=== PATIENT | female | born 1935 | race Caucasian/White ===

== ENCOUNTER → 2017-02-21 | Outpatient (CLI) | payer MEDICARE ==
--- NOTE | 2017-02-21 09:37 | CT ---
EXAMINATION TYPE: CT brain wo con DATE OF EXAM: 02/21/2017 COMPARISON: NONE HISTORY: Mild cognitive impairment CT DLP: [address] of the brain was performed. The ventricles, basal cisterns and sulci overlying the cerebral convexities demonstrate mild enlargem ent. There is no evidence for intracranial hemorrhage or sulcal effacement. There is decreased attenuation about the periventricular white matter and deep white matter of both c erebral hemispheres, compatible with chronic small vessel ischemia. Differential diagnosis does inclu de demyelination. No mass effects are seen.No midline shift. Osseous calvarium is intact. If symptoms persist consider MRI. IMPRESSION: 1. Age related atrophic and chronic small vessel ischemic change without acute intracranial process s een at this time.
== END | disposition home or self-care (01) ==
LOC: RADCTMAIN 09:04
PROVIDERS: ATTEND Internal Medicine
DX: G31.9 Degenerative disease of nervous system, unspecified (principal); I67.82 Cerebral ischemia
CPT/HCPCS: 70450

== ENCOUNTER 2018-03-22 11:16 | Inpatient (IN) | payer MEDICARE ==
[2018-03-22] MEDS ORDERED: SODIUM CHLORIDE 0.9% 1,000 ML IV STA (11:28)
[2018-03-22] MEDS ORDERED: ONDANSETRON 4 MG/2 ML VIAL IVP STA (11:28)
[2018-03-22] MEDS ORDERED: PANTOPRAZOLE 40 MG/10 ML VIAL IVP STA (11:29)
--- NOTE | 2018-03-22 12:18 | ED ---
General Adult HPI - General Chief complaint: Nausea/Vomiting/Diarrhea Stated complaint: Vomiting, Weakness, dehydrated Time Seen by Provider: 03/22/18 11:28 Source: patient, family, RN notes reviewed, old records reviewed Mode of arrival: wheelchair - History of Present Illness Initial comments: This is an 82-year-old female the ER for evaluation of weakness. Patient's poor strain significant underlying dementia, family states patient has not eaten activity level is in minimal for the last 5 days. No appetite. Patient herself complains of an upset stomach denies any significant pain. Possible history of recent weight loss. Patient has history of pancreatic CVA as well as history of pancreatitis. No fevers known. Some loose stools with no vomiting. - Related Data Home Medications Medication Instructions Recorded Confirmed Glimepiride [Amaryl] 4 mg PO BID 03/22/18 03/22/18 Levothyroxine Sodium [Synthroid] 50 mcg PO DAILY 03/22/18 03/22/18 Losartan [Cozaar] 25 mg PO DAILY 03/22/18 03/22/18 metFORMIN HCL ER [Glucophage Xr] 1,000 mg PO BID 03/22/18 03/22/18 Allergies Allergy/AdvReac Type Severity Reaction Status Date / Time tetanus and diphtheria Allergy Unknown Verified 03/22/18 12:12 toxoids Review of Systems ROS Statement: Those systems with pertinent positive or pertinent negative responses have been documented in the HPI. ROS Other: All systems not noted in ROS Statement are negative. Past Medical History Past Medical History: Dementia, Diabetes Mellitus History of Any Multi-Drug Resistant Organisms: None Reported Additional Past Surgical History / Comment(s): COLON SX POST CANCER, UTERIN CANCER HX Past Psychological History: No Psychological Hx Reported Smoking Status: Former smoker Past Alcohol Use History: None Reported Past Drug Use History: None Reported General Exam Limitations: altered mental status General appearance: alert, lethargic Head exam: Present: atraumatic, normocephalic, normal inspection Eye exam: Present: normal appearance, PERRL, EOMI. Absent: scleral icterus, conjunctival injection, periorbital swelling ENT exam: Present: normal exam, mucous membranes dry Neck exam: Present: normal inspection. Absent: tenderness, meningismus, lymphadenopathy Respiratory exam: Present: normal lung sounds bilaterally. Absent: respiratory distress, wheezes, rales, rhonchi, stridor Cardiovascular Exam: Present: regular rate, normal rhythm, normal heart sounds. Absent: systolic murmur, diastolic murmur, rubs, gallop, clicks GI/Abdominal exam: Present: soft, normal bowel sounds. Absent: distended, tenderness, guarding, rebound, rigid Extremities exam: Present: normal inspection, full ROM, normal capillary refill. Absent: tenderness, pedal edema, joint swelling, calf tenderness Back exam: Present: normal inspection Neurological exam: Present: alert, oriented X3, CN II-XII intact Psychiatric exam: Present: normal affect, normal mood Skin exam: Present: warm, dry, intact, normal color. Absent: rash Course Vital Signs 03/22/18 03/22/18 11:19 14:04 Temperature 97.8 F 97.1 F L Pulse Rate 60 62 Respiratory 18 16 Rate Blood Pressure 108/57 129/58 O2 Sat by Pulse 99 96 Oximetry - Reevaluation(s) Reevaluation #1: 03/22/18 14:54 Patient with no significant improvement in symptoms despite IV hydration here in the ER \Medical records thoroughly reviewed Medical Decision Making - Medical Decision Making 82 female the ER for evasive weakness, patient is positive urinary tract infection, multiple N [place] secondary to malnutrition. Patient be admitted for continued monitoring of oral intake, treatment of urinary tract infection - Lab Data Result diagrams: 03/22/18 14:00 03/22/18 14:00 Lab Results 03/22/18 03/22/18 03/22/18 Range/Units 13:33 14:00 14:00 WBC 9.1 (3.8-10.6) k/uL RBC 3.74 L (3.80-5.40) m/uL Hgb 12.1 (11.4-16.0) gm/dL Hct 36.6 (34.0-46.0) % MCV 97.8 (80.0-100.0) fL MCH 32.3 (25.0-35.0) pg MCHC 33.0 (31.0-37.0) g/dL RDW 12.7 (11.5-15.5) % Plt Count 186 (150-450) k/uL Neutrophils % 79 % Lymphocytes % 10 % Monocytes % 7 % Eosinophils % 2 % Basophils % 0 % Neutrophils # 7.3 (1.3-7.7) k/uL Lymphocytes # 0.9 L (1.0-4.8) k/uL Monocytes # 0.7 (0-1.0) k/uL Eosinophils # 0.2 (0-0.7) k/uL Basophils # 0.0 (0-0.2) k/uL Sodium 132 L (137-145) mmol/L Potassium 4.1 (3.5-5.1) mmol/L Chloride 103 (98-107) mmol/L Carbon Dioxide 19 L (22-30) mmol/L Anion Gap 10 mmol/L BUN 34 H (7-17) mg/dL Creatinine 1.07 H (0.52-1.04) mg/dL Est GFR (CKD-EPI)AfAm 57 (>60 ml/min/1.73 sqM) Est GFR (CKD-EPI)NonAf 49 (>60 ml/min/1.73 sqM) Glucose 189 H (74-99) mg/dL Calcium 8.0 L (8.4-10.2) mg/dL Phosphorus 3.1 (2.5-4.5) mg/dL Magnesium 1.4 L (1.6-2.3) mg/dL Total Bilirubin 0.6 (0.2-1.3) mg/dL AST 57 H (14-36) U/L ALT 31 (9-52) U/L Alkaline Phosphatase 56 (38-126) U/L Total Protein 6.3 (6.3-8.2) g/dL Albumin 3.3 L (3.5-5.0) g/dL Lipase 96 (23-300) U/L Urine Color Yellow Urine Appearance Cloudy H (Clear) Urine pH 5.5 (5.0-8.0) Ur Specific [place] 1.006 (1.001-1.035) Urine Protein Trace H (Negative) Urine Glucose (UA) Negative (Negative) Urine Ketones Negative (Negative) Urine Blood Negative (Negative) Urine Nitrite Positive H (Negative) Urine Bilirubin Negative (Negative) Urine Urobilinogen <2.0 (<2.0) mg/dL Ur Leukocyte Esterase Large H (Negative) Urine WBC 49 H (0-5) /hpf Urine WBC Clumps Moderate H (None) /hpf Ur Squamous Epith Cells <1 (0-4) /hpf Amorphous Sediment Occasional H (None) /hpf Urine Bacteria Few H (None) /hpf Urine Mucus Rare H (None) /hpf Acetone, Qual Negative (Negative) - Radiology Data Radiology results: report reviewed (X-ray abdominal series the chest is negative ), image reviewed Disposition Clinical Impression: Dehydration, UTI (urinary tract infection), Weakness Disposition: ADMITTED IP TO THIS [facility] Condition: Fair Is patient prescribed a controlled substance at d/c from ED?: No Referrals: Kyle Villar MD [Primary Care Provider] - 1-2 days
--- NOTE | 2018-03-22 12:45 | XR ---
EXAMINATION TYPE: XR abdomen acute w cxr DATE OF EXAM: 03/22/2018 CLINICAL HISTORY: Lethargy since March 18 with nausea and pain TECHNIQUE: Single frontal view of chest is obtained. Supine and upright views of the abdomen are acq uired. COMPARISON: None. FINDINGS: There is chronic parenchymal change without suspicious focal airspace opacity, pleural effu kimber, or pneumothorax seen bilaterally. Cardiac silhouette size appears upper limits of normal with atherosclerotic aorta. Osseous structures are somewhat demineralized. Gas is noted in nondistended stomach and small bowel loops. Additional gas is seen in nondistended co nasrin along the periphery. Cholecystectomy clips are present. Vascular calcification overlies the pelvi s extending into groin regions. There is asymmetric narrowing of the right sacroiliac joint. No pneum operitoneum is identified. IMPRESSION: 1. Chronic changes without acute pulmonary process. 2. Overall nonspecific but likely nonobstructive bowel gas pattern.
[2018-03-22 13:59] LABS: Amorphous Sediment,Urine Occasional /hpf; Appearance,Urine Cloudy (Clear); Bacteria,Urine Few /hpf; Bilirubin,Urine Negative (Negative); Blood,Urine Negative (Negative); Color,Urine Yellow; Glucose,Urine (UA) Negative (Negative); Ketones,Urine Negative (Negative); Leukocyte Esterase,Urine Large (Negative); Mucus,Urine Rare /hpf; Nitrite,Urine Positive (Negative); PH, Urine 5.5 (5.0-8.0); Protein,Urine Trace (Negative); Specific Gravity,Urine 1.006 (1.001-1.035); Squamous Epithelial Cell,Urine <1 /hpf (0-4); Urobilinogen,Urine <2.0 mg/dL (<2.0); WBC,Urine 49 /hpf (0-5)
[2018-03-22 14:10] LABS: Basophils % (A) 0 %; Eosinophils # (A) 0.2 k/uL (0-0.7); Eosinophils % (A) 2 %; HCT 36.6 % (34.0-46.0); HGB 12.1 gm/dL (11.4-16.0); Lymphocytes # (A) 0.9 k/uL (1.0-4.8); Lymphocytes % (A) 10 %; MCH 32.3 pg (25.0-35.0); MCV 97.8 fL (80.0-100.0); Mean Platelet Volume 7.7; Monocytes # (A) 0.7 k/uL (0-1.0); Monocytes % (A) 7 %; Neutrophils # (A) 7.3 k/uL (1.3-7.7); Neutrophils % (A) 79 %; Platelet Count 186 k/uL (150-450); RBC 3.74 m/uL (3.80-5.40); RDW 12.7 % (11.5-15.5); WBC 9.1 k/uL (3.8-10.6)
[2018-03-22 14:24] LABS: ALT 31 U/L (9-52); AST 57 U/L (14-36); Albumin 3.3 g/dL (3.5-5.0); Alkaline Phosphatase 56 U/L (38-126); Anion Gap 10 mmol/L; Blood Urea Nitrogen 34 mg/dL (7-17); Carbon Dioxide 19 mmol/L (22-30); Chloride 103 mmol/L (98-107); Glucose 189 mg/dL (74-99); Lipase 96 U/L (23-300); Magnesium 1.4 mg/dL (1.6-2.3); Phosphorus 3.1 mg/dL (2.5-4.5); Potassium 4.1 mmol/L (3.5-5.1); Sodium 132 mmol/L (137-145); Total Bilirubin 0.6 mg/dL (0.2-1.3); Total Protein 6.3 g/dL (6.3-8.2)
[2018-03-22] MEDS ORDERED: cefTRIAXone 2,000 MG in SODIUM CHLORIDE 0.9% 100 ML IVPB STA (14:41)
[2018-03-22] MEDS ORDERED: SODIUM CHLORIDE 0.9% 1,000 ML IV ONE (14:51)
[2018-03-22] MEDS: MAGNESIUM SULFATE-D5W PMX 1 GM in DEXTROSE/WATER 1 100ML.BAG IVPB SCH ×2 (15:42→16:51)
[2018-03-22 15:48] LABS: Partial Thromboplastin Time 22.2 sec (22.0-30.0); Prothrombin Time 9.9 sec (9.0-12.0)
[2018-03-22 16:11] LABS: Creatine Kinase MB 4.1 ng/mL (0.0-2.4)
[2018-03-22 16:22] LABS: Troponin I 18.2 ng/mL (0.000-0.034)
[2018-03-22 16:52] LABS: T4, Free (Free Thyroxine) 0.55 ng/dL (0.78-2.19)
[2018-03-22] MEDS ORDERED: ACETAMINOPHEN TAB 325 MG TAB PO PRN (17:01)
[2018-03-22] MEDS ORDERED: ASPIRIN 81 MG PO STA (17:11)
[2018-03-22] MEDS ORDERED: HEPARIN SODIUM,PORCINE 5,000 UNIT/ML 1 ML VIAL IV ONE (17:12)
[2018-03-22] MEDS ORDERED: HEPARIN SODIUM,PORCINE 5,000 UNIT/ML 1 ML VIAL IV PRN (17:12)
[2018-03-22] MEDS ORDERED: ONDANSETRON 4 MG/2 ML VIAL IVP PRN (17:14)
[2018-03-22] MEDS ORDERED: NALOXONE 0.4 MG/ML 1 ML VIAL IV PRN (17:14)
[2018-03-22] MEDS ORDERED: DOCUSATE 100 MG CAP PO PRN (17:14)
[2018-03-22] MEDS ORDERED: MAGNESIUM HYDROXIDE 2,400 MG/10 ML CUP PO PRN (17:14)
[2018-03-22] MEDS ORDERED: MAG HYDROX/AL HYDROX/SIMETH 30 ML CUP PO PRN (17:14)
--- NOTE | 2018-03-22 17:43 | P.HPIM ---
History of Present Illness Chief Complaint: Generalized weakness and epigastric discomfort and nausea This is a 82-year-old female who has history of long-standing type 2 diabetes mellitus, hypothyroidism, cognitive impairment, hypertension who presented with a chief complaint of generalized weakness and anorexia for 5 days. Patient is very poor historian due to memory deficits and most of the history obtained interviewing the patient and actually her at the bedside. One week prior to this presentation patient was in usual state of health energetic and she was visiting out of town. Upon return 5 days prior to this admission she suddenly started feeling tired, lethargic, sleepy, no energy and lost all her appetite. 2-3 days prior to this admission she started developing some epigastric discomfort, not a bryan pain but more nausea. He described his discomfort more like nausea that was not provoked by anything in particular. She did feel that food would somewhat make it worse but she cannot really pinpoint any particular provoking factor. She did not notice any alleviating or alleviating factors for her nausea. He did not throw up. She did not notice any particular abdominal pain. She denied in the diarrhea or constipation. Last bowel movement was yesterday. Denies any presence of red blood in stool or melena. notices that she is very tired and sleeps most of the day. There was no chest pain or shortness of breath. There was no any chills or fever. No back pain no dysuria or hemorrhage sure he. No headache or vision changes or focal weakness. Patient been a stable regimen with metformin and Amaryl levothyroxine and losartan. None of this medications have been recently changed. There was no episode of hypoglycemia reported. In emergency department initial blood work was essentially unremarkable for CBC. Metabolic panel showed hypomagnesemia and TSH of 37. UA was notable for significant pyuria positive nitrates glucoside esterase and many bacteria. EKG showed ST elevations in inferior leads 2, [address] some [address] segment depressions in aVL and 1. Patient stated that she never had any chest pain or any history of cardiac problems and there is no reported previous EKGs or stress test or catheterization. Troponin was checked and came back 18. Stat 2- D echo was performed at the bedside showing EF of about 20-25%. Patient was then admitted for further evaluation Review of Systems REVIEW OF SYSTEMS: CONSTITUTIONAL: She denies any recent weight changes, fevers or night sweats. DERMATOLOGIC: She denies any rashes. HEENT: Eyes: She has had no changes in her vision. No eye pain. No discharge. ENT: She had no hearing changes, no throat pain, no sinus difficulties. No hoarseness. CARDIOVASCULAR: She denies any chest pain or abnormal heart beats, or any swelling in her ankles or feet. RESPIRATORY: No wheezing or coughing. GASTROINTESTINAL: As noted above in history of present illness. GENITOURINARY: She denies any urinary urgency, frequency or burning, and there has been no blood in her urine. She has no flank pain. She has also had no vaginal discharge or bleeding. MUSCULOSKELETAL: She notes full range of motion of all her joints without pain or swelling. ENDOCRINE: She denies any heat or cold intolerance or excessive thirst or urination. NEUROLOGICAL: Currently, no headache. She has no vision changes, or fainting. No numbness or tingling. PSYCHIATRIC: As noted above in past medical history. 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 benign tunor removed from stomach, colonoscopy, egd, whipple procedure Past Anesthesia/Blood Transfusion Reactions: Motion Sickness Smoking Status: Former smoker - Past Family History Father Family Medical History: Unable to Obtain Additional Family Medical History / Comment(s): in his 90's Mother Family Medical History: Unable to Obtain Additional Family Medical History / Comment(s): in her 70's Medications and Allergies Home Medications Medication Instructions Recorded Confirmed Type Glimepiride [Amaryl] 4 mg PO BID 03/22/18 03/22/18 History Levothyroxine Sodium [Synthroid] 50 mcg PO DAILY 03/22/18 03/22/18 History Losartan [Cozaar] 25 mg PO DAILY 03/22/18 03/22/18 History metFORMIN HCL ER [Glucophage Xr] 1,000 mg PO BID 03/22/18 03/22/18 History Allergies Allergy/AdvReac Type Severity Reaction Status Date / Time tetanus and diphtheria Allergy Unknown Verified 03/22/18 12:12 toxoids Physical Exam Vitals: Vital Signs Temp Pulse Resp BP Pulse Ox 03/22/18 16:51 97.6 F 56 L 18 130/60 99 03/22/18 14:04 97.1 F L 62 16 129/58 96 03/22/18 11:19 97.8 F 60 18 108/57 99 Intake and Output 03/22/18 03/22/18 03/22/18 06:59 14:59 22:59 Other: Weight 47.627 kg Vital Signs: I have reviewed the vital signs. GENERAL: Well-nourished, Well-developed , no apparent distress, cooperative Eyes: PERRL, extraoculry movements intact, clear conjunctiva Head: : Atraumatic external nose and ears, oropharyngeal mucosa is moist without lesions or exudates Neck: Symmetric, trachea midline, No thyromegaly, no masses or neck vain pulsation, no neck rigidity CVS: +S1/S2, No murmurs or gallops. Peripheral pulses 2+ and equal in all extremities. RESP: Unlabored respiratory effort. Clear to auscultation bilaterally. Abdomen: Bowel sounds present in all 4 quadrants, Soft to palpation, Nontender/ Nondistended, No hepatosplenomegaly, no hernias or masses, no CVA tnderness Musculoskeletal: Extremities w/o deformity, No cyanosis or clubbing, no joint swelling Skin: Warm, Dry. No rashes or lesions Neuro: dye house helper II-XII grossly intact, motor strenght 5/5 i upper and lower extremities, no clonus, patellar DTRs 2+ and sympetrical Psych: Awake, Alert, & Oriented (AAO) x3 Appropriate mood and affect Results CBC & Chem 7: 03/22/18 14:00 03/22/18 14:00 Labs: Abnormal Lab Results - Last 24 Hours (Table) 03/22/18 03/22/18 03/22/18 Range/Units 13:33 14:00 14:00 RBC 3.74 L (3.80-5.40) m/uL Lymphocytes # 0.9 L (1.0-4.8) k/uL Sodium 132 L (137-145) mmol/L Carbon Dioxide 19 L (22-30) mmol/L BUN 34 H (7-17) mg/dL Creatinine 1.07 H (0.52-1.04) mg/dL Glucose 189 H (74-99) mg/dL Calcium 8.0 L (8.4-10.2) mg/dL Magnesium 1.4 L (1.6-2.3) mg/dL AST 57 H (14-36) U/L Total Creatine Kinase (30-135) U/L CK-MB (CK-2) (0.0-2.4) ng/mL Troponin I (0.000-0.034) ng/mL Albumin 3.3 L (3.5-5.0) g/dL TSH (0.465-4.680) mIU/L Free T4 (0.78-2.19) ng/dL Free T3 pg/mL (2.8-5.3) pg/ml Urine Appearance Cloudy H (Clear) Urine Protein Trace H (Negative) Urine Nitrite Positive H (Negative) Ur Leukocyte Esterase Large H (Negative) Urine WBC 49 H (0-5) /hpf Urine WBC Clumps Moderate H (None) /hpf Amorphous Sediment Occasional H (None) /hpf Urine Bacteria Few H (None) /hpf Urine Mucus Rare H (None) /hpf 03/22/18 03/22/18 03/22/18 Range/Units 15:12 15:12 15:12 RBC (3.80-5.40) m/uL Lymphocytes # (1.0-4.8) k/uL Sodium (137-145) mmol/L Carbon Dioxide (22-30) mmol/L BUN (7-17) mg/dL Creatinine (0.52-1.04) mg/dL Glucose (74-99) mg/dL Calcium (8.4-10.2) mg/dL Magnesium (1.6-2.3) mg/dL AST (14-36) U/L Total Creatine Kinase 205 H (30-135) U/L CK-MB (CK-2) 4.1 H (0.0-2.4) ng/mL Troponin I 18.200 H* (0.000-0.034) ng/mL Albumin (3.5-5.0) g/dL TSH 37.000 H (0.465-4.680) mIU/L Free T4 0.55 L (0.78-2.19) ng/dL Free T3 pg/mL 1.0 L (2.8-5.3) pg/ml Urine Appearance (Clear) Urine Protein (Negative) Urine Nitrite (Negative) Ur Leukocyte Esterase (Negative) Urine WBC (0-5) /hpf Urine WBC Clumps (None) /hpf Amorphous Sediment (None) /hpf Urine Bacteria (None) /hpf Urine Mucus (None) /hpf Chest x-ray: report reviewed Abdominal x-ray: report reviewed Thrombosis Risk Factor Assmnt - DVT/VTE Prophylaxis DVT/VTE Prophylaxis: Pharmacologic Prophylaxis ordered Assessment and Plan Plan: 1. Acute coronary syndrome/ST segment elevation CT This was discussed with Dr. Ledbetter from cardiology Likely completed CT in the subacute phase given the pronounced Q-wave Patient is currently asymptomatic She will be admitted to selective care unit ACS protocol: Aspirin stat and daily Heparin drip, this was discussed with the patient and patient has been in the room or risks and benefits discussed and they were agreeable to proceed, patient denies any history of easy bruising and epistaxis vaginal bleeding blood in stool or blood in her urine No beta blockers for now as she is bradycardic in 50s Low-dose isosorbide Low-dose PEPE inhibitor due to possible decrease heart function preliminary noted on echo Statin Cardiology consultation Stat 2-D echo performed, luminary showing decreased EF 20-25% range Serial troponin Serial CBCs while on heparin Closely monitoring for any signs of bleeding Above plan was discussed with Dr. Ledbetter extensively, I also faxed pertinent EKG to Dr. Ledbetter and discussed with him findings preliminary on echo and troponin results; no plan for immediate catheterization as it seemed that is subacute phase of infarction with performed Q wave 2. Hypothyroidism TSH 37 with generalized symptoms of weakness Most likely due to poor adherence with her home medication which can be due to her memory issues. Also patient was not taking her medication properly she was taking it with food I will restart her home dose and patient her instructed the medication is to be taken on empty stomach. Recheck TSH in 4 weeks 3. Urinary tract infection Ceftriaxone for 3 days Urine culture obtained 4. Type 2 diabetes mellitus on long-term use of oral antidiabetic medications We will hold her metformin and Amaryl Blood glucose checks before meals at bedtime and correctional sliding scale 5. Cognitive impairment Rule out dementia Patient had recently B12 check which was Low normal; Will check methyl malonic acid and she might benefit from other vitamins and micronutrients evaluation given the history of Whipple surgery Dementia work up also to include syphilis screen rest of the work up can be done on outpatient basis including neuropsychologist evaluation 6. Chronic parenchymal lung changes noted in the chest x-ray History of smoking this can be follow-up on outpatient basis. PFTs and high-resolution CAT scan 7. Hypomagnesemia due to poor oral intake Replaced in the emergency department we'll recheck her magnesium keep corrected as needed Patient is a full code Surrogate decision maker is her Ba and with whom I discussed the plan of care at bedside Anticipated length of stay 2 or more midnights Time with Patient: Greater than 30
[2018-03-22] MEDS: HEPARIN SOD,PORK IN 0.45% NACL 25,000 UNIT in 0.45% NACL 1 500ML.BAG IV SCH (17:51)
[2018-03-22] MEDS: ISOSORBIDE MONONITRATE 20 MG TAB PO SCH ×2 (19:38→20:35)
[2018-03-22] MEDS: METOPROLOL TARTRATE 12.5 MG TAB PO SCH (20:35)
[2018-03-22 20:58] LABS: Glucose,Whole Blood 145 mg/dL (75-99)
[2018-03-22] MEDS ORDERED: ATORVASTATIN 40 MG TAB PO SCH (21:00)
[2018-03-23 06:29] LABS: Glucose,Whole Blood 150 mg/dL (75-99)
[2018-03-23] MEDS: LEVOTHYROXINE 50 MCG TAB PO SCH (06:29)
[2018-03-23] MEDS: PANTOPRAZOLE 40 MG TABLET PO SCH (06:29)
[2018-03-23 07:39] LABS: Prothrombin Time 9.6 sec (9.0-12.0)
[2018-03-23 07:42] LABS: Basophils % (A) 0 %; Eosinophils # (A) 0.1 k/uL (0-0.7); Eosinophils % (A) 1 %; HCT 30.2 % (34.0-46.0); Lymphocytes # (A) 0.9 k/uL (1.0-4.8); Lymphocytes % (A) 15 %; MCH 32.4 pg (25.0-35.0); MCHC 32.9 g/dL (31.0-37.0); MCV 98.6 fL (80.0-100.0); Mean Platelet Volume 7.3; Monocytes # (A) 0.4 k/uL (0-1.0); Monocytes % (A) 7 %; Neutrophils # (A) 4.4 k/uL (1.3-7.7); Neutrophils % (A) 75 %; Platelet Count 236 k/uL (150-450); RBC 3.06 m/uL (3.80-5.40); RDW 12.8 % (11.5-15.5); WBC 5.9 k/uL (3.8-10.6)
[2018-03-23 07:45] LABS: HGB 9.9 gm/dL (11.4-16.0)
[2018-03-23 07:52] LABS: Calcium 7.8 mg/dL (8.4-10.2); Magnesium 2.4 mg/dL (1.6-2.3); Potassium 3.9 mmol/L (3.5-5.1)
[2018-03-23] MEDS ORDERED: ENOXAPARIN 40 MG/0.4 ML SYRINGE SQ SCH (09:00)
[2018-03-23] MEDS ORDERED: LISINOPRIL 10 MG TAB PO SCH (09:00)
--- NOTE | 2018-03-23 09:12 | P.CRDCN ---
History of Present Illness Consult date: 03/23/18 Requesting physician: vIanna العراقي Consult reason: non-Q-wave [place] Chief complaint: Weakness History of present illness: This is an 82-year-old female most of the history was obtained from the medical record as the patient has dementia. I'm waiting for the to arrive to get a more detailed history. Patient apparently has history of diabetes, hypothyroidism, cognitive impairment, hypertension, who presents to the hospital with symptoms of generalized weakness and generally not feeling well for approximate five-day duration. Apparently one week ago she was in her usual state of health, quite physically active with no complaints. Patient had been feeling extremely tired and lethargic, sleeping a lot, loss of energy, and she had been developing and experiencing symptoms of intermittent epigastric discomfort with nausea. A CAT scan of the brain was performed on arrival here which showed age-related atrophic and chronic small vessel ischemic change without any acute intracranial process seen at this time. Acute abdominal series was also performed which revealed chronic changes without acute pulmonary process. Overall nonspecific but likely nonobstructive bowel gas pattern. Her EKG on admission here showed a sinus bradycardia with first- degree AV block ST elevation noted in the inferior leads as well as some ST-T wave changes noted in the lateral leads. An EKG performed this morning continued to show normal sinus rhythm with inferior ST elevation. Laboratory data was noted, white blood cell count 9.1, 5.9 this morning, hemoglobin 12.1 on admission, 9.9 this morning. D-dimer 0.33, sodium 137, potassium 3.9, BUN 24 , creatinine 1.03. Mag 1.4 on admission, 2.4 this morning. First troponin on admission 18.2, subsequent troponin 21 and 22. TSH level 37.00 free T4 0.5 free T3 1.0. at the time of my examination this morning, patient denies any chest pain, states that she never had any chest discomfort or difficulty she denies any nausea or any of the symptoms which according to her she had been experiencing prior to coming here. 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 benign tunor removed from stomach, colonoscopy, egd, whipple procedure Past Anesthesia/Blood Transfusion Reactions: Motion Sickness Smoking Status: Former smoker - Past Family History Father Family Medical History: Unable to Obtain Additional Family Medical History / Comment(s): in his 90's Mother Family Medical History: Unable to Obtain Additional Family Medical History / Comment(s): in her 70's Medications and Allergies Home Medications Medication Instructions Recorded Confirmed Type Glimepiride [Amaryl] 4 mg PO BID 03/22/18 03/22/18 History Levothyroxine Sodium [Synthroid] 50 mcg PO DAILY 03/22/18 03/22/18 History Losartan [Cozaar] 25 mg PO DAILY 03/22/18 03/22/18 History metFORMIN HCL ER [Glucophage Xr] 1,000 mg PO BID 03/22/18 03/22/18 History Allergies Allergy/AdvReac Type Severity Reaction Status Date / Time tetanus and diphtheria Allergy Unknown Verified 03/22/18 12:12 toxoids Physical Exam Vitals: Vital Signs Temp Pulse Pulse Resp BP BP Pulse Ox 03/23/18 08:00 97.8 F 52 L 16 109/60 98 03/23/18 04:00 59 L 16 97/54 97 03/23/18 00:00 57 L 18 90/57 98 03/22/18 20:00 97.3 F L 64 18 115/51 100 03/22/18 19:15 97.3 F L 52 L 18 114/67 97 03/22/18 17:52 72 18 114/53 100 03/22/18 17:14 97 03/22/18 16:51 97.6 F 56 L 18 130/60 99 03/22/18 14:04 97.1 F L 62 16 129/58 96 03/22/18 11:19 97.8 F 60 18 108/57 99 Intake and Output 03/22/18 03/23/18 03/23/18 22:59 06:59 14:59 Intake Total 87.82 0 Output Total 200 Balance -200 87.82 0 Intake: Intake, IV Titration 87.82 Amount Heparin Sod,Pork in 0.45% 87.82 NaCl 25,000 unit In 0.45 % NaCl 1 500ml.bag @ 12 UNITS/KG/HR 11.43 mls/hr IV .Q24H [facility] Rx#: [id number] Oral 0 Output: Urine 200 Other: # Voids 1 1 Weight 46.8 kg PHYSICAL EXAMINATION: GENERAL: 82-year-old female in no acute distress at the time of my examination HEENT: Head is atraumatic, normocephalic. Pupils equal, round. Sclera anicteric. Conjunctiva are clear. Mucous membranes of the mouth are moist. Neck is supple. There is elevated jugular venous pressure. no carotid bruit is heard. HEART EXAMINATION: [Heart S1 and S2 with soft systolic murmur is heard CHEST EXAMINATION:[Lungs are clear to auscultation and precussion. No chest wall tenderness is noted on palpation or with deep breathing.] ABDOMEN: [Soft, nontender. Bowel sounds are heard. No organomegaly noted] EXTREMITIES:[2+ peripheral pulses with no evidence of peripheral edema and no calf tenderness noted] NEUROLOGIC patient is awake, alert and oriented X1. . Results 03/23/18 06:38 03/23/18 06:38 Cardiac Enzymes 03/22/18 03/22/18 03/22/18 Range/Units 14:00 15:12 20:07 AST 57 H (14-36) U/L CK-MB (CK-2) 4.1 H (0.0-2.4) ng/mL Troponin I 18.200 H* 21.900 H* (0.000-0.034) ng/mL 03/23/18 Range/Units 06:38 AST (14-36) U/L CK-MB (CK-2) (0.0-2.4) ng/mL Troponin I 22.700 H* (0.000-0.034) ng/mL Coagulation 03/22/18 03/23/18 03/23/18 Range/Units 15:12 00:35 06:38 PT 9.9 9.6 (9.0-12.0) sec APTT 22.2 41.3 H 48.0 H (22.0-30.0) sec Lipids 03/23/18 Range/Units 06:38 Triglycerides 168 H (<150) mg/dL Cholesterol 150 (<200) mg/dL HDL Cholesterol 42 (40-60) mg/dL CBC 03/22/18 03/23/18 Range/Units 14:00 06:38 WBC 9.1 5.9 (3.8-10.6) k/uL RBC 3.74 L 3.06 L (3.80-5.40) m/uL Hgb 12.1 9.9 L D (11.4-16.0) gm/dL Hct 36.6 30.2 L (34.0-46.0) % Plt Count 186 236 (150-450) k/uL Comprehensive Metabolic Panel 03/22/18 03/23/18 Range/Units 14:00 06:38 Sodium 132 L 137 (137-145) mmol/L Potassium 4.1 3.9 (3.5-5.1) mmol/L Chloride 103 107 (98-107) mmol/L Carbon Dioxide 19 L 25 (22-30) mmol/L BUN 34 H 24 H (7-17) mg/dL Creatinine 1.07 H 1.03 (0.52-1.04) mg/dL Glucose 189 H 153 H (74-99) mg/dL Calcium 8.0 L 7.8 L (8.4-10.2) mg/dL AST 57 H (14-36) U/L ALT 31 (9-52) U/L Alkaline Phosphatase 56 (38-126) U/L Total Protein 6.3 (6.3-8.2) g/dL Albumin 3.3 L (3.5-5.0) g/dL Current Medications Generic Name Dose Route Start Last Admin Trade Name Freq PRN Reason Stop Dose Admin Acetaminophen 650 mg 03/22/18 17:01 Tylenol Tab PO Q4HR PRN Pain Al Hydroxide/Mg Hydroxide 15 ml 03/22/18 17:14 Maalox PO Q6HR PRN Indigestion Aspirin 325 mg 03/23/18 12:00 Aspirin PO DAILY N[facility]IL Atorvastatin Calcium 40 mg 03/22/18 21:00 03/22/18 20:35 Lipitor PO 40 mg HS N[facility]IL Administration Docusate Sodium 100 mg 03/22/18 17:14 Colace PO BID PRN Constipation Heparin Sodium (Porcine) 0 unit 03/22/18 17:12 Heparin IV PER PROTOCOL PRN Low PTT Protocol Ceftriaxone Sodium 1,000 mg/ 50 mls @ 100 mls/hr 03/23/18 12:00 Sodium Chloride IVPB Q24H [facility] Heparin Sodium/Sodium Chloride 500 mls @ 11.43 mls/hr 03/22/18 17:15 01:32 25,000 unit/ Sodium Chloride IV 14 units/kg/hr .Q24H [facility] 13.33 mls/hr Titration Protocol 12 UNITS/KG/HR Levothyroxine Sodium 50 mcg 03/23/18 06:30 03/23/18 06:29 Synthroid PO 50 mcg 0630 NABIL Administration Lisinopril 10 mg 03/23/18 09:00 Zestril PO DAILY NABIL Magnesium Hydroxide 2,400 mg 03/22/18 17:14 Milk Of Magnesia PO DAILY PRN Constipation Metoprolol Tartrate 12.5 mg 03/22/18 20:00 03/22/18 20:35 Lopressor PO 12.5 mg DAILY NABIL Administration Naloxone HCl 0.2 mg 03/22/18 17:14 Narcan IV Q2M PRN Opioid Reversal Ondansetron HCl 4 mg 03/22/18 17:14 Zofran IVP Q8HR PRN Nausea And Vomiting Pantoprazole Sodium 40 mg 03/23/18 07:30 03/23/18 06:29 Protonix PO 40 mg AC-[id number] NABIL Administration Intake and Output 03/22/18 03/23/18 03/23/18 22:59 06:59 14:59 Intake Total 87.82 0 Output Total 200 Balance -200 87.82 0 Intake: Intake, IV Titration 87.82 Amount Heparin Sod,Pork in 0.45% 87.82 NaCl 25,000 unit In 0.45 % NaCl 1 500ml.bag @ 12 UNITS/KG/HR 11.43 mls/hr IV .Q24H [facility] Rx#: [id number] Oral 0 Output: Urine 200 Other: # Voids 1 1 Weight 46.8 kg 03/23/18 06:38 03/23/18 06:38 EKG Interpretations (text) EKG shows sinus rhythm with first-degree AV block, inferior ST elevation with a mild lateral ST depression Assessment and Plan Plan: Assessment and plan #1 acute inferior wall myocardial infarction #2 hypertension #3 hyperlipidemia #4 diabetes #5 dementia #6 hypothyroidism, TSH level 37.0, free T4 0.5, free T3 1.0. Patient had been on Synthroid 50 g daily at home. #7 anemia, hemoglobin on admission 12, 9.9 this morning, dehydration. Plan An echocardiogram with Doppler study was performed in the emergency room which we will review. We will also discuss with the regarding proceeding with invasive procedures or continuing maximal medical therapy as well as patient's overall status and CODE STATUS. We will continue with the IV heparin along with the statin, decrease aspirin to 81 mg daily, continue lisinopril, replace magnesium, patient is not currently on a beta ashanti because of bradycardia. Further recommendations to follow. Dr. Medina did have a discussion with him on his arrival, the decision at this point was made to continue maximum medical therapy. If patient continues to have symptoms in spite of maximizing her medical therapy, A re-discussion then will be made regarding cardiac catheterization. Will increase her dose of Synthroid as well. Increase Lipitor to 80 mg daily, add Plavix to her medication regime, decrease lisinopril to 5 mg daily. DNP note has been reviewed, I agree with a documented findings and plan of care. Patient was seen and examined.
--- NOTE | 2018-03-23 10:33 | XR ---
EXAMINATION TYPE: XR chest 1V portable DATE OF EXAM: 03/23/2018 HISTORY: sob. REFERENCE: NONE. FINDINGS: The lungs are clear. Heart size upper limits of normal. There is blunting of the right CP a ngle. I could not exclude a small effusion. IMPRESSION: 1. BORDERLINE CARDIOMEGALY. 2. I COULD NOT EXCLUDE A SMALL, RIGHT-SIDED EFFUSION.
--- NOTE | 2018-03-23 11:03 | ECHOF ---
Referral Reason:abnromal EKG MEASUREMENTS -------- HEIGHT: 154.9 cm WEIGHT: 47.6 kg BP: IVSd: 1.0 cm (0.6 - 1.1) LVIDd: 4.1 cm (3.9 - 5.3) LVPWd: 1.1 cm (0.6 - 1.1) IVSs: 1.2 cm LVIDs: 3.7 cm LVPWs: 1.1 cm Ao Diam: 2.5 cm (2.0 - 3.7) AV Cusp: 1.8 cm (1.5 - 2.6) LA Diam: 3.2 cm (2.7 - 3.8) MV EXCURSION: 12.690 mm (> 18.000) MV EF SLOPE: 37 mm/s (70 - 150) EPSS: 1.4 cm RAP: 5.00 mmHg RVSP: 9.86 mmHg FINDINGS -------- Resting bradycardia (HR<60bpm). This was a technically good study. The left ventricular size is normal. Left ventricular wall thickness is normal. There is moderate global hypokinesis of LV . Overall left ventricular systolic function is severely impaired with, a n EF between 25 - 30 %. The right ventricle is normal in size and function. The left atrium is normal in size. The right atrium is normal in size. Aortic valve is trileaflet and is mildly thickened. The mitral valve leaflets are mildly thickened. Moderate mitral regurgitation is present. Mild tricuspid regurgitation present. The right ventricular systolic pressure, as measured by Doppl er, is 9.86mmHg. Pulmonic valve appears structurally normal. The aortic root size is normal. Normal inferior vena cava with normal inspiratory collapse consistent with estimated right atrial pre ssure of 5 mmHg. The pericardium is normal. CONCLUSIONS -------- 1. Resting bradycardia (HR<60bpm). 2. This was a technically good study. 3. The left ventricular size is normal. 4. Left ventricular wall thickness is normal. 5. There is moderate global hypokinesis of LV . 6. Overall left ventricular systolic function is severely impaired with, an EF between 25 - 30 %. 7. The right ventricle is normal in size and function. 8. The left atrium is normal in size. 9. The right atrium is normal in size. 10. Aortic valve is trileaflet and is mildly thickened. 11. The mitral valve leaflets are mildly thickened. 12. Moderate mitral regurgitation is present. 13. Mild tricuspid regurgitation present. 14. The right ventricular systolic pressure, as measured by Doppler, is 9.86mmHg. 15. Pulmonic valve appears structurally normal. 16. The aortic root size is normal. 17. Normal inferior vena cava with normal inspiratory collapse consistent with estimated right atrial pressure of 5 mmHg. 18. The pericardium is normal. PLASTICS REPAIRER: Yadira Gutierrez RDCS
[2018-03-23 12:00] LABS: Glucose,Whole Blood 165 mg/dL (75-99)
[2018-03-23] MEDS ORDERED: ASPIRIN 325 MG TAB PO SCH (12:00)
[2018-03-23] MEDS: METOPROLOL TARTRATE 12.5 MG TAB PO SCH (12:05)
[2018-03-23] MEDS: CLOPIDOGREL 75 MG TAB PO SCH (12:05)
[2018-03-23] MEDS: ASPIRIN 81 MG PO SCH (13:42)
[2018-03-23] MEDS: LISINOPRIL 5 MG TAB PO SCH (13:43)
--- NOTE | 2018-03-23 14:07 | P.PN ---
Subjective Up in chair eating breakfast. Patient denies any CP, abdonimal pain or SOB. No blood in urine or stool per patient. No focal pain or discomfort. No headache or nausea or blurred vision. patient states that she has been feeling "much better this morning". Denies disuria, frequency, chills or back pain. Reports much better appetite REVIEW OF SYSTEMS: CONSTITUTIONAL: No fever or chills HEENT: No changes in vision or voice CARDIOVASCULAR: no chest pain or abnormal heart beats, or any swelling in ankles or feet. RESPIRATORY: No wheezing or coughing. GASTROINTESTINAL: No abdominal pain, no nausea no vomiting no constipation or diarrhea GENITOURINARY: no any urinary urgency, frequency or burning, and there has been no blood in her urine. no flank pain. MUSCULOSKELETAL: She notes full range of motion of all her joints without pain or swelling. NEUROLOGICAL: , no headache. no vision changes, or fainting. No numbness or tingling. Objective - Vital Signs Vital signs: Vital Signs Temp 97.8 F 03/23/18 08:00 Pulse 65 03/23/18 11:15 Resp 16 03/23/18 11:15 BP 121/73 03/23/18 11:15 Pulse Ox 97 03/23/18 11:15 Intake & Output 03/22/18 03/23/18 03/23/18 18:59 06:59 18:59 Intake Total 87.82 0 Output Total 200 Balance -112.18 0 Weight 47.627 kg 46.8 kg Intake: Intake, IV Titration 87.82 Amount Heparin Sod,Pork in 0.45% 87.82 NaCl 25,000 unit In 0.45 % NaCl 1 500ml.bag @ 12 UNITS/KG/HR 11.43 mls/hr IV .Q24H [facility] Rx#: [id number] Oral 0 Output: Urine 200 Other: # Voids 1 - Exam Vital Signs: I have reviewed the vital signs. GENERAL: Well-nourished, Well-developed , no apparent distress, cooperative Eyes: PERRL, extraoculry movements intact, clear conjunctiva Head: : Atraumatic external nose and ears, oropharyngeal mucosa is moist without lesions or exudates Neck: Symmetric, trachea midline, No thyromegaly, no masses or neck vain pulsation, no neck rigidity CVS: +S1/S2, No murmurs or gallops. Peripheral pulses 2+ and equal in all extremities. RESP: Unlabored respiratory effort. Clear to auscultation bilaterally. Abdomen: Bowel sounds present in all 4 quadrants, Soft to palpation, Nontender/ Nondistended, No hepatosplenomegaly, no hernias or masses, no CVA tnderness Musculoskeletal: Extremities w/o deformity, No cyanosis or clubbing, no joint swelling Skin: Warm, Dry. 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, motor strenght 5/5 i upper and lower extremities, no clonus, patellar DTRs 2+ and sympetrical Psych: Awake, Alert, & Oriented (AAO) x3 Appropriate mood and affect - Labs CBC & Chem 7: 03/23/18 06:38 03/23/18 06:38 Labs: Abnormal Lab Results - Last 24 Hours (Table) 03/22/18 03/22/18 03/22/18 Range/Units 13:33 14:00 14:00 RBC 3.74 L (3.80-5.40) m/uL Hgb (11.4-16.0) gm/dL Hct (34.0-46.0) % Lymphocytes # 0.9 L (1.0-4.8) k/uL APTT (22.0-30.0) sec Sodium 132 L (137-145) mmol/L Carbon Dioxide 19 L (22-30) mmol/L BUN 34 H (7-17) mg/dL Creatinine 1.07 H (0.52-1.04) mg/dL Glucose 189 H (74-99) mg/dL POC Glucose (mg/dL) (75-99) mg/dL Calcium 8.0 L (8.4-10.2) mg/dL Magnesium 1.4 L (1.6-2.3) mg/dL AST 57 H (14-36) U/L Total Creatine Kinase (30-135) U/L CK-MB (CK-2) (0.0-2.4) ng/mL Troponin I (0.000-0.034) ng/mL Albumin 3.3 L (3.5-5.0) g/dL Triglycerides (<150) mg/dL TSH (0.465-4.680) mIU/L Free T4 (0.78-2.19) ng/dL Free T3 pg/mL (2.8-5.3) pg/ml Urine Appearance Cloudy H (Clear) Urine Protein Trace H (Negative) Urine Nitrite Positive H (Negative) Ur Leukocyte Esterase Large H (Negative) Urine WBC 49 H (0-5) /hpf Urine WBC Clumps Moderate H (None) /hpf Amorphous Sediment Occasional H (None) /hpf Urine Bacteria Few H (None) /hpf Urine Mucus Rare H (None) /hpf 03/22/18 03/22/18 03/22/18 Range/Units 15:12 15:12 15:12 RBC (3.80-5.40) m/uL Hgb (11.4-16.0) gm/dL Hct (34.0-46.0) % Lymphocytes # (1.0-4.8) k/uL APTT (22.0-30.0) sec Sodium (137-145) mmol/L Carbon Dioxide (22-30) mmol/L BUN (7-17) mg/dL Creatinine (0.52-1.04) mg/dL Glucose (74-99) mg/dL POC Glucose (mg/dL) (75-99) mg/dL Calcium (8.4-10.2) mg/dL Magnesium (1.6-2.3) mg/dL AST (14-36) U/L Total Creatine Kinase 205 H (30-135) U/L CK-MB (CK-2) 4.1 H (0.0-2.4) ng/mL Troponin I 18.200 H* (0.000-0.034) ng/mL Albumin (3.5-5.0) g/dL Triglycerides (<150) mg/dL TSH 37.000 H (0.465-4.680) mIU/L Free T4 0.55 L (0.78-2.19) ng/dL Free T3 pg/mL 1.0 L (2.8-5.3) pg/ml Urine Appearance (Clear) Urine Protein (Negative) Urine Nitrite (Negative) Ur Leukocyte Esterase (Negative) Urine WBC (0-5) /hpf Urine WBC Clumps (None) /hpf Amorphous Sediment (None) /hpf Urine Bacteria (None) /hpf Urine Mucus (None) /hpf 03/22/18 03/22/18 03/23/18 Range/Units 20:07 20:57 00:35 RBC (3.80-5.40) m/uL Hgb (11.4-16.0) gm/dL Hct (34.0-46.0) % Lymphocytes # (1.0-4.8) k/uL APTT 41.3 H (22.0-30.0) sec Sodium (137-145) mmol/L Carbon Dioxide (22-30) mmol/L BUN (7-17) mg/dL Creatinine (0.52-1.04) mg/dL Glucose (74-99) mg/dL POC Glucose (mg/dL) 145 H (75-99) mg/dL Calcium (8.4-10.2) mg/dL Magnesium (1.6-2.3) mg/dL AST (14-36) U/L Total Creatine Kinase (30-135) U/L CK-MB (CK-2) (0.0-2.4) ng/mL Troponin I 21.900 H* (0.000-0.034) ng/mL Albumin (3.5-5.0) g/dL Triglycerides (<150) mg/dL TSH (0.465-4.680) mIU/L Free T4 (0.78-2.19) ng/dL Free T3 pg/mL (2.8-5.3) pg/ml Urine Appearance (Clear) Urine Protein (Negative) Urine Nitrite (Negative) Ur Leukocyte Esterase (Negative) Urine WBC (0-5) /hpf Urine WBC Clumps (None) /hpf Amorphous Sediment (None) /hpf Urine Bacteria (None) /hpf Urine Mucus (None) /hpf 03/23/18 03/23/18 03/23/18 Range/Units 06:27 06:38 06:38 RBC 3.06 L (3.80-5.40) m/uL Hgb 9.9 L D (11.4-16.0) gm/dL Hct 30.2 L (34.0-46.0) % Lymphocytes # 0.9 L (1.0-4.8) k/uL APTT (22.0-30.0) sec Sodium (137-145) mmol/L Carbon Dioxide (22-30) mmol/L BUN 24 H (7-17) mg/dL Creatinine (0.52-1.04) mg/dL Glucose 153 H (74-99) mg/dL POC Glucose (mg/dL) 150 H (75-99) mg/dL Calcium 7.8 L (8.4-10.2) mg/dL Magnesium 2.4 H (1.6-2.3) mg/dL AST (14-36) U/L Total Creatine Kinase (30-135) U/L CK-MB (CK-2) (0.0-2.4) ng/mL Troponin I (0.000-0.034) ng/mL Albumin (3.5-5.0) g/dL Triglycerides 168 H (<150) mg/dL TSH (0.465-4.680) mIU/L Free T4 (0.78-2.19) ng/dL Free T3 pg/mL (2.8-5.3) pg/ml Urine Appearance (Clear) Urine Protein (Negative) Urine Nitrite (Negative) Ur Leukocyte Esterase (Negative) Urine WBC (0-5) /hpf Urine WBC Clumps (None) /hpf Amorphous Sediment (None) /hpf Urine Bacteria (None) /hpf Urine Mucus (None) /hpf 03/23/18 03/23/18 03/23/18 Range/Units 06:38 06:38 11:48 RBC (3.80-5.40) m/uL Hgb (11.4-16.0) gm/dL Hct (34.0-46.0) % Lymphocytes # (1.0-4.8) k/uL APTT 48.0 H (22.0-30.0) sec Sodium (137-145) mmol/L Carbon Dioxide (22-30) mmol/L BUN (7-17) mg/dL Creatinine (0.52-1.04) mg/dL Glucose (74-99) mg/dL POC Glucose (mg/dL) 165 H (75-99) mg/dL Calcium (8.4-10.2) mg/dL Magnesium (1.6-2.3) mg/dL AST (14-36) U/L Total Creatine Kinase (30-135) U/L CK-MB (CK-2) (0.0-2.4) ng/mL Troponin I 22.700 H* (0.000-0.034) ng/mL Albumin (3.5-5.0) g/dL Triglycerides (<150) mg/dL TSH (0.465-4.680) mIU/L Free T4 (0.78-2.19) ng/dL Free T3 pg/mL (2.8-5.3) pg/ml Urine Appearance (Clear) Urine Protein (Negative) Urine Nitrite (Negative) Ur Leukocyte Esterase (Negative) Urine WBC (0-5) /hpf Urine WBC Clumps (None) /hpf Amorphous Sediment (None) /hpf Urine Bacteria (None) /hpf Urine Mucus (None) /hpf Microbiology - Last 24 Hours (Table) 03/22/18 13:33 Urine Culture - Preliminary Urine,Voided Assessment and Plan Plan: 1. Acute coronary syndrome/ST segment elevation [place] Cardiology following Plan is to proceed with medical management as family and the patient declined cardiac catheterization for now Heparin drip has been continued and tolerating fine with stable platelets She has a mild drop in her hemoglobin which is 9.9 this morning but no any obvious signs of any kind of bleeding and I believe this to be dilutional effect We will check another hemoglobin later on today and tomorrow morning Started on low dose Lopressor by cardiology Closely monitoring for bradycardia 2. Hypothyroidism Uncontrolled Likely due to error with medication dosing and poor adherence Patient instructed to take her levothyroxine only on empty stomach 1 hour before breakfast Labs from February of this year were consistent with iatrogenic hyperthyroidism, patient was on 100 g at that time and subsequently decreased to 50 Follow-up TSH in 4 weeks 3. Urinary tract infection Patient is not septic Urine culture pending Received ceftriaxone 2 doses Change to Keflex 3 days from tomorrow 4. Type 2 diabetes mellitus on long-term use of oral antidiabetic medications We will hold her metformin and Amaryl Blood glucose checks before meals at bedtime and correctional sliding scale 5. Cognitive impairment Rule out dementia Syphilis screen negative MMA pending rest of the work up can be done on outpatient basis including neuropsychologist evaluation 6. Chronic parenchymal lung changes noted in the chest x-ray History of smoking this can be follow-up on outpatient basis. PFTs and high-resolution CAT scan 7. Hypomagnesemia due to poor oral intake Replaced in the emergency department 8. Acute systolic congestive heart failure due to ischemic cardiomyopathy and acute TX Patient appears euvolemic She started an PEPE inhibitor Low dose Lopressor started by cardiology if patient able to tolerate would consider changing to Toprol XL 10. Anemia As mentioned no any obvious signs of bleeding Will repeat hemoglobin later on today We'll check iron studies as patient has extensive history of abdominal surgeries including Whipple surgery
[2018-03-23 16:38] LABS: Glucose,Whole Blood 186 mg/dL (75-99)
[2018-03-23] MEDS: CALCIUM CARB-VIT D 500MG-200UN 1 EACH TAB PO SCH (17:25)
[2018-03-23 17:37] LABS: HCT 30.5 % (34.0-46.0); HGB 10.1 gm/dL (11.4-16.0); MCH 32.5 pg (25.0-35.0); MCHC 33.2 g/dL (31.0-37.0); MCV 97.9 fL (80.0-100.0); Mean Platelet Volume 7.4; Platelet Count 221 k/uL (150-450); RBC 3.12 m/uL (3.80-5.40); RDW 12.7 % (11.5-15.5); WBC 5.8 k/uL (3.8-10.6)
[2018-03-23] MEDS: HEPARIN SOD,PORK IN 0.45% NACL 25,000 UNIT in 0.45% NACL 1 500ML.BAG IV SCH (20:16)
[2018-03-23] MEDS: ATORVASTATIN 80 MG TAB PO SCH (20:27)
[2018-03-23 21:06] LABS: Glucose,Whole Blood 118 mg/dL (75-99)
[2018-03-24 06:19] LABS: Glucose,Whole Blood 182 mg/dL (75-99)
[2018-03-24 06:44] LABS: Reticulocyte % 1.7 % (0.5-2.0)
[2018-03-24 06:46] LABS: Basophils % (A) 1 %; Eosinophils # (A) 0.2 k/uL (0-0.7); Eosinophils % (A) 3 %; HCT 28.9 % (34.0-46.0); HGB 9.3 gm/dL (11.4-16.0); Lymphocytes # (A) 1.1 k/uL (1.0-4.8); Lymphocytes % (A) 20 %; MCHC 32.4 g/dL (31.0-37.0); MCV 98.9 fL (80.0-100.0); Mean Platelet Volume 7.5; Monocytes # (A) 0.4 k/uL (0-1.0); Monocytes % (A) 7 %; Neutrophils # (A) 3.7 k/uL (1.3-7.7); Neutrophils % (A) 68 %; Platelet Count 225 k/uL (150-450); RBC 2.92 m/uL (3.80-5.40); RDW 12.7 % (11.5-15.5); WBC 5.5 k/uL (3.8-10.6)
[2018-03-24 07:04] LABS: Calcium 7.9 mg/dL (8.4-10.2); Magnesium 2.2 mg/dL (1.6-2.3); Potassium 3.9 mmol/L (3.5-5.1)
[2018-03-24] MEDS: PANTOPRAZOLE 40 MG TABLET PO SCH (07:07)
[2018-03-24] MEDS: LEVOTHYROXINE 50 MCG TAB PO SCH (07:07)
[2018-03-24] MEDS: CALCIUM CARB-VIT D 500MG-200UN 1 EACH TAB PO SCH ×2 (07:08→17:50)
[2018-03-24] MEDS ORDERED: LISINOPRIL 5 MG TAB PO SCH (09:00)
[2018-03-24] MEDS ORDERED: ASPIRIN 81 MG PO SCH (09:00)
[2018-03-24] MEDS: LISINOPRIL 5 MG TAB PO SCH ×3 (09:06→19:49)
[2018-03-24] MEDS: CLOPIDOGREL 75 MG TAB PO SCH (09:06)
[2018-03-24] MEDS: ASPIRIN 81 MG PO SCH (09:06)
[2018-03-24] MEDS: CEPHALEXIN 500 MG CAP PO SCH ×2 (09:06→19:49)
[2018-03-24] MEDS: METOPROLOL TARTRATE 12.5 MG TAB PO SCH (09:06)
--- NOTE | 2018-03-24 10:39 | P.PN ---
Subjective Patient is sitting up in bed looks very comfortable and denies any chest discomfort no breathing trouble dizziness or lightheadedness Afebrile 98.6F pulse rate in the 60s Blood pressure 111/53 mmHg respirations a normal nonlabored line no JVD No lower symmetry edema Normal heart sounds no murmurs no gallops no rub Breath sounds decreased bilaterally but no rhonchi no crackles Impression Subacute myocardial infarction likely involving the inferior wall Underlying left bundle branch block with ECG changes Her symptoms were up her GI in nature and occurred 5-6 days before admission. Thereafter she felt tired fatigued and would not eat anything Mild dementia at baseline Severe ischemic cardiomyopathy left ventricular ejection fraction 25-30% Moderate MR Plan Continue atorvastatin 80 mg by mouth daily continue baby aspirin continue Plavix for at least 1 month Toprol-XL 25 mg in the morning Lisinopril 5 mg in the evening Spironolactone 12.5 mg daily in the morning Physical therapy while on 6 E. Ambulate in the hallways Objective - Vital Signs Vital signs: Vital Signs Temp 98.6 F 03/24/18 09:03 Pulse 66 03/24/18 09:03 Resp 12 03/24/18 09:03 BP 95/56 03/24/18 09:03 Pulse Ox 96 03/24/18 09:03 Intake & Output 03/23/18 03/24/18 03/24/18 18:59 06:59 18:59 Intake Total 330 946.131 Balance 330 946.131 Weight 47.9 kg Intake: IV 80 normal saline 80 Intake, IV Titration 366.131 Amount Heparin Sod,Pork in 0.45% 366.131 NaCl 25,000 unit In 0.45 % NaCl 1 500ml.bag @ 12 UNITS/KG/HR 11.43 mls/hr IV .Q24H NABIL Rx#: [id number] Oral 330 500 Other: # Voids 2 2 - Labs CBC & Chem 7: 03/24/18 05:52 03/24/18 05:52 Labs: Abnormal Lab Results - Last 24 Hours (Table) 03/23/18 03/23/18 03/23/18 Range/Units 11:48 16:20 17:15 RBC 3.12 L (3.80-5.40) m/uL Hgb 10.1 L (11.4-16.0) gm/dL Hct 30.5 L (34.0-46.0) % Chloride (98-107) mmol/L Carbon Dioxide (22-30) mmol/L BUN (7-17) mg/dL Creatinine (0.52-1.04) mg/dL Glucose (74-99) mg/dL POC Glucose (mg/dL) 165 H 186 H (75-99) mg/dL Calcium (8.4-10.2) mg/dL 03/23/18 03/24/18 03/24/18 Range/Units 21:04 05:52 05:52 RBC 2.92 L (3.80-5.40) m/uL Hgb 9.3 L (11.4-16.0) gm/dL Hct 28.9 L (34.0-46.0) % Chloride 109 H (98-107) mmol/L Carbon Dioxide 20 L (22-30) mmol/L BUN 19 H (7-17) mg/dL Creatinine 1.05 H (0.52-1.04) mg/dL Glucose 156 H (74-99) mg/dL POC Glucose (mg/dL) 118 H (75-99) mg/dL Calcium 7.9 L (8.4-10.2) mg/dL 03/24/18 Range/Units 06:17 RBC (3.80-5.40) m/uL Hgb (11.4-16.0) gm/dL Hct (34.0-46.0) % Chloride (98-107) mmol/L Carbon Dioxide (22-30) mmol/L BUN (7-17) mg/dL Creatinine (0.52-1.04) mg/dL Glucose (74-99) mg/dL POC Glucose (mg/dL) 182 H (75-99) mg/dL Calcium (8.4-10.2) mg/dL Microbiology - Last 24 Hours (Table) 03/22/18 13:33 Urine Culture - Preliminary Urine,Voided Gram Neg Bacilli
[2018-03-24 11:19] LABS: Glucose,Whole Blood 203 mg/dL (75-99)
[2018-03-24] MEDS: INSULIN ASPART 100 UNIT/ML 1 ML 10 ML VIAL SQ SCH ×3 (12:10→21:10)
--- NOTE | 2018-03-24 13:31 | P.PN ---
Subjective Is doing much better today. Her appetite is back and she is eating well. She has been ambulating in the hallways and tolerating that well. No chest pain no abdominal pain blood in the stool headache nausea vomiting or any shortness of breath. Her hemoglobin has been stable as well as vital signs REVIEW OF SYSTEMS: CONSTITUTIONAL: No fever or chills HEENT: No changes in vision or voice CARDIOVASCULAR: no chest pain or abnormal heart beats, or any swelling in ankles or feet. RESPIRATORY: No wheezing or coughing. GASTROINTESTINAL: No abdominal pain, no nausea no vomiting no constipation or diarrhea GENITOURINARY: no any urinary urgency, frequency or burning, and there has been no blood in her urine. no flank pain. MUSCULOSKELETAL: She notes full range of motion of all her joints without pain or swelling. NEUROLOGICAL: , no headache. no vision changes, or fainting. No numbness or tingling. Objective - Vital Signs Vital signs: Vital Signs Temp 98.6 F 03/24/18 09:03 Pulse 57 L 03/24/18 11:35 Resp 16 03/24/18 11:35 BP 93/57 03/24/18 11:35 Pulse Ox 96 03/24/18 11:35 Intake & Output 03/23/18 03/24/18 03/24/18 18:59 06:59 18:59 Intake Total 330 946.131 Balance 330 946.131 Weight 47.9 kg Intake: IV 80 normal saline 80 Intake, IV Titration 366.131 Amount Heparin Sod,Pork in 0.45% 366.131 NaCl 25,000 unit In 0.45 % NaCl 1 500ml.bag @ 12 UNITS/KG/HR 11.43 mls/hr IV .Q24H NABIL Rx#: [id number] Oral 330 500 Other: # Voids 2 2 - Exam Vital Signs: I have reviewed the vital signs. GENERAL: Well-nourished, Well-developed , no apparent distress, cooperative Eyes: PERRL, extraoculry movements intact, clear conjunctiva Head: : Atraumatic external nose and ears, oropharyngeal mucosa is moist without lesions or exudates Neck: Symmetric, trachea midline, No thyromegaly, no masses or neck vain pulsation, no neck rigidity CVS: +S1/S2, No murmurs or gallops. Peripheral pulses 2+ and equal in all extremities. RESP: Unlabored respiratory effort. Clear to auscultation bilaterally. Abdomen: Bowel sounds present in all 4 quadrants, Soft to palpation, Nontender/ Nondistended, No hepatosplenomegaly, no hernias or masses, no CVA tnderness Musculoskeletal: Extremities w/o deformity, No cyanosis or clubbing, no joint swelling Skin: Warm, Dry. 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, motor strenght 5/5 i upper and lower extremities - Labs CBC & Chem 7: 03/24/18 05:52 03/24/18 05:52 Labs: Abnormal Lab Results - Last 24 Hours (Table) 03/23/18 03/23/18 03/23/18 Range/Units 16:20 17:15 21:04 RBC 3.12 L (3.80-5.40) m/uL Hgb 10.1 L (11.4-16.0) gm/dL Hct 30.5 L (34.0-46.0) % Chloride (98-107) mmol/L Carbon Dioxide (22-30) mmol/L BUN (7-17) mg/dL Creatinine (0.52-1.04) mg/dL Glucose (74-99) mg/dL POC Glucose (mg/dL) 186 H 118 H (75-99) mg/dL Calcium (8.4-10.2) mg/dL 03/24/18 03/24/18 03/24/18 Range/Units 05:52 05:52 06:17 RBC 2.92 L (3.80-5.40) m/uL Hgb 9.3 L (11.4-16.0) gm/dL Hct 28.9 L (34.0-46.0) % Chloride 109 H (98-107) mmol/L Carbon Dioxide 20 L (22-30) mmol/L BUN 19 H (7-17) mg/dL Creatinine 1.05 H (0.52-1.04) mg/dL Glucose 156 H (74-99) mg/dL POC Glucose (mg/dL) 182 H (75-99) mg/dL Calcium 7.9 L (8.4-10.2) mg/dL 03/24/18 Range/Units 11:16 RBC (3.80-5.40) m/uL Hgb (11.4-16.0) gm/dL Hct (34.0-46.0) % Chloride (98-107) mmol/L Carbon Dioxide (22-30) mmol/L BUN (7-17) mg/dL Creatinine (0.52-1.04) mg/dL Glucose (74-99) mg/dL POC Glucose (mg/dL) 203 H (75-99) mg/dL Calcium (8.4-10.2) mg/dL Microbiology - Last 24 Hours (Table) 03/22/18 13:33 Urine Culture - Preliminary Urine,Voided Gram Neg Bacilli Assessment and Plan Plan: 1. Acute coronary syndrome/ST segment elevation [place] Cardiology following : The platelet therapy Discontinue heparin drip [place] Tolerating beta ashanti and lisinopril well Cardiac rehabilitation outpatient basis 2. Hypothyroidism Uncontrolled Likely due to error with medication dosing and poor adherence Patient instructed to take her levothyroxine only on empty stomach 1 hour before breakfast Labs from February of this year were consistent with iatrogenic hyperthyroidism, patient was on 100 g at that time and subsequently decreased to 50 Follow-up TSH in 2-4 weeks 3. Urinary tract infection Patient is not septic Urine culture: Gram-negative bacilli more than 100,000 colonies Received ceftriaxone 2 doses Change to Keflex day #1/3 4. Type 2 diabetes mellitus on long-term use of oral antidiabetic medications We will hold her metformin and Amaryl Blood glucose checks before meals at bedtime and correctional sliding scale We will discontinue metformin permanently due to her new congestive heart failure diagnosis and may consider starting patient on Januvia on discharge instead 5. Cognitive impairment Rule out dementia Syphilis screen negative MMA pending rest of the work up can be done on outpatient basis including neuropsychologist evaluation 6. Chronic parenchymal lung changes noted in the chest x-ray History of smoking this can be follow-up on outpatient basis. PFTs and high-resolution CAT scan 7. Acute systolic congestive heart failure due to ischemic cardiomyopathy and acute [place] Patient appears euvolemic She started an PEPE inhibitor/spironolactone/Toprol 10. Anemia As mentioned no any obvious signs of bleeding Hemoglobin has been stable and this mild decrease likely related to dilutional effects Iron panel is pending Patient had Whipple surgery in the past Anticipated discharge in next 24-48 hours
[2018-03-24 16:30] LABS: Glucose,Whole Blood 224 mg/dL (75-99)
[2018-03-24] MEDS: ATORVASTATIN 80 MG TAB PO SCH (19:49)
[2018-03-24 21:01] LABS: Glucose,Whole Blood 141 mg/dL (75-99)
[2018-03-25 06:16] LABS: Glucose,Whole Blood 171 mg/dL (75-99)
[2018-03-25] MEDS: PANTOPRAZOLE 40 MG TABLET PO SCH (06:29)
[2018-03-25] MEDS: LEVOTHYROXINE 50 MCG TAB PO SCH (06:29)
[2018-03-25] MEDS: CALCIUM CARB-VIT D 500MG-200UN 1 EACH TAB PO SCH ×2 (06:29→17:41)
[2018-03-25] MEDS: INSULIN ASPART 100 UNIT/ML 1 ML 10 ML VIAL SQ SCH ×4 (06:30→21:20)
[2018-03-25 06:37] LABS: Basophils % (A) 1 %; Eosinophils # (A) 0.2 k/uL (0-0.7); Eosinophils % (A) 4 %; HCT 28.7 % (34.0-46.0); HGB 9.2 gm/dL (11.4-16.0); Lymphocytes # (A) 1.1 k/uL (1.0-4.8); Lymphocytes % (A) 22 %; MCH 31.9 pg (25.0-35.0); MCV 99.6 fL (80.0-100.0); Mean Platelet Volume 6.9; Monocytes # (A) 0.4 k/uL (0-1.0); Monocytes % (A) 7 %; Neutrophils # (A) 3.3 k/uL (1.3-7.7); Neutrophils % (A) 65 %; Platelet Count 239 k/uL (150-450); RBC 2.89 m/uL (3.80-5.40); RDW 12.7 % (11.5-15.5); WBC 5.1 k/uL (3.8-10.6)
[2018-03-25 06:44] LABS: INR 0.9 (<1.2); Prothrombin Time 9.5 sec (9.0-12.0)
[2018-03-25 06:46] LABS: Calcium 8.4 mg/dL (8.4-10.2); Magnesium 1.8 mg/dL (1.6-2.3); Potassium 4.3 mmol/L (3.5-5.1)
[2018-03-25] MEDS: ASPIRIN 81 MG PO SCH (07:53)
[2018-03-25] MEDS: CEPHALEXIN 500 MG CAP PO SCH ×2 (07:53→19:33)
[2018-03-25] MEDS: SPIRONOLACTONE 25 MG TAB PO SCH (07:54)
[2018-03-25] MEDS: METOPROLOL SUCCINATE (ER) 25 MG TAB.ER.24H PO SCH (07:54)
[2018-03-25 09:31] LABS: Iron Saturation 15.74 (12.00-45.00)
[2018-03-25] MEDS: CLOPIDOGREL 75 MG TAB PO SCH (11:14)
[2018-03-25 11:18] LABS: Glucose,Whole Blood 147 mg/dL (75-99)
--- NOTE | 2018-03-25 13:40 | P.PN ---
Subjective Progress Note Date: 03/25/18 This is an 82-year-old female most of the history was obtained from the medical record as the patient has dementia. I'm waiting for the to arrive to get a more detailed history. Patient apparently has history of diabetes, hypothyroidism, cognitive impairment, hypertension, who presents to the hospital with symptoms of generalized weakness and generally not feeling well for approximate five-day duration. Apparently one week ago she was in her usual state of health, quite physically active with no complaints. Patient had been feeling extremely tired and lethargic, sleeping a lot, loss of energy, and she had been developing and experiencing symptoms of intermittent epigastric discomfort with nausea. A CAT scan of the brain was performed on arrival here which showed age-related atrophic and chronic small vessel ischemic change without any acute intracranial process seen at this time. Acute abdominal series was also performed which revealed chronic changes without acute pulmonary process. Overall nonspecific but likely nonobstructive bowel gas pattern. Her EKG on admission here showed a sinus bradycardia with first- degree AV block ST elevation noted in the inferior leads as well as some ST-T wave changes noted in the lateral leads. An EKG performed this morning continued to show normal sinus rhythm with inferior ST elevation. Laboratory data was noted, white blood cell count 9.1, 5.9 this morning, hemoglobin 12.1 on admission, 9.9 this morning. D-dimer 0.33, sodium 137, potassium 3.9, BUN 24 , creatinine 1.03. Mag 1.4 on admission, 2.4 this morning. First troponin on admission 18.2, subsequent troponin 21 and 22. TSH level 37.00 free T4 0.5 free T3 1.0. at the time of my examination this morning, patient denies any chest pain, states that she never had any chest discomfort or difficulty she denies any nausea or any of the symptoms which according to her she had been experiencing prior to coming here. 03/25/2018 Patient seen and examined this morning, overall doing well. Denies any chest discomfort. Hemodynamically she is stable. She been encouraged today to be up ambulating as much as possible, we will plan for possible discharge home in the morning if stable. Blood pressure today 116/60 with a heart rate in the 60s, afebrile. Objective - Vital Signs Vital signs: Vital Signs Temp 97.6 F 03/25/18 08:00 Pulse 61 03/25/18 11:32 Resp 17 03/25/18 11:32 BP 115/66 03/25/18 11:32 Pulse Ox 99 03/25/18 11:32 Intake & Output 03/24/18 03/25/18 03/25/18 18:59 06:59 18:59 Intake Total 180 450 480 Balance 180 450 480 Weight 48.8 kg Intake: IV 240 normal saline 240 Oral 180 450 240 Other: # Voids 2 2 - Exam PHYSICAL EXAMINATION: GENERAL: 82-year-old female in no acute distress at the time of my examination HEENT: Head is atraumatic, normocephalic. Pupils equal, round. Sclera anicteric. Conjunctiva are clear. Mucous membranes of the mouth are moist. Neck is supple. There is elevated jugular venous pressure. no carotid bruit is heard. HEART EXAMINATION: [Heart S1 and S2 with soft systolic murmur is heard CHEST EXAMINATION:[Lungs are clear to auscultation and precussion. No chest wall tenderness is noted on palpation or with deep breathing.] ABDOMEN: [Soft, nontender. Bowel sounds are heard. No organomegaly noted] EXTREMITIES:[2+ peripheral pulses with no evidence of peripheral edema and no calf tenderness noted] NEUROLOGIC patient is awake, alert and oriented X1. - Labs CBC & Chem 7: 03/25/18 06:07 03/25/18 06:07 Labs: Abnormal Lab Results - Last 24 Hours (Table) 03/24/18 03/24/18 03/24/18 Range/Units 05:52 16:22 21:00 RBC (3.80-5.40) m/uL Hgb (11.4-16.0) gm/dL Hct (34.0-46.0) % Chloride (98-107) mmol/L Carbon Dioxide (22-30) mmol/L Glucose (74-99) mg/dL POC Glucose (mg/dL) 224 H 141 H (75-99) mg/dL Iron 34 L (50-170) ug/dL TIBC 216 L (228-460) ug/dL 03/25/18 03/25/18 03/25/18 Range/Units 06:07 06:07 06:14 RBC 2.89 L (3.80-5.40) m/uL Hgb 9.2 L (11.4-16.0) gm/dL Hct 28.7 L (34.0-46.0) % Chloride 110 H (98-107) mmol/L Carbon Dioxide 21 L (22-30) mmol/L Glucose 168 H (74-99) mg/dL POC Glucose (mg/dL) 171 H (75-99) mg/dL Iron (50-170) ug/dL TIBC (228-460) ug/dL 03/25/18 Range/Units 11:06 RBC (3.80-5.40) m/uL Hgb (11.4-16.0) gm/dL Hct (34.0-46.0) % Chloride (98-107) mmol/L Carbon Dioxide (22-30) mmol/L Glucose (74-99) mg/dL POC Glucose (mg/dL) 147 H (75-99) mg/dL Iron (50-170) ug/dL TIBC (228-460) ug/dL Microbiology - Last 24 Hours (Table) 03/22/18 13:33 Urine Culture - Final Urine,Voided Escherichia coli Assessment and Plan Plan: Assessment and plan #1 acute inferior wall myocardial infarction #2 hypertension #3 hyperlipidemia #4 diabetes #5 dementia #6 hypothyroidism, TSH level 37.0, free T4 0.5, free T3 1.0. Patient had been on Synthroid 50 g daily at home. #7 anemia, hemoglobin on admission 12, 9.9 this morning, dehydration. Plan Echo cardiac gram with Doppler study revealed an ejection fraction of 25-30%, moderate mitral regurgitation. From cardiology's perspective, we'll continue patient on her current medications. Plan for possible discharge home in 24 hours if stable. DNP note has been reviewed, I agree with a documented findings and plan of care. Patient was seen and examined.
--- NOTE | 2018-03-25 14:04 | P.PN ---
Progress Note - Text Doing very well post subacute acute myocardial infarction with a delayed presentation on medical treatment. Tolerating metoprolol succinate 25 g by mouth daily, spironolactone 12.5 g by mouth daily lisinopril 5 mg in the evening , aspirin and Plavix as well as atorvastatin 80 mg Ambulating in the hallways. Likely discharge tomorrow I will see her again post discharge in about 2 weeks, attention Carol/avinash Sidhu
--- NOTE | 2018-03-25 15:07 | P.PN ---
Subjective Progress Note Date: 03/25/18 Vision was seen and examined at the bedside. The patient was in good spirits and denied any active complaints. She denied any fever, chills, cough, chest pain, shortness of breath, nausea, vomiting, diarrhea, constipation, or dizziness. She noted that she has been ambulating in the hallways without difficulty. Objective - Vital Signs Vital signs: Vital Signs Temp 97.6 F 03/25/18 08:00 Pulse 61 03/25/18 11:32 Resp 17 03/25/18 11:32 BP 115/66 03/25/18 11:32 Pulse Ox 99 03/25/18 11:32 Intake & Output 03/24/18 03/25/18 03/25/18 18:59 06:59 18:59 Intake Total 180 450 480 Balance 180 450 480 Weight 48.8 kg Intake: IV 240 normal saline 240 Oral 180 450 240 Other: # Voids 2 2 - Exam General: Non-toxic, in no acute distress HEENT: NC/AT, anicteric sclerae, moist conjunctiva, no lid-lag, PERRLA, oropharynx clear, no erythema, exudates Cardiovascular: S1/S2 wnl, systolic murmur appreciated Lungs: Clear to auscultation, normal respiratory effort, no accessory muscle use Abdominal: Soft, nontender, non-distended, no guarding, rebound, or rigidity, normoactive bowel sounds Skin: Warm, dry Extremities: No edema or contractures Psychiatric: Alert and oriented to person, place and time, appropriate affect, Intact judgment Neuro: CN II-XII grossly intact, no focal motor deficits - Labs CBC & Chem 7: 03/25/18 06:07 03/25/18 06:07 Labs: Abnormal Lab Results - Last 24 Hours (Table) 03/24/18 03/24/18 03/24/18 Range/Units 05:52 16:22 21:00 RBC (3.80-5.40) m/uL Hgb (11.4-16.0) gm/dL Hct (34.0-46.0) % Chloride (98-107) mmol/L Carbon Dioxide (22-30) mmol/L Glucose (74-99) mg/dL POC Glucose (mg/dL) 224 H 141 H (75-99) mg/dL Iron 34 L (50-170) ug/dL TIBC 216 L (228-460) ug/dL 03/25/18 03/25/18 03/25/18 Range/Units 06:07 06:07 06:14 RBC 2.89 L (3.80-5.40) m/uL Hgb 9.2 L (11.4-16.0) gm/dL Hct 28.7 L (34.0-46.0) % Chloride 110 H (98-107) mmol/L Carbon Dioxide 21 L (22-30) mmol/L Glucose 168 H (74-99) mg/dL POC Glucose (mg/dL) 171 H (75-99) mg/dL Iron (50-170) ug/dL TIBC (228-460) ug/dL 03/25/18 Range/Units 11:06 RBC (3.80-5.40) m/uL Hgb (11.4-16.0) gm/dL Hct (34.0-46.0) % Chloride (98-107) mmol/L Carbon Dioxide (22-30) mmol/L Glucose (74-99) mg/dL POC Glucose (mg/dL) 147 H (75-99) mg/dL Iron (50-170) ug/dL TIBC (228-460) ug/dL Microbiology - Last 24 Hours (Table) 03/22/18 13:33 Urine Culture - Final Urine,Voided Escherichia coli Assessment and Plan Plan: Acute STEMI w/ ischemic severe systolic cardiomyopathy - Cardiology recs appreciated - C/w Aspirin, Plavix, Lipitor, Toprol, Losartan, and Aldactone Hypothyroidism - C/w Levothyroxine - Will need repeat TSH in 2-4 weeks UTI - C/w keflex Day # 2/3 Type 2 DM - C/w sliding scale. Metformin DCed due to CHF and will consider adding Januvia. Blood glucose for inpatient at goal. Cognitive impairement - Syphilis negative - MMA pending. Chronic parenchymal lung changes - Will need outpatient PFTs and HRCT DVT//GI prophylaxis - Heparin subq - No indication for GI prophylaxis Discussed with: Patient Anticipated discharge date: 03/26/[address]: Home A total of 45 minutes was spent on the care of this complex patient more than 50 % of the time was spent in counseling and care coordination.
[2018-03-25 16:35] LABS: Glucose,Whole Blood 248 mg/dL (75-99)
[2018-03-25] MEDS: LOSARTAN 25 MG TAB PO SCH (17:41)
[2018-03-25] MEDS: ATORVASTATIN 80 MG TAB PO SCH (19:33)
[2018-03-25 21:17] LABS: Glucose,Whole Blood 153 mg/dL (75-99)
[2018-03-25 23:18] VITALS: TEMP 97
[2018-03-26 06:04] LABS: Glucose,Whole Blood 168 mg/dL (75-99)
[2018-03-26] MEDS: INSULIN ASPART 100 UNIT/ML 1 ML 10 ML VIAL SQ SCH ×2 (06:25→13:31)
[2018-03-26] MEDS: LEVOTHYROXINE 50 MCG TAB PO SCH (06:25)
[2018-03-26] MEDS: PANTOPRAZOLE 40 MG TABLET PO SCH (06:25)
[2018-03-26] MEDS: CALCIUM CARB-VIT D 500MG-200UN 1 EACH TAB PO SCH (06:25)
[2018-03-26 06:41] LABS: Basophils % (A) 1 %; Eosinophils # (A) 0.2 k/uL (0-0.7); Eosinophils % (A) 4 %; HGB 9.4 gm/dL (11.4-16.0); Lymphocytes # (A) 1.1 k/uL (1.0-4.8); Lymphocytes % (A) 20 %; MCH 31.5 pg (25.0-35.0); MCHC 32.3 g/dL (31.0-37.0); MCV 97.4 fL (80.0-100.0); Mean Platelet Volume 6.8; Monocytes # (A) 0.4 k/uL (0-1.0); Monocytes % (A) 7 %; Neutrophils # (A) 3.8 k/uL (1.3-7.7); Neutrophils % (A) 67 %; Platelet Count 269 k/uL (150-450); RBC 2.97 m/uL (3.80-5.40); RDW 12.7 % (11.5-15.5); WBC 5.7 k/uL (3.8-10.6)
[2018-03-26 06:49] LABS: INR 0.9 (<1.2); Prothrombin Time 9.4 sec (9.0-12.0)
[2018-03-26 06:54] LABS: Calcium 8.6 mg/dL (8.4-10.2); Potassium 4.3 mmol/L (3.5-5.1)
[2018-03-26] MEDS: SPIRONOLACTONE 25 MG TAB PO SCH (09:02)
[2018-03-26] MEDS: ASPIRIN 81 MG PO SCH (09:03)
[2018-03-26] MEDS: CLOPIDOGREL 75 MG TAB PO SCH (09:04)
[2018-03-26] MEDS: CEPHALEXIN 500 MG CAP PO SCH (09:04)
[2018-03-26] MEDS: LOSARTAN 25 MG TAB PO SCH (09:04)
[2018-03-26] MEDS: METOPROLOL SUCCINATE (ER) 25 MG TAB.ER.24H PO SCH (09:04)
[2018-03-26 10:32] VITALS: BMI 20.3
[2018-03-26 11:27] LABS: Glucose,Whole Blood 160 mg/dL (75-99)
[2018-03-26 11:44] VITALS: BP 120/61; PULSE 64; RESP 16
--- NOTE | 2018-03-26 11:46 | P.PN ---
Subjective Patient is doing very well. She is sitting comfortably at the edge of the bed. No chest pain no respiratory distress. She has been walking around in the hallways with help. Does not appear to be short of breath and has not had any recurrence of symptoms. On examination pulse rate in the 70s, afebrile, respirations normal, blood pressure 135/60 mmHg Normal heart sounds no murmurs no gallops no rub Breath sounds are clear no rhonchi no crackles Extremities warm no edema No JVD Impression Ischemic cardiomyopathy Coronary artery disease and admitted with a subacute myocardial infarction, delayed presentation Left bundle branch block pattern Medical management recommended and is tolerating her medications well and is completely asymptomatic Suggest Continue aspirin, atorvastatin 80 mg by mouth daily, Plavix 75 g by mouth daily, losartan 25 g in the evening, metoprolol succinate 25 mg in the morning and spironolactone 12.5 mg in the morning Plavix for about a month and then we will discontinue this Objective - Vital Signs Vital signs: Vital Signs Temp 97 F L 03/26/18 03:50 Pulse 64 03/26/18 11:27 Resp 16 03/26/18 11:27 BP 120/61 03/26/18 11:27 Pulse Ox 99 03/26/18 11:27 Intake & Output 03/25/18 03/26/18 03/26/18 18:59 06:59 18:59 Intake Total 942 500 200 Balance 942 500 200 Weight 48.9 kg 48.9 kg Intake: IV 240 normal saline 240 Oral 702 500 200 Other: # Voids 2 - Labs CBC & Chem 7: 03/26/18 06:12 03/26/18 06:12 Labs: Abnormal Lab Results - Last 24 Hours (Table) 03/25/18 03/25/18 03/26/18 Range/Units 16:30 20:58 06:02 RBC (3.80-5.40) m/uL Hgb (11.4-16.0) gm/dL Hct (34.0-46.0) % Chloride (98-107) mmol/L Carbon Dioxide (22-30) mmol/L BUN (7-17) mg/dL Glucose (74-99) mg/dL POC Glucose (mg/dL) 248 H 153 H 168 H (75-99) mg/dL 03/26/18 03/26/18 03/26/18 Range/Units 06:12 06:12 11:16 RBC 2.97 L (3.80-5.40) m/uL Hgb 9.4 L (11.4-16.0) gm/dL Hct 29.0 L (34.0-46.0) % Chloride 109 H (98-107) mmol/L Carbon Dioxide 20 L (22-30) mmol/L BUN 21 H (7-17) mg/dL Glucose 183 H (74-99) mg/dL POC Glucose (mg/dL) 160 H (75-99) mg/dL
[2018-03-26 14:20] LABS: Hemoglobin A1C 7.3 % (4.0-6.0)
--- NOTE | 2018-03-26 19:00 | P.DS ---
Providers Date of admission: 03/22/18 14:51 Expected date of discharge: 03/26/18 Attending physician: Quentin Bravo MD Consults: 03/22/18 16:25 Consult Physician Urgent Consulting Provider: Gillian Birmingham Consult Reason/Comments: elevTrop Do you want consulting provider notified?: Yes Primary care physician: Kyle Villar [facility] Course: The patient is an 82-year-old female with a past medical history of hypertension , hyperlipidemia, diabetes, hypothyroidism, and cognitive impairment who presented to the ED with complaints of generalized weakness and anorexia ongoing for 5 days. While in the ED the patient was found to have an inferior wall ST elevation TN with bedside echo showing an EF of 20-25%. The patient was subsequently admitted to the inpatient unit for further management of STEMI. Troponin was elevated to 18.2 on admission and subsequently 21 and 22. Cardiology was consulted and discussed in detail with the family regarding options of maximal medical therapy versus cardiac catheterization. With the surrogate decision maker, the , it was decided to pursue maximal medical therapy as the patient in light of the patient's comorbidities and code status. The patient's echocardiogram showed an EF of 25-30% and moderate MR. Furthermore the patient was also found to have a urinary tract infection for which she received ceftriaxone IV and was subsequently switched to Keflex. In light of her newly diagnosed CHF, the patient's metformin was discontinued and was replaced with Januvia upon discharge. She was also started on maximal CHF therapy with losartan, spironolactone, and Toprol. The patient is presently stable and ready for discharge. Pertinent Studies: Echocardiogram: EF 25-30%, moderate mitral regurgitation, normal RV size and function, RVSP 9.8 mmHg Patient Condition at Discharge: Stable Plan - Discharge Summary Discharge Rx Participant: No New Discharge Prescriptions: New Calcium Carb-Vit D 500Mg-200Un [Oscal 500+D] 1 each PO BID-W/MEALS #60 tab Levothyroxine Sodium [Synthroid] 50 mcg PO DAILY #30 tab Spironolactone [Aldactone] 12.5 mg PO DAILY #45 tab sitaGLIPtin PHOSPHATE [Januvia] 100 mg PO DAILY #30 tab Aspirin 81 mg PO DAILY #30 chew Atorvastatin [Lipitor] 80 mg PO HS #30 tab Clopidogrel [Plavix] 75 mg PO DAILY #30 tab Losartan [Cozaar] 25 mg PO DAILY #30 tab Metoprolol Succinate (ER) [Toprol XL] 25 mg PO DAILY #30 tab.er.24h Continue Glimepiride [Amaryl] 4 mg PO BID Losartan [Cozaar] 25 mg PO DAILY #90 tab Discontinued Levothyroxine Sodium [Synthroid] 50 mcg PO DAILY metFORMIN HCL ER [Glucophage Xr] 1,000 mg PO BID Discharge Medication List Glimepiride [Amaryl] 4 mg PO BID 03/22/18 [History] Aspirin 81 mg PO DAILY #30 chew 03/26/18 [Rx] Atorvastatin [Lipitor] 80 mg PO HS #30 tab 03/26/18 [Rx] Calcium Carb-Vit D 500Mg-200Un [Oscal 500+D] 1 each PO BID-W/MEALS #60 tab 03/26 [Rx] Clopidogrel [Plavix] 75 mg PO DAILY #30 tab 03/26/18 [Rx] Levothyroxine Sodium [Synthroid] 50 mcg PO DAILY #30 tab 03/26/18 [Rx] Losartan [Cozaar] 25 mg PO DAILY #30 tab 03/26/18 [Rx] Losartan [Cozaar] 25 mg PO DAILY #90 tab 03/26/18 [Rx] Metoprolol Succinate (ER) [Toprol XL] 25 mg PO DAILY #30 tab.er.24h 03/26/18 [Rx ] Spironolactone [Aldactone] 12.5 mg PO DAILY #45 tab 03/26/18 [Rx] sitaGLIPtin PHOSPHATE [Januvia] 100 mg PO DAILY #30 tab 03/26/18 [Rx] Follow up Appointment(s)/Referral(s): Jeremias Medina MD [STAFF PHYSICIAN] - 04/12/18 9:45 am (With Dr. Medina/Paty Sidhu NP.) Kyle Villar MD [Primary Care Provider] - 04/05/18 9:30 am () [facility] Visiting Nurse, [NON-STAFF] - Patient Instructions/Handouts: Heart Attack (DC), Dehydration (DC), Urinary Tract Infection in Women (DC), Weakness (DC) Discharge Disposition: HOME WITH HOME HEALTH SERVICES
== END 2018-03-26 13:50 | disposition home health service (06) | DRG 280 ==
LOC: EC 11:16 → 4MS4W 14:51 → 6SEL 17:28
PROVIDERS: ADMIT Family Medicine; ATTEND Family Medicine
DX: I21.19 ST elevation (STEMI) myocardial infarction involving other coronary artery of inferior wall (principal); I50.21 Acute systolic (congestive) heart failure; E46 Unspecified protein-calorie malnutrition; N39.0 Urinary tract infection, site not specified; I25.5 Ischemic cardiomyopathy; E83.42 Hypomagnesemia; E05.90 Thyrotoxicosis, unspecified without thyrotoxic crisis or storm; D64.9 Anemia, unspecified; E11.9 Type 2 diabetes mellitus without complications; E03.9 Hypothyroidism, unspecified; E86.0 Dehydration; I11.0 Hypertensive heart disease with heart failure; I44.7 Left bundle-branch block, unspecified; I25.10 Atherosclerotic heart disease of native coronary artery without angina pectoris; E78.5 Hyperlipidemia, unspecified; R41.89 Other symptoms and signs involving cognitive functions and awareness; K21.9 Gastro-esophageal reflux disease without esophagitis; F03.90 Unspecified dementia, unspecified severity, without behavioral disturbance, psychotic disturbance, mood disturbance, and anxiety; Z79.84 Long term (current) use of oral hypoglycemic drugs; Z79.890 Hormone replacement therapy; Z79.899 Other long term (current) drug therapy; Z85.42 Personal history of malignant neoplasm of other parts of uterus; Z87.891 Personal history of nicotine dependence; Z90.710 Acquired absence of both cervix and uterus; Z87.19 Personal history of other diseases of the digestive system; Z85.068 Personal history of other malignant neoplasm of small intestine; Z90.411 Acquired partial absence of pancreas; Z85.07 Personal history of malignant neoplasm of pancreas; Z98.42 Cataract extraction status, left eye; Z98.41 Cataract extraction status, right eye; Z88.7 Allergy status to serum and vaccine
CPT/HCPCS: 36415; 71045; 74022; 80048; 80053; 80061; 81001; 82009; 82550; 82553; 82728; 83036; 83540; 83550; 83605; 83690; 83735; 83921; 84100; 84439; 84443; 84481; 84484; 85025; 85027; 85045; 85379; 85610; 85730; 86780; 87077; 87086; 87186; 93005; 93306; 94760; 96361; 96365; 96367; 96375; 99285

== ENCOUNTER 2019-03-15 09:46 | Emergency (ER) | payer MEDICARE ==
[2019-03-15 09:56] LABS: Glucose,Whole Blood 113 mg/dL (75-99)
[2019-03-15] MEDS ORDERED: SODIUM CHLORIDE 0.9% 1,000 ML IV ONE ×2 (09:57→11:25)
[2019-03-15 09:59] VITALS: RESP 18; TEMP 97.8
--- NOTE | 2019-03-15 10:24 | ED ---
General Adult HPI - General Chief complaint: Recheck/Abnormal Lab/Rx Stated complaint: HYPOGLYCEMIA Time Seen by Provider: 03/15/19 09:50 Source: patient, RN notes reviewed Mode of arrival: EMS Limitations: no limitations - History of Present Illness Initial comments: This is a 83-year-old female presents emergency department with past medical history significant for diabetes and hypertension. Patient also has a little bit of dementia according to EMS. Patient states she woke up this morning and when she stood up and felt a little lightheaded. Patient states lately her sugars been low in the morning sensitive checking at the gave her orange juice and something to eat she started feeling better but EMS was called. Patient states that he. Accu-Cheks and her sugar was normal. - Related Data Home Medications Medication Instructions Recorded Confirmed Glimepiride [Amaryl] 4 mg PO BID 03/22/18 03/15/19 Atorvastatin [Lipitor] 40 mg PO Q48H 03/15/19 03/15/19 Levothyroxine Sodium [Synthroid] 50 mcg PO DIRECTED 03/15/19 03/15/19 metFORMIN HCL ER [Glucophage Xr] 1,000 mg PO BID 03/15/19 03/15/19 Previous Rx's Medication Instructions Recorded Aspirin 81 mg PO DAILY #30 chew 03/26/18 Losartan [Cozaar] 25 mg PO DAILY #30 tab 03/26/18 Metoprolol Succinate (ER) [Toprol 25 mg PO DAILY #30 tab.er.24h 03/26/18 XL] Sulfamethox-Tmp 800-160Mg [Bactrim 1 each PO Q12HR #14 tab 03/15/19 DS 800-160 mg] Allergies Allergy/AdvReac Type Severity Reaction Status Date / Time tetanus and diphtheria Allergy Unknown Verified 03/15/19 10:22 toxoids Review of Systems ROS Statement: Those systems with pertinent positive or pertinent negative responses have been documented in the HPI. ROS Other: All systems not noted in ROS Statement are negative. 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 heart cath but pt/spouse unable to recall this. benign tunor removed from stomach, colonoscopy, egd, whipple procedure Past Anesthesia/Blood Transfusion Reactions: Motion Sickness Past Psychological History: No Psychological Hx Reported Smoking Status: Former smoker - Past Family History Father Family Medical History: Unable to Obtain Additional Family Medical History / Comment(s): in his 90's Mother Family Medical History: Unable to Obtain Additional Family Medical History / Comment(s): in her 70's General Exam - General Exam Comments Initial Comments: GENERAL: Patient is well-developed and well-nourished. Patient is nontoxic and well- hydrated and is in no acute distress. ENT: Neck is soft and supple. No significant lymphadenopathy is noted. Oropharynx is clear. Moist mucous membranes. Neck has full range of motion without eliciting any pain. EYES: The sclera were anicteric and conjunctiva were pink and moist. Extraocular movements were intact and pupils were equal round and reactive to light. Eyelids were unremarkable. PULMONARY: Unlabored respirations. Good breath sounds bilaterally. No audible rales rhonchi or wheezing was noted. CARDIOVASCULAR: There is a regular rate and rhythm without any murmurs gallops or rubs. ABDOMEN: Soft and nontender with normal bowel sounds. No palpable organomegaly was noted. There is no palpable pulsatile mass. SKIN: Skin is clear with no lesions or rashes and otherwise unremarkable. NEUROLOGIC: Patient is alert and oriented x3. Cranial nerves II through XII are grossly intact. Motor and sensory are also intact. Normal speech, volume and content. Symmetrical smile. MUSCULOSKELETAL: Normal extremities with adequate strength and full range of motion. No lower extremity swelling or edema. No calf tenderness. LYMPHATICS: No significant lymphadenopathy is noted PSYCHIATRIC: Normal psychiatric evaluation. Limitations: no limitations Course Vital Signs 03/15/19 03/15/19 03/15/19 09:51 10:04 12:09 Temperature 97.8 F Pulse Rate 103 H 88 Pulse Rate [ 93 Sitting] Pulse Rate [ 105 H Standing] Pulse Rate [ 97 Supine] Respiratory 18 18 Rate Blood Pressure 138/84 137/61 Blood Pressure 154/80 [Sitting] Blood Pressure 161/94 [Standing] Blood Pressure 139/81 [Supine] O2 Sat by Pulse 100 94 L Oximetry Medical Decision Making - Medical Decision Making EKG shows normal sinus rhythm at 79 bpm SD interval is 170 QRS is 128 QT int erval 396 QTC is [address] segment depression in leads V5 V6 as well as 1 and aVL Patient received a liter and half of fluid and Rocephin for the urinary tract infection. Patient had no symptoms while in the emergency department. Patient's states he cannot get her to drink enough fluid and she is drinking but a bit of wine however - Lab Data Result diagrams: 03/15/19 10:23 03/15/19 10:23 Lab Results 03/15/19 03/15/19 03/15/19 Range/Units 09:51 10:23 10:23 WBC 5.9 (3.8-10.6) k/uL RBC 3.49 L (3.80-5.40) m/uL Hgb 11.0 L (11.4-16.0) gm/dL Hct 34.2 (34.0-46.0) % MCV 98.0 (80.0-100.0) fL MCH 31.4 (25.0-35.0) pg MCHC 32.0 (31.0-37.0) g/dL RDW 14.4 (11.5-15.5) % Plt Count 252 (150-450) k/uL Neutrophils % 78 % Lymphocytes % 13 % Monocytes % 4 % Eosinophils % 3 % Basophils % 1 % Neutrophils # 4.6 (1.3-7.7) k/uL Lymphocytes # 0.8 L (1.0-4.8) k/uL Monocytes # 0.2 (0-1.0) k/uL Eosinophils # 0.2 (0-0.7) k/uL Basophils # 0.0 (0-0.2) k/uL PT (9.0-12.0) sec INR (<1.2) APTT (22.0-30.0) sec Sodium 138 (137-145) mmol/L Potassium 5.7 H (3.5-5.1) mmol/L Chloride 112 H (98-107) mmol/L Carbon Dioxide 13 L (22-30) mmol/L Anion Gap 13 mmol/L BUN 26 H (7-17) mg/dL Creatinine 0.75 (0.52-1.04) mg/dL Est GFR (CKD-EPI)AfAm 86 (>60 ml/min/1.73 sqM) Est GFR (CKD-EPI)NonAf 75 (>60 ml/min/1.73 sqM) Glucose 201 H (74-99) mg/dL POC Glucose (mg/dL) 113 H (75-99) mg/dL POC Glu Program Production Specialist ID Teodoro Cottrell Lactic Ac Sepsis Rflx Plasma Lactic Acid Moustapha (0.7-2.0) mmol/L Calcium 9.6 (8.4-10.2) mg/dL Total Bilirubin 0.4 (0.2-1.3) mg/dL AST 23 (14-36) U/L ALT 16 (9-52) U/L Alkaline Phosphatase 80 (38-126) U/L Troponin I (0.000-0.034) ng/mL Total Protein 7.3 (6.3-8.2) g/dL Albumin 4.1 (3.5-5.0) g/dL Urine Color Urine Appearance (Clear) Urine pH (5.0-8.0) Ur Specific [place] (1.001-1.035) Urine Protein (Negative) Urine Glucose (UA) (Negative) Urine Ketones (Negative) Urine Blood (Negative) Urine Nitrite (Negative) Urine Bilirubin (Negative) Urine Urobilinogen (<2.0) mg/dL Ur Leukocyte Esterase (Negative) Urine RBC (0-5) /hpf Urine WBC (0-5) /hpf Ur Squamous Epith Cells (0-4) /hpf Urine Bacteria (None) /hpf Hyaline Casts (0-2) /lpf Urine Mucus (None) /hpf Urine Opiates Screen (NotDetected) Ur Oxycodone Screen (NotDetected) Urine Methadone Screen (NotDetected) Ur Propoxyphene Screen (NotDetected) Ur Barbiturates Screen (NotDetected) U Tricyclic Antidepress (NotDetected) Ur Phencyclidine Scrn (NotDetected) Ur Amphetamines Screen (NotDetected) U Methamphetamines Scrn (NotDetected) U Benzodiazepines Scrn (NotDetected) Urine Cocaine Screen (NotDetected) U Marijuana (THC) Screen (NotDetected) 03/15/19 03/15/19 03/15/19 Range/Units 10:23 10:23 10:30 WBC (3.8-10.6) k/uL RBC (3.80-5.40) m/uL Hgb (11.4-16.0) gm/dL Hct (34.0-46.0) % MCV (80.0-100.0) fL MCH (25.0-35.0) pg MCHC (31.0-37.0) g/dL RDW (11.5-15.5) % Plt Count (150-450) k/uL Neutrophils % % Lymphocytes % % Monocytes % % Eosinophils % % Basophils % % Neutrophils # (1.3-7.7) k/uL Lymphocytes # (1.0-4.8) k/uL Monocytes # (0-1.0) k/uL Eosinophils # (0-0.7) k/uL Basophils # (0-0.2) k/uL PT 10.1 (9.0-12.0) sec INR 0.9 (<1.2) APTT 22.2 (22.0-30.0) sec Sodium (137-145) mmol/L Potassium (3.5-5.1) mmol/L Chloride (98-107) mmol/L Carbon Dioxide (22-30) mmol/L Anion Gap mmol/L BUN (7-17) mg/dL Creatinine (0.52-1.04) mg/dL Est GFR (CKD-EPI)AfAm (>60 ml/min/1.73 sqM) Est GFR (CKD-EPI)NonAf (>60 ml/min/1.73 sqM) Glucose (74-99) mg/dL POC Glucose (mg/dL) (75-99) mg/dL POC Glu Program Production Specialist ID Lactic Ac Sepsis Rflx Plasma Lactic Acid Moustapha 2.4 H* (0.7-2.0) mmol/L Calcium (8.4-10.2) mg/dL Total Bilirubin (0.2-1.3) mg/dL AST (14-36) U/L ALT (9-52) U/L Alkaline Phosphatase (38-126) U/L Troponin I <0.012 (0.000-0.034) ng/mL Total Protein (6.3-8.2) g/dL Albumin (3.5-5.0) g/dL Urine Color Urine Appearance (Clear) Urine pH (5.0-8.0) Ur Specific [place] (1.001-1.035) Urine Protein (Negative) Urine Glucose (UA) (Negative) Urine Ketones (Negative) Urine Blood (Negative) Urine Nitrite (Negative) Urine Bilirubin (Negative) Urine Urobilinogen (<2.0) mg/dL Ur Leukocyte Esterase (Negative) Urine RBC (0-5) /hpf Urine WBC (0-5) /hpf Ur Squamous Epith Cells (0-4) /hpf Urine Bacteria (None) /hpf Hyaline Casts (0-2) /lpf Urine Mucus (None) /hpf Urine Opiates Screen (NotDetected) Ur Oxycodone Screen (NotDetected) Urine Methadone Screen (NotDetected) Ur Propoxyphene Screen (NotDetected) Ur Barbiturates Screen (NotDetected) U Tricyclic Antidepress (NotDetected) Ur Phencyclidine Scrn (NotDetected) Ur Amphetamines Screen (NotDetected) U Methamphetamines Scrn (NotDetected) U Benzodiazepines Scrn (NotDetected) Urine Cocaine Screen (NotDetected) U Marijuana (THC) Screen (NotDetected) 03/15/19 03/15/19 Range/Units 11:09 11:10 WBC (3.8-10.6) k/uL RBC (3.80-5.40) m/uL Hgb (11.4-16.0) gm/dL Hct (34.0-46.0) % MCV (80.0-100.0) fL MCH (25.0-35.0) pg MCHC (31.0-37.0) g/dL RDW (11.5-15.5) % Plt Count (150-450) k/uL Neutrophils % % Lymphocytes % % Monocytes % % Eosinophils % % Basophils % % Neutrophils # (1.3-7.7) k/uL Lymphocytes # (1.0-4.8) k/uL Monocytes # (0-1.0) k/uL Eosinophils # (0-0.7) k/uL Basophils # (0-0.2) k/uL PT (9.0-12.0) sec INR (<1.2) APTT (22.0-30.0) sec Sodium (137-145) mmol/L Potassium (3.5-5.1) mmol/L Chloride (98-107) mmol/L Carbon Dioxide (22-30) mmol/L Anion Gap mmol/L BUN (7-17) mg/dL Creatinine (0.52-1.04) mg/dL Est GFR (CKD-EPI)AfAm (>60 ml/min/1.73 sqM) Est GFR (CKD-EPI)NonAf (>60 ml/min/1.73 sqM) Glucose (74-99) mg/dL POC Glucose (mg/dL) (75-99) mg/dL POC Glu Program Production Specialist ID Lactic Ac Sepsis Rflx Y Plasma Lactic Acid Moustapha (0.7-2.0) mmol/L Calcium (8.4-10.2) mg/dL Total Bilirubin (0.2-1.3) mg/dL AST (14-36) U/L ALT (9-52) U/L Alkaline Phosphatase (38-126) U/L Troponin I (0.000-0.034) ng/mL Total Protein (6.3-8.2) g/dL Albumin (3.5-5.0) g/dL Urine Color Light Yellow Urine Appearance Cloudy H (Clear) Urine pH 6.0 (5.0-8.0) Ur Specific [place] 1.011 (1.001-1.035) Urine Protein Trace H (Negative) Urine Glucose (UA) Negative (Negative) Urine Ketones Negative (Negative) Urine Blood Negative (Negative) Urine Nitrite Positive H (Negative) Urine Bilirubin Negative (Negative) Urine Urobilinogen <2.0 (<2.0) mg/dL Ur Leukocyte Esterase Large H (Negative) Urine RBC 1 (0-5) /hpf Urine WBC 15 H (0-5) /hpf Ur Squamous Epith Cells 1 (0-4) /hpf Urine Bacteria Few H (None) /hpf Hyaline Casts 3 H (0-2) /lpf Urine Mucus Rare H (None) /hpf Urine Opiates Screen Not Detected (NotDetected) Ur Oxycodone Screen Not Detected (NotDetected) Urine Methadone Screen Not Detected (NotDetected) Ur Propoxyphene Screen Not Detected (NotDetected) Ur Barbiturates Screen Not Detected (NotDetected) U Tricyclic Antidepress Not Detected (NotDetected) Ur Phencyclidine Scrn Not Detected (NotDetected) Ur Amphetamines Screen Not Detected (NotDetected) U Methamphetamines Scrn Not Detected (NotDetected) U Benzodiazepines Scrn Not Detected (NotDetected) Urine Cocaine Screen Not Detected (NotDetected) U Marijuana (THC) Screen Not Detected (NotDetected) Disposition Clinical Impression: UTI (urinary tract infection), Dehydration, Lactic acidosis Disposition: HOME SELF-CARE Prescriptions: Sulfamethox-Tmp 800-160Mg [Bactrim DS 800-160 mg] 1 each PO Q12HR #14 tab Is patient prescribed a controlled substance at d/c from ED?: No Referrals: Kyle Villar MD [Primary Care Provider] - 1-2 days Time of Disposition: 12:33
[2019-03-15 10:35] LABS: Basophils % (A) 1 %; Eosinophils # (A) 0.2 k/uL (0-0.7); Eosinophils % (A) 3 %; HCT 34.2 % (34.0-46.0); Lymphocytes # (A) 0.8 k/uL (1.0-4.8); Lymphocytes % (A) 13 %; MCH 31.4 pg (25.0-35.0); Mean Platelet Volume 7.4; Monocytes # (A) 0.2 k/uL (0-1.0); Monocytes % (A) 4 %; Neutrophils # (A) 4.6 k/uL (1.3-7.7); Neutrophils % (A) 78 %; Platelet Count 252 k/uL (150-450); RBC 3.49 m/uL (3.80-5.40); RDW 14.4 % (11.5-15.5); WBC 5.9 k/uL (3.8-10.6)
[2019-03-15 10:41] LABS: Albumin 4.1 g/dL (3.5-5.0); Calcium 9.6 mg/dL (8.4-10.2); Potassium 5.7 mmol/L (3.5-5.1); Total Bilirubin 0.4 mg/dL (0.2-1.3); Total Protein 7.3 g/dL (6.3-8.2)
[2019-03-15 10:47] LABS: INR 0.9 (<1.2); Partial Thromboplastin Time 22.2 sec (22.0-30.0); Prothrombin Time 10.1 sec (9.0-12.0)
[2019-03-15 11:26] LABS: Appearance,Urine Cloudy (Clear); Bacteria,Urine Few /hpf; Bilirubin,Urine Negative (Negative); Blood,Urine Negative (Negative); Color,Urine Light Yellow; Glucose,Urine (UA) Negative (Negative); Hyaline Casts,Urine 3 /lpf (0-2); Ketones,Urine Negative (Negative); Leukocyte Esterase,Urine Large (Negative); Mucus,Urine Rare /hpf; Nitrite,Urine Positive (Negative); Protein,Urine Trace (Negative); RBC,Urine 1 /hpf (0-5); Specific Gravity,Urine 1.011 (1.001-1.035); Squamous Epithelial Cell,Urine 1 /hpf (0-4); Urobilinogen,Urine <2.0 mg/dL (<2.0); WBC,Urine 15 /hpf (0-5)
[2019-03-15] MEDS ORDERED: cefTRIAXone IN SWFI 1,000 MG/10 ML SYRINGE IVP STA (11:26)
[2019-03-15 11:50] LABS: Amphetamine Screen,Urine Not Detected (NotDetected); Barbiturate Screen,Urine Not Detected (NotDetected); Benzodiazepines Screen,Urine Not Detected (NotDetected); Cocaine Screen,Urine Not Detected (NotDetected); Methadone Screen, Urine Not Detected (NotDetected); Opiate Screen,Urine Not Detected (NotDetected); Oxycodone Screen, Urine Not Detected (NotDetected); Phencyclidine Screen,Urine Not Detected (NotDetected); Tricyclic Antidepressant,Urine Not Detected (NotDetected); Urn Cannabinoid Scrn Not Detected (NotDetected)
[2019-03-15 12:11] VITALS: BP 137/61; PULSE 88
== END 2019-03-15 13:20 | disposition home or self-care (01) ==
LOC: EC 09:46
DX: N39.0 Urinary tract infection, site not specified (principal); E86.0 Dehydration; E87.2 Acidosis; E11.649 Type 2 diabetes mellitus with hypoglycemia without coma; F03.90 Unspecified dementia, unspecified severity, without behavioral disturbance, psychotic disturbance, mood disturbance, and anxiety; E07.9 Disorder of thyroid, unspecified; I10 Essential (primary) hypertension; Z79.84 Long term (current) use of oral hypoglycemic drugs; Z79.890 Hormone replacement therapy; Z79.899 Other long term (current) drug therapy; Z88.7 Allergy status to serum and vaccine; Z87.891 Personal history of nicotine dependence; Z85.42 Personal history of malignant neoplasm of other parts of uterus; Z85.068 Personal history of other malignant neoplasm of small intestine; Z92.3 Personal history of irradiation
CPT/HCPCS: 99285 ×2; 96374 ×2; 96361 ×3; 36415; 93005; 80053; 83605; 84484; 85025; 85610; 85730; 81001; 80306; J0696

== ENCOUNTER 2020-07-12 13:19 | Emergency (ER) | payer MEDICARE ==
[2020-07-12 13:23] VITALS: RESP 18; TEMP 98.7
[2020-07-12] MEDS ORDERED: SODIUM CHLORIDE 0.9% 500 ML 500 ML IV STA (14:09)
--- NOTE | 2020-07-12 14:16 | ED ---
Dizziness HPI - General Chief Complaint: Dizziness Stated Complaint: Dizzy Time Seen by Provider: 07/12/20 13:57 Source: patient, RN notes reviewed Mode of arrival: wheelchair Limitations: no limitations - History of Present Illness Initial Comments: 85-year-old female presents emergency Department chief complaint of episode of lightheadedness. Patient states she started walking back to her after ultrasound became very lightheaded never loss conscious. He has no headache, no complaints of current dizziness no focal weakness no abdominal pain no chest pain or shortness of breath. Patient states she's recent medical. She states that she sat up from her ultrasound and began walking and swan symptoms started she sat down and symptoms went away. - Related Data Home Medications Medication Instructions Recorded Confirmed Glimepiride [Amaryl] 4 mg PO BID 03/22/18 03/15/19 Atorvastatin [Lipitor] 40 mg PO Q48H 03/15/19 03/15/19 Levothyroxine Sodium [Synthroid] 50 mcg PO DIRECTED 03/15/19 03/15/19 metFORMIN HCL ER [Glucophage Xr] 1,000 mg PO BID 03/15/19 03/15/19 Previous Rx's Medication Instructions Recorded Aspirin 81 mg PO DAILY #30 chew 03/26/18 Losartan [Cozaar] 25 mg PO DAILY #30 tab 03/26/18 Metoprolol Succinate (ER) [Toprol 25 mg PO DAILY #30 tab.er.24h 03/26/18 XL] Sulfamethox-Tmp 800-160Mg [Bactrim 1 each PO Q12HR #14 tab 03/15/19 DS 800-160 mg] Allergies Allergy/AdvReac Type Severity Reaction Status Date / Time tetanus and diphtheria Allergy Unknown Verified 07/12/20 16:55 toxoids Review of Systems ROS Statement: Those systems with pertinent positive or pertinent negative responses have been documented in the HPI. ROS Other: All systems not noted in ROS Statement are negative. Past Medical History Past Medical History: Cancer, Dementia, Diabetes Mellitus, Eye Disorder, GERD/Reflux, Memory Impairment, Thyroid Disorder Additional Past Medical History / Comment(s): pt poor historian-dementia,past pancreatitis,, hx uterine(endometrial) cancer 1988(sx/radiaiton), duodenum cancer 1994. [place] cataracts, occ ringing in ears History of Any Multi-Drug Resistant Organisms: None Reported Past Surgical History: Hysterectomy Additional Past Surgical History / Comment(s): sx for duodenum cancer 1994, 2009 vag lesion removed, per [facility] heart cath but pt/spouse unable to recall this. benign tunor removed from stomach, colonoscopy, egd, whipple procedure Past Anesthesia/Blood Transfusion Reactions: Motion Sickness Past Psychological History: No Psychological Hx Reported Smoking Status: Former smoker Past Alcohol Use History: Occasional Past Drug Use History: None Reported - Past Family History Father Family Medical History: Unable to Obtain Additional Family Medical History / Comment(s): in his 90's Mother Family Medical History: Unable to Obtain Additional Family Medical History / Comment(s): in her 70's General Exam Limitations: no limitations General appearance: alert, in no apparent distress Head exam: Present: atraumatic, normocephalic, normal inspection Eye exam: Present: normal appearance, PERRL, EOMI. Absent: scleral icterus, conjunctival injection, periorbital swelling ENT exam: Present: normal exam, normal oropharynx, mucous membranes moist Neck exam: Present: normal inspection, full ROM. Absent: tenderness, meni ngismus, lymphadenopathy Respiratory exam: Present: normal lung sounds bilaterally. Absent: respiratory distress, wheezes, rales, rhonchi, stridor Cardiovascular Exam: Present: regular rate, normal rhythm, normal heart sounds. Absent: systolic murmur, diastolic murmur, rubs, gallop, clicks GI/Abdominal exam: Present: soft, normal bowel sounds. Absent: distended, tenderness, guarding, rebound, rigid Neurological exam: Present: alert, oriented X3, CN II-XII intact Skin exam: Present: warm, dry, intact, normal color. Absent: rash Course Vital Signs 07/12/20 07/12/20 13:20 14:42 Temperature 98.7 F Pulse Rate 82 Pulse Rate [ 80 Left Supine Pulse Oximetery ] Pulse Rate [ 86 Standing] Respiratory 18 Rate Blood Pressure 137/71 Blood Pressure 151/97 [Standing] Blood Pressure 140/92 [Supine] O2 Sat by Pulse 97 Oximetry Medical Decision Making - Medical Decision Making 85-year-old presented for an episode of lightheadedness. Patient is asymptomatic patient did have some mild lab abnormalities including a CO2 of 10 patient was hydrated did have slight improvement, potassium is 5.4 though slightly hemolyzed. EKG does not reveal any acute changes. Dr. Morocho did discuss the case with Dr. Villalobos her recommends the patient to hold metformin, patient is a follow-up this week in office return for any worsening or change of symptoms. - Lab Data Result diagrams: 07/12/20 14:37 07/12/20 16:04 Lab Results 07/12/20 07/12/20 07/12/20 Range/Units 14:37 14:37 14:37 WBC 7.3 (3.8-10.6) k/uL RBC 3.54 L (3.80-5.40) m/uL Hgb 11.2 L (11.4-16.0) gm/dL Hct 35.3 (34.0-46.0) % MCV 99.8 (80.0-100.0) fL MCH 31.6 (25.0-35.0) pg MCHC 31.6 (31.0-37.0) g/dL RDW 14.4 (11.5-15.5) % Plt Count 189 (150-450) k/uL MPV 7.6 Neutrophils % 84 % Lymphocytes % 8 % Monocytes % 5 % Eosinophils % 2 % Basophils % 1 % Neutrophils # 6.1 (1.3-7.7) k/uL Lymphocytes # 0.6 L (1.0-4.8) k/uL Monocytes # 0.3 (0-1.0) k/uL Eosinophils # 0.1 (0-0.7) k/uL Basophils # 0.1 (0-0.2) k/uL Hypochromasia Moderate Macrocytosis Slight Sodium 134 L (137-145) mmol/L Potassium 5.3 H (3.5-5.1) mmol/L Chloride 110 H (98-107) mmol/L Carbon Dioxide 10 L (22-30) mmol/L Anion Gap 14 mmol/L BUN 29 H (7-17) mg/dL Creatinine 0.91 (0.52-1.04) mg/dL Est GFR (CKD-EPI)AfAm 67 (>60 ml/min/1.73 sqM) Est GFR (CKD-EPI)NonAf 58 (>60 ml/min/1.73 sqM) Glucose 239 H (74-99) mg/dL Calcium 8.7 (8.4-10.2) mg/dL Total Bilirubin 0.7 (0.2-1.3) mg/dL AST 100 H (14-36) U/L ALT 115 H (4-34) U/L Alkaline Phosphatase 118 (38-126) U/L Troponin I 0.015 (0.000-0.034) ng/mL Total Protein 7.7 (6.3-8.2) g/dL Albumin 4.1 (3.5-5.0) g/dL 07/12/20 Range/Units 16:04 WBC (3.8-10.6) k/uL RBC (3.80-5.40) m/uL Hgb (11.4-16.0) gm/dL Hct (34.0-46.0) % MCV (80.0-100.0) fL MCH (25.0-35.0) pg MCHC (31.0-37.0) g/dL RDW (11.5-15.5) % Plt Count (150-450) k/uL MPV Neutrophils % % Lymphocytes % % Monocytes % % Eosinophils % % Basophils % % Neutrophils # (1.3-7.7) k/uL Lymphocytes # (1.0-4.8) k/uL Monocytes # (0-1.0) k/uL Eosinophils # (0-0.7) k/uL Basophils # (0-0.2) k/uL Hypochromasia Macrocytosis Sodium 135 L (137-145) mmol/L Potassium 5.4 H (3.5-5.1) mmol/L Chloride 114 H (98-107) mmol/L Carbon Dioxide 13 L (22-30) mmol/L Anion Gap 8 mmol/L BUN 28 H (7-17) mg/dL Creatinine 0.84 (0.52-1.04) mg/dL Est GFR (CKD-EPI)AfAm 74 (>60 ml/min/1.73 sqM) Est GFR (CKD-EPI)NonAf 64 (>60 ml/min/1.73 sqM) Glucose 189 H (74-99) mg/dL Calcium 8.5 (8.4-10.2) mg/dL Total Bilirubin (0.2-1.3) mg/dL AST (14-36) U/L ALT (4-34) U/L Alkaline Phosphatase (38-126) U/L Troponin I (0.000-0.034) ng/mL Total Protein (6.3-8.2) g/dL Albumin (3.5-5.0) g/dL Disposition Clinical Impression: Dehydration, Lightheadedness Disposition: HOME SELF-CARE Condition: Stable Instructions (If sedation given, give patient instructions): Dizziness (ED) Additional Instructions: Hold metformin and follow-up with your PCP this week. Please return to the Emergency Department if symptoms worsen or any other concerns. Is patient prescribed a controlled substance at d/c from ED?: No Referrals: Mayela Dasilva MD [Primary Care Provider] - 1-2 days Time of Disposition: 16:55
[2020-07-12 14:48] LABS: Basophils # (A) 0.1 k/uL (0-0.2); Basophils % (A) 1 %; Eosinophils # (A) 0.1 k/uL (0-0.7); Eosinophils % (A) 2 %; HCT 35.3 % (34.0-46.0); HGB 11.2 gm/dL (11.4-16.0); Hypochromasia Moderate; Lymphocytes # (A) 0.6 k/uL (1.0-4.8); Lymphocytes % (A) 8 %; MCH 31.6 pg (25.0-35.0); MCHC 31.6 g/dL (31.0-37.0); MCV 99.8 fL (80.0-100.0); Macrocytosis Slight; Mean Platelet Volume 7.6; Monocytes # (A) 0.3 k/uL (0-1.0); Monocytes % (A) 5 %; Neutrophils # (A) 6.1 k/uL (1.3-7.7); Neutrophils % (A) 84 %; Platelet Count 189 k/uL (150-450); RBC 3.54 m/uL (3.80-5.40); RDW 14.4 % (11.5-15.5); WBC 7.3 k/uL (3.8-10.6)
[2020-07-12 15:17] LABS: Albumin 4.1 g/dL (3.5-5.0); Calcium 8.7 mg/dL (8.4-10.2); Total Bilirubin 0.7 mg/dL (0.2-1.3); Total Protein 7.7 g/dL (6.3-8.2)
[2020-07-12 15:18] LABS: Potassium 5.3 mmol/L (3.5-5.1)
[2020-07-12] MEDS ORDERED: SODIUM CHLORIDE 0.9% 500 ML 500 ML IV ONE (15:26)
[2020-07-12 16:21] LABS: Calcium 8.5 mg/dL (8.4-10.2); Potassium 5.4 mmol/L (3.5-5.1)
[2020-07-12 17:00] VITALS: BP 136/82; PULSE 87
== END 2020-07-12 17:08 | disposition home or self-care (01) ==
LOC: EC 13:19
DX: E86.0 Dehydration (principal); E07.9 Disorder of thyroid, unspecified; E11.9 Type 2 diabetes mellitus without complications; Z79.890 Hormone replacement therapy; Z79.84 Long term (current) use of oral hypoglycemic drugs; Z87.891 Personal history of nicotine dependence; Z90.710 Acquired absence of both cervix and uterus; Z85.42 Personal history of malignant neoplasm of other parts of uterus; Z85.068 Personal history of other malignant neoplasm of small intestine; Z98.42 Cataract extraction status, left eye; Z98.41 Cataract extraction status, right eye; Z92.3 Personal history of irradiation; Z88.7 Allergy status to serum and vaccine
CPT/HCPCS: 36415; 80048; 80053; 84484; 85025; 93005; 96360; 96361; 99284

== ENCOUNTER → 2020-07-12 | Outpatient (CLI) | payer MEDICARE ==
--- NOTE | 2020-07-12 14:01 | US ---
EXAMINATION TYPE: US kidneys/renal and bladder DATE OF EXAM: 07/12/2020 COMPARISON: NONE CLINICAL HISTORY: 85-year-old female R94.4 Abnormal Kidney functions. TECHNIQUE: Multiple sonographic images of the kidneys and bladder are obtained. FINDINGS: EXAM MEASUREMENTS: Right Kidney: 8.7 x 4.3 x 3.2 cm Left Kidney: 8.4 x 4.4 x 4.1 cm No hydronephrosis on either side. Bladder: wnl Bilateral Jets seen: Yes IMPRESSION: No hydronephrosis seen on either side.
== END | disposition home or self-care (01) ==
LOC: RADUSWWP 12:50
PROVIDERS: ATTEND Internal Medicine
DX: R94.4 Abnormal results of kidney function studies (principal)
CPT/HCPCS: 76770

== ENCOUNTER 2020-07-17 10:33 | Inpatient (IN) | payer MEDICARE ==
[2020-07-17] MEDS ORDERED: SODIUM CHLORIDE 0.9% 500 ML 500 ML IV STA (10:45)
[2020-07-17 11:21] LABS: Basophils # (A) 0.1 k/uL (0-0.2); Basophils % (A) 1 %; Eosinophils # (A) 0.3 k/uL (0-0.7); Eosinophils % (A) 3 %; HCT 40.7 % (34.0-46.0); HGB 12.9 gm/dL (11.4-16.0); Hypochromasia Slight; Lymphocytes % (A) 12 %; MCH 31.4 pg (25.0-35.0); MCHC 31.8 g/dL (31.0-37.0); MCV 98.8 fL (80.0-100.0); Mean Platelet Volume 7.9; Monocytes # (A) 0.4 k/uL (0-1.0); Monocytes % (A) 5 %; Neutrophils # (A) 6.4 k/uL (1.3-7.7); Neutrophils % (A) 78 %; Platelet Count 309 k/uL (150-450); RBC 4.12 m/uL (3.80-5.40); RDW 14.7 % (11.5-15.5); WBC 8.1 k/uL (3.8-10.6)
--- NOTE | 2020-07-17 11:31 | ED ---
General Adult HPI - General Chief complaint: Recheck/Abnormal Lab/Rx Stated complaint: dizziness/poss dehydration Time Seen by Provider: 07/17/20 10:45 Source: patient, family, RN notes reviewed Mode of arrival: wheelchair Limitations: no limitations - History of Present Illness Initial comments: This an 85-year-old female presents emergency Department with chief complaint of dizziness, weakness, worsening dementia. Patient recent was in emergency from follow-up with PCP who janet outpatient labs and advised the patient to go to the emergency department last night. Patient did present today states that she's feels generalized weak states that she has been having worsening of her dementia symptoms and she just seems to be very fatigued or lethargic. Patient herself has no specific complaints. Patient's recently had an ultrasound of her kidneys secondary to worsening kidney function patient also noted had mild leg swelling which is new - Related Data Home Medications Medication Instructions Recorded Confirmed Glimepiride [Amaryl] 4 mg PO BID 03/22/18 07/12/20 Atorvastatin [Lipitor] 40 mg PO Q48H 03/15/19 07/12/20 metFORMIN HCL ER [Glucophage Xr] 1,000 mg PO BID 03/15/19 07/12/20 Levothyroxine Sodium [Synthroid] 75 mcg PO DAILY 07/12/20 07/12/20 Losartan [Cozaar] 25 mg PO DIRECTED 07/12/20 07/12/20 Metoprolol Succinate (ER) [Toprol 25 mg PO DIRECTED 07/12/20 07/12/20 XL] Previous Rx's Medication Instructions Recorded Aspirin 81 mg PO DAILY #30 chew 03/26/18 Allergies Allergy/AdvReac Type Severity Reaction Status Date / Time tetanus and diphtheria Allergy Unknown Verified 07/12/20 16:55 toxoids Review of Systems ROS Statement: Those systems with pertinent positive or pertinent negative responses have been documented in the HPI. ROS Other: All systems not noted in ROS Statement are negative. Past Medical History Past Medical History: Cancer, Dementia, Diabetes Mellitus, Eye Disorder, GERD/Reflux, Memory Impairment, Thyroid Disorder Additional Past Medical History / Comment(s): pt poor historian-dementia,past pancreatitis,, hx uterine(endometrial) cancer 1988(sx/radiaiton), duodenum cancer 1994. [place]en[place] cataracts, occ ringing in ears History of Any Multi-Drug Resistant Organisms: None Reported Past Surgical History: Hysterectomy Additional Past Surgical History / Comment(s): sx for duodenum cancer 1994, 2009 vag lesion removed, per [facility] heart cath but pt/spouse unable to recall this. benign tunor removed from stomach, colonoscopy, egd, whipple procedure Past Anesthesia/Blood Transfusion Reactions: Motion Sickness Past Psychological History: No Psychological Hx Reported Smoking Status: Former smoker Past Alcohol Use History: Occasional Past Drug Use History: None Reported - Past Family History Father Family Medical History: Unable to Obtain Additional Family Medical History / Comment(s): in his 90's Mother Family Medical History: Unable to Obtain Additional Family Medical History / Comment(s): in her 70's General Exam Limitations: no limitations General appearance: alert, in no apparent distress Head exam: Present: atraumatic, normocephalic, normal inspection Eye exam: Present: normal appearance, PERRL, EOMI. Absent: scleral icterus, conjunctival injection, periorbital swelling ENT exam: Present: normal exam, normal oropharynx, mucous membranes moist, TM's normal bilaterally Neck exam: Present: normal inspection, full ROM. Absent: tenderness, meningismus, lymphadenopathy Respiratory exam: Present: normal lung sounds bilaterally. Absent: respiratory distress, wheezes, rales, rhonchi, stridor Cardiovascular Exam: Present: regular rate, normal rhythm, normal heart sounds. Absent: systolic murmur, diastolic murmur, rubs, gallop, clicks Extremities exam: Present: pedal edema Neurological exam: Present: alert, oriented X3, CN II-XII intact, reflexes normal, other (Is intact bilaterally). Absent: motor sensory deficit Skin exam: Present: warm, dry, intact, normal color. Absent: rash Course Vital Signs 07/17/20 10:38 Temperature 98.0 F Pulse Rate 87 Respiratory 18 Rate Blood Pressure 137/68 O2 Sat by Pulse 96 Oximetry EKG Findings - EKG Comments: EKG Findings:: EKG performed at 10:51 sinus rhythm pvc noted, left axis deviation rate of 92 GA 156 QRS 132 QT/QTC 378/467 Medical Decision Making - Medical Decision Making Case discussed with Dr. Dasilva who recommends patient be admitted requested echocardiogram, consult to cardiology. Patient has signs of CHF on x-ray, BMP is 13,000, patient does have evidence of urinary tract infection. Blood culture was ordered coming urine culture along with IV antibiotics. - Lab Data Result diagrams: 07/17/20 11:08 07/17/20 11:08 Lab Results 07/17/20 07/17/20 07/17/20 Range/Units 11:08 11:08 11:08 WBC 8.1 (3.8-10.6) k/uL RBC 4.12 (3.80-5.40) m/uL Hgb 12.9 (11.4-16.0) gm/dL Hct 40.7 (34.0-46.0) % MCV 98.8 (80.0-100.0) fL MCH 31.4 (25.0-35.0) pg MCHC 31.8 (31.0-37.0) g/dL RDW 14.7 (11.5-15.5) % Plt Count 309 (150-450) k/uL MPV 7.9 Neutrophils % 78 % Lymphocytes % 12 % Monocytes % 5 % Eosinophils % 3 % Basophils % 1 % Neutrophils # 6.4 (1.3-7.7) k/uL Lymphocytes # 1.0 (1.0-4.8) k/uL Monocytes # 0.4 (0-1.0) k/uL Eosinophils # 0.3 (0-0.7) k/uL Basophils # 0.1 (0-0.2) k/uL Hypochromasia Slight Sodium 137 (137-145) mmol/L Potassium 5.5 H (3.5-5.1) mmol/L Chloride 112 H (98-107) mmol/L Carbon Dioxide 14 L (22-30) mmol/L Anion Gap 11 mmol/L BUN 28 H (7-17) mg/dL Creatinine 1.01 (0.52-1.04) mg/dL Est GFR (CKD-EPI)AfAm 59 (>60 ml/min/1.73 sqM) Est GFR (CKD-EPI)NonAf 51 (>60 ml/min/1.73 sqM) Glucose 217 H (74-99) mg/dL Calcium 9.2 (8.4-10.2) mg/dL Magnesium 1.7 (1.6-2.3) mg/dL Total Bilirubin 0.9 (0.2-1.3) mg/dL AST 85 H (14-36) U/L ALT 144 H (4-34) U/L Alkaline Phosphatase 178 H (38-126) U/L Troponin I 0.018 (0.000-0.034) ng/mL NT-Pro-B Natriuret Pep pg/mL Total Protein 7.6 (6.3-8.2) g/dL Albumin 4.0 (3.5-5.0) g/dL Urine Color Urine Appearance (Clear) Urine pH (5.0-8.0) Ur Specific [place] (1.001-1.035) Urine Protein (Negative) Urine Glucose (UA) (Negative) Urine Ketones (Negative) Urine Blood (Negative) Urine Nitrite (Negative) Urine Bilirubin (Negative) Urine Urobilinogen (<2.0) mg/dL Ur Leukocyte Esterase (Negative) Urine RBC (0-5) /hpf Urine WBC (0-5) /hpf Urine WBC Clumps (None) /hpf Ur Squamous Epith Cells (0-4) /hpf Urine Bacteria (None) /hpf Urine Mucus (None) /hpf 07/17/20 07/17/20 Range/Units 11:08 12:23 WBC (3.8-10.6) k/uL RBC (3.80-5.40) m/uL Hgb (11.4-16.0) gm/dL Hct (34.0-46.0) % MCV (80.0-100.0) fL MCH (25.0-35.0) pg MCHC (31.0-37.0) g/dL RDW (11.5-15.5) % Plt Count (150-450) k/uL MPV Neutrophils % % Lymphocytes % % Monocytes % % Eosinophils % % Basophils % % Neutrophils # (1.3-7.7) k/uL Lymphocytes # (1.0-4.8) k/uL Monocytes # (0-1.0) k/uL Eosinophils # (0-0.7) k/uL Basophils # (0-0.2) k/uL Hypochromasia Sodium (137-145) mmol/L Potassium (3.5-5.1) mmol/L Chloride (98-107) mmol/L Carbon Dioxide (22-30) mmol/L Anion Gap mmol/L BUN (7-17) mg/dL Creatinine (0.52-1.04) mg/dL Est GFR (CKD-EPI)AfAm (>60 ml/min/1.73 sqM) Est GFR (CKD-EPI)NonAf (>60 ml/min/1.73 sqM) Glucose (74-99) mg/dL Calcium (8.4-10.2) mg/dL Magnesium (1.6-2.3) mg/dL Total Bilirubin (0.2-1.3) mg/dL AST (14-36) U/L ALT (4-34) U/L Alkaline Phosphatase (38-126) U/L Troponin I (0.000-0.034) ng/mL NT-Pro-B Natriuret Pep 63150 pg/mL Total Protein (6.3-8.2) g/dL Albumin (3.5-5.0) g/dL Urine Color Yellow Urine Appearance Cloudy H (Clear) Urine pH 5.5 (5.0-8.0) Ur Specific [place] 1.016 (1.001-1.035) Urine Protein 2+ H (Negative) Urine Glucose (UA) Negative (Negative) Urine Ketones Negative (Negative) Urine Blood Moderate H (Negative) Urine Nitrite Positive H (Negative) Urine Bilirubin Negative (Negative) Urine Urobilinogen <2.0 (<2.0) mg/dL Ur Leukocyte Esterase Large H (Negative) Urine RBC 8 H (0-5) /hpf Urine WBC 41 H (0-5) /hpf Urine WBC Clumps Few H (None) /hpf Ur Squamous Epith Cells 1 (0-4) /hpf Urine Bacteria Many H (None) /hpf Urine Mucus Occasional H (None) /hpf Disposition Clinical Impression: UTI (urinary tract infection), Acute CHF Disposition: ADMITTED IP TO THIS [facility] Condition: Fair Referrals: Mayela Dasilva MD [Primary Care Provider] - 1-2 days
[2020-07-17 11:36] LABS: Calcium 9.2 mg/dL (8.4-10.2); Total Bilirubin 0.9 mg/dL (0.2-1.3); Total Protein 7.6 g/dL (6.3-8.2)
[2020-07-17 11:41] LABS: Magnesium 1.7 mg/dL (1.6-2.3); Potassium 5.5 mmol/L (3.5-5.1)
--- NOTE | 2020-07-17 12:03 | XR ---
EXAMINATION TYPE: XR chest 2V DATE OF EXAM: 07/17/2020 COMPARISON: 03/23/2018 HISTORY: Dizziness TECHNIQUE: Frontal and lateral views of the chest are obtained. FINDINGS: There are small bilateral pleural effusions right greater than left. Heart size is promine nt and there is pulmonary vascular congestion. These findings were not present on the prior study. There is no pneumothorax. The osseous structures are intact. IMPRESSION: Findings most consistent with CHF. Clinical correlation is recommended.
[2020-07-17 12:38] LABS: Appearance,Urine Cloudy (Clear); Bacteria,Urine Many /hpf; Bilirubin,Urine Negative (Negative); Blood,Urine Moderate (Negative); Color,Urine Yellow; Glucose,Urine (UA) Negative (Negative); Ketones,Urine Negative (Negative); Leukocyte Esterase,Urine Large (Negative); Mucus,Urine Occasional /hpf; Nitrite,Urine Positive (Negative); PH, Urine 5.5 (5.0-8.0); Protein,Urine 2+ (Negative); RBC,Urine 8 /hpf (0-5); Specific Gravity,Urine 1.016 (1.001-1.035); Squamous Epithelial Cell,Urine 1 /hpf (0-4); Urobilinogen,Urine <2.0 mg/dL (<2.0); WBC,Urine 41 /hpf (0-5)
[2020-07-17] MEDS ORDERED: FUROSEMIDE 10 MG/ML 2 ML VIAL IV STA (12:48)
[2020-07-17] MEDS: FUROSEMIDE 10 MG/ML 4 ML VIAL IV SCH (13:00)
[2020-07-17 16:34] LABS: Glucose,Whole Blood 222 mg/dL (75-99)
[2020-07-17 21:03] LABS: Glucose,Whole Blood 258 mg/dL (75-99)
[2020-07-18] MEDS: FUROSEMIDE 10 MG/ML 4 ML VIAL IV SCH ×3 (00:02→20:25)
[2020-07-18 06:12] LABS: Glucose,Whole Blood 205 mg/dL (75-99)
--- NOTE | 2020-07-18 07:59 | P.HPIM ---
History of Present Illness H&P Date: 07/17/20 Chief Complaint: acute systolic heart failure This is an 85 year old female with a previous medical history significant for CAD post inferior wall myocardial infarction with chronic systolic heart failure, hypertension and hypertensive cardiovascular disease, hyperlipidemia, hypothyroidism, diabets mellitus type 2 and Alzheimer dementia, patient was seen in the office yesterday and she was more confused than normal, so a labs were done and she had a slight bump in her troponin and I have called her to bring her to the ER yesterday, however she declined and he aid he will take her in the morning, patient was seen in the ER and she was found to have elevated BNP and she was complaining of increased swelling in both legs and she denied any chest pain or shortness of breath, her troponin was ok, because of that she was admitted to the hospital with cardiology consult and we will repeat echocardiogram, also she was found to have UTI and was given rocephin 1 gr IVPB daily, sent UA for C+S. Review of Systems Constitutional: Reports fatigue, Reports weakness, Reports weight loss, Denies anorexia, Denies chronic headaches, Denies chronic pain, Denies lethargy, Denies sweats Eyes: denies blurred vision, denies bulging eye Ears, nose, mouth and throat: Denies dysphagia, Denies neck lump, Denies sore throat Cardiovascular: Reports decreased exercise tolerance, Reports dyspnea on exertion, Reports leg edema, Reports shortness of breath, Denies chest pain, Denies orthopnea, Denies palpitations, Denies rapid heart beat, Denies syncope Respiratory: Denies congestion, Denies cough, Denies cough with sputum, Denies home oxygen, Denies sleep apnea, Denies snoring, Denies wheezing Gastrointestinal: Reports loss of appetite, Denies abdominal pain, Denies BRBPR, Denies heartburn, Denies melena, Denies nausea, Denies vomiting Genitourinary: Reports nocturia, Denies dysuria Menstruation: Reports postmenopausal Musculoskeletal: bilateral: ankle swelling, absent: elbow pain, elbow stiffness, elbow swelling, foot pain, foot stiffness, foot swelling, hand pain, hand stiffness, hand swelling, hip pain, hip stiffness, hip swelling, knee pain, knee stiffness, knee swelling, shoulder pain, shoulder stiffness, shoulder swelling, wrist pain, wrist stiffness, wrist swelling Integumentary: Denies pruritus, Denies rash Neurological: Reports confusion, Reports memory loss, Reports weakness Psychiatric: Denies anxiety, Denies depression Endocrine: Denies fatigue, Denies weight change Past Medical History Past Medical History: Coronary Artery Disease (CAD), Cancer (pancreatic cancer post whipple procedure in 1994), Heart Failure, Dementia, Diabetes Mellitus, Eye Disorder, GERD/Reflux, Hyperlipidemia, Hypertension, Memory Impairment, Myocardial Infarction ([place]), Osteoarthritis (OA), Thyroid Disorder Additional Past Medical History / Comment(s): pt poor historian-dementia,past pancreatitis,, hx uterine(endometrial) cancer 1988(sx/radiation, pancreatic cancer post whipple procedure in 1994. [place] cataracts, occ ringing in ears History of Any Multi-Drug Resistant Organisms: None Reported Past Surgical History: Hysterectomy Additional Past Surgical History / Comment(s): Whipple procedure due to pancreatic cancer 1994, 2009 vag lesion removed. benign tunor removed from stomach, colonoscopy, egd, whipple procedure Past Anesthesia/Blood Transfusion Reactions: Motion Sickness Past Psychological History: No Psychological Hx Reported Smoking Status: Former smoker (patient used to smoke 1/2 a PPD since the age of 19 and quit more than 30 years ago.) Past Alcohol Use History: Daily Additional Past Alcohol Use History / Comment(s): started smoking 1964 and quit 1994 smoked 1ppd Past Drug Use History: None Reported - Past Family History Father Family Medical History: No Reported History (Father at the age of 92 from old age.) Mother Family Medical History: Diabetes Mellitus (Mother ided at the age of 75 from DM2 on .) Sister(s) Family Medical History: Renal Disease (2 sisters one 88 year old with DM2 and ESRD on HD and the other one 86 with osteoarthritis.) Son(s) Family Medical History: Seizure Disorder (5 sons one is 61 year old lives in intermediate non verbal due to Grandmal seizure disroder.) Medications and Allergies Home Medications Medication Instructions Recorded Confirmed Type Glimepiride [Amaryl] 4 mg PO DAILY 03/22/18 07/17/20 History Aspirin 81 mg PO DAILY #30 chew 03/26/18 07/17/20 Rx Levothyroxine Sodium [Synthroid] 75 mcg PO DAILY 07/12/20 07/17/20 History Losartan [Cozaar] 25 mg PO DAILY 07/12/20 07/17/20 History Metoprolol Succinate (ER) [Toprol 25 mg PO DAILY 07/12/20 07/17/20 History XL] Glimepiride [Amaryl] 2 mg PO W/SUPPER 07/17/20 07/17/20 History Allergies Allergy/AdvReac Type Severity Reaction Status Date / Time tetanus and diphtheria Allergy Unknown Verified 07/17/20 16:25 toxoids Physical Exam Vitals: Vital Signs Temp Pulse Pulse Resp BP BP Pulse Ox 07/18/20 04:00 97.7 F 88 18 136/81 100 07/18/20 00:00 97.6 F 94 18 144/77 97 07/17/20 20:00 97.4 F L 87 18 131/70 97 07/17/20 16:00 97.5 F L 86 18 133/86 100 07/17/20 14:30 97.4 F L 86 18 134/80 99 07/17/20 14:00 18 07/17/20 12:55 84 16 142/84 99 07/17/20 10:38 98.0 F 87 18 137/68 96 Intake and Output 07/17/20 07/18/20 07/18/20 22:59 06:59 14:59 Intake Total 120 Output Total 1150 Balance 120 -1150 Intake: Oral 120 Output: Urine 1150 Other: # Voids 1 2 Weight 42.5 kg Physical examination: HEENT: head is atraumatic normocephalic pupils were equal round reactive to light and accommodations extra ocular muscle movements were intact, mucous membranes of the mouth are somewhat dry. Neck: supple, increased JVP. Chest: decreased breath sounds at the bases with few ronchi, no expiratory wheezes. Heart: the first heart sound is depressed, second heart sound is depressed, there is EARL 2/6 located at the left sternal border. Abdomen: soft non tender non distended positive bowel sounds. Extremities: there is + 2 edema in both lower extremities, there is no calf tenderness DP + 1 bilaterally. Neurologic examintaion: patient is awake alert X 1 CN II-XII are grossly intact muscle power 4/5 in upper and lower extremities. Results CBC & Chem 7: 07/18/20 07:55 07/18/20 07:55 Labs: Abnormal Lab Results - Last 24 Hours (Table) 07/17/20 07/17/20 07/17/20 Range/Units 11:08 12:23 16:33 Potassium 5.5 H (3.5-5.1) mmol/L Chloride 112 H (98-107) mmol/L Carbon Dioxide 14 L (22-30) mmol/L BUN 28 H (7-17) mg/dL Glucose 217 H (74-99) mg/dL POC Glucose (mg/dL) 222 H (75-99) mg/dL AST 85 H (14-36) U/L ALT 144 H (4-34) U/L Alkaline Phosphatase 178 H (38-126) U/L Urine Appearance Cloudy H (Clear) Urine Protein 2+ H (Negative) Urine Blood Moderate H (Negative) Urine Nitrite Positive H (Negative) Ur Leukocyte Esterase Large H (Negative) Urine RBC 8 H (0-5) /hpf Urine WBC 41 H (0-5) /hpf Urine WBC Clumps Few H (None) /hpf Urine Bacteria Many H (None) /hpf Urine Mucus Occasional H (None) /hpf 07/17/20 07/18/20 Range/Units 20:25 06:10 Potassium (3.5-5.1) mmol/L Chloride (98-107) mmol/L Carbon Dioxide (22-30) mmol/L BUN (7-17) mg/dL Glucose (74-99) mg/dL POC Glucose (mg/dL) 258 H 205 H (75-99) mg/dL AST (14-36) U/L ALT (4-34) U/L Alkaline Phosphatase (38-126) U/L Urine Appearance (Clear) Urine Protein (Negative) Urine Blood (Negative) Urine Nitrite (Negative) Ur Leukocyte Esterase (Negative) Urine RBC (0-5) /hpf Urine WBC (0-5) /hpf Urine WBC Clumps (None) /hpf Urine Bacteria (None) /hpf Urine Mucus (None) /hpf Microbiology - Last 24 Hours (Table) 07/17/20 12:23 Urine Culture - Preliminary Urine,Voided Thrombosis Risk Factor Assmnt - DVT/VTE Prophylaxis DVT/VTE Prophylaxis: Pharmacologic Prophylaxis ordered, Mechanical Prophylaxis ordered - Choose All That Apply Any of the Below Risk Factors Present?: No Other Risk Factors: Yes Each Risk Factor Represents 3 Points: Age 75 years or older Other congenital or acquired thrombophilia - If yes, enter type in comment: No Thrombosis Risk Factor Assessment Total Risk Factor Score: 3 Thrombosis Risk Factor Assessment Level: Moderate Risk Assessment and Plan Assessment: Assessment and plan: 1. Acute systolic heart failure: we will start Lasix 40 mg IVP Q 12 H , we will continue with Losartan 25 mg orally daily and Metoprolol ER 25 mg orally daily, we will check Input and output and daily weight, we will check Echocardiogram with cardiology consult 2. UTI. we will continue with Rocephin 1 gr IVPB daily, sent UA for C+S. 3. 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 we will continue to monitor . 4. CAD post inferior wall [place] in 2018 . we will continue with Toprol XL 25 mg orally daily, Losartan 25 mg orally daily and held lipitor due to elevated LFTs and ASA 81 mg orally daily. 5. Hypertension and hypertensive cardiovascular disease. we will continue with Losartan 25 mg orally daily and Metoprolol ER 25 mg orally daily. 6. Hyperlipidemia. we will hold off STATINS due to elevated LFTs. 7. Hypothyroidism. we will continue with Synthrood 75 mcg orally daily. 8. Diabetes mellitus type 2 . we will continue with CCA 1800 diet and we will continue with Glimepiride, BGM AC meals and hs, along with SSI. 9. Alzheimer dementia. we will monitor. 10. DVT prophylaxis. we will continue with ovenox 40 mg SC daily. ' 11. GI prophylaxis. we will continue with PPI> 12. Admits to inpatient estimated length of stay 2 midnights. 13. PT/OT evaluation.
[2020-07-18 08:27] LABS: Basophils # (A) 0.1 k/uL (0-0.2); Basophils % (A) 1 %; Eosinophils # (A) 0.2 k/uL (0-0.7); Eosinophils % (A) 3 %; HCT 35.1 % (34.0-46.0); HGB 11.5 gm/dL (11.4-16.0); Hypochromasia Slight; Lymphocytes # (A) 0.7 k/uL (1.0-4.8); Lymphocytes % (A) 10 %; MCH 31.6 pg (25.0-35.0); MCHC 32.7 g/dL (31.0-37.0); MCV 96.5 fL (80.0-100.0); Mean Platelet Volume 7.4; Monocytes # (A) 0.3 k/uL (0-1.0); Monocytes % (A) 5 %; Neutrophils # (A) 5.6 k/uL (1.3-7.7); Neutrophils % (A) 81 %; Platelet Count 253 k/uL (150-450); RBC 3.64 m/uL (3.80-5.40); RDW 14.8 % (11.5-15.5); WBC 6.9 k/uL (3.8-10.6)
[2020-07-18 08:34] LABS: Albumin 3.5 g/dL (3.5-5.0); Calcium 8.8 mg/dL (8.4-10.2); Magnesium 1.3 mg/dL (1.6-2.3); Potassium 4.1 mmol/L (3.5-5.1); Total Bilirubin 0.8 mg/dL (0.2-1.3); Total Protein 6.4 g/dL (6.3-8.2)
[2020-07-18] MEDS ORDERED: ASPIRIN 325 MG TAB PO SCH (09:00)
--- NOTE | 2020-07-18 10:01 | P.CRDCN ---
History of Present Illness Consult date: 07/18/20 Requesting physician: Mayela Dasilva Reason for Consult (text): CHF Chief complaint: weakness noted by , abnormal outpatient labs History of present illness: This is a pleasantly confused 85-year-old female patient who is a very poor historian. HPI was obtained from the chart and the nursing staff. She has a known history of CAD, pancreatic cancer status post Whipple procedure in 1994, cardiomyopathy, chronic systolic congestive heart failure, dementia, diabetes, hypertension, hyperlipidemia, prior IL and thyroid disorder. She is apparently seen in the office by her primary care physician and was noted to be more confused than normal at which time labs were done and there was apparently a jump in her troponin. Her was called and asked to take her to the emergency department however she declined and he ended up bringing her in yesterday morning. The did verbalize to nursing staff that the patient had been more weak than usual with some increasing confusion. Chest x-ray on admission showed findings most consistent with CHF, clinical correlation is recommended. EKG shows sinus rhythm with IVCD. Liver time values on admission showed potassium 5.5, BUN 28, creatinine 1.01, AST 85, ALT 144, alkaline phosphatase 178, troponin 0.018, NT proBNP of 13,300. Vital signs have been stable. The time I examined the patient is resting fairly in bed. She curren tlgrace has no complaints. She denies any shortness of breath, weakness, chest discomfort, dizziness, nausea or edema. Past Medical History Past Medical History: Coronary Artery Disease (CAD), Cancer (pancreatic cancer post whipple procedure in 1994), Heart Failure, Dementia, Diabetes Mellitus, Eye Disorder, GERD/Reflux, Hyperlipidemia, Hypertension, Memory Impairment, Myocardial Infarction (IL), Osteoarthritis (OA), Thyroid Disorder Additional Past Medical History / Comment(s): pt poor historian-dementia,past pancreatitis,, hx uterine(endometrial) cancer 1988(sx/radiation, pancreatic cancer post whipple procedure in 1994. kenney cataracts, occ ringing in ears History of Any Multi-Drug Resistant Organisms: None Reported Past Surgical History: Hysterectomy Additional Past Surgical History / Comment(s): Whipple procedure due to pancreatic cancer 1994, 2009 vag lesion removed. benign tunor removed from stomach, colonoscopy, egd, whipple procedure Past Anesthesia/Blood Transfusion Reactions: Motion Sickness Past Psychological History: No Psychological Hx Reported Smoking Status: Former smoker (patient used to smoke 1/2 a PPD since the age of 19 and quit more than 30 years ago.) Past Alcohol Use History: Daily Additional Past Alcohol Use History / Comment(s): started smoking 1964 and quit 1994 smoked 1ppd Past Drug Use History: None Reported - Past Family History Father Family Medical History: No Reported History (Father at the age of 92 from old age.) Additional Family Medical History / Comment(s): in his 90's Mother Family Medical History: Diabetes Mellitus (Mother ided at the age of 75 from DM2 on .) Additional Family Medical History / Comment(s): in her 70's Sister(s) Family Medical History: Renal Disease (2 sisters one 88 year old with DM2 and ESRD on HD and the other one 86 with osteoarthritis.) Son(s) Family Medical History: Seizure Disorder (5 sons one is 61 year old lives in detention non verbal due to Grandmal seizure disroder.) Medications and Allergies Home Medications Medication Instructions Recorded Confirmed Type Glimepiride [Amaryl] 4 mg PO DAILY 03/22/18 07/17/20 History Aspirin 81 mg PO DAILY #30 chew 03/26/18 07/17/20 Rx Levothyroxine Sodium [Synthroid] 75 mcg PO DAILY 07/12/20 07/17/20 History Losartan [Cozaar] 25 mg PO DAILY 07/12/20 07/17/20 History Metoprolol Succinate (ER) [Toprol 25 mg PO DAILY 07/12/20 07/17/20 History XL] Glimepiride [Amaryl] 2 mg PO W/SUPPER 07/17/20 07/17/20 History Allergies Allergy/AdvReac Type Severity Reaction Status Date / Time tetanus and diphtheria Allergy Unknown Verified 07/17/20 16:25 toxoids Physical Exam Vitals: Vital Signs Temp Pulse Pulse Resp BP BP Pulse Ox 07/18/20 04:00 97.7 F 88 18 136/81 100 07/18/20 00:00 97.6 F 94 18 144/77 97 07/17/20 20:00 97.4 F L 87 18 131/70 97 07/17/20 16:00 97.5 F L 86 18 133/86 100 07/17/20 14:30 97.4 F L 86 18 134/80 99 07/17/20 14:00 18 07/17/20 12:55 84 16 142/84 99 07/17/20 10:38 98.0 F 87 18 137/68 96 Intake and Output 07/17/20 07/18/20 07/18/20 22:59 06:59 14:59 Intake Total 120 Output Total 1150 Balance 120 -1150 Intake: Oral 120 Output: Urine 1150 Other: # Voids 1 2 Weight 42.5 kg PHYSICAL EXAMINATION: This is a 85-year-old female in no apparent distress at the time of my examination. VITAL SIGNS: Blood pressure 136/81, heart rate 88, respirations 18, temp 97.7F. Patient is 100 % on room air. HEENT: Head is atraumatic, normocephalic. Pupils are equal, round. Sclerae anicteric. Conjunctivae are clear. Mucous membranes of the mouth are moist. Neck is supple. There is no elevated jugular venous pressure. No carotid bruit is heard. CHEST EXAMINATION: Clear reveal diminished air entry bilateral bases with faint crackles noted. Respirations even and nonlabored. HEART EXAMINATION: Heart regular, positive S1 and S2. No S3. No S4 with a systolic murmur. ABDOMEN: Soft, nontender. Bowel sounds are heard. No organomegaly noted. EXTREMITIES: 2+ peripheral pulses with evidence of 1-2+ peripheral edema and no calf tenderness noted. NEUROLOGIC EXAMINATION: Patient is awake, alert and oriented x1. Results 07/18/20 07:55 07/18/20 07:55 Cardiac Enzymes 07/17/20 07/17/20 07/18/20 Range/Units 11:08 11:08 07:55 AST 85 H 54 H (14-36) U/L Troponin I 0.018 (0.000-0.034) ng/mL CBC 07/17/20 07/18/20 Range/Units 11:08 07:55 WBC 8.1 6.9 (3.8-10.6) k/uL RBC 4.12 3.64 L (3.80-5.40) m/uL Hgb 12.9 11.5 (11.4-16.0) gm/dL Hct 40.7 35.1 (34.0-46.0) % Plt Count 309 253 (150-450) k/uL Comprehensive Metabolic Panel 07/17/20 07/18/20 Range/Units 11:08 07:55 Sodium 137 135 L (137-145) mmol/L Potassium 5.5 H 4.1 (3.5-5.1) mmol/L Chloride 112 H 106 (98-107) mmol/L Carbon Dioxide 14 L 21 L (22-30) mmol/L BUN 28 H 31 H (7-17) mg/dL Creatinine 1.01 1.00 (0.52-1.04) mg/dL Glucose 217 H 253 H (74-99) mg/dL Calcium 9.2 8.8 (8.4-10.2) mg/dL AST 85 H 54 H (14-36) U/L ALT 144 H 114 H (4-34) U/L Alkaline Phosphatase 178 H 132 H (38-126) U/L Total Protein 7.6 6.4 (6.3-8.2) g/dL Albumin 4.0 3.5 (3.5-5.0) g/dL Current Medications Generic Name Dose Route Start Last Admin Trade Name Freq PRN Reason Stop Dose Admin Aspirin 81 mg 07/18/20 09:00 Aspirin 81 Mg PO DAILY [facility] Enoxaparin Sodium 40 mg 07/18/20 09:00 Enoxaparin 40 Mg/0.4 Ml Syringe SQ DAILY [facility] Furosemide 40 mg 07/17/20 13:00 07/18/20 00:02 Furosemide 10 Mg/Ml 4 Ml Vial IV 40 mg Q12H NABIL Administration Glimepiride 2 mg 07/18/20 17:30 Glimepiride 2 Mg Tab PO W/SUPPER [facility] Glimepiride 4 mg 07/18/20 09:00 Glimepiride 4 Mg Tab PO DAILY [facility] Ceftriaxone Sodium 1 gm/ 50 mls @ 100 mls/hr 07/18/20 09:00 Sodium Chloride IVPB Q24HR [facility] Levothyroxine Sodium 75 mcg 07/18/20 09:00 Levothyroxine 75 Mcg Tab PO DAILY@0630 [facility] Losartan Potassium 25 mg 07/18/20 09:00 Losartan 25 Mg Tab PO DAILY [facility] Metoprolol Succinate 25 mg 07/18/20 09:00 Metoprolol Succinate (Er) 25 Mg Tab.Er.24h PO DAILY [facility] Pantoprazole Sodium 40 mg 07/18/20 07:30 Pantoprazole 40 Mg Tablet PO AC-BRKFST NABIL Intake and Output 07/17/20 07/18/20 07/18/20 22:59 06:59 14:59 Intake Total 120 Output Total 1150 Balance 120 -1150 Intake: Oral 120 Output: Urine 1150 Other: # Voids 1 2 Weight 42.5 kg 07/18/20 07:55 07/18/20 07:55 Assessment and Plan Assessment: #1 acute on chronic congestive heart failure, likely systolic with prior ejection fraction in 2018 of 25-30% #2 CAD #3 hypertension #4 hyperlipidemia #5 Alzheimer's dementia #6 history of pancreatic cancer status post Whipple in 1994 Plan: From cardiology's perspective, we'll continue IV Lasix. We will add Aldactone. Continue to monitor renal function, electrolytes, daily weights and intake and output. We'll obtain a 2-D echo with Doppler to assess cardiac structure and function. We'll continue to follow the patient for further recommendations accordingly. FITTING ROOM ATTENDANT note has been reviewed, I agree with a documented findings and plan of care. Patient was seen and examined.
[2020-07-18] MEDS: ASPIRIN 81 MG PO SCH (10:11)
[2020-07-18] MEDS: PANTOPRAZOLE 40 MG TABLET PO SCH (10:11)
[2020-07-18] MEDS: METOPROLOL SUCCINATE (ER) 25 MG TAB.ER.24H PO SCH (10:11)
[2020-07-18] MEDS: LEVOTHYROXINE 75 MCG TAB PO SCH (10:11)
[2020-07-18] MEDS: ENOXAPARIN 40 MG/0.4 ML SYRINGE SQ SCH (10:11)
[2020-07-18] MEDS: LOSARTAN 25 MG TAB PO SCH (10:11)
--- NOTE | 2020-07-18 10:18 | P.PN ---
Subjective Progress Note Date: 07/18/20 This is an 85 year old female with a previous medical history significant for CAD post inferior wall myocardial infarction with chronic systolic heart failure, hypertension and hypertensive cardiovascular disease, hyperlipidemia, hypothyroidism, diabets mellitus type 2 and Alzheimer dementia, patient was seen in the office yesterday and she was more confused than normal, so a labs were done and she had a slight bump in her troponin and I have called her to bring her to the ER yesterday, however she declined and he aid he will take her in the morning, patient was seen in the ER and she was found to have elevated BNP and she was complaining of increased swelling in both legs and she denied any chest pain or shortness of breath, her troponin was ok, because of that she was admitted to the hospital with cardiology consult and we will repeat echocardiogram, also she was found to have UTI and was given rocephin 1 gr IVPB daily, sent UA for C+S. 07/18/20: Patient is that she denies any chest pain or shortness breath she has no nausea vomiting, she is diuresing very well using the Lasix, she was negative by cardiology we will continue current conservative management, echocardiogram still pending, input and output and daily weight, low-salt diet. Objective - Vital Signs Vital signs: Vital Signs Temp 97.7 F 07/18/20 04:00 Pulse 88 07/18/20 04:00 Resp 18 07/18/20 04:00 BP 136/81 07/18/20 04:00 Pulse Ox 100 07/18/20 04:00 Intake & Output 07/17/20 07/18/20 07/18/20 18:59 06:59 18:59 Intake Total 120 Output Total 1150 Balance 120 -1150 Weight 47.627 kg 42.5 kg Intake: Oral 120 Output: Urine 1150 Other: # Voids 1 2 - Exam Review of Systems Constitutional: Reports fatigue, Reports weakness, Reports weight loss, Denies anorexia, Denies chronic headaches, Denies chronic pain, Denies lethargy, Denies sweats Eyes: denies blurred vision, denies bulging eye Ears, nose, mouth and throat: Denies dysphagia, Denies neck lump, Denies sore throat Cardiovascular: Reports decreased exercise tolerance, Reports dyspnea on exertion, Reports leg edema, Reports shortness of breath, Denies chest pain, Denies orthopnea, Denies palpitations, Denies rapid heart beat, Denies syncope Respiratory: Denies congestion, Denies cough, Denies cough with sputum, Denies home oxygen, Denies sleep apnea, Denies snoring, Denies wheezing Gastrointestinal: Reports loss of appetite, Denies abdominal pain, Denies BRBPR, Denies heartburn, Denies melena, Denies nausea, Denies vomiting Genitourinary: Reports nocturia, Denies dysuria Menstruation: Reports postmenopausal Musculoskeletal: bilateral: ankle swelling, absent: elbow pain, elbow stiffness, elbow swelling, foot pain, foot stiffness, foot swelling, hand pain, hand stiffness, hand swelling, hip pain, hip stiffness, hip swelling, knee pain, knee stiffness, knee swelling, shoulder pain, shoulder stiffness, shoulder swelling, wrist pain, wrist stiffness, wrist swelling Integumentary: Denies pruritus, Denies rash Neurological: Reports confusion, Reports memory loss, Reports weakness Psychiatric: Denies anxiety, Denies depression Endocrine: Denies fatigue, Denies weight change Physical examination: HEENT: head is atraumatic normocephalic pupils were equal round reactive to light and accommodations extra ocular muscle movements were intact, mucous membranes of the mouth are somewhat dry. Neck: supple, increased JVP. Chest: decreased breath sounds at the bases with few ronchi, no expiratory wheezes. Heart: the first heart sound is depressed, second heart sound is depressed, there is EARL 2/6 located at the left sternal border. Abdomen: soft non tender non distended positive bowel sounds. Extremities: there is + 2 edema in both lower extremities, there is no calf tenderness DP + 1 bilaterally. Neurologic examintaion: patient is awake alert X 1 CN II-XII are grossly intact muscle power 4/5 in upper and lower extremities. - Labs CBC & Chem 7: 07/18/20 07:55 07/18/20 07:55 Labs: Abnormal Lab Results - Last 24 Hours (Table) 07/17/20 07/17/20 07/17/20 Range/Units 11:08 12:23 16:33 Potassium 5.5 H (3.5-5.1) mmol/L Chloride 112 H (98-107) mmol/L Carbon Dioxide 14 L (22-30) mmol/L BUN 28 H (7-17) mg/dL Glucose 217 H (74-99) mg/dL POC Glucose (mg/dL) 222 H (75-99) mg/dL AST 85 H (14-36) U/L ALT 144 H (4-34) U/L Alkaline Phosphatase 178 H (38-126) U/L Urine Appearance Cloudy H (Clear) Urine Protein 2+ H (Negative) Urine Blood Moderate H (Negative) Urine Nitrite Positive H (Negative) Ur Leukocyte Esterase Large H (Negative) Urine RBC 8 H (0-5) /hpf Urine WBC 41 H (0-5) /hpf Urine WBC Clumps Few H (None) /hpf Urine Bacteria Many H (None) /hpf Urine Mucus Occasional H (None) /hpf 07/17/20 07/18/20 Range/Units 20:25 06:10 Potassium (3.5-5.1) mmol/L Chloride (98-107) mmol/L Carbon Dioxide (22-30) mmol/L BUN (7-17) mg/dL Glucose (74-99) mg/dL POC Glucose (mg/dL) 258 H 205 H (75-99) mg/dL AST (14-36) U/L ALT (4-34) U/L Alkaline Phosphatase (38-126) U/L Urine Appearance (Clear) Urine Protein (Negative) Urine Blood (Negative) Urine Nitrite (Negative) Ur Leukocyte Esterase (Negative) Urine RBC (0-5) /hpf Urine WBC (0-5) /hpf Urine WBC Clumps (None) /hpf Urine Bacteria (None) /hpf Urine Mucus (None) /hpf Microbiology - Last 24 Hours (Table) 07/17/20 12:23 Urine Culture - Preliminary Urine,Voided Assessment and Plan Assessment: Assessment and plan: 1. Acute systolic heart failure: we will start Lasix 40 mg IVP Q 12 H , we will continue with Losartan 25 mg orally daily and Metoprolol ER 25 mg orally daily, we will check Input and output and daily weight, we will check Echocardiogram with cardiology consult appreciated. 2. UTI. we will continue with Rocephin 1 gr IVPB daily, sent UA for C+S. 3. 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 we will continue to monitor. 4. CAD post inferior wall IA in 2018 . we will continue with Toprol XL 25 mg orally daily, Losartan 25 mg orally daily and held lipitor due to elevated LFTs and ASA 81 mg orally daily. 5. Hypertension and hypertensive cardiovascular disease. we will continue with Losartan 25 mg orally daily and Metoprolol ER 25 mg orally daily. 6. Hyperlipidemia. we will hold off STATINS due to elevated LFTs. 7. Hypothyroidism. we will continue with Synthrood 75 mcg orally daily. 8. Diabetes mellitus type 2 . we will continue with CCA 1800 diet and we will continue with Glimepiride , BGM AC meals and hs, along with SSI. 9. Alzheimer dementia. we will monitor. 10. DVT prophylaxis. we will continue with ovenox 40 mg SC daily. ' 11. GI prophylaxis. we will continue with PPI. 12. Physical therapy evaluation
[2020-07-18] MEDS: GLIMEPIRIDE 4 MG TAB PO SCH (10:20)
[2020-07-18 11:41] LABS: Glucose,Whole Blood 260 mg/dL (75-99)
[2020-07-18] MEDS: INSULIN ASPART (NovoLOG) 100 UNIT/ML VIAL SQ SCH ×3 (12:28→20:25)
[2020-07-18] MEDS: SPIRONOLACTONE 25 MG TAB PO SCH (12:34)
--- NOTE | 2020-07-18 13:04 | ECHOF ---
Referral Reason:CHF MEASUREMENTS -------- HEIGHT: 154.9 cm WEIGHT: 47.6 kg BP: RVIDd: 1.7 cm (< 3.3) IVSd: 1.0 cm (0.6 - 1.1) LVIDd: 4.0 cm (3.9 - 5.3) LVPWd: 1.2 cm (0.6 - 1.1) IVSs: 1.4 cm LVIDs: 3.6 cm LVPWs: 1.3 cm LAESV Index (A-L): 43.68 ml/m Ao Diam: 2.4 cm (2.0 - 3.7) AV Cusp: 1.5 cm (1.5 - 2.6) LA Diam: 3.1 cm (2.7 - 3.8) MV EXCURSION: 14.230 mm (> 18.000) MV EF SLOPE: 124 mm/s (70 - 150) EPSS: 2.3 cm MV E Sami: 1.07 m/s MV DecT: 196 ms MV A Sami: 0.36 m/s MV E/A Ratio: 3.02 AR PHT: 227 ms RAP: 5.00 mmHg RVSP: 54.09 mmHg FINDINGS -------- Sinus rhythm. This was a technically adequate study. The left ventricular size is normal. Left ventricular wall thickness is normal. There is severe g lobal hypokinesis of LV . Overall left ventricular systolic function is severely impaired with, an EF between 20 - 25 %. Increased LAP Grade 3 Diastolic Dysfunction. The right ventricle is normal in size. LA is severely dilated >40 ml/m2 The right atrial size is normal. There is mild aortic valve sclerosis. There is mild aortic regurgitation. The mitral valve leaflets are mildly thickened. Mild mitral annular calcification present. Severe mitral regurgitation is present. The tricuspid valve appears structurally normal. Moderate tricuspid regurgitation present. There is moderate pulmonary hypertension. The right ventricular systolic pressure, as measured by Doppler , is 54.09mmHg. Trace/mild (physiologic) pulmonic regurgitation. The aortic root size is normal. Normal inferior vena cava with normal inspiratory collapse consistent with estimated right atrial pre ssure of 5 mmHg. There is no pericardial effusion. Large Pleural Effusion. CONCLUSIONS -------- 1. Left ventricular wall thickness is normal. 2. There is severe global hypokinesis of LV . 3. Overall left ventricular systolic function is severely impaired with, an EF between 20 - 25 %. 4. Increased LAP Grade 3 Diastolic Dysfunction. 5. LA is severely dilated >40 ml/m2 6. There is mild aortic valve sclerosis. 7. There is mild aortic regurgitation. 8. The mitral valve leaflets are mildly thickened. 9. Mild mitral annular calcification present. 10. Severe mitral regurgitation is present. 11. Moderate tricuspid regurgitation present. 12. There is moderate pulmonary hypertension. 13. Trace/mild (physiologic) pulmonic regurgitation. SOLE DYER: Yadira Gutierrez RDCS
[2020-07-18 16:10] LABS: Glucose,Whole Blood 228 mg/dL (75-99)
[2020-07-18] MEDS: GLIMEPIRIDE 2 MG TAB PO SCH (18:00)
[2020-07-18] MEDS ORDERED: Magnesium Replacement Protocol 1 EACH MISC MISCELLANE PRN (19:26)
[2020-07-18 20:09] LABS: Glucose,Whole Blood 286 mg/dL (75-99)
[2020-07-18] MEDS: MAGNESIUM SULFATE-D5W PMX 1 GM in DEXTROSE/WATER 1 100ML.BAG IVPB SCH ×3 (20:26→23:43)
[2020-07-19 06:16] LABS: Glucose,Whole Blood 297 mg/dL (75-99)
[2020-07-19] MEDS: PANTOPRAZOLE 40 MG TABLET PO SCH (06:30)
[2020-07-19] MEDS: LEVOTHYROXINE 75 MCG TAB PO SCH (06:30)
[2020-07-19] MEDS: INSULIN ASPART (NovoLOG) 100 UNIT/ML VIAL SQ SCH ×4 (06:30→23:17)
[2020-07-19 07:44] LABS: Calcium 8.5 mg/dL (8.4-10.2); Magnesium 2.2 mg/dL (1.6-2.3); Potassium 4.2 mmol/L (3.5-5.1)
[2020-07-19 07:49] LABS: Glucose,Whole Blood 168 mg/dL (75-99)
[2020-07-19 08:41] LABS: Glucose,Whole Blood 138 mg/dL (75-99)
--- NOTE | 2020-07-19 08:42 | P.PN ---
Subjective Progress Note Date: 07/19/20 This is an 85 year old female with a previous medical history significant for CAD post inferior wall myocardial infarction with chronic systolic heart failure, hypertension and hypertensive cardiovascular disease, hyperlipidemia, hypothyroidism, diabets mellitus type 2 and Alzheimer dementia, patient was seen in the office yesterday and she was more confused than normal, so a labs were done and she had a slight bump in her troponin and I have called her to bring her to the ER yesterday, however she declined and he aid he will take her in the morning, patient was seen in the ER and she was found to have elevated BNP and she was complaining of increased swelling in both legs and she denied any chest pain or shortness of breath, her troponin was ok, because of that she was admitted to the hospital with cardiology consult and we will repeat echocardiogram, also she was found to have UTI and was given rocephin 1 gr IVPB daily, sent UA for C+S. 07/18/20: Patient is that she denies any chest pain or shortness breath she has no nausea vomiting, she is diuresing very well using the Lasix, she was negative by cardiology we will continue current conservative management, echocardiogram still pending, input and output and daily weight, low-salt diet. 07/19/20: I like to the patient's room and she was having garbled speech, she has significant weakness in the right upper extremity with the right-sided neglect, a code stroke was called patient will go for computed tomography scan of the brain without contrast as well as CT angiography of the carotid artery on the [place], stat neurology consultation would be obtained, patient has been seen cardiology and myself she was admitted for acute systolic heart failure has been diuresed with Lasix, patient denies any chest pain at the somewhat any shortness breath, she does not appear clinically distress, she continues to have a right-sided neck length as well as right upper extremity more than right lower extremity weakness she does appear to have a positive Babinski on the right side. Objective - Vital Signs Vital signs: Vital Signs Temp 98.1 F 07/19/20 04:00 Pulse 72 07/19/20 04:00 Resp 18 07/19/20 04:00 BP 122/73 07/19/20 04:00 Pulse Ox 99 07/19/20 04:00 Intake & Output 07/18/20 07/19/20 07/19/20 18:59 06:59 18:59 Intake Total 720 Output Total 750 800 Balance -30 -800 Weight 42.5 kg 42.6 kg Intake: Oral 720 Output: Urine 750 800 Other: # Voids 3 - Exam Review of Systems Constitutional: Reports fatigue, Reports weakness, Reports weight loss, Denies anorexia, Denies chronic headaches, Denies chronic pain, Denies lethargy, Denies sweats Eyes: denies blurred vision, denies bulging eye Ears, nose, mouth and throat: Denies dysphagia, Denies neck lump, Denies sore throat Cardiovascular: Reports decreased exercise tolerance, Reports dyspnea on exertion, Reports leg edema, Reports shortness of breath, Denies chest pain, Denies orthopnea, Denies palpitations, Denies rapid heart beat, Denies syncope Respiratory: Denies congestion, Denies cough, Denies cough with sputum, Denies home oxygen, Denies sleep apnea, Denies snoring, Denies wheezing Gastrointestinal: Reports loss of appetite, Denies abdominal pain, Denies BRBPR, Denies heartburn, Denies melena, Denies nausea, Denies vomiting Genitourinary: Reports nocturia, Denies dysuria Menstruation: Reports postmenopausal Musculoskeletal: bilateral: ankle swelling, absent: elbow pain, elbow stiffness, elbow swelling, foot pain, foot stiffness, foot swelling, hand pain, hand stiffness, hand swelling, hip pain, hip stiffness, hip swelling, knee pain, knee stiffness, knee swelling, shoulder pain, shoulder stiffness, shoulder swelling, wrist pain, wrist stiffness, wrist swelling Integumentary: Denies pruritus, Denies rash Neurological: Reports confusion, Reports memory loss, Reports weakness Psychiatric: Denies anxiety, Denies depression Endocrine: Denies fatigue, Denies weight change Physical examination: HEENT: head is atraumatic normocephalic pupils were equal round reactive to light and accommodations extra ocular muscle movements were intact, mucous membranes of the mouth are somewhat dry. Neck: supple, increased JVP. Chest: decreased breath sounds at the bases with few ronchi, no expiratory wheezes. Heart: the first heart sound is depressed, second heart sound is depressed, there is EARL 2/6 located at the left sternal border. Abdomen: soft non tender non distended positive bowel sounds. Extremities: there is + 2 edema in both lower extremities, there is no calf tenderness DP + 1 bilaterally. Neurologic examintaion: patient is confused with garbled speech she does appear to have right upper extremity weakness as well as right lower extra that she does appear to have a positive Babinski's in the right lower extremity, right sided neglect. - Labs CBC & Chem 7: 07/18/20 07:55 07/19/20 07:02 Labs: Abnormal Lab Results - Last 24 Hours (Table) 07/18/20 07/18/20 07/18/20 Range/Units 11:40 16:09 20:05 Sodium (137-145) mmol/L BUN (7-17) mg/dL Creatinine (0.52-1.04) mg/dL Glucose (74-99) mg/dL POC Glucose (mg/dL) 260 H 228 H 286 H (75-99) mg/dL 07/19/20 07/19/20 07/19/20 Range/Units 06:14 07:02 07:48 Sodium 133 L (137-145) mmol/L BUN 39 H (7-17) mg/dL Creatinine 1.31 H (0.52-1.04) mg/dL Glucose 257 H (74-99) mg/dL POC Glucose (mg/dL) 297 H 168 H (75-99) mg/dL Microbiology - Last 24 Hours (Table) 07/17/20 13:03 Blood Culture - Preliminary Blood No Growth after 24 hours 07/17/20 12:23 Urine Culture - Preliminary Urine,Voided Gram Neg Bacilli Assessment and Plan Assessment: Assessment and plan: 1. Acute systolic heart failure: we will start Lasix 40 mg IVP Q 12 H , we will continue with Losartan 25 mg orally daily and Metoprolol ER 25 mg orally daily, we will check Input and output and daily weight, we will check Echocardiogram with cardiology consult 2. UTI. we will continue with Rocephin 1 gr IVPB daily, sent UA for C+S. 3. Acute ischemic cerebral vascular accident involving the left middle cerebral artery with right-sided weakness and right neck length. Code stroke was called, CT of the brain without contrast CT angiography of the carotid artery and the [place] of [place], neurology consultation. 4. 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 we will continue to monitor. 5. CAD post inferior wall [place] in 2018 . we will continue with Toprol XL 25 mg orally daily, Losartan 25 mg orally daily and held lipitor due to elevated LFTs and ASA 81 mg orally daily. 6. Hypertension and hypertensive cardiovascular disease. we will continue with Losartan 25 mg orally daily and Metoprolol ER 25 mg orally daily. 7. Hyperlipidemia. we will hold off STATINS due to elevated LFTs. 8. Hypothyroidism. we will continue with Synthrood 75 mcg orally daily. 9. Diabetes mellitus type 2 . we will continue with CCA 1800 diet and we will continue with Glimepiride, BGM AC meals and hs, along with SSI. 10. Alzheimer dementia. we will monitor. 11. DVT prophylaxis. we will continue with ovenox 40 mg SC daily. ' 12. GI prophylaxis. we will continue with PPI> 13. Admits to inpatient estimated length of stay 2 midnights. 14. PT/OT evaluation.
--- NOTE | 2020-07-19 09:11 | CT ---
EXAMINATION TYPE: CT brain wo con DATE OF EXAM: 07/19/2020 HISTORY: Rt sided weakness, altered mental status CT DLP: 1099.4 mGycm. Automated Exposure Control for Dose Reduction was Utilized. TECHNIQUE: CT scan of the head is performed without contrast. COMPARISON: CT brain February 21, 2017. FINDINGS: There is no acute intracranial hemorrhage or midline shift identified. There is moderate diffuse ventricular and sulcal prominence consistent with diffuse age-related cerebral atrophy. Ther e is moderate low-attenuation in the periventricular white matter consistent with chronic small vesse l ischemic change. The globes are intact and the visualized sinuses are clear. IMPRESSION: No acute intracranial hemorrhage or midline shift. There is moderate diffuse age-relate d cerebral atrophy and chronic small vessel ischemic change redemonstrated. No significant change fr om prior CT.
--- NOTE | 2020-07-19 09:33 | CT ---
EXAMINATION TYPE: CODE STROKE: CTA head neck DATE OF EXAM: 07/19/2020 HISTORY: Rt sided weakness, altered mental status code stroke. COMPARISON: NONE CT DLP: 600 mGycm. Automated Exposure Control for Dose Reduction was Utilized. TECHNIQUE: CTA scan of the head and neck are performed with IV Contrast, patient injected with 65 mL of Isovue 370, axial images are obtained, coronal and sagittal reformatted images are reviewed. Thre e-D reconstructed images are created on an independent workstation and reviewed. FINDINGS: Carotid/Vascular Structures: Satisfactory enhancement of the visualized portion of the central pulmon tripp arteries appear satisfactory enhancement of the thoracic aorta. Normal three-vessel origin. Mild- to-moderate peripheral calcified plaque extends into branch vessels without significant stenosis. Nor mal origin right common carotid artery from the right brachiocephalic artery. No significant plaque o r stenosis long common carotid arteries bilaterally. Lumy-ne-xjaalaeh peripheral calcified plaque in posterior aspect right proximal internal carotid artery just after carotid bulb. No significant plaqu e at carotid bulb level and external carotid arteries bilaterally. No significant plaque or stenosis in left internal carotid artery. Vertebral arteries are patent to basilar junction. Small caliber but patent right posterior communica ting artery. Hypoplastic left posterior communicating artery. No significant focal stenosis or ane[place] smal change in the posterior circulation. Patent anterior communicating artery. No significant focal stenosis or aneurysmal change. Mild calcified plaque distal internal carotid arteries bilaterally. Other: There is is partial visualization of at least small bilateral pleural effusions. There is reti culation and fibrosis in the periphery of both upper lungs. Levoconvex scoliosis in the lumbar spine. Moderate spurring and disc space narrowing C5-C6 and C6-C7 levels with posterior spur disc complexes effacing the anterior thecal sac. IMPRESSION: No significant stenosis in common or internal carotid arteries bilaterally. No significa nt stenosis or aneurysmal change at level [place].
[2020-07-19 09:47] LABS: Basophils % (A) 1 %; Eosinophils # (A) 0.2 k/uL (0-0.7); Eosinophils % (A) 3 %; HCT 33.8 % (34.0-46.0); HGB 11.3 gm/dL (11.4-16.0); Lymphocytes # (A) 0.7 k/uL (1.0-4.8); Lymphocytes % (A) 11 %; MCH 31.7 pg (25.0-35.0); MCHC 33.3 g/dL (31.0-37.0); MCV 95.2 fL (80.0-100.0); Mean Platelet Volume 7.3; Monocytes # (A) 0.4 k/uL (0-1.0); Monocytes % (A) 6 %; Neutrophils % (A) 78 %; Platelet Count 292 k/uL (150-450); RBC 3.55 m/uL (3.80-5.40); RDW 14.7 % (11.5-15.5); WBC 6.5 k/uL (3.8-10.6)
[2020-07-19 09:57] LABS: Albumin 3.5 g/dL (3.5-5.0); Calcium 8.5 mg/dL (8.4-10.2); Potassium 3.9 mmol/L (3.5-5.1); Total Bilirubin 0.4 mg/dL (0.2-1.3); Total Protein 6.5 g/dL (6.3-8.2)
[2020-07-19 10:04] LABS: INR 0.9 (<1.2); Prothrombin Time 10.1 sec (9.0-12.0)
[2020-07-19 10:09] LABS: Partial Thromboplastin Time 21.9 sec (22.0-30.0)
--- NOTE | 2020-07-19 10:33 | P.CNNES ---
History of Present Illness Consult date: 07/19/20 Requesting physician: Mayela Dasilva Reason for Consult: Stroke History of Present Illness: Patient is a 85-year-old female with history of dementia, diabetes came to the hospital on 07/17/2020 at 10:38 AM with complaints of dizziness, weakness, worsening of dementia. Patient went to her PCP on Sunday, where she was compl aining of generalized weakness, seems to be very fatigued or lethargic and was more confused than her normal. He janet some blood test, and the troponin had bumped up. The doctor recommended patient to go to ER but they waited till the next day and came to the ER next day on Sunday. Her BNP has gone up, and she has swelling in both legs. Denied any chest pain or shortness of breath. She was found to have UTI and started on Rocephin 1 g IV PB daily. Vital signs on arrival blood pressure 137/68, pulse rate 87 to be 98.0. Blood test shows normal CBC, WBC 8.1. Sodium 137 potassium 5.5, BUN 28, creatinine 1.01. AST is 85, ALT 144, troponin negative. UA shows positive nitrite, large amount of leukocyte Estrace, few WBC clumps, many bacteria. Urine culture shows > 100,000 CFU of gram-negative bacilli. Blood cultures negative. Chest x-ray shows findings most consistent with CHF. EKG shows sinus rhythm with occasional PVCs. Possible left atrial enlargement. Left axis deviation. Nonspecific intraventricular block. CT head showed no acute intracranial hemorrhage or midline shift. There is moderate diffuse age-related cerebral atrophy and chronic small vessel ischemic change redemonstrated. On my review, there is evidence of old stroke involving the right occipital lobe. No acute process. CTA of head and neck showed no significant stenosis in the common or internal carotid arteries bilaterally. No significant stenosis or aneurysmal change at level of [place]. 2-D echo showed normal left-ventricular wall thickness. Severe global hypokinesis of left ventricle. EF is between 20- 25%. Left atrium is severely dilated. Mild aortic valve sclerosis. Mild AR. Severe MR. Moderate tricuspid regurgitation. Moderate pulmonary hypertension. Patient's last hemoglobin A1c 6.6 on 06/23/2020. Her B12 was 273 on 06/23/2020, methylmalonic acid 0.21. Thyroid functions normal on 06/23/2020. This morning at 7:30 AM patient was noted to be more confused. Patient was talking with "word salad", right side was noted to be slightly weaker. Right- sided facial droop. Stroke code was initiated. Per nurse report, at 6:30 AM when the nurse checked on her, she responded, but did not talk much. Therefore the time of onset is not clear, if it happened overnight before she was known to be well at around 4 to 4:30 AM. Patient was up all night. Patient underwent testing as mentioned above. Her blood pressure was 148/90, heart rate 96 respiration 18, saturation 99%. Stroke neurologist did not recommend TPA. Her NIH stroke scale was reported as 11. At present patient continues to be confused, having expressive aphasia, keeps on repeating "what are you doing", "what are you all doing here". Patient not able to express or follow directions. Cannot name. She appears to have right visual field neglect. Her right arm is definitely weaker. Please refer to examination below. Patient's Ba also arrived. He states that he left yesterday at around 5 PM she was speaking perfectly normally. She was doing much better last night. However today she is definitely altered. Patient does take aspirin 81 mg daily at home. Review of Systems ROS unobtainable: due to mental status Past Medical History Past Medical History: Coronary Artery Disease (CAD), Cancer (pancreatic cancer post whipple procedure in 1994), Heart Failure, Dementia, Diabetes Mellitus, Eye Disorder, GERD/Reflux, Hyperlipidemia, Hypertension, Memory Impairment, Myocardial Infarction (NE), Osteoarthritis (OA), Thyroid Disorder Additional Past Medical History / Comment(s): pt poor historian-dementia,past pancreatitis,, hx uterine(endometrial) cancer 1988(sx/radiation, pancreatic cancer post whipple procedure in 1994. kenney cataracts, occ ringing in ears History of Any Multi-Drug Resistant Organisms: None Reported Past Surgical History: Hysterectomy Additional Past Surgical History / Comment(s): Whipple procedure due to pancreatic cancer 1994, 2009 vag lesion removed. benign tunor removed from stomach, colonoscopy, egd, whipple procedure Past Anesthesia/Blood Transfusion Reactions: Motion Sickness Past Psychological History: No Psychological Hx Reported Smoking Status: Former smoker (patient used to smoke 1/2 a PPD since the age of 19 and quit more than 30 years ago.) Past Alcohol Use History: Daily Additional Past Alcohol Use History / Comment(s): started smoking 1964 and quit 1994 smoked 1ppd Past Drug Use History: None Reported - Past Family History Father Family Medical History: No Reported History (Father at the age of 92 from old age.) Additional Family Medical History / Comment(s): in his 90's Mother Family Medical History: Diabetes Mellitus (Mother ided at the age of 75 from DM2 on .) Additional Family Medical History / Comment(s): in her 70's Sister(s) Family Medical History: Renal Disease (2 sisters one 88 year old with DM2 and ESRD on HD and the other one 86 with osteoarthritis.) Son(s) Family Medical History: Seizure Disorder (5 sons one is 61 year old lives in assisted non verbal due to Grandmal seizure disroder.) Medications and Allergies Home Medications Medication Instructions Recorded Confirmed Type Glimepiride [Amaryl] 4 mg PO DAILY 03/22/18 07/17/20 History Aspirin 81 mg PO DAILY #30 chew 03/26/18 07/17/20 Rx Levothyroxine Sodium [Synthroid] 75 mcg PO DAILY 07/12/20 07/17/20 History Losartan [Cozaar] 25 mg PO DAILY 07/12/20 07/17/20 History Metoprolol Succinate (ER) [Toprol 25 mg PO DAILY 07/12/20 07/17/20 History XL] Glimepiride [Amaryl] 2 mg PO W/SUPPER 07/17/20 07/17/20 History Allergies Allergy/AdvReac Type Severity Reaction Status Date / Time tetanus and diphtheria Allergy Unknown Verified 07/17/20 16:25 toxoids Physical Examination - Vital Signs Vital Signs: Vital Signs Temp Pulse Resp BP Pulse Ox 07/19/20 09:03 100 20 160/94 100 07/19/20 08:36 96 18 148/90 99 07/19/20 04:00 98.1 F 72 18 122/73 99 07/19/20 00:00 97.5 F L 76 18 119/71 98 07/18/20 20:00 97.4 F L 80 16 108/69 100 07/18/20 16:00 97.9 F 80 18 111/60 99 07/18/20 14:00 80 18 07/18/20 12:00 98.3 F 80 18 123/78 99 Intake and Output 07/18/20 07/19/20 07/19/20 22:59 06:59 14:59 Intake Total 240 Output Total 650 800 Balance -410 -800 Intake: Oral 240 Output: Urine 650 800 Other: # Voids 3 Weight 42.6 kg On examination patient is an elderly female, in no distress. Patient is alert and awake. Patient is very confused. Patient perseverates on "I don't know what you are doing". She was able to recognize her , but later on could not tell his name. She could not name any object, or follow directions like showing her teeth. Patient has some speech difficulty, word finding problem. Patient not able to repeat, comprehension also affected. On cranial nerve examination pupils are round and reacting to light. Patient has visual field neglect on the right side. Her face is symmetric. Patient did not protrude her tongue. Hearing is decreased. Patient did not open her mouth to check her palate and tongue. patient did not cooperate to check for facial sensations, or sensations of the extremities. On muscle strength testing patient has definite right pronator drift. Her strength is weaker in the right arm. Patient has right wrist drop it appears. Patient's legs appears normal, although not able to check in detail. Patient able to walk to the bathroom with mild assist. Reflexes are 1+ and plantar is upgoing on the right, downgoing on the left. Sensory to touch is equal to painful stimuli. Cerebellar functions could not be tested. No obvious bruit, S1 and S2 audible, chest is clear, abdomen soft nontender. Mild peripheral edema. Results - Laboratory Findings CBC and BMP: 07/19/20 09:24 07/19/20 09:24 Abnormal Lab Findings: Abnormal Labs 07/17/20 07/17/20 07/17/20 11:08 12:23 16:33 RBC Lymphocytes # Sodium Potassium 5.5 H Chloride 112 H Carbon Dioxide 14 L BUN 28 H Creatinine Glucose 217 H POC Glucose (mg/dL) 222 H Magnesium AST 85 H ALT 144 H Alkaline Phosphatase 178 H Urine Appearance Cloudy H Urine Protein 2+ H Urine Blood Moderate H Urine Nitrite Positive H Ur Leukocyte Esterase Large H Urine RBC 8 H Urine WBC 41 H Urine WBC Clumps Few H Urine Bacteria Many H Urine Mucus Occasional H 01/03/2907/18/20 07/18/20 20:25 06:10 07:55 RBC 3.64 L Lymphocytes # 0.7 L Sodium Potassium Chloride Carbon Dioxide BUN Creatinine Glucose POC Glucose (mg/dL) 258 H 205 H Magnesium AST ALT Alkaline Phosphatase Urine Appearance Urine Protein Urine Blood Urine Nitrite Ur Leukocyte Esterase Urine RBC Urine WBC Urine WBC Clumps Urine Bacteria Urine Mucus 07/18/20 07/18/20 07/18/20 07:55 11:40 16:09 RBC Lymphocytes # Sodium 135 L Potassium Chloride Carbon Dioxide 21 L BUN 31 H Creatinine Glucose 253 H POC Glucose (mg/dL) 260 H 228 H Magnesium 1.3 L AST 54 H ALT 114 H Alkaline Phosphatase 132 H Urine Appearance Urine Protein Urine Blood Urine Nitrite Ur Leukocyte Esterase Urine RBC Urine WBC Urine WBC Clumps Urine Bacteria Urine Mucus 07/18/20 07/19/20 07/19/20 20:05 06:14 07:02 RBC Lymphocytes # Sodium 133 L Potassium Chloride Carbon Dioxide BUN 39 H Creatinine 1.31 H Glucose 257 H POC Glucose (mg/dL) 286 H 297 H Magnesium AST ALT Alkaline Phosphatase Urine Appearance Urine Protein Urine Blood Urine Nitrite Ur Leukocyte Esterase Urine RBC Urine WBC Urine WBC Clumps Urine Bacteria Urine Mucus 07/19/20 07/19/20 07:48 08:39 RBC Lymphocytes # Sodium Potassium Chloride Carbon Dioxide BUN Creatinine Glucose POC Glucose (mg/dL) 168 H 138 H Magnesium AST ALT Alkaline Phosphatase Urine Appearance Urine Protein Urine Blood Urine Nitrite Ur Leukocyte Esterase Urine RBC Urine WBC Urine WBC Clumps Urine Bacteria Urine Mucus Assessment and Plan Assessment: * Probable acute stroke manifesting with receptive and some expressive aphasia, right visual field neglect and right arm weakness. CTA of head and neck negative for stenosis or occlusion. Patient has CHF, therefore cardioembolism is a likely possibility. * CHF with EF 20-25% * Diabetes * Hypertension * Hyperlipidemia * Dementia. Plan: * Stat MRI of the brain to confirm stroke. * Patient was not a candidate for TPA as per stroke neurologist, as there was no clear time of onset of symptoms, and dementia. * CTA of head and neck showed no large vessel occlusion or stenosis. * Continue telemetry monitoring. * Continue neuro checks. * Discussed with patient's in detail. * Continue aspirin 81 mg, Lovenox 40 mg. We'll add Plavix. * Hemoglobin A1c 6.6 on 06/23/2020
[2020-07-19] MEDS: LOSARTAN 25 MG TAB PO SCH ×2 (11:07→16:50)
[2020-07-19] MEDS: ENOXAPARIN 40 MG/0.4 ML SYRINGE SQ SCH (11:07)
[2020-07-19] MEDS: METOPROLOL SUCCINATE (ER) 25 MG TAB.ER.24H PO SCH ×2 (11:07→16:50)
[2020-07-19] MEDS: ASPIRIN 81 MG PO SCH ×2 (11:07→16:50)
[2020-07-19] MEDS: SPIRONOLACTONE 25 MG TAB PO SCH ×2 (11:07→16:51)
[2020-07-19] MEDS: CLOPIDOGREL 75 MG TAB PO SCH ×2 (11:09→16:51)
[2020-07-19] MEDS: GLIMEPIRIDE 4 MG TAB PO SCH ×2 (11:09→16:50)
[2020-07-19 11:45] LABS: Glucose,Whole Blood 166 mg/dL (75-99)
[2020-07-19] MEDS: FUROSEMIDE 10 MG/ML 4 ML VIAL IV SCH (12:02)
[2020-07-19] MEDS ORDERED: LORazepam 2 MG/ML INJ IV STA ×2 (13:44→15:46)
--- NOTE | 2020-07-19 14:14 | P.PN ---
Subjective Progress Note Date: 07/19/20 HISTORY OF PRESENT ILLNESS: Patient examined at this point the bedside. Patient remains on IV Lasix 40 mg every 12 hours. Fluid balance over the last 4 hours is -830 mL. Creatinine today is 1.31, up from 1.0. Echocardiogram completed revealed ejection fraction 20-25%, severe mitral regurgitation, moderate tricuspid regurgitation, and moderate pulmonary hypertension. Patient had right-sided weakness this morning and garbled speech and a code stroke was called. Neurology is following. PHYSICAL EXAM: VITAL SIGNS: Reviewed. GENERAL: Well-developed in no acute distress. NECK: Supple. No JVD or thyromegaly LUNGS: Respirations even and unlabored. Lungs diminished bilaterally. HEART: Regular rate and rhythm. S1 and S2 heard. Systolic murmur. EXTREMITIES: Normal range of motion. No clubbing or cyanosis. Peripheral pulses intact. Trace bilateral lower extremity edema ASSESSMENT: Acute exacerbation of chronic systolic congestive heart failure, ejection fraction 20-25% Coronary artery disease Right-sided weakness and garbled speech, suspect CVA Hypertension Hyperlipidemia Alzheimer's dementia History of pancreatic cancer, status post Whipple 1994 Acute kidney injury Valvular heart disease, severe mitral regurgitation and moderate tricuspid regurgitation Moderate pulmonary hypertension PLAN: Neurology following for right-sided weakness and garbled speech Change Lasix to once daily dosing secondary to increased creatinine Monitor kidney function Daily weights Accurate I&O Further recommendations pending patient's course Nurse practitioner note has been reviewed by physician. Signing provider agrees with the documented findings, assessment, and plan of care. Objective - Vital Signs Vital signs: Vital Signs Temp 98.1 F 07/19/20 04:00 Pulse 100 07/19/20 09:03 Resp 20 07/19/20 09:03 BP 160/94 07/19/20 09:03 Pulse Ox 100 07/19/20 09:03 Intake & Output 07/18/20 07/19/20 07/19/20 18:59 06:59 18:59 Intake Total 720 120 Output Total 750 800 300 Balance -30 -800 -180 Weight 42.5 kg 42.6 kg Intake: Oral 720 120 Output: Urine 750 800 300 Other: # Voids 3 - Labs CBC & Chem 7: 07/19/20 09:24 07/19/20 09:24 Labs: Abnormal Lab Results - Last 24 Hours (Table) 07/18/20 07/18/20 07/19/20 Range/Units 16:09 20:05 06:14 RBC (3.80-5.40) m/uL Hgb (11.4-16.0) gm/dL Hct (34.0-46.0) % Lymphocytes # (1.0-4.8) k/uL APTT (22.0-30.0) sec Sodium (137-145) mmol/L Carbon Dioxide (22-30) mmol/L BUN (7-17) mg/dL Creatinine (0.52-1.04) mg/dL Glucose (74-99) mg/dL POC Glucose (mg/dL) 228 H 286 H 297 H (75-99) mg/dL AST (14-36) U/L ALT (4-34) U/L Alkaline Phosphatase (38-126) U/L 07/19/20 07/19/20 07/19/20 Range/Units 07:02 07:48 08:39 RBC (3.80-5.40) m/uL Hgb (11.4-16.0) gm/dL Hct (34.0-46.0) % Lymphocytes # (1.0-4.8) k/uL APTT (22.0-30.0) sec Sodium 133 L (137-145) mmol/L Carbon Dioxide (22-30) mmol/L BUN 39 H (7-17) mg/dL Creatinine 1.31 H (0.52-1.04) mg/dL Glucose 257 H (74-99) mg/dL POC Glucose (mg/dL) 168 H 138 H (75-99) mg/dL AST (14-36) U/L ALT (4-34) U/L Alkaline Phosphatase (38-126) U/L 07/19/20 07/19/20 07/19/20 Range/Units 09:24 09:24 09:24 RBC 3.55 L (3.80-5.40) m/uL Hgb 11.3 L (11.4-16.0) gm/dL Hct 33.8 L (34.0-46.0) % Lymphocytes # 0.7 L (1.0-4.8) k/uL APTT 21.9 L (22.0-30.0) sec Sodium 133 L (137-145) mmol/L Carbon Dioxide 20 L (22-30) mmol/L BUN 36 H (7-17) mg/dL Creatinine 1.22 H (0.52-1.04) mg/dL Glucose 113 H (74-99) mg/dL POC Glucose (mg/dL) (75-99) mg/dL AST 48 H (14-36) U/L ALT 84 H (4-34) U/L Alkaline Phosphatase 161 H (38-126) U/L 07/19/20 Range/Units 11:43 RBC (3.80-5.40) m/uL Hgb (11.4-16.0) gm/dL Hct (34.0-46.0) % Lymphocytes # (1.0-4.8) k/uL APTT (22.0-30.0) sec Sodium (137-145) mmol/L Carbon Dioxide (22-30) mmol/L BUN (7-17) mg/dL Creatinine (0.52-1.04) mg/dL Glucose (74-99) mg/dL POC Glucose (mg/dL) 166 H (75-99) mg/dL AST (14-36) U/L ALT (4-34) U/L Alkaline Phosphatase (38-126) U/L Microbiology - Last 24 Hours (Table) 07/17/20 12:23 Urine Culture - Final Urine,Voided Escherichia coli 07/17/20 13:03 Blood Culture - Preliminary Blood No Growth after 24 hours
--- NOTE | 2020-07-19 16:19 | MR ---
EXAMINATION TYPE: MR brain wo con DATE OF EXAM: 07/19/2020 COMPARISON: CT brain earlier today HISTORY: Acute CVA. TECHNIQUE: Multiplanar, multisequence imaging of the brain and brainstem is performed without IV cont rast. FINDINGS: Diffusion weighted images demonstrate large area of increased signal on diffusion weighted images wit h diminished signal on ADC mapping centered left parietal lobe, area shows subtle sulcal effacement a nd T2 hyperintensity consistent with evolving acute infarct in the posterior watershed distribution. There is no worrisome extra-axial fluid collection. Moderate diffuse ventricular and sulcal prominenc e. Mild areas of T2 hyperintensity throughout the white matter bilaterally. Old infarcts in the right occipital lobe are identified axial image 22 and near image 19 Midline structures demonstrate normal morphology. The craniocervical junction appears within normal limits. Normal vascular flow voids are present. The visualized sinuses are clear and the globes are i ntact. IMPRESSION: 1. Evolving acute infarct left inferior parietal lobe posterior watershed region. 2. Background moderate diffuse cerebral atrophy and mild chronic small vessel ischemic changes with o ld right sided occipital lobe infarcts seen better on MRI versus CT. A [place] critical message alert has been initiated for Mayela Dasilva MD via the [employer] Critical Results System on 07/19/2020 4:17 PM. This message alert has been sent to Mayela Dasilva MD via the preferences provided by the clinician for the receipt of Radiology Critical Findings. Message ID [id number].
[2020-07-19 16:39] LABS: Glucose,Whole Blood 184 mg/dL (75-99)
[2020-07-19] MEDS: GLIMEPIRIDE 2 MG TAB PO SCH (17:22)
[2020-07-19 21:36] LABS: Glucose,Whole Blood 93 mg/dL (75-99)
--- NOTE | 2020-07-19 22:53 | CT ---
EXAMINATION TYPE: CT brain wo con DATE OF EXAM: 07/19/2020 COMPARISON: Today HISTORY: ams CT DLP: 2636.4 mGycm Automated exposure control for dose reduction was used. Exam performed without contrast. Exam limited by motion. There is diffuse cerebral cortical atrophy. There is no mass effect nor midline shift. I see no sign of intracranial hemorrhage. IMPRESSION: Limited exam. Cerebral atrophy. No definite acute intracranial abnormality.
[2020-07-20 06:14] LABS: Glucose,Whole Blood 136 mg/dL (75-99)
[2020-07-20] MEDS: PANTOPRAZOLE 40 MG TABLET PO SCH (06:37)
[2020-07-20] MEDS: LEVOTHYROXINE 75 MCG TAB PO SCH (06:37)
[2020-07-20] MEDS: INSULIN ASPART (NovoLOG) 100 UNIT/ML VIAL SQ SCH ×4 (06:37→21:22)
[2020-07-20 08:38] LABS: Calcium 8.5 mg/dL (8.4-10.2)
[2020-07-20 08:50] LABS: Potassium 4.2 mmol/L (3.5-5.1)
[2020-07-20] MEDS ORDERED: FUROSEMIDE 10 MG/ML 4 ML VIAL IV SCH (09:00)
[2020-07-20 09:15] LABS: Glucose,Whole Blood 101 mg/dL (75-99)
--- NOTE | 2020-07-20 09:52 | XR ---
EXAMINATION TYPE: XR facial bones limited DATE OF EXAM: 07/20/2020 COMPARISON: NONE HISTORY: Pain TECHNIQUE: 2 view submitted FINDINGS: Is a linear lucency in the lateral view overlying the nasal bridge. No evidence of depressi on. Remaining osseous structures intact. Facet arthropathy involving the upper cervical spine. IMPRESSION: 1. Correlate for hairline nondisplaced nasal bridge fracture
--- NOTE | 2020-07-20 09:54 | XR ---
EXAMINATION TYPE: XR hand complete RT DATE OF EXAM: 07/20/2020 COMPARISON: NONE HISTORY: Pain TECHNIQUE: Three views are submitted. FINDINGS: Diffuse osteopenia with significant narrowing of all PIP, and DIP joints. Moderate to severe arthropa thy of the first carpal metacarpal joint. No acute fracture. No erosive change. IMPRESSION: 1. Advanced arthropathy correlate for osteoarthritis.
[2020-07-20] MEDS: ENOXAPARIN 40 MG/0.4 ML SYRINGE SQ SCH (10:39)
--- NOTE | 2020-07-20 11:48 | P.PN ---
Subjective Progress Note Date: 07/20/20 This is an 85 year old female with a previous medical history significant for CAD post inferior wall myocardial infarction with chronic systolic heart failure, hypertension and hypertensive cardiovascular disease, hyperlipidemia, hypothyroidism, diabets mellitus type 2 and Alzheimer dementia, patient was seen in the office yesterday and she was more confused than normal, so a labs were done and she had a slight bump in her troponin and I have called her to bring her to the ER yesterday, however she declined and he aid he will take her in the morning, patient was seen in the ER and she was found to have elevated BNP and she was complaining of increased swelling in both legs and she denied any chest pain or shortness of breath, her troponin was ok, because of that she was admitted to the hospital with cardiology consult and we will repeat echocardiogram, also she was found to have UTI and was given rocephin 1 gr IVPB daily, sent UA for C+S. 07/18/20: Patient is that she denies any chest pain or shortness breath she has no nausea vomiting, she is diuresing very well using the Lasix, she was negative by cardiology we will continue current conservative management, echocardiogram still pending, input and output and daily weight, low-salt diet. 07/19/20: I like to the patient's room and she was having garbled speech, she has significant weakness in the right upper extremity with the right-sided neglect, a code stroke was called patient will go for computed tomography scan of the brain without contrast as well as CT angiography of the carotid artery on the [place], stat neurology consultation would be obtained, patient has been seen cardiology and myself she was admitted for acute systolic heart failure has been diuresed with Lasix, patient denies any chest pain at the somewhat any shortness breath, she does not appear clinically distress, she continues to have a right-sided neck length as well as right upper extremity more than right lower extremity weakness she does appear to have a positive Babinski on the right side. 07/20: Patient has been seen by neurology for probable acute stroke. Patient is not candidate for TPA as there is no clear time of onset of symptoms and underlying dementia. MRI of the brain revealed evolving acute infarct in the left inferior parietal lobe posterior watershed region. Background moderate diffuse cerebral atrophy and mild chronic small vessel ischemic changes with old right-sided occipital lobe infarcts. CTA of the head and neck revealed no significant stenosis in the common or internal carotid arteries bilaterally. No significant stenosis or aneurysmal change at [place]. She underwent a subsequent CAT scan of the brain last evening that revealed limited exam. Cerebral atrophy. No definite acute intracranial abnormality. Patient was continued on aspirin 81 mg, Lovenox and Plavix added. Patient is also seen and followed by cardiology for heart failure and Lasix was changed to once a day dosing at 40 mg IV daily. Patient required Ativan for MRI and has subsequently had significant confusion. This morning she got herself out of bed and started ambulating with a fall in her room with abrasion to the bridge of her nose and right hand. No noted loss of consciousness. Facial x-rays revealed correlate for hairline nondisplaced nasal bridge fracture. Right hand x-ray shows advanced arthropathy correlate for osteoarthritis. Discharge plan is [facility] or [facility]. Objective - Vital Signs Vital signs: Vital Signs Temp 98.1 F 07/19/20 04:00 Pulse 89 07/20/20 03:53 Resp 16 07/20/20 03:53 BP 101/67 07/20/20 03:53 Pulse Ox 93 L 07/20/20 03:53 Intake & Output 07/19/20 07/20/20 07/20/20 18:59 06:59 18:59 Intake Total 120 0 Output Total 850 0 100 Balance -730 0 -100 Intake: Oral 120 0 Output: Urine 850 0 Post Void Residual 100 Other: # Voids 0 - Exam Review of Systems Constitutional: Reports fatigue, Reports weakness, Reports weight loss, Denies anorexia, Denies chronic headaches, Denies chronic pain, Denies lethargy, Denies sweats Eyes: denies blurred vision, denies bulging eye Ears, nose, mouth and throat: Denies dysphagia, Denies neck lump, Denies sore throat Cardiovascular: Reports decreased exercise tolerance, Reports dyspnea on exertion, Reports leg edema, Reports shortness of breath, Denies chest pain, Denies orthopnea, Denies palpitations, Denies rapid heart beat, Denies syncope Respiratory: Denies congestion, Denies cough, Denies cough with sputum, Denies home oxygen, Denies sleep apnea, Denies snoring, Denies wheezing Gastrointestinal: Reports loss of appetite, Denies abdominal pain, Denies BRBPR, Denies heartburn, Denies melena, Denies nausea, Denies vomiting Genitourinary: Reports nocturia, Denies dysuria Menstruation: Reports postmenopausal Musculoskeletal: bilateral: ankle swelling, absent: elbow pain, elbow stiffness, elbow swelling, foot pain, foot stiffness, foot swelling, hand pain, hand stiffness, hand swelling, hip pain, hip stiffness, hip swelling, knee pain, knee stiffness, knee swelling, shoulder pain, shoulder stiffness, shoulder swelling, wrist pain, wrist stiffness, wrist swelling Integumentary: Denies pruritus, Denies rash Neurological: Reports confusion continued, Reports memory loss, Reports weakness Psychiatric: Denies anxiety, Denies depression Endocrine: Denies fatigue, Denies weight change Physical examination: HEENT: head is atraumatic normocephalic pupils were equal round reactive to light and accommodations extra ocular muscle movements were intact, mucous membranes of the mouth are somewhat dry. Neck: supple, increased JVP. Chest: decreased breath sounds at the bases with few ronchi, no expiratory wheezes. Heart: the first heart sound is depressed, second heart sound is depressed, there is EARL 2/6 located at the left sternal border. Abdomen: soft non tender non distended positive bowel sounds. Extremities: there is + 2 edema in both lower extremities, there is no calf tenderness DP + 1 bilaterally. Neurologic examintaion: patient is awake and confused with garbled speech she does appear to have right upper extremity weakness as well as right lower extra that she does appear to have a positive Babinski's in the right lower extremity, right sided neglect. - Labs CBC & Chem 7: 07/19/20 09:24 07/20/20 07:38 Labs: Abnormal Lab Results - Last 24 Hours (Table) 07/19/20 07/19/20 07/20/20 Range/Units 11:43 16:38 06:12 Sodium (137-145) mmol/L Chloride (98-107) mmol/L BUN (7-17) mg/dL Creatinine (0.52-1.04) mg/dL Glucose (74-99) mg/dL POC Glucose (mg/dL) 166 H 184 H 136 H (75-99) mg/dL 07/20/20 07/20/20 Range/Units 07:38 09:02 Sodium 136 L (137-145) mmol/L Chloride 108 H (98-107) mmol/L BUN 30 H (7-17) mg/dL Creatinine 1.06 H (0.52-1.04) mg/dL Glucose 100 H (74-99) mg/dL POC Glucose (mg/dL) 101 H (75-99) mg/dL Microbiology - Last 24 Hours (Table) 07/17/20 13:03 Blood Culture - Preliminary Blood No Growth after 48 hours 07/17/20 12:23 Urine Culture - Final Urine,Voided Escherichia coli Assessment and Plan Plan: 1. Acute systolic heart failure. Continue Lasix 40 mg IVP changed to daily , we will continue with Losartan 25 mg orally daily and Metoprolol ER 25 mg orally daily, we will check Input and output and daily weight, echocardiogram as above. Cardiology consult appreciated. 2. UTI. Continue with Rocephin 1 gr IVPB daily, sent UA for C+S. 3. Acute ischemic infarct in the left inferior parietal lobe posterior watershed region with right-sided weakness and right neck length. Code stroke was called, CT of the brain without contrast CT angiography of the carotid artery and the [place] noted above. MRI as above, neurology consultation.acute infarct in the left inferior parietal lobe posterior watershed region. Continue aspirin 81 mg daily, Plavix 75 mg daily 4. 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 we will continue to monitor. 5. CAD post inferior wall PA in 2018 . we will continue with Toprol XL 25 mg orally daily, Losartan 25 mg orally daily and held lipitor due to elevated LFTs and ASA 81 mg orally daily. 6. Hypertension and hypertensive cardiovascular disease. we will continue with Losartan 25 mg orally daily and Metoprolol ER 25 mg orally daily. 7. Hyperlipidemia. we will hold off STATINS due to elevated LFTs. 8. Hypothyroidism. we will continue with Synthrood 75 mcg orally daily. 9. Diabetes mellitus type 2 . we will continue with CCA 1800 diet and we will continue with Glimepiride, BGM AC meals and hs, along with SSI. 10. Alzheimer dementia. we will monitor. 11. DVT prophylaxis. we will continue with ovenox 40 mg SC daily. ' 12. GI prophylaxis. we will continue with PPI> 13. Admits to inpatient estimated length of stay 2 midnights. 14. PT/OT evaluation. Discharge plan: Subacute rehab at [facility] or [facility] Impression and plan of care have been directed as dictated by the signing physician. Shavon Ramos nurse practitioner acting as scribe for signing physician.
[2020-07-20 11:54] LABS: Glucose,Whole Blood 138 mg/dL (75-99)
--- NOTE | 2020-07-20 13:28 | ECHOF ---
Referral Reason:with Lumason re: rule out apical thrombus, CVA MEASUREMENTS -------- HEIGHT: 154.9 cm WEIGHT: 42.2 kg BP: FINDINGS -------- Limited Study Lumason used Can not exclude possible thrombus in apex. There is lack of filling towards the apex. CONCLUSIONS -------- 1. Limited Study 2. Can not exclude possible thrombus in apex. There is lack of filling towards the apex. EVENT STAFF MEMBER: Yadira Gutierrez RDCS
--- NOTE | 2020-07-20 14:42 | P.PN ---
Subjective Progress Note Date: 07/20/20 HISTORY OF PRESENT ILLNESS: 07/19/2020 Patient remains on IV Lasix 40 mg every 12 hours. Fluid balance over the last 4 hours is -830 mL. Creatinine today is 1.31, up from 1.0. Echocardiogram completed revealed ejection fraction 20-25%, severe mitral regurgitation, moderate tricuspid regurgitation, and moderate pulmonary hypertension. Patient had right-sided weakness this morning and garbled speech and a code stroke was called. Neurology is following. 07/20/2020 Patient examined this morning at the bedside. Patient denies chest pain or pressure. She denies shortness of breath. She remains on Lasix IV 40 mg daily. Creatinine 1.06. Vital signs stable. PHYSICAL EXAM: VITAL SIGNS: Reviewed. GENERAL: Well-developed in no acute distress. NECK: Supple. No JVD or thyromegaly LUNGS: Respirations even and unlabored. Lungs diminished bilaterally. HEART: Regular rate and rhythm. S1 and S2 heard. Systolic murmur. EXTREMITIES: Normal range of motion. No clubbing or cyanosis. Peripheral pulses intact. Trace bilateral lower extremity edema ASSESSMENT: Acute exacerbation of chronic systolic congestive heart failure, ejection fraction 20-25% Coronary artery disease Right-sided weakness and garbled speech, suspect CVA Hypertension Hyperlipidemia Alzheimer's dementia History of pancreatic cancer, status post Whipple 1994 Acute kidney injury Valvular heart disease, severe mitral regurgitation and moderate tricuspid regu rgitation Moderate pulmonary hypertension PLAN: Neurology following Transition patient to oral Lasix: 40 mg daily Monitor kidney function Daily weights Accurate I&O Patient to undergo MARGARET tomorrow with Dr. Akhtar Nurse practitioner note has been reviewed by physician. Signing provider agrees with the documented findings, assessment, and plan of care. Objective - Vital Signs Vital signs: Vital Signs Temp 98.1 F 07/19/20 04:00 Pulse 78 07/20/20 12:00 Resp 16 07/20/20 03:53 BP 113/58 07/20/20 12:00 Pulse Ox 97 07/20/20 08:00 Intake & Output 07/19/20 07/20/20 07/20/20 18:59 06:59 18:59 Intake Total 120 0 Output Total 850 0 300 Balance -730 0 -300 Intake: Oral 120 0 Output: Urine 850 0 200 Post Void Residual 100 Other: # Voids 0 - Labs CBC & Chem 7: 07/19/20 09:24 07/20/20 07:38 Labs: Abnormal Lab Results - Last 24 Hours (Table) 07/19/20 07/20/20 07/20/20 Range/Units 16:38 06:12 07:38 Sodium 136 L (137-145) mmol/L Chloride 108 H (98-107) mmol/L BUN 30 H (7-17) mg/dL Creatinine 1.06 H (0.52-1.04) mg/dL Glucose 100 H (74-99) mg/dL POC Glucose (mg/dL) 184 H 136 H (75-99) mg/dL 07/20/20 07/20/20 Range/Units 09:02 11:44 Sodium (137-145) mmol/L Chloride (98-107) mmol/L BUN (7-17) mg/dL Creatinine (0.52-1.04) mg/dL Glucose (74-99) mg/dL POC Glucose (mg/dL) 101 H 138 H (75-99) mg/dL Microbiology - Last 24 Hours (Table) 07/17/20 13:03 Blood Culture - Preliminary Blood No Growth after 48 hours 07/17/20 12:23 Urine Culture - Final Urine,Voided Escherichia coli
--- NOTE | 2020-07-20 14:47 | P.PN ---
Subjective Progress Note Date: 07/20/20 Late entry for 07/19/2019: MRI of the brain was done, which revealed an evolving acute infarct left inferior parietal lobe posterior watershed region. I spoke to patient's and son yesterday late evening, and discussed the results. They further told me that patient has memory loss for 3 years, slowly getting worse. She used to pay her bills, but then stopped paying the bills about 2 years ago. When she goes to toilet, takes an hour. She likes to sleep, eats grapes. She has not cooked for 2 years. She knows her children, is poor with orientation. She repeatedly asks "did you leave door open for Griselda", although she is not living close. She is often confused, does not remember her son if he is or not. 07/20/2019: Patient's son was present today. Patient apparently was less responsive last night, I was called, recommended computed tomography scan of head, but while in the CT scanner, patient started moving thrashing, therefore it was canceled. It was felt decreased responsiveness was related to Ativan she had received for the MRI. Apparently this morning she woke up, decided to go to the bathroom and fell. Patient suffered from nasal and right head injury. X-ray of the facial bones revealed a hairline Nondisplaced nasal bridge fracture. X-ray of the right wr ist showed advanced arthropathy correlate for osteoarthritis. Patient at present is sleeping. Patient's son was present today. He states that patient was feeling very thirsty, drank a lot of water. OT has worked. Telemetry monitoring showing bundle branch block, PVCs and PACs. Objective - Vital Signs Vital signs: Vital Signs Temp 98.1 F 07/19/20 04:00 Pulse 78 07/20/20 12:00 Resp 16 07/20/20 03:53 BP 113/58 07/20/20 12:00 Pulse Ox 97 07/20/20 08:00 Intake & Output 07/19/20 07/20/20 07/20/20 18:59 06:59 18:59 Intake Total 120 0 Output Total 850 0 300 Balance -730 0 -300 Intake: Oral 120 0 Output: Urine 850 0 200 Post Void Residual 100 Other: # Voids 0 - Exam Patient at present sleeping, did not wake her up. As per son, when she wakes up, she does move her arms and legs, and was able to express what she needed like she was thirsty. - Labs CBC & Chem 7: 07/21/20 06:32 07/22/20 06:30 Labs: Abnormal Lab Results - Last 24 Hours (Table) 07/19/20 07/20/20 07/20/20 Range/Units 16:38 06:12 07:38 Sodium 136 L (137-145) mmol/L Chloride 108 H (98-107) mmol/L BUN 30 H (7-17) mg/dL Creatinine 1.06 H (0.52-1.04) mg/dL Glucose 100 H (74-99) mg/dL POC Glucose (mg/dL) 184 H 136 H (75-99) mg/dL 07/20/20 07/20/20 Range/Units 09:02 11:44 Sodium (137-145) mmol/L Chloride (98-107) mmol/L BUN (7-17) mg/dL Creatinine (0.52-1.04) mg/dL Glucose (74-99) mg/dL POC Glucose (mg/dL) 101 H 138 H (75-99) mg/dL Microbiology - Last 24 Hours (Table) 07/17/20 13:03 Blood Culture - Preliminary Blood No Growth after 48 hours 07/17/20 12:23 Urine Culture - Final Urine,Voided Escherichia coli Assessment and Plan Assessment: * Acute ischemic stroke left inferior parietal lobe, manifesting with receptive and some expressive aphasia, right visual field neglect and right arm wea kness. CTA of head and neck negative for stenosis or occlusion. Patient has CHF, therefore cardioembolism is a likely possibility. * Status post fall last night. * Acute UTI. * CHF with EF 20-25% * Diabetes * Hypertension * Hyperlipidemia * Dementia. Plan: * Patient underwent stat computed tomography scan of the head, which revealed acute ischemia left temporal and parietal lobes. There is new area of punctate hyperdensity in the area of infarct which likely represents acute petechial hemorrhage. No subdural hematoma * MRI of the brain revealed evolving acute infarct left inferior parietal lobe posterior watershed region. Background moderate diffuse cerebral atrophy and mild chronic small vessel ischemic change with old right-sided occipital lobe infarct. * Patient was not a candidate for TPA as per stroke neurologist, as there was no clear time of onset of symptoms, and dementia. * CTA of head and neck showed no large vessel occlusion or stenosis. * Telemetry monitoring showing bundle branch block, PVCs and PACs. * Continue aspirin 81 mg, Lovenox 40 mg. Will discontinue Plavix due to petechial hemorrhage in the stroke area. No evidence of subdural hematoma. * Hemoglobin A1c 6.6 on 06/23/2020 * Patient had a 2-D echo with contrast, which revealed possible thrombus in the left ventricular apex. Patient would need MARGARET. Discussed with Dr. Akhtar. We will have it done tomorrow. * If the MARGARET shows left ventricular apical clot, then patient would be a cand idate for anticoagulation. However patient is a fall risk. Risk and benefits of long-term anticoagulation has to be weighed. I discussed with patient's son in detail. * I spent over 30 minutes with patient's , and her son, and answer all the questions to their satisfaction. Time with Patient: Greater than 30
[2020-07-20] MEDS: ASPIRIN 81 MG PO SCH (15:00)
[2020-07-20] MEDS: GLIMEPIRIDE 2 MG TAB PO SCH (15:30)
[2020-07-20] MEDS: METOPROLOL SUCCINATE (ER) 25 MG TAB.ER.24H PO SCH (15:30)
[2020-07-20] MEDS: LOSARTAN 25 MG TAB PO SCH (15:30)
[2020-07-20] MEDS: CLOPIDOGREL 75 MG TAB PO SCH (15:30)
[2020-07-20] MEDS: SPIRONOLACTONE 25 MG TAB PO SCH (15:30)
--- NOTE | 2020-07-20 15:35 | CT ---
EXAMINATION TYPE: CT brain wo con DATE OF EXAM: 07/20/2020 COMPARISON: 07/19/2020 HISTORY: Altered mental status CT DLP: 1023.4 mGycm Automated exposure control for dose reduction was used. FINDINGS: Generalized moderate to degenerative change. There is an area of well-defined low attenuation involvi ng the left temporal and parietal lobe suggestive of acute to subacute ischemia. No midline shift or mass effect. There is faint hyperdensity along the peripheral margins which could represent petechial hemorrhage. Hyperdensity is new relative to the prior exam. Craniocervical junction is maintained. Report was called to the patient's nurse on 07/20/2020 at 3:29 PM. Low-attenuation in the white matter is nonspecific but typical remote ischemic change. IMPRESSION: ACUTE ISCHEMIA LEFT TEMPORAL AND PARIETAL LOBES. THERE IS NEW AREAS OF PUNCTATE HYPERDENSITY IN THE A PETRA OF INFARCT WHICH LIKELY REPRESENTS ACUTE PETECHIAL HEMORRHAGE.
[2020-07-20 16:47] LABS: Glucose,Whole Blood 150 mg/dL (75-99)
[2020-07-20] MEDS: GLIMEPIRIDE 4 MG TAB PO SCH (17:37)
[2020-07-20 20:11] LABS: Glucose,Whole Blood 134 mg/dL (75-99)
[2020-07-20] MEDS: ATORVASTATIN 40 MG TAB PO SCH (21:23)
[2020-07-21 06:17] LABS: Glucose,Whole Blood 90 mg/dL (75-99)
[2020-07-21] MEDS: INSULIN ASPART (NovoLOG) 100 UNIT/ML VIAL SQ SCH ×4 (06:30→22:21)
[2020-07-21] MEDS: PANTOPRAZOLE 40 MG TABLET PO SCH (06:42)
[2020-07-21] MEDS: LEVOTHYROXINE 75 MCG TAB PO SCH (06:42)
[2020-07-21 07:13] LABS: Basophils # (A) 0.1 k/uL (0-0.2); Basophils % (A) 1 %; Eosinophils # (A) 0.3 k/uL (0-0.7); Eosinophils % (A) 5 %; HCT 31.7 % (34.0-46.0); HGB 10.5 gm/dL (11.4-16.0); Hypochromasia Slight; Lymphocytes # (A) 0.6 k/uL (1.0-4.8); Lymphocytes % (A) 11 %; MCH 31.6 pg (25.0-35.0); MCV 95.7 fL (80.0-100.0); Mean Platelet Volume 7.1; Monocytes # (A) 0.5 k/uL (0-1.0); Monocytes % (A) 9 %; Neutrophils # (A) 3.8 k/uL (1.3-7.7); Neutrophils % (A) 73 %; Platelet Count 255 k/uL (150-450); RBC 3.31 m/uL (3.80-5.40); RDW 14.7 % (11.5-15.5); WBC 5.2 k/uL (3.8-10.6)
[2020-07-21 07:26] LABS: Calcium 8.5 mg/dL (8.4-10.2); Potassium 3.2 mmol/L (3.5-5.1); Total Bilirubin 0.8 mg/dL (0.2-1.3); Total Protein 5.8 g/dL (6.3-8.2)
[2020-07-21] MEDS ORDERED: fentaNYL (PF) 50 MCG/ML 2 ML AMP ONE (08:28)
[2020-07-21] MEDS ORDERED: BENZOCAINE SPRAY 1 CAN TOPICAL ONE (09:07)
[2020-07-21] MEDS ORDERED: SODIUM CHLORIDE 0.9% 500 ML 500 ML IV ONE (09:07)
--- NOTE | 2020-07-21 09:21 | CT ---
EXAMINATION TYPE: CT brain wo con DATE OF EXAM: 07/21/2020 HISTORY: follow up to [facility] CT DLP: 2464.4 mGycm. Automated Exposure Control for Dose Reduction was Utilized. TECHNIQUE: CT scan of the head is performed without contrast. COMPARISON: CT brain from 1 day earlier and older studies. FINDINGS: Repeat study is performed due to patient motion. There is is background diffuse ventricular and sulcal prominence redemonstrated. There is low-attenuation in the right posterior periventricul ar white matter redemonstrated. Persistent wedge-shaped area of sulcal effacement and schaefer-white omi er blurring with areas of linear hyperdensity centered left parietal-occipital lobe with some superio r-posterior temporal lobe with extension remains present. Degree of hyperdensity or acute blood produ ct less prominent on current study versus one day earlier. The globes remain intact and the visualize d sinuses are clear. IMPRESSION: Background moderate diffuse cerebral atrophy and mild to moderate chronic small vessel is chemic change redemonstrated. Redemonstration of evolving hemorrhagic infarct left parietal occipital region posterior watershed level.
[2020-07-21] MEDS: fentaNYL (PF) 50 MCG/ML 2 ML AMP IVP ONE ×2 (09:27→09:33)
[2020-07-21] MEDS: MIDAZOLAM 2 MG/2 ML VIAL IVP ONE ×6 (09:27→09:41)
[2020-07-21] MEDS: ENOXAPARIN 30 MG/0.3 ML SYRINGE SQ SCH (11:21)
[2020-07-21] MEDS: LOSARTAN 25 MG TAB PO SCH (11:23)
[2020-07-21] MEDS: GLIMEPIRIDE 2 MG TAB PO SCH (11:24)
[2020-07-21] MEDS: ASPIRIN 81 MG PO SCH (11:24)
[2020-07-21] MEDS: GLIMEPIRIDE 4 MG TAB PO SCH (11:24)
[2020-07-21] MEDS: FUROSEMIDE 40 MG TAB PO SCH (11:24)
[2020-07-21] MEDS: SPIRONOLACTONE 25 MG TAB PO SCH (11:24)
[2020-07-21] MEDS: METOPROLOL SUCCINATE (ER) 25 MG TAB.ER.24H PO SCH (11:24)
[2020-07-21 11:32] LABS: Glucose,Whole Blood 163 mg/dL (75-99)
[2020-07-21] MEDS ORDERED: POTASSIUM CHLORIDE ER 20 MEQ TAB.ER PO STA (13:06)
[2020-07-21] MEDS: POTASSIUM CHLORIDE 10 MEQ in WATER FOR INJECTION 1 100ML.BAG IVPB STA ×2 (13:33→13:35)
--- NOTE | 2020-07-21 14:04 | P.TEE ---
Description of Procedure(s): Procedure performed: Transesophageal Echocardiogram with color flow doppler, pulsed wave doppler and continuous wave doppler, moderate conscious sedation Moderate conscious sedation: Moderate conscious sedation was supplied with direct supervision of myself using Versed and Fentanyl. Complications: none Indications: Cryptogenic stroke History: Patient is a pleasant 85-year-old female with history of dementia, hypertension, hyperlipidemia, pancreatic cancer status post Whipple procedure, cardiomyopathy with ejection fraction 20-25% and reported previously severe mitral regurgitation who presented secondary to fatigue and some shortness breath. She initially was treated for heart failure however during hospitalization developed right-sided weakness and garbled speech with a MRI showing an acute stroke. She did have a echocardiogram with [place] on that showed possible filling defect of the apex and could not exclude a thrombus. There has been no documented atrial fibrillation PROCEDURE: After the risks, benefits and alternatives of the above mentioned procedure was explained in detail with the patient and patient's , informed consent was obtained. Patient was brought to the lab in a fasting state. Patient was given IV Versed and Fentanyl for sedation. The throat was sprayed with Hurricane to anesthetize the throat. A lubricated Omni probe was then introduced into the esophagus and stomach and multiple views were obtained. 2D echo with color flow doppler, pulsed wave doppler and continuous wave doppler was utilized. Agitated saline bubbles were injected to assess for any intra-atrial shunt. Lumason contrast was used to help identify for any filling defects, thrombus. The probe was then removed. Patient tolerated the procedure well. Patient was transferred to the post procedure area in stable and satisfactory condition. FINDINGS: 1. The aortic valve is tricuspid with mild aortic sclerosis without significant aortic stenosis.. 2. The mitral valve appears be normal. There is mild to moderate mitral regurgitation with a EROA 0.07cm2, left upper pulmonary vein shows mild systolic blunting however no reversal of flow. 3. Tricuspid valve peers to be normal with trace tricuspid regurgitation. 4. The interatrial septum is intact. No evidence of PFO. 5. Left atrial appendage is free of clot. 6. There is global hypokinesis with ejection fraction 30-35%. There is no apical thrombus noted, with prior mention of apical filling defect likely rela josette to trabeculations. Lumason contrast was used to help opacify the apex.
[2020-07-21 16:41] LABS: Glucose,Whole Blood 267 mg/dL (75-99)
--- NOTE | 2020-07-21 16:56 | P.PN ---
Subjective Progress Note Date: 07/21/20 This is an 85 year old female with a previous medical history significant for CAD post inferior wall myocardial infarction with chronic systolic heart failure, hypertension and hypertensive cardiovascular disease, hyperlipidemia, hypothyroidism, diabets mellitus type 2 and Alzheimer dementia, patient was seen in the office yesterday and she was more confused than normal, so a labs were done and she had a slight bump in her troponin and I have called her to bring her to the ER yesterday, however she declined and he aid he will take her in the morning, patient was seen in the ER and she was found to have elevated BNP and she was complaining of increased swelling in both legs and she denied any chest pain or shortness of breath, her troponin was ok, because of that she was admitted to the hospital with cardiology consult and we will repeat echocardiogram, also she was found to have UTI and was given rocephin 1 gr IVPB daily, sent UA for C+S. 07/18/20: Patient is that she denies any chest pain or shortness breath she has no nausea vomiting, she is diuresing very well using the Lasix, she was negative by cardiology we will continue current conservative management, echocardiogram still pending, input and output and daily weight, low-salt diet. 07/19/20: I like to the patient's room and she was having garbled speech, she has significant weakness in the right upper extremity with the right-sided neglect, a code stroke was called patient will go for computed tomography scan of the brain without contrast as well as CT angiography of the carotid artery on the [place], stat neurology consultation would be obtained, patient has been seen cardiology and myself she was admitted for acute systolic heart failure has been diuresed with Lasix, patient denies any chest pain at the somewhat any shortness breath, she does not appear clinically distress, she continues to have a right-sided neck length as well as right upper extremity more than right lower extremity weakness she does appear to have a positive Babinski on the right side. 07/20: Patient has been seen by neurology for probable acute stroke. Patient is not candidate for TPA as there is no clear time of onset of symptoms and underlying dementia. MRI of the brain revealed evolving acute infarct in the left inferior parietal lobe posterior watershed region. Background moderate diffuse cerebral atrophy and mild chronic small vessel ischemic changes with old right-sided occipital lobe infarcts. CTA of the head and neck revealed no significant stenosis in the common or internal carotid arteries bilaterally. No significant stenosis or aneurysmal change at [place]. She underwent a subsequent CAT scan of the brain last evening that revealed limited exam. Cerebral atrophy. No definite acute intracranial abnormality. Patient was continued on aspirin 81 mg, Lovenox and Plavix added. Patient is also seen and followed by cardiology for heart failure and Lasix was changed to once a day dosing at 40 mg IV daily. Patient required Ativan for MRI and has subsequently had significant confusion. This morning she got herself out of bed and started ambulating with a fall in her room with abrasion to the bridge of her nose and right hand. No noted loss of consciousness. Facial x-rays revealed correlate for hairline nondisplaced nasal bridge fracture. Right hand x-ray shows advanced arthropathy correlate for osteoarthritis. Discharge plan is [facility] or [facility]. 07/21: Patient has been afebrile, heart rate 87, blood pressure 138/79, pulse ox 100% on room air. Repeat blood work reveals WBC 5.2, hemoglobin 10.5, platelet count 255. Potassium 3.2. BUN 25 creatinine 1.14. AST 37, ALT 54, alkaline phosphatase 94. Blood sugars running between 90 and 163. Potassium has been replaced. Limited echocardiogram reveals cannot exclude thrombus in the apex. CAT scan of the brain completed on July 20 in the afternoon revealed acute ischemic left temporal and parietal lobes. There is no areas of punctate hyperdensity in the area of infarct which likely represents acute petechial hemorrhage. Repeat CAT scan of the brain completed today reveals background mo derate diffuse cerebral atrophy and mild to moderate chronic small vessel ischemic change free demonstrated. Redemonstration of evolving hemorrhagic infarct left parietal occipital region posterior watershed level. MARGARET completed today with Dr. Akhtar revealed aortic valve tricuspid with mild aortic sclerosis without stenosis. Mitral valve normal. Mild to moderate mitral regurgitation. Tricuspid valve appears normal with trace tricuspid regurgitation. No PFO. Left atrial appendage is free of clot. Global hypokinesia with ejection fraction 30-35%. No apical thrombus noted with prior mention of apical filling defect likely related to trabeculations. Patient's is at the bedside and is looking at discharge to [facility] but we have also added in a consult for Dr. Garcia for possible inpatient rehab. Patient's mental status is slightly improved and she is following commands. She is not eating very much. Patient denies having any headache. No swallowing difficulties. Objective - Vital Signs Vital signs: Vital Signs Temp 97.4 F L 07/21/20 11:53 Pulse 87 07/21/20 11:53 Resp 16 07/21/20 11:53 BP 138/79 07/21/20 11:53 Pulse Ox 100 07/21/20 11:53 Intake & Output 07/20/20 07/21/20 07/21/20 18:59 06:59 18:59 Intake Total 25 225 Output Total 900 Balance -875 225 Weight 42.6 kg Intake: IV 225 Oral 25 Output: Urine 800 Post Void Residual 100 Other: Voiding Method Toilet # Voids 1 2 # Bowel Movements 1 1 - Exam Review of Systems Constitutional: Reports fatigue, Reports weakness, Reports weight loss, Denies anorexia, Denies chronic headaches, Denies chronic pain, Denies lethargy, Denies sweats Eyes: denies blurred vision, denies bulging eye Ears, nose, mouth and throat: Denies dysphagia, Denies neck lump, Denies sore throat Cardiovascular: Reports decreased exercise tolerance, Reports dyspnea on exertion, Reports leg edema, Reports shortness of breath, Denies chest pain, Denies orthopnea, Denies palpitations, Denies rapid heart beat, Denies syncope Respiratory: Denies congestion, Denies cough, Denies cough with sputum, Denies home oxygen, Denies sleep apnea, Denies snoring, Denies wheezing Gastrointestinal: Reports loss of appetite, Denies abdominal pain, Denies BRBPR, Denies heartburn, Denies melena, Denies nausea, Denies vomiting Genitourinary: Reports nocturia, Denies dysuria Menstruation: Reports postmenopausal Musculoskeletal: bilateral: ankle swelling, absent: elbow pain, elbow stiffness, elbow swelling, foot pain, foot stiffness, foot swelling, hand pain, hand stiffness, hand swelling, hip pain, hip stiffness, hip swelling, knee pain, knee stiffness, knee swelling, shoulder pain, shoulder stiffness, shoulder swelling, wrist pain, wrist stiffness, wrist swelling Integumentary: Denies pruritus, Denies rash Neurological: Reports confusion continued, Reports memory loss, Reports weakness Psychiatric: Denies anxiety, Denies depression Endocrine: Denies fatigue, Denies weight change Physical examination: HEENT: head is atraumatic normocephalic pupils were equal round reactive to light and accommodations extra ocular muscle movements were intact, mucous membranes of the mouth are somewhat dry. Neck: supple, increased JVP. Chest: decreased breath sounds at the bases with few ronchi, no expiratory wheezes. Heart: the first heart sound is depressed, second heart sound is depressed, there is EARL 2/6 located at the left sternal border. Abdomen: soft non tender non distended positive bowel sounds. Extremities: there is + 2 edema in both lower extremities, there is no calf tenderness DP + 1 bilaterally. Neurologic examintaion: patient is awake and confused with stuttering speech. Right upper extremity weakness as well as right lower extra that she does appear to have a positive Babinski's in the right lower extremity, right sided neglect. - Labs CBC & Chem 7: 07/21/20 06:32 07/21/20 06:32 Labs: Abnormal Lab Results - Last 24 Hours (Table) 07/20/20 07/20/20 07/21/20 Range/Units 16:40 20:10 06:32 RBC (3.80-5.40) m/uL Hgb (11.4-16.0) gm/dL Hct (34.0-46.0) % Lymphocytes # (1.0-4.8) k/uL Potassium 3.2 L (3.5-5.1) mmol/L BUN 25 H (7-17) mg/dL Creatinine 1.14 H (0.52-1.04) mg/dL POC Glucose (mg/dL) 150 H 134 H (75-99) mg/dL AST 37 H (14-36) U/L ALT 54 H (4-34) U/L Total Protein 5.8 L (6.3-8.2) g/dL Albumin 3.0 L (3.5-5.0) g/dL 07/21/20 07/21/20 Range/Units 06:32 11:30 RBC 3.31 L (3.80-5.40) m/uL Hgb 10.5 L (11.4-16.0) gm/dL Hct 31.7 L (34.0-46.0) % Lymphocytes # 0.6 L (1.0-4.8) k/uL Potassium (3.5-5.1) mmol/L BUN (7-17) mg/dL Creatinine (0.52-1.04) mg/dL POC Glucose (mg/dL) 163 H (75-99) mg/dL AST (14-36) U/L ALT (4-34) U/L Total Protein (6.3-8.2) g/dL Albumin (3.5-5.0) g/dL Microbiology - Last 24 Hours (Table) 07/17/20 13:03 Blood Culture - Preliminary Blood No Growth after 72 hours Assessment and Plan Plan: 1. Acute systolic heart failure. Continue Lasix transitioned to oral 40 mg daily, continue with Losartan 25 mg orally daily and Metoprolol ER 25 mg orally daily, we will check Input and output and daily weight, echocardiogram as above. Cardiology consult appreciated. 2. E. coli UTI. Continue with Rocephin 1 gr IVPB daily. 3. Acute ischemic infarct in the left inferior parietal lobe posterior watershed region with right-sided weakness and right neck length. Code stroke was called. Neurology consult appreciated. Continue aspirin 81 mg daily. Plavix discontinued. MARGARET as above. 4. 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 we will continue to monitor. 5. CAD post inferior wall CT in 2018 . we will continue with Toprol XL 25 mg orally daily, Losartan 25 mg orally daily and held lipitor due to elevated LFTs and ASA 81 mg orally daily. 6. Hypertension and hypertensive cardiovascular disease. we will continue with Losartan 25 mg orally daily and Metoprolol ER 25 mg orally daily. 7. Hyperlipidemia. we will hold off STATINS due to elevated LFTs. 8. Hypothyroidism. we will continue with Synthrood 75 mcg orally daily. 9. Diabetes mellitus type 2 . we will continue with CCA 1800 diet and we will continue with Glimepiride, BGM AC meals and hs, along with SSI. 10. Alzheimer dementia. we will monitor. 11. DVT prophylaxis. we will continue with lovenox 30 mg SC daily. ' 12. Fall with possible nasal bridge fracture. 13. GI prophylaxis. we will continue with PPI> 13. PT/OT evaluation. Discharge plan: Subacute rehab at [facility], consult with Dr. Gonzalez for possible inpatient rehab. Impression and plan of care have been directed as dictated by the signing physician. Shavon Convery nurse practitioner acting as scribe for signing physician.
[2020-07-21 19:32] LABS: Glucose,Whole Blood 240 mg/dL (75-99)
[2020-07-21] MEDS: ATORVASTATIN 40 MG TAB PO SCH (22:21)
--- NOTE | 2020-07-22 06:07 | P.CONS ---
History of Present Illness - Chief Complaint Gait disturbance due to stroke - History of Present Illness I had the opportunity to see patient for inpatient rehab consultation with regard gait disturbance. She was admitted to [facility] July 17 with acute CHF exacerbation as well as paralyzed weakness. She is seen in consultation by cardiology for known cardiac disease. Seen by neurology, Dr. Heath mortensen who notes right-sided weakness and signs of stroke. Brain MRI demonstrates left posterior parietal infarct. Facial x-ray with possible nasal bridge fracture. Right- handed x-ray with advanced arthritis. Head CT with atrophy, chronic small vessel change and left parieto-occipital attenuation. MARGARET demonstrates moderate mitral regurg and 30-35% ejection fraction. PT reports two-person minimal as sistance functional mobility. OT reports two-person assistance for upper dressing and two-person assistance for lower dressing and bathing. Maximal assistance for toileting and moderate assistance for transfer. Speech therapy reports speech garbled and she appears confused. Swallowing and assessed and recommend pured and thin liquid. Previous functional history unobtainable from patient. She is 85-year-old white female who is lives with . Review of Systems Review of systems: Patient confused and gleaned from chart and exam of patient. ENT: Denies sneezes or discharge. Eyes: Denies discharge or photophobia. Cardiac: Denies chest pain or palpitation. Pulmonary: Denies cough or shortness of breath. Breast: Denies discharge or lumps. Gastrointestinal: Denies nausea, emesis, constipation, diarrhea. Genitourinary: Denies discharge or frequency. Musculoskeletal: Denies muscle or bone aches. Neurologic: Mild generalized weakness and definite confusion. Endocrine: Denies shakes or sweats. Oncology: Denies cancers. Dermatologic: Denies rash, itching, pruritus. ALLERGY/immunology: Denies sneezes, rashes. Past Medical History Past Medical History: Coronary Artery Disease (CAD), Cancer (pancreatic cancer post whipple procedure in 1994), Heart Failure, Dementia, Diabetes Mellitus, Eye Disorder, GERD/Reflux, Hyperlipidemia, Hypertension, Memory Impairment, Myocardial Infarction (DC), Osteoarthritis (OA), Thyroid Disorder Additional Past Medical History / Comment(s): pt poor historian-dementia,past pancreatitis,, hx uterine(endometrial) cancer 1988(sx/radiation, pancreatic cancer post whipple procedure in 1994. kenney cataracts, occ ringing in ears History of Any Multi-Drug Resistant Organisms: None Reported Past Surgical History: Hysterectomy Additional Past Surgical History / Comment(s): Whipple procedure due to pancreatic cancer 1994, 2009 vag lesion removed. benign tunor removed from stomach, colonoscopy, egd, whipple procedure Past Anesthesia/Blood Transfusion Reactions: Motion Sickness Past Psychological History: No Psychological Hx Reported Smoking Status: Former smoker (patient used to smoke 1/2 a PPD since the age of 19 and quit more than 30 years ago.) Past Alcohol Use History: Daily Additional Past Alcohol Use History / Comment(s): started smoking 1964 and quit 1994 smoked 1ppd Past Drug Use History: None Reported - Past Family History Father Family Medical History: No Reported History (Father at the age of 92 from old age.) Additional Family Medical History / Comment(s): in his 90's Mother Family Medical History: Diabetes Mellitus (Mother ided at the age of 75 from DM2 on .) Additional Family Medical History / Comment(s): in her 70's Sister(s) Family Medical History: Renal Disease (2 sisters one 88 year old with DM2 and ESRD on HD and the other one 86 with osteoarthritis.) Son(s) Family Medical History: Seizure Disorder (5 sons one is 61 year old lives in assisted non verbal due to Grandmal seizure disroder.) Medications and Allergies Home Medications Medication Instructions Recorded Confirmed Type Glimepiride [Amaryl] 4 mg PO DAILY 03/22/18 07/17/20 History Aspirin 81 mg PO DAILY #30 chew 03/26/18 07/17/20 Rx Levothyroxine Sodium [Synthroid] 75 mcg PO DAILY 07/12/20 07/17/20 History Losartan [Cozaar] 25 mg PO DAILY 07/12/20 07/17/20 History Metoprolol Succinate (ER) [Toprol 25 mg PO DAILY 07/12/20 07/17/20 History XL] Glimepiride [Amaryl] 2 mg PO W/SUPPER 07/17/20 07/17/20 History Allergies Allergy/AdvReac Type Severity Reaction Status Date / Time tetanus and diphtheria Allergy Unknown Verified 07/17/20 16:25 toxoids Physical Exam Vitals: Vital Signs Temp Pulse Resp BP Pulse Ox 07/22/20 04:00 97.6 F 88 16 112/65 98 07/22/20 01:52 16 07/22/20 00:00 97.6 F 86 16 128/73 100 07/21/20 20:00 97.4 F L 90 16 117/78 98 07/21/20 16:00 88 16 127/66 100 07/21/20 14:00 16 07/21/20 11:53 97.4 F L 87 16 138/79 100 07/21/20 10:30 75 16 124/73 100 07/21/20 09:55 96 14 137/66 100 07/21/20 09:51 103 H 14 156/75 100 07/21/20 09:47 94 14 176/93 100 07/21/20 09:43 88 14 139/70 100 07/21/20 09:39 88 14 133/64 100 07/21/20 09:35 86 14 129/64 100 07/21/20 09:31 88 14 122/57 100 07/21/20 09:27 88 14 135/67 07/21/20 09:09 95 14 150/76 100 07/21/20 08:56 90 16 134/65 100 07/21/20 08:00 16 Intake and Output 07/21/20 07/21/20 07/22/20 14:59 22:59 06:59 Intake Total 765 120 Balance 765 120 Intake: IV 225 Oral 540 120 Other: Voiding Method Toilet Toilet Toilet # Voids 1 1 1 # Bowel Movements 1 1 Weight 38.5 kg Skin: Atrophic, intact. General: Thin build and comfortable appearance. Head: Normocephalic, atraumatic. Eyes: Symmetric. Pupils equal round. Ears: Symmetric. Hearing within normal limits. Mouth: Clear. Neck: Supple. Carotid without bruit. Cardiac: Regular rate and rhythm. Lungs: Clear anteriorly and posteriorly. Abdomen: Soft active nontender. Extremities: Normal tone. Neurological: Mental status: Confused and did not like to be examined. Cranial nerves: Symmetric facial tone and trapezius. Motor: Response to noxious stimulus locally all limbs. Sensation: Intact throughout see above. DTRs: Symmetric and equal throughout. Mobility: Requires physical assist for bed mobility. Results CBC & Chem 7: 07/21/20 06:32 07/21/20 06:32 Labs: Abnormal Lab Results - Last 24 Hours (Table) 07/21/20 07/21/20 07/21/20 Range/Units 06:32 06:32 11:30 RBC 3.31 L (3.80-5.40) m/uL Hgb 10.5 L (11.4-16.0) gm/dL Hct 31.7 L (34.0-46.0) % Lymphocytes # 0.6 L (1.0-4.8) k/uL Potassium 3.2 L (3.5-5.1) mmol/L BUN 25 H (7-17) mg/dL Creatinine 1.14 H (0.52-1.04) mg/dL POC Glucose (mg/dL) 163 H (75-99) mg/dL AST 37 H (14-36) U/L ALT 54 H (4-34) U/L Total Protein 5.8 L (6.3-8.2) g/dL Albumin 3.0 L (3.5-5.0) g/dL 07/21/20 07/21/20 Range/Units 16:39 19:31 RBC (3.80-5.40) m/uL Hgb (11.4-16.0) gm/dL Hct (34.0-46.0) % Lymphocytes # (1.0-4.8) k/uL Potassium (3.5-5.1) mmol/L BUN (7-17) mg/dL Creatinine (0.52-1.04) mg/dL POC Glucose (mg/dL) 267 H 240 H (75-99) mg/dL AST (14-36) U/L ALT (4-34) U/L Total Protein (6.3-8.2) g/dL Albumin (3.5-5.0) g/dL Microbiology - Last 24 Hours (Table) 07/17/20 13:03 Blood Culture - Preliminary Blood No Growth after 96 hours Assessment and Plan (1) Acute CHF Current Visit: Yes Status: Acute Code(s): I50.9 - HEART FAILURE, UNSPECIFIED SNOMED Code(s): 83765661 (2) Weakness Current Visit: No Status: Acute Code(s): R53.1 - WEAKNESS SNOMED Code(s): 54135059 Plan: Impression: 1. Gait disturbance. 2. Left parietal stroke result in right hemiparesthesias. 3. Acute CHF. 4. Possible UTI. 5. Dementia. 6. Cardiac disease with history of DC. 7. Hypertension. 8. Dyslipidemia. 9. Diabetes. 10. Hypothyroid. 11. Osteoarthritis. Comments and plan: At this time PT, OT, REVENUE CYCLE ADMINISTRATOR ongoing. Safety concerns noted but benefited therapies appears limited by dementia. Overall rehab goals to be determined by 's overall plan. Currently rehab prognosis appears guarded.
[2020-07-22 06:11] LABS: Glucose,Whole Blood 129 mg/dL (75-99)
[2020-07-22] MEDS: PANTOPRAZOLE 40 MG TABLET PO SCH (06:39)
[2020-07-22] MEDS: LEVOTHYROXINE 75 MCG TAB PO SCH (06:39)
[2020-07-22] MEDS: INSULIN ASPART (NovoLOG) 100 UNIT/ML VIAL SQ SCH ×4 (06:40→20:30)
[2020-07-22 07:44] LABS: Calcium 8.4 mg/dL (8.4-10.2); Potassium 3.9 mmol/L (3.5-5.1)
[2020-07-22] MEDS: GLIMEPIRIDE 4 MG TAB PO SCH (08:09)
[2020-07-22] MEDS: ASPIRIN 81 MG PO SCH (08:09)
[2020-07-22] MEDS: LOSARTAN 25 MG TAB PO SCH (08:09)
[2020-07-22] MEDS: FUROSEMIDE 40 MG TAB PO SCH (08:10)
[2020-07-22] MEDS: METOPROLOL SUCCINATE (ER) 25 MG TAB.ER.24H PO SCH (08:10)
[2020-07-22] MEDS: SPIRONOLACTONE 25 MG TAB PO SCH (08:10)
[2020-07-22] MEDS: ENOXAPARIN 30 MG/0.3 ML SYRINGE SQ SCH (08:10)
--- NOTE | 2020-07-22 11:00 | P.PN ---
Subjective Progress Note Date: 07/21/20 07/21/2020: Patient was seen for a follow-up. Patient's and son were also present. Apparently patient has much improved. She is very alert and awake. Patient is sitting on the seat by the window. Patient is very much obsessed about having pain in her left forearm where her potassium is running. She keeps on repeating "why is it hurting". Per patient's son and , her comprehension is much improved. She is following directions. She still has significant problems with expressive aphasia. Her right arm is still slightly weak although better. Late entry for 07/19/2020: MRI of the brain was done, which revealed an evolving acute infarct left inferior parietal lobe posterior watershed region. I spoke to patient's and son yesterday late evening, and discussed the results. They further told me that patient has memory loss for 3 years, slowly getting worse. She used to pay her bills, but then stopped paying the bills about 2 years ago. When she goes to toilet, takes an hour. She likes to sleep, eats grapes. She has not cooked for 2 years. She knows her children, is poor with orientation. She repeatedly asks "did you leave door open for Griselda", although she is not living close. She is often confused, does not remember her son if he is or not. 07/20/2020: Patient's son was present today. Patient apparently was less responsive last night, I was called, recommended computed tomography scan of head, but while in the CT scanner, patient started moving thrashing, therefore it was canceled. It was felt decreased responsiveness was related to Ativan she had received for the MRI. Apparently this morning she woke up, decided to go to the bathroom and fell. Patient suffered from nasal and right head injury. X-ray of the facial bones revealed a hairline Nondisplaced nasal bridge fracture. X-ray of the right wrist showed advanced arthropathy correlate for osteoarthritis. Patient at present is sleeping. Patient's son was present today. He states that patient was feeling very thirsty, drank a lot of water. OT has worked. Telemetry monitoring showing bundle branch block, PVCs and PACs. Objective - Vital Signs Vital signs: Vital Signs Temp 97.4 F L 07/21/20 11:53 Pulse 87 01/13/21 11:53 Resp 16 07/21/20 14:00 BP 138/79 07/21/20 11:53 Pulse Ox 100 07/21/20 11:53 Intake & Output 07/20/20 07/21/20 07/21/20 18:59 06:59 18:59 Intake Total 25 885 Output Total 900 Balance -875 885 Weight 42.6 kg Intake: IV 225 Oral 25 660 Output: Urine 800 Post Void Residual 100 Other: Voiding Method Toilet Toilet # Voids 1 1 # Bowel Movements 1 1 - Exam Patient is very alert and awake, sitting on the seat by the window. Patient very much obsessed about the pain in her left arm from potassium running through the IV. Patient not able to name, or repeat. She has difficulty with comprehension, although patient's family states that she was doing much better earlier. It somewhat fluctuates. Patient just had session from speech therapist. Patient continues to have a complete right homonymous hemianopia. Patient continues to have right arm weakness. Patient able to walk with slight assist. Cerebellar functions could not be tested. Sensory function could not be tested, as patient would not cooperate and continues to focus on her left a rm. - Labs CBC & Chem 7: 07/21/20 06:32 07/22/20 06:30 Labs: Abnormal Lab Results - Last 24 Hours (Table) 07/20/20 07/21/20 07/21/20 Range/Units 20:10 06:32 06:32 RBC 3.31 L (3.80-5.40) m/uL Hgb 10.5 L (11.4-16.0) gm/dL Hct 31.7 L (34.0-46.0) % Lymphocytes # 0.6 L (1.0-4.8) k/uL Potassium 3.2 L (3.5-5.1) mmol/L BUN 25 H (7-17) mg/dL Creatinine 1.14 H (0.52-1.04) mg/dL POC Glucose (mg/dL) 134 H (75-99) mg/dL AST 37 H (14-36) U/L ALT 54 H (4-34) U/L Total Protein 5.8 L (6.3-8.2) g/dL Albumin 3.0 L (3.5-5.0) g/dL 07/21/20 07/21/20 Range/Units 11:30 16:39 RBC (3.80-5.40) m/uL Hgb (11.4-16.0) gm/dL Hct (34.0-46.0) % Lymphocytes # (1.0-4.8) k/uL Potassium (3.5-5.1) mmol/L BUN (7-17) mg/dL Creatinine (0.52-1.04) mg/dL POC Glucose (mg/dL) 163 H 267 H (75-99) mg/dL AST (14-36) U/L ALT (4-34) U/L Total Protein (6.3-8.2) g/dL Albumin (3.5-5.0) g/dL Microbiology - Last 24 Hours (Table) 07/17/20 13:03 Blood Culture - Preliminary Blood No Growth after 96 hours Assessment and Plan Assessment: * Acute ischemic stroke left inferior parietal lobe, manifesting with receptive and some expressive aphasia, right visual field neglect and right arm weakness. CTA of head and neck negative for stenosis or occlusion. Patient has CHF, therefore cardioembolism is a likely possibility. * Status post fall last night. * Acute UTI. * CHF with EF 20-25% * Diabetes * Hypertension * Hyperlipidemia * Dementia, moderate (perhaps moderate to severe) as per description from the family. Plan: * Transesophageal echogram was performed today. The aortic valve is tricuspid with mild aortic sclerosis without significant aortic stenosis. Mitral valve appears normal. There is mild to moderate mitral regurgitation. Tricuspid valve appears to be normal. Intra-atrial septum was intact. No evidence of PFO. Left atrial appendage is free of clot. There is global hypokinesis of the left ventricle with EF 30-35%. There is no apical thrombus noted. The prior mention of apical filling defect likely related to trabeculations. * Patient not a candidate for anticoagulation at this time. I would suggest loop recorder to rule out paroxysmal atrial fibrillation. * Computed tomography scan of head from this morning showed background moderate diffuse cerebral atrophy and [id number] chronic small vessel ischemic change redemonstrated. Redemonstration of evolving hemorrhagic infarct left parietal occipital region. No subdural hematoma. * MRI of the brain bun 05/28/2021 revealed evolving acute infarct left inferior parietal lobe posterior watershed region. Background moderate diffuse cerebral atrophy and mild chronic small vessel ischemic change with old right- sided occipital lobe infarct. * CTA of head and neck showed no large vessel occlusion or stenosis. * Telemetry monitoring showing bundle branch block, PVCs and PACs. * Continue aspirin 81 mg, Lovenox 40 mg. hold off Lidex Plavix due to petechial hemorrhage in the stroke area. No evidence of subdural hematoma. * Hemoglobin A1c 6.6 on 06/23/2020 * Suggest repeat computed tomography scan of the head in 1 week. Follow up with neurologist locally in 8-10 days. May consider resuming Plavix, if the petechial hemorrhage has resolved. * Suggest rehabilitation consult. * Discussed with patient's and son in detail.
[2020-07-22 11:45] LABS: Glucose,Whole Blood 271 mg/dL (75-99)
--- NOTE | 2020-07-22 14:33 | P.PN ---
Subjective Progress Note Date: 07/22/20 HISTORY OF PRESENT ILLNESS: 07/19/2020 Patient remains on IV Lasix 40 mg every 12 hours. Fluid balance over the last 4 hours is -830 mL. Creatinine today is 1.31, up from 1.0. Echocardiogram completed revealed ejection fraction 20-25%, severe mitral regurgitation, moderate tricuspid regurgitation, and moderate pulmonary hypertension. Patient had right-sided weakness this morning and garbled speech and a code stroke was called. Neurology is following. 07/20/2020 Patient examined this morning at the bedside. Patient denies chest pain or pressure. She denies shortness of breath. She remains on Lasix IV 40 mg daily. Creatinine 1.06. Vital signs stable. 07/22/2020 Patient is status post AMRGARET with Dr. Akhtar revealing aortic valve is tricuspid with mild aortic sclerosis without significant aortic stenosis. Mitral valve appears to be normal. [id number] mitral regurgitation. Tricuspid valve appears to be normal with trace tricuspid regurgitation. Intraatrial septum is intact. No evidence of PFO. Left atrial appendage is free of clot. Global hypokinesis with ejection fraction 30-35%. Patient is resting comfortably at the bedside. She denies chest pain or pressure. Denies shortness of breath. Vital signs are stable. PHYSICAL EXAM: VITAL SIGNS: Reviewed. GENERAL: Well-developed in no acute distress. NECK: Supple. No JVD or thyromegaly LUNGS: Respirations even and unlabored. Lungs diminished bilaterally. HEART: Regular rate and rhythm. S1 and S2 heard. Systolic murmur. EXTREMITIES: Normal range of motion. No clubbing or cyanosis. Peripheral pulses intact. Trace bilateral lower extremity edema ASSESSMENT: Acute exacerbation of chronic systolic congestive heart failure, ejection fraction 20-25% Coronary artery disease Right-sided weakness and garbled speech, acute CVA Hypertension Hyperlipidemia Alzheimer's dementia History of pancreatic cancer, status post Whipple 1994 Acute kidney injury Valvular heart disease, per echo: severe mitral regurgitation and moderate tricuspid regurgitation Moderate pulmonary hypertension PLAN: Continue current medication regimen No further recommendations from a cardiac standpoint We will sign off. Please reconsult as needed. Nurse practitioner note has been reviewed by physician. Signing provider agrees with the documented findings, assessment, and plan of care. Objective - Vital Signs Vital signs: Vital Signs Temp 97.5 F L 07/22/20 08:00 Pulse 86 07/22/20 08:00 Resp 16 07/22/20 08:00 BP 125/59 07/22/20 08:00 Pulse Ox 100 07/22/20 08:00 Intake & Output 07/21/20 07/22/20 07/22/20 18:59 06:59 18:59 Intake Total 885 360 Output Total 1 Balance 885 359 Weight 38.5 kg Intake: IV 225 Oral 660 360 Output: Urine 1 Other: Voiding Method Toilet Toilet # Voids 1 1 1 # Bowel Movements 1 1 1 - Labs CBC & Chem 7: 07/21/20 06:32 07/22/20 06:30 Labs: Abnormal Lab Results - Last 24 Hours (Table) 07/21/20 07/21/20 07/22/20 Range/Units 16:39 19:31 06:09 Sodium (137-145) mmol/L BUN (7-17) mg/dL Glucose (74-99) mg/dL POC Glucose (mg/dL) 267 H 240 H 129 H (75-99) mg/dL 07/22/20 07/22/20 Range/Units 06:30 11:44 Sodium 135 L (137-145) mmol/L BUN 21 H (7-17) mg/dL Glucose 117 H (74-99) mg/dL POC Glucose (mg/dL) 271 H (75-99) mg/dL Microbiology - Last 24 Hours (Table) 07/17/20 13:03 Blood Culture - Preliminary Blood No Growth after 96 hours
[2020-07-22 15:01] VITALS: BMI 15.8
[2020-07-22 16:53] LABS: Glucose,Whole Blood 327 mg/dL (75-99)
[2020-07-22] MEDS: GLIMEPIRIDE 2 MG TAB PO SCH (16:55)
[2020-07-22 20:02] LABS: Glucose,Whole Blood 287 mg/dL (75-99)
[2020-07-22] MEDS: ATORVASTATIN 40 MG TAB PO SCH (20:30)
[2020-07-22] MEDS ORDERED: CEFDINIR 300 MG CAP PO SCH (21:00)
[2020-07-23 06:25] LABS: Glucose,Whole Blood 183 mg/dL (75-99)
[2020-07-23] MEDS: INSULIN ASPART (NovoLOG) 100 UNIT/ML VIAL SQ SCH ×3 (06:35→17:09)
[2020-07-23] MEDS: PANTOPRAZOLE 40 MG TABLET PO SCH (06:35)
[2020-07-23] MEDS: LEVOTHYROXINE 75 MCG TAB PO SCH (06:35)
[2020-07-23] MEDS: SPIRONOLACTONE 25 MG TAB PO SCH (08:50)
[2020-07-23] MEDS: GLIMEPIRIDE 4 MG TAB PO SCH (08:50)
[2020-07-23] MEDS: LOSARTAN 25 MG TAB PO SCH (08:50)
[2020-07-23] MEDS: FUROSEMIDE 40 MG TAB PO SCH (08:50)
[2020-07-23] MEDS: ASPIRIN 81 MG PO SCH (08:50)
[2020-07-23] MEDS: ENOXAPARIN 30 MG/0.3 ML SYRINGE SQ SCH (08:51)
[2020-07-23] MEDS: METOPROLOL SUCCINATE (ER) 25 MG TAB.ER.24H PO SCH (08:51)
[2020-07-23 08:55] VITALS: TEMP 96
[2020-07-23 11:44] LABS: Glucose,Whole Blood 183 mg/dL (75-99)
--- NOTE | 2020-07-23 12:51 | P.PN ---
Subjective Progress Note Date: 07/22/20 07/22/2020: Patient was seen for a follow-up. Patient's and son were present today. Per patient's , her comprehension is improved. She can get most sentences out. Patient apparently has fluent aphasia. Patient cannot name, cannot repeat. She cannot follow directions. Patient continues to have right homonymous hemianopia, mild right-sided weakness. 07/21/2020: Patient was seen for a follow-up. Patient's and son were also present. Apparently patient has much improved. She is very alert and awake. Patient is sitting on the seat by the window. Patient is very much obs essed about having pain in her left forearm where her potassium is running. She keeps on repeating "why is it hurting". Per patient's son and , her comprehension is much improved. She is following directions. She still has significant problems with expressive aphasia. Her right arm is still slightly weak although better. Late entry for 07/19/2020: MRI of the brain was done, which revealed an evolving acute infarct left inferior parietal lobe posterior watershed region. I spoke to patient's and son yesterday late evening, and discussed the results. They further told me that patient has memory loss for 3 years, slowly getting worse. She used to pay her bills, but then stopped paying the bills about 2 years ago. When she goes to toilet, takes an hour. She likes to sleep, eats grapes. She has not cooked for 2 years. She knows her children, is poor with orientation. She repeatedly asks "did you leave door open for Griselda", although she is not living close. She is often confused, does not remember her son if he is or not. 07/20/2020: Patient's son was present today. Patient apparently was less responsive last night, I was called, recommended computed tomography scan of head, but while in the CT scanner, patient started moving thrashing, therefore it was canceled. It was felt decreased responsiveness was related to Ativan she had received for the MRI. Apparently this morning she woke up, decided to go to the bathroom and fell. Patient suffered from nasal and right head injury. X-ray of the facial bones revealed a hairline Nondisplaced nasal bridge fracture. X-ray of the right wrist showed advanced arthropathy correlate for osteoarthritis. Patient at present is sleeping. Patient's son was present today. He states that patient was feeling very thirsty, drank a lot of water. OT has worked. Telemetry monitoring showing bundle branch block, PVCs and PACs. Objective - Vital Signs Vital signs: Vital Signs Temp 97.5 F L 07/22/20 16:00 Pulse 112 H 07/22/20 16:00 Resp 16 07/22/20 16:00 BP 145/80 07/22/20 16:00 Pulse Ox 99 07/22/20 16:00 Intake & Output 07/21/20 07/22/20 07/22/20 18:59 06:59 18:59 Intake Total 885 840 Output Total 1 Balance 885 839 Weight 38.5 kg 38.056 kg Intake: IV 225 Oral 660 840 Output: Urine 1 Other: Voiding Method Toilet Toilet Toilet # Voids 1 1 2 # Bowel Movements 1 1 1 - Exam Patient is very alert and awake, sitting on the bed. Patient has significant fluent aphasia (Wernicke's). Patient often speaks nonsensical speech with jargon aphasia. Patient cannot name, repeat and comprehension is also significantly affected. Patient has right homonymous hemianopsia. No facial droop. Tongue protrudes the midline. Patient's right arm is weaker than the left. Patient did not cooperate. Patient walks with some support. - Labs CBC & Chem 7: 07/21/20 06:32 07/22/20 06:30 Labs: Abnormal Lab Results - Last 24 Hours (Table) 07/21/20 07/22/20 07/22/20 Range/Units 19:31 06:09 06:30 Sodium 135 L (137-145) mmol/L BUN 21 H (7-17) mg/dL Glucose 117 H (74-99) mg/dL POC Glucose (mg/dL) 240 H 129 H (75-99) mg/dL 07/22/20 07/22/20 Range/Units 11:44 16:51 Sodium (137-145) mmol/L BUN (7-17) mg/dL Glucose (74-99) mg/dL POC Glucose (mg/dL) 271 H 327 H (75-99) mg/dL Microbiology - Last 24 Hours (Table) 07/17/20 13:03 Blood Culture - Preliminary Blood No Growth after 120 hours Assessment and Plan Assessment: * Acute ischemic stroke left inferior parietal lobe, manifesting with Wernicke's aphasia, right visual field neglect and right arm weakness. CTA of head and neck negative for stenosis or occlusion. Patient has CHF, therefore cardioembolism is a likely possibility. MARGARET negative for any embolic source. * Status post fall last night. * Acute UTI. * CHF with EF 20-25% * Diabetes * Hypertension * Hyperlipidemia * Dementia, moderate (perhaps moderate to severe) as per description from the family. Plan: * Patient is more fluent, but has significant comprehension issues. Cannot name or repeat. However it is slowly improving, expect continue to improve over ti me. * Transesophageal echogram was performed today. The aortic valve is tricuspid with mild aortic sclerosis without significant aortic stenosis. Mitral valve appears normal. There is mild to moderate mitral regurgitation. Tricuspid valve appears to be normal. Intra-atrial septum was intact. No evidence of PFO. Left atrial appendage is free of clot. There is global hypokinesis of the left ventricle with EF 30-35%. There is no apical thrombus noted. The prior mention of apical filling defect likely related to trabeculations. * Patient not a candidate for anticoagulation at this time. I would suggest loop recorder to rule out paroxysmal atrial fibrillation. * MRI of the brain bun 05/28/2021 revealed evolving acute infarct left inferior parietal lobe posterior watershed region. Background moderate diffuse cerebral atrophy and mild chronic small vessel ischemic change with old right- sided occipital lobe infarct. * CTA of head and neck showed no large vessel occlusion or stenosis. * Telemetry monitoring showing sinus rhythm, sinus tachycardia with bundle- branch block.. * Continue aspirin 81 mg, Lovenox 40 mg. hold off Plavix due to petechial hemorrhage in the stroke area. No evidence of subdural hematoma. * Hemoglobin A1c 6.6 on 06/23/2020 * Repeat computed tomography scan of head in a.m. May consider resuming Plavix, if the petechial hemorrhage has resolved. * Rehab consult input appreciated. * Discussed with patient's and son in detail.
[2020-07-23 12:57] VITALS: BP 136/62; PULSE 92; RESP 16
--- NOTE | 2020-07-23 13:09 | P.DS ---
Providers Date of admission: 07/17/20 12:53 Expected date of discharge: 07/23/20 Attending physician: Mayela Dasilva Consults: 07/19/20 08:40 Consult Physician Urgent Consulting Provider: Heath Madrid Consult Reason/Comments: stroke Do you want consulting provider notified?: Yes 07/21/20 14:03 Consult Physician Routine Consulting Provider: Tai Gonzalez Consult Reason/Comments: eval for inpatient rehab Do you want consulting provider notified?: Yes Primary care physician: Mayela Dasilva Hospital Course: This is an 85 year old female with a previous medical history si gnificant for CAD post inferior wall myocardial infarction with chronic systolic heart failure, hypertension and hypertensive cardiovascular disease, hyperlipidemia, hypothyroidism, diabets mellitus type 2 and Alzheimer dementia, patient was seen in the office yesterday and she was more confused than normal, so a labs were done and she had a slight bump in her troponin and I have called her to bring her to the ER yesterday, however she declined and he aid he will take her in the morning, patient was seen in the ER and she was found to have elevated BNP and she was complaining of increased swelling in both legs and she denied any chest pain or shortness of breath, her troponin was ok, because of that she was admitted to the hospital with cardiology consult and we will repeat echocardiogram, also she was found to have UTI and was given rocephin 1 gr IVPB daily, sent UA for C+S. 07/18/20: Patient is that she denies any chest pain or shortness breath she has no nausea vomiting, she is diuresing very well using the Lasix, she was negative by cardiology we will continue current conservative management, echocardiogram still pending, input and output and daily weight, low-salt diet. 07/19/20: I like to the patient's room and she was having garbled speech, she has significant weakness in the right upper extremity with the right-sided neglect, a code stroke was called patient will go for computed tomography scan of the brain without contrast as well as CT angiography of the carotid artery on the [place], stat neurology consultation would be obtained, patient has been seen cardiology and myself she was admitted for acute systolic heart failure has been diuresed with Lasix, patient denies any chest pain at the somewhat any shortness breath, she does not appear clinically distress, she continues to have a right-sided neck length as well as right upper extremity more than right lower extremity weakness she does appear to have a positive Babinski on the right side. 07/20: Patient has been seen by neurology for probable acute stroke. Patient is not candidate for TPA as there is no clear time of onset of symptoms and underlying dementia. MRI of the brain revealed evolving acute infarct in the left inferior parietal lobe posterior watershed region. Background moderate diffuse cerebral atrophy and mild chronic small vessel ischemic changes with old right-sided occipital lobe infarcts. CTA of the head and neck revealed no significant stenosis in the common or internal carotid arteries bilaterally. No significant stenosis or aneurysmal change at [place]. She underwent a subsequent CAT scan of the brain last evening that revealed limited exam. Cerebral atrophy. No definite acute intracranial abnormality. Patient was continued on aspirin 81 mg, Lovenox and Plavix added. Patient is also seen and followed by cardiology for heart failure and Lasix was changed to once a day dosing at 40 mg IV daily. Patient required Ativan for MRI and has subsequently had significant confusion. This morning she got herself out of bed and started ambulating with a fall in her room with abrasion to the bridge of her nose and right hand. No noted loss of consciousness. Facial x-rays revealed correlate for hairline nondisplaced nasal bridge fracture. Right hand x-ray shows advanced arthropathy correlate for osteoarthritis. Discharge plan is [facility] or [facility]. 07/21: Patient has been afebrile, heart rate 87, blood pressure 138/79, pulse ox 100% on room air. Repeat blood work reveals WBC 5.2, hemoglobin 10.5, platelet count 255. Potassium 3.2. BUN 25 creatinine 1.14. AST 37, ALT 54, alkaline phosphatase 94. Blood sugars running between 90 and 163. Potassium has been replaced. Limited echocardiogram reveals cannot exclude thrombus in the apex. CAT scan of the brain completed on July 20 in the afternoon revealed acute ischemic left temporal and parietal lobes. There is no areas of punctate hyperdensity in the area of infarct which likely represents acute petechial hemorrhage. Repeat CAT scan of the brain completed today reveals background moderate diffuse cerebral atrophy and mild to moderate chronic small vessel ischemic change free demonstrated. Redemonstration of evolving hemorrhagic infarct left parietal occipital region posterior watershed level. MARGARET completed today with Dr. Akhtar revealed aortic valve tricuspid with mild aortic sclerosis without stenosis. Mitral valve normal. Mild to moderate mitral regurgitation. Tricuspid valve appears normal with trace tricuspid regurgitation. No PFO. Left atrial appendage is free of clot. Global hypokinesia with ejection fraction 30-35%. No apical thrombus noted with prior mention of apical filling defect likely related to trabeculations. Patient's is at the bedside and is looking at discharge to [facility] but we have also added in a consult for Dr. Garcia for possible inpatient rehab. Patient's mental status is slightly improved and she is following commands. She is not eating very much. Patient denies having any headache. No swallowing difficulties. 07/22: Patient continues to have confusion but this is improving. Her speech is less garbled and his stuttering. She is able to say a few phrases clearly. Patient continues to have right-sided neglect, right arm weaker than the left. She has been afebrile, heart rate 86, blood pressure 125/59, pulse ox 100% on room air. Sodium 135, BUN 21 creatinine 0.95. Blood sugars between 117 240. Patient's is at the bedside has been updated about questions answered. He is leaning towards discharge to [facility] because patient will have a private room at [facility]. Anticipate discharge tomorrow. 07/23: Patient continues to have confusion but she is able to answer questions appropriately. Speech is improving. She continues to have right-sided neglect, right arm weakness She has been afebrile, heart rate 95, blood pressure 139/62, pulse ox 98% on room air. telemetry monitor is a sinus rhythm. Sugars are running between 183 and 287. Cardiology has signed off. Patient was seen by Dr. Gonzalez and patient not appropriate for inpatient rehab. Neurology is recommending loop recorder to rule out paroxysmal atrial fibrillation. Unsure if patient would be able to tolerate event monitor. We'll discuss with cardiology. Patient is not appropriate for anticoagulation. Neurology is recommending continuing aspirin 81 mg daily, Lovenox, hold Plavix. He also suggests CT of the head in one week and follow-up with neurologist in 8-10 days. May consider resuming Plavix with the petechial hemorrhage resolved. Family had decided on discharge plan to [facility]. Discharge diagnoses: 1. Acute systolic heart failure. 2. E. coli UTI. 3. Acute ischemic infarct in the left inferior parietal lobe posterior watershed region with right-sided weakness. 4. 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 5. CAD post inferior wall [place] in 2018. 6. Hypertension and hypertensive cardiovascular disease. 7. Hyperlipidemia. 8. Hypothyroidism. 9. Diabetes mellitus type 2. 10. Alzheimer dementia. 11. Fall with possible nasal bridge fracture. Discharge plan: [facility] Impression and plan of care have been directed as dictated by the signing physician. Shavon Ramos nurse practitioner acting as scribe for signing physician. Patient Condition at Discharge: Good Plan - Discharge Summary Discharge Rx Participant: Yes New Discharge Prescriptions: New Spironolactone [Aldactone] 25 mg PO DAILY tab Furosemide [Lasix] 40 mg PO DAILY tab Atorvastatin [Lipitor] 40 mg PO HS tab Cefdinir [Omnicef] 300 mg PO HS #14 cap Continue Glimepiride [Amaryl] 4 mg PO DAILY Aspirin 81 mg PO DAILY #30 chew Levothyroxine Sodium [Synthroid] 75 mcg PO DAILY Losartan [Cozaar] 25 mg PO DAILY Metoprolol Succinate (ER) [Toprol XL] 25 mg PO DAILY Glimepiride [Amaryl] 2 mg PO W/SUPPER Discharge Medication List Glimepiride [Amaryl] 4 mg PO DAILY 03/22/18 [History] Aspirin 81 mg PO DAILY #30 chew 03/26/18 [Rx] Levothyroxine Sodium [Synthroid] 75 mcg PO DAILY 07/12/20 [History] Losartan [Cozaar] 25 mg PO DAILY 07/12/20 [History] Metoprolol Succinate (ER) [Toprol XL] 25 mg PO DAILY 07/12/20 [History] Glimepiride [Amaryl] 2 mg PO W/SUPPER 07/17/20 [History] Atorvastatin [Lipitor] 40 mg PO HS tab 07/23/20 [Rx] Cefdinir [Omnicef] 300 mg PO HS #14 cap 07/23/20 [Rx] Furosemide [Lasix] 40 mg PO DAILY tab 07/23/20 [Rx] Spironolactone [Aldactone] 25 mg PO DAILY tab 07/23/20 [Rx] Follow up Appointment(s)/Referral(s): Mayela Dasilva MD [Primary Care Provider] - 1 Week Shun Delaney MD [Medical Doctor] - 1 Week Discharge Disposition: TRANSFER TO SNF/ECF
--- NOTE | 2020-07-23 13:21 | CT ---
EXAMINATION TYPE: CT brain wo con DATE OF EXAM: 07/23/2020 HISTORY: Follow-up bleed. Confusion. CT DLP: 1098.4 mGycm. Automated Exposure Control for Dose Reduction was Utilized. TECHNIQUE: CT scan of the head is performed without contrast. COMPARISON: CT brain 2 days ago older studies. FINDINGS: There is is background diffuse ventricular and sulcal prominence redemonstrated. There is low-attenuation in the right posterior periventricular white matter redemonstrated. Persistent wedge- shaped area of sulcal effacement and schaefer-white matter blurring with areas of subcortical hyperdensit y centered left parietal-occipital lobe with some superior-posterior temporal lobe with extension rem ains present. Degree of hyperdensity or acute blood product fairly stable on current study versus mos t recent prior. The globes remain intact and the visualized sinuses are clear. IMPRESSION: Background moderate diffuse cerebral atrophy and mild to moderate chronic small vessel is chemic change redemonstrated. Evolving acute/subacute hemorrhagic infarct left parietal occipital reg ion posterior watershed level redemonstrated. No significant change from most recent CT.
--- NOTE | 2020-07-23 13:59 | P.PN ---
Subjective Progress Note Date: 07/22/20 This is an 85 year old female with a previous medical history significant for CAD post inferior wall myocardial infarction with chronic systolic heart failure, hypertension and hypertensive cardiovascular disease, hyperlipidemia, hypothyroidism, diabets mellitus type 2 and Alzheimer dementia, patient was seen in the office yesterday and she was more confused than normal, so a labs were done and she had a slight bump in her troponin and I have called her to bring her to the ER yesterday, however she declined and he aid he will take her in the morning, patient was seen in the ER and she was found to have elevated BNP and she was complaining of increased swelling in both legs and she denied any chest pain or shortness of breath, her troponin was ok, because of that she was admitted to the hospital with cardiology consult and we will repeat echocardiogram, also she was found to have UTI and was given rocephin 1 gr IVPB daily, sent UA for C+S. 07/18/20: Patient is that she denies any chest pain or shortness breath she has no nausea vomiting, she is diuresing very well using the Lasix, she was negative by cardiology we will continue current conservative management, echocardiogram still pending, input and output and daily weight, low-salt diet. 07/19/20: I like to the patient's room and she was having garbled speech, she has significant weakness in the right upper extremity with the right-sided neglect, a code stroke was called patient will go for computed tomography scan of the brain without contrast as well as CT angiography of the carotid artery on the [place], stat neurology consultation would be obtained, patient has been seen cardiology and myself she was admitted for acute systolic heart failure has been diuresed with Lasix, patient denies any chest pain at the somewhat any shortness breath, she does not appear clinically distress, she continues to have a right-sided neck length as well as right upper extremity more than right lower extremity weakness she does appear to have a positive Babinski on the right side. 07/20: Patient has been seen by neurology for probable acute stroke. Patient is not candidate for TPA as there is no clear time of onset of symptoms and underlying dementia. MRI of the brain revealed evolving acute infarct in the left inferior parietal lobe posterior watershed region. Background moderate diffuse cerebral atrophy and mild chronic small vessel ischemic changes with old right-sided occipital lobe infarcts. CTA of the head and neck revealed no significant stenosis in the common or internal carotid arteries bilaterally. No significant stenosis or aneurysmal change at [place]. She underwent a subsequent CAT scan of the brain last evening that revealed limited exam. Cerebral atrophy. No definite acute intracranial abnormality. Patient was continued on aspirin 81 mg, Lovenox and Plavix added. Patient is also seen and followed by cardiology for heart failure and Lasix was changed to once a day dosing at 40 mg IV daily. Patient required Ativan for MRI and has subsequently had significant confusion. This morning she got herself out of bed and started ambulating with a fall in her room with abrasion to the bridge of her nose and right hand. No noted loss of consciousness. Facial x-rays revealed correlate for hairline nondisplaced nasal bridge fracture. Right hand x-ray shows advanced arthropathy correlate for osteoarthritis. Discharge plan is [facility] or [facility]. 07/21: Patient has been afebrile, heart rate 87, blood pressure 138/79, pulse ox 100% on room air. Repeat blood work reveals WBC 5.2, hemoglobin 10.5, platelet count 255. Potassium 3.2. BUN 25 creatinine 1.14. AST 37, ALT 54, alkaline phosphatase 94. Blood sugars running between 90 and 163. Potassium has been replaced. Limited echocardiogram reveals cannot exclude thrombus in the apex. CAT scan of the brain completed on July 20 in the afternoon revealed acute ischemic left temporal and parietal lobes. There is no areas of punctate hyperdensity in the area of infarct which likely represents acute petechial hemorrhage. Repeat CAT scan of the brain completed today reveals background mo derate diffuse cerebral atrophy and mild to moderate chronic small vessel ischemic change free demonstrated. Redemonstration of evolving hemorrhagic infarct left parietal occipital region posterior watershed level. MARGARET completed today with Dr. Akhtar revealed aortic valve tricuspid with mild aortic sclerosis without stenosis. Mitral valve normal. Mild to moderate mitral regurgitation. Tricuspid valve appears normal with trace tricuspid regurgitation. No PFO. Left atrial appendage is free of clot. Global hypokinesia with ejection fraction 30-35%. No apical thrombus noted with prior mention of apical filling defect likely related to trabeculations. Patient's is at the bedside and is looking at discharge to [facility] but we have also added in a consult for Dr. Garcia for possible inpatient rehab. Patient's mental status is slightly improved and she is following commands. She is not eating very much. Patient denies having any headache. No swallowing difficulties. 07/22: Patient continues to have confusion but this is improving. Her speech is less garbled and his stuttering. She is able to say a few phrases clearly. Patient continues to have right-sided neglect, right arm weaker than the left. She has been afebrile, heart rate 86, blood pressure 125/59, pulse ox 100% on room air. Sodium 135, BUN 21 creatinine 0.95. Blood sugars between 117 240. Patient's is at the bedside has been updated about questions answered. He is leaning towards discharge to [facility] because patient will have a private room at [facility]. Anticipate discharge tomorrow. Objective - Vital Signs Vital signs: Vital Signs Temp 97.6 F 07/22/20 04:00 Pulse 88 07/22/20 04:00 Resp 16 07/22/20 04:00 BP 112/65 07/22/20 04:00 Pulse Ox 98 07/22/20 04:00 Intake & Output 07/21/20 07/21/20 07/22/20 06:59 18:59 06:59 Intake Total 885 Balance 885 Weight 42.6 kg 38.5 kg Intake: IV 225 Oral 660 Other: Voiding Method Toilet Toilet Toilet # Voids 1 1 1 # Bowel Movements 1 1 - Exam Review of Systems Constitutional: Reports fatigue, Reports weakness, Reports weight loss, Denies anorexia, Denies chronic headaches, Denies chronic pain, Denies lethargy, Denies sweats Eyes: denies blurred vision, denies bulging eye Ears, nose, mouth and throat: Denies dysphagia, Denies neck lump, Denies sore throat Cardiovascular: Reports decreased exercise tolerance, Reports dyspnea on exertion, Reports leg edema, Reports shortness of breath, Denies chest pain, Denies orthopnea, Denies palpitations, Denies rapid heart beat, Denies syncope Respiratory: Denies congestion, Denies cough, Denies cough with sputum, Denies home oxygen, Denies sleep apnea, Denies snoring, Denies wheezing Gastrointestinal: Reports loss of appetite, Denies abdominal pain, Denies BRBPR, Denies heartburn, Denies melena, Denies nausea, Denies vomiting Genitourinary: Reports nocturia, Denies dysuria Menstruation: Reports postmenopausal Musculoskeletal: bilateral: ankle swelling, absent: elbow pain, elbow stiffness, elbow swelling, foot pain, foot stiffness, foot swelling, hand pain, hand stiffness, hand swelling, hip pain, hip stiffness, hip swelling, knee pain, knee stiffness, knee swelling, shoulder pain, shoulder stiffness, shoulder swelling, wrist pain, wrist stiffness, wrist swelling Integumentary: Denies pruritus, Denies rash Neurological: Reports confusion, Reports memory loss, Reports right-sided weakness Psychiatric: Denies anxiety, Denies depression Endocrine: Denies fatigue, Denies weight change Physical examination: HEENT: head is atraumatic normocephalic pupils were equal round reactive to light and accommodations extra ocular muscle movements were intact, mucous membranes of the mouth are somewhat dry. Neck: supple, increased JVP. Chest: decreased breath sounds at the bases with few ronchi, no expiratory wheezes. Heart: the first heart sound is depressed, second heart sound is depressed, there is EARL 2/6 located at the left sternal border. Abdomen: soft non tender non distended positive bowel sounds. Extremities: there is + 2 edema in both lower extremities, there is no calf tenderness DP + 1 bilaterally. Neurologic examintaion: patient is mildly confused with garbled speech she does appear to have right upper extremity weakness as well as right lower extremity she does appear to have a positive Babinski's in the right lower extremity, right sided neglect. - Labs CBC & Chem 7: 07/21/20 06:32 07/22/20 06:30 Labs: Abnormal Lab Results - Last 24 Hours (Table) 07/21/20 07/21/20 07/21/20 Range/Units 06:32 06:32 11:30 RBC 3.31 L (3.80-5.40) m/uL Hgb 10.5 L (11.4-16.0) gm/dL Hct 31.7 L (34.0-46.0) % Lymphocytes # 0.6 L (1.0-4.8) k/uL Potassium 3.2 L (3.5-5.1) mmol/L BUN 25 H (7-17) mg/dL Creatinine 1.14 H (0.52-1.04) mg/dL POC Glucose (mg/dL) 163 H (75-99) mg/dL AST 37 H (14-36) U/L ALT 54 H (4-34) U/L Total Protein 5.8 L (6.3-8.2) g/dL Albumin 3.0 L (3.5-5.0) g/dL 07/21/20 07/21/20 Range/Units 16:39 19:31 RBC (3.80-5.40) m/uL Hgb (11.4-16.0) gm/dL Hct (34.0-46.0) % Lymphocytes # (1.0-4.8) k/uL Potassium (3.5-5.1) mmol/L BUN (7-17) mg/dL Creatinine (0.52-1.04) mg/dL POC Glucose (mg/dL) 267 H 240 H (75-99) mg/dL AST (14-36) U/L ALT (4-34) U/L Total Protein (6.3-8.2) g/dL Albumin (3.5-5.0) g/dL Microbiology - Last 24 Hours (Table) 07/17/20 13:03 Blood Culture - Preliminary Blood No Growth after 96 hours Assessment and Plan Assessment: Assessment and plan: 1. Acute systolic heart failure. continue with lasix 40 mg orally daily, Losartan 25 mg orally daily, we will continue with Metoprolol 2 mg orally daily, added spironolactone 25 mg po daily, echocardiogram and MARGARET reviewed. 2. E.Coli UTI. we will start Ceftin 250 mg orally bid and discontinue Rocephin. 3. Acute ischemic cerebral vascular accident involving the left inferior parietal lobe with right sided weakness, right hemineglect, dysarthria. with some hemorrhagic component off plavix, we will continue with Lipitor 40 mg orally daily and ASA 81 mg orally daily and we will continue with PT and OT, likely will go to [facility] in 24 hours. 4. 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 Stable. 5. CAD post inferior wall [place] in 2018 . we will continue with Toprol XL 25 mg orally daily, Losartan 25 mg orally daily and Lipitor 40 mg orally daily. 6. Hypertension and hypertensive cardiovascular disease. we will continue with Losartan 25 mg orally daily and Metoprolol ER 25 mg orally daily. 7. Hyperlipidemia. we will continue with Lipitor 40 mg orally daily. 8. Hypothyroidism. we will continue with Synthrood 75 mcg orally daily. 9. Diabetes mellitus type 2 . we will continue with CCA 1800 diet and we will continue with Glimepiride4 mg in Am and 2 mg in pm BGM AC meals and hs, along with SSI. 10. Alzheimer dementia. we will monitor. 11. DVT prophylaxis. we will continue with Lovenox 40 mg SC daily. ' 12. GI prophylaxis. we will continue with Protonix 40 mg orally daily .13. Discharge planning: [facility].
[2020-07-23 16:56] LABS: Glucose,Whole Blood 371 mg/dL (75-99)
[2020-07-23] MEDS: GLIMEPIRIDE 2 MG TAB PO SCH (17:08)
--- NOTE | 2020-07-25 23:17 | P.PN ---
Subjective Progress Note Date: 07/23/20 07/23/2020: LATE ENTRY. This note is actually from 07/23/2020. I had forgotten to initiate the note on this DOS. Patient was seen shortly before her discharge. Patient sitting in the recliner, fully dressed, in no distress. Still with fluent aphasia. NO change as compared to yesterday. Patient's son and were present. 07/22/2020: Patient was seen for a follow-up. Patient's and son were present today. Per patient's , her comprehension is improved. She can get most sentences out. Patient apparently has fluent aphasia. Patient cannot name, cannot repeat. She cannot follow directions. Patient continues to have right homonymous hemianopia, mild right-sided weakness. 07/21/2020: Patient was seen for a follow-up. Patient's and son were also present. Apparently patient has much improved. She is very alert and awake. Patient is sitting on the seat by the window. Patient is very much obsessed about having pain in her left forearm where her potassium is running. She keeps on repeating "why is it hurting". Per patient's son and , her comprehension is much improved. She is following directions. She still has significant problems with expressive aphasia. Her right arm is still slightly weak although better. Late entry for 07/19/2020: MRI of the brain was done, which revealed an evolving acute infarct left inferior parietal lobe posterior watershed region. I spoke to patient's and son yesterday late evening, and discussed the results. They further told me that patient has memory loss for 3 years, slowly getting worse. She used to pay her bills, but then stopped paying the bills about 2 years ago. When she goes to toilet, takes an hour. She likes to sleep, eats grapes. She has not cooked for 2 years. She knows her children, is poor with orientation. She repeatedly asks "did you leave door open for Griselda", although she is not living close. She is often confused, does not remember her son if he is or not. 07/20/2020: Patient's son was present today. Patient apparently was less responsive last night, I was called, recommended computed tomography scan of head, but while in the CT scanner, patient started moving thrashing, therefore it was canceled. It was felt decreased responsiveness was related to Ativan she had received for the MRI. Apparently this morning she woke up, decided to go to the bathroom and fell. Patient suffered from nasal and right head injury. X-ray of the facial bones revealed a hairline Nondisplaced nasal bridge fracture. X-ray of the right wrist showed advanced arthropathy correlate for osteoarthritis. Patient at present is sleeping. Patient's son was present today. He states that patient was feeling very thirsty, drank a lot of water. OT has worked. Telemetry monitoring showing bundle branch block, PVCs and PACs. Objective - Vital Signs Vital signs: Vital Signs Temp 96 F L 07/23/20 08:00 Pulse 92 07/23/20 12:00 Resp 16 07/23/20 14:00 BP 136/62 07/23/20 12:00 Pulse Ox 96 07/23/20 12:58 - Exam Patient is very alert and awake, sitting on the bed. Patient has significant fluent aphasia (Wernicke's). Patient often speaks nonsensical speech with jargon aphasia. Patient cannot name, repeat and comprehension is also significantly affected. Patient could not name simple objects like "fork" or "knife" presented to her. Patient has right homonymous hemianopsia. No facial droop. Tongue protrudes the midline. Patient's right arm is weaker than the left. Patient did not cooperate. Patient walks with some support. - Labs CBC & Chem 7: 07/21/20 06:32 07/22/20 06:30 Assessment and Plan Assessment: * Acute ischemic stroke left inferior parietal lobe, manifesting with Wernicke's aphasia, right visual field neglect and right arm weakness. CTA of head and neck negative for stenosis or occlusion. Patient has CHF, therefore cardioembolism is a likely possibility. MARGARET negative for any embolic source. * Status post fall last night. * Acute UTI. * CHF with EF 20-25% * Diabetes * Hypertension * Hyperlipidemia * Dementia, moderate (perhaps moderate to severe) as per description from the family. Plan: * Patient continues to had fluent aphasia, right visual field cut and right arm weakness. * Repeat CT head showed no change in hemorrhagic infarct on the left side. * Transesophageal echogram was performed today. The aortic valve is tricuspid with mild aortic sclerosis without significant aortic stenosis. Mitral valve appears normal. There is mild to moderate mitral regurgitation. Tricuspid valve appears to be normal. Intra-atrial septum was intact. No evidence of PFO. Left atrial appendage is free of clot. There is global hypokinesis of the left ventricle with EF 30-35%. There is no apical thrombus noted. The prior mention of apical filling defect likely related to trabeculations. * Patient not a candidate for anticoagulation at this time. I would suggest loop recorder to rule out paroxysmal atrial fibrillation. * MRI of the brain bun 05/28/2021 revealed evolving acute infarct left inferior parietal lobe posterior watershed region. Background moderate diffuse cerebral atrophy and mild chronic small vessel ischemic change with old right- sided occipital lobe infarct. * CTA of head and neck showed no large vessel occlusion or stenosis. * Telemetry monitoring showing sinus rhythm, sinus tachycardia with bundle- branch block.. * Continue aspirin 81 mg, Lovenox 40 mg. Hold off Plavix due to petechial hemorrhage in the stroke area. No evidence of subdural hematoma. * Hemoglobin A1c 6.6 on 06/23/2020 * Rehab consult input appreciated. * Followup with a neurologist locally in 7 to 10 days. * Discussed with patient's and son in detail.
--- NOTE | 2020-07-28 13:30 | CDI ---
Documentation Clarification Form Date: 07/28/2020 01:28:00 PM From: Nadeen Yen Phone: Admit Date: 07/17/2020 12:53:00 PM Patient Name: Lisa Jacobson Visit Number: [id number] Discharge Date: 07/23/2020 05:22:00 PM ATTENTION: The Clinical Documentation Specialists (CDI) and [facility] Coding Staff appreciate your assistance in clarifying documentation. Please respond to the clarification below the line at the bottom and electronically sign. The CDI & [facility] Coding staff will review the response and follow-up if needed. Please note: Queries are made part of the Legal Health Record. If you have any questions, please contact the author of this message via ITS. Dr. Mayela Dasilva Dietitian Consult documents malnutrition severe, chronic. History/Risk Factors: CHF, HTN, CVA, DM, Hypothyroid, CAD Clinical Indicators: BMI 15, Underweight Patients weight is: 38.056 kg Patients height is: 5 ft 1 in Calculated BMI is: 15.8 Muscle wasting: Visible fat and muscle loss in temporal muscle and buccal fat pads Treatments: Magic cups, commercial beverage, appetite stimulant recommended Dietary Consult: 07/18-07/22 In order to capture the severity of condition associated with patient BMI of 15.8, a clinical diagnosis needs to be documented by the physician. Please clarify: Cachexia Underweight Malnutrition Mild Moderate Severe Other Unable to determine Moderate protein calorie malnutrition MTDD
--- NOTE | 2020-08-02 11:57 | EM ---
EVENT MONITOR The patient was monitored only for 1 day. The rhythm strip revealed a sinus mechanism. There was no episode of atrial fibrillation or ventricle tachy arrhythmia. MMODL / IJN: [id number] /
== END 2020-07-23 17:22 | DRG 291 ==
LOC: EC 10:33 → 3SCARD 12:53
PROVIDERS: ADMIT Internal Medicine; ATTEND Internal Medicine
PROC: B246ZZ4 Ultrasonography of Right and Left Heart, Transesophageal (ICD-10-PCS; principal; 2020-07-21 09:00)
DX: I11.0 Hypertensive heart disease with heart failure (principal); I61.1 Nontraumatic intracerebral hemorrhage in hemisphere, cortical; E44.0 Moderate protein-calorie malnutrition; E87.2 Acidosis; R47.01 Aphasia; G81.91 Hemiplegia, unspecified affecting right dominant side; N39.0 Urinary tract infection, site not specified; Z68.1 Body mass index [BMI] 19.9 or less, adult; I27.22 Pulmonary hypertension due to left heart disease; H53.461 Homonymous bilateral field defects, right side; G30.9 Alzheimer's disease, unspecified; F02.80 Dementia in other diseases classified elsewhere, unspecified severity, without behavioral disturbance, psychotic disturbance, mood disturbance, and anxiety; I42.9 Cardiomyopathy, unspecified; I50.23 Acute on chronic systolic (congestive) heart failure; E11.9 Type 2 diabetes mellitus without complications; K21.9 Gastro-esophageal reflux disease without esophagitis; R29.711 NIHSS score 11; H26.9 Unspecified cataract; I45.4 Nonspecific intraventricular block; E03.9 Hypothyroidism, unspecified; E78.5 Hyperlipidemia, unspecified; I25.10 Atherosclerotic heart disease of native coronary artery without angina pectoris; I08.3 Combined rheumatic disorders of mitral, aortic and tricuspid valves; R26.9 Unspecified abnormalities of gait and mobility; M19.041 Primary osteoarthritis, right hand; R47.9 Unspecified speech disturbances; S02.2XXA Fracture of nasal bones, initial encounter for closed fracture; S60.511A Abrasion of right hand, initial encounter; B96.20 Unspecified Escherichia coli [E. coli] as the cause of diseases classified elsewhere; R47.1 Dysarthria and anarthria; W19.XXXA Unspecified fall, initial encounter; I25.2 Old myocardial infarction; Z71.3 Dietary counseling and surveillance; Z98.890 Other specified postprocedural states; Z79.84 Long term (current) use of oral hypoglycemic drugs; Z79.890 Hormone replacement therapy; Z79.82 Long term (current) use of aspirin; Z79.899 Other long term (current) drug therapy; Z85.068 Personal history of other malignant neoplasm of small intestine; Z92.3 Personal history of irradiation; Z87.19 Personal history of other diseases of the digestive system; Z85.42 Personal history of malignant neoplasm of other parts of uterus; Z90.710 Acquired absence of both cervix and uterus; Z87.891 Personal history of nicotine dependence; Z85.07 Personal history of malignant neoplasm of pancreas; Z90.411 Acquired partial absence of pancreas; Z86.73 Personal history of transient ischemic attack (TIA), and cerebral infarction without residual deficits; Z88.7 Allergy status to serum and vaccine; Z83.3 Family history of diabetes mellitus; Z82.61 Family history of arthritis; Z82.0 Family history of epilepsy and other diseases of the nervous system
CPT/HCPCS: 36415; 70140; 70450; 70496; 70498; 70551; 71046; 80048; 80053; 81001; 83735; 83880; 84484; 85025; 85610; 85730; 87040; 87077; 87086; 87186; 93005; 93270; 93306; 93308; 93312; 93320; 93325; 94760; 96365; 96375; 99285

== ENCOUNTER 2020-08-05 17:01 | Emergency (ER) | payer MEDICARE ==
[2020-08-05 17:08] VITALS: BP 143/81; PULSE 94; RESP 16; TEMP 98
--- NOTE | 2020-08-05 17:13 | ED ---
ENT HPI - General Chief complaint: ENT Stated complaint: nosebleed Time Seen by Provider: 08/05/20 17:07 Source: EMS Mode of arrival: EMS Limitations: no limitations - History of Present Illness Initial comments: 85-year-old female presenting to the emergency department with a chief complaint of a nosebleed. Patient has advanced dementia and currently resides at [facility] on it was found to have epistaxis. Patient had epistaxis for approximately 2 hours prior to arrival. Patient did have a broken fracture broken nasal fracture about 2 weeks ago. Patient continues to pick at her nose. Patient is not currently on any blood thinners. Patient brought via EMS. - Related Data Home Medications Medication Instructions Recorded Confirmed Levothyroxine Sodium [Synthroid] 75 mcg PO DAILY 07/12/20 08/05/20 Losartan [Cozaar] 25 mg PO DAILY 07/12/20 08/05/20 Metoprolol Succinate (ER) [Toprol 25 mg PO DAILY 07/12/20 08/05/20 XL] Dapagliflozin Propanediol [Farxiga] 5 mg PO HS 08/05/20 08/05/20 Insulin Glargine,Hum.rec.anlog 13 unit SQ HS 08/05/20 08/05/20 [Lantus Solostar] Mirtazapine 7.5 mg PO HS 08/05/20 08/05/20 metFORMIN HCL [Glucophage] 500 mg PO BID 08/05/20 08/05/20 Previous Rx's Medication Instructions Recorded Aspirin 81 mg PO DAILY #30 chew 03/26/18 Atorvastatin [Lipitor] 40 mg PO HS tab 07/23/20 Cefdinir [Omnicef] 300 mg PO HS #14 cap 07/23/20 Furosemide [Lasix] 40 mg PO DAILY tab 07/23/20 Allergies Allergy/AdvReac Type Severity Reaction Status Date / Time tetanus and diphtheria Allergy Unknown Verified 08/05/20 18:15 toxoids Review of Systems ROS Statement: Those systems with pertinent positive or pertinent negative responses have been documented in the HPI. ROS Other: All systems not noted in ROS Statement are negative. Past Medical History Past Medical History: Coronary Artery Disease (CAD), Cancer, Heart Failure, Dementia, Diabetes Mellitus, Eye Disorder, GERD/Reflux, Hyperlipidemia, Hypertension, Memory Impairment, Myocardial Infarction (AR), Osteoarthritis (OA), Thyroid Disorder Additional Past Medical History / Comment(s): pt poor historian-dementia,past pancreatitis,, hx uterine(endometrial) cancer 1988(sx/radiation, pancreatic cancer post whipple procedure in 1994. kenney cataracts, occ ringing in ears History of Any Multi-Drug Resistant Organisms: None Reported Past Surgical History: Hysterectomy Additional Past Surgical History / Comment(s): Whipple procedure due to pancreatic cancer 1994, 2009 vag lesion removed. benign tunor removed from stomach, colonoscopy, egd, whipple procedure Past Anesthesia/Blood Transfusion Reactions: Motion Sickness Past Psychological History: No Psychological Hx Reported Smoking Status: Former smoker Past Alcohol Use History: Daily Past Drug Use History: None Reported - Past Family History Father Family Medical History: No Reported History (Father at the age of 92 from old age.) Additional Family Medical History / Comment(s): in his 90's Mother Family Medical History: Diabetes Mellitus (Mother ided at the age of 75 from DM2 on .) Additional Family Medical History / Comment(s): in her 70's Sister(s) Family Medical History: Renal Disease (2 sisters one 88 year old with DM2 and ESRD on HD and the other one 86 with osteoarthritis.) Son(s) Family Medical History: Seizure Disorder (5 sons one is 61 year old lives in long-term non verbal due to Grandmal seizure disroder.) General Exam Limitations: altered mental status General appearance: alert, in no apparent distress Head exam: Present: atraumatic, normocephalic, normal inspection Eye exam: Present: normal appearance, PERRL Pupils: Present: normal accommodation ENT exam: Present: normal exam, mucous membranes moist, TM's normal bilaterally, normal external ear exam. Absent: normal oropharynx (Left-sided epistaxis. Unable to visualize the source of the bleed. There is some residual blood noted in the posterior pharynx. No signs of septal hematoma) Neck exam: Present: normal inspection, full ROM. Absent: tenderness Respiratory exam: Present: normal lung sounds bilaterally. Absent: respiratory distress, wheezes, rales Cardiovascular Exam: Present: regular rate, normal rhythm, normal heart sounds Extremities exam: Present: normal inspection, full ROM, normal capillary refill Back exam: Present: normal inspection, full ROM Neurological exam: Present: alert Psychiatric exam: Present: normal affect, normal mood Skin exam: Present: warm, dry, intact, normal color Course Vital Signs 08/05/20 17:04 Temperature 98.0 F Pulse Rate 94 Respiratory 16 Rate Blood Pressure 143/81 O2 Sat by Pulse 98 Oximetry Medical Decision Making - Medical Decision Making 85-year-old female presents emergency Department with a chief complaint of nosebleed. Patient brought to the ED via EMS. Patient has advanced dementia did not a good historian. She does appear to have left-sided epistaxis but I was not able to determine the source of the bleed. Afrin was applied and the left nostril and a clamp was placed. Patient was observed in the emergency department for approximately 2 hours. On reevaluation, there is no bleeding at this time. Patient will be discharged. She really has an appointment with ENT. Return parameters discussed. Case discussed with physician. Disposition Clinical Impression: Left-sided epistaxis Disposition: HOME SELF-CARE Condition: Stable Instructions (If sedation given, give patient instructions): Nosebleed (ED) Additional Instructions: Follow-up with ENT. Return to emergency department if symptoms worsen. Is patient prescribed a controlled substance at d/c from ED?: No Referrals: Mayela Dasilva MD [Primary Care Provider] - 1-2 days Pancho Connell MD [STAFF PHYSICIAN] - 1-2 days Time of Disposition: 18:46
[2020-08-05] MEDS ORDERED: OXYMETAZOLINE 0.05% NASL SPRAY 1 SPRAY BOTTLE NASAL STA (17:27)
== END 2020-08-05 19:25 | disposition home or self-care (01) ==
LOC: EC 17:01
DX: R04.0 Epistaxis (principal); F03.90 Unspecified dementia, unspecified severity, without behavioral disturbance, psychotic disturbance, mood disturbance, and anxiety; I11.0 Hypertensive heart disease with heart failure; I50.9 Heart failure, unspecified; E11.9 Type 2 diabetes mellitus without complications; K21.9 Gastro-esophageal reflux disease without esophagitis; E78.5 Hyperlipidemia, unspecified; I25.2 Old myocardial infarction; E07.9 Disorder of thyroid, unspecified; I25.10 Atherosclerotic heart disease of native coronary artery without angina pectoris; Z79.4 Long term (current) use of insulin; Z79.899 Other long term (current) drug therapy; Z79.890 Hormone replacement therapy; Z85.42 Personal history of malignant neoplasm of other parts of uterus; Z87.891 Personal history of nicotine dependence; Z88.7 Allergy status to serum and vaccine; Z92.3 Personal history of irradiation; Z90.710 Acquired absence of both cervix and uterus
CPT/HCPCS: 30901; 99283

== ENCOUNTER → 2020-08-06 | Outpatient (CLI) | payer MEDICARE ==
--- NOTE | 2020-08-06 13:30 | CT ---
EXAMINATION TYPE: CT brain wo con DATE OF EXAM: 08/06/2020 HISTORY: F/U Bleed, CVA CT DLP: 999.80 mGycm. Automated Exposure Control for Dose Reduction was Utilized. TECHNIQUE: CT scan of the head is performed without contrast. COMPARISON: CT brain January 20, 2021 and older studies. FINDINGS: There is no acute intracranial hemorrhage or midline shift identified. There is persisten t heterogeneous hypodensity with no areas of hyperdensity centered in the left parietal region with s ulcal effacement having superior temporal lobe extension. Findings are consistent with evolving hemor rhagic acute/subacute infarct. Background mild to moderate diffuse ventricular and sulcal prominence. The globes are intact and the visualized sinuses are clear. No midline shift. IMPRESSION: Background of moderate diffuse cerebral atrophy and mild chronic small vessel ischemic ch santiago with persistent acute/subacute left posterior watershed hemorrhagic infarct. No new infarct geronimo ntified.
== END | disposition home or self-care (01) ==
LOC: RADCTMAIN 12:26
PROVIDERS: ATTEND Internal Medicine
DX: I67.82 Cerebral ischemia (principal); I61.9 Nontraumatic intracerebral hemorrhage, unspecified; I69.315 Cognitive social or emotional deficit following cerebral infarction; G31.9 Degenerative disease of nervous system, unspecified; I50.20 Unspecified systolic (congestive) heart failure
CPT/HCPCS: 70450

== ENCOUNTER 2022-07-21 11:21 | Inpatient (IN) | payer MEDICARE ==
[2022-07-21] MEDS ORDERED: SODIUM CHLORIDE 0.9% 1,000 ML IV STA (11:57)
--- NOTE | 2022-07-21 12:44 | ED ---
Altered Mental Status HPI - General Chief Complaint: Altered Mental Status Stated Complaint: AMS Time Seen by Provider: 07/21/22 11:23 Source: patient, family, EMS, RN notes reviewed Mode of arrival: EMS Limitations: altered mental status - History of Present Illness Initial Comments: This is an 87-year-old female who presents to the emergency department for tremors. Her states that this morning, she started to develop tremors in both of her arms. She has never experienced anything like this before. She does have Alzheimer's, but has seemed slightly more confused than normal. Additionally, her states that both of her legs have been weaker and she is having trouble moving around. He does not feel safe taking care of her at home due to her current mental state and progressive weakness. Denies any fevers, chills, sore throat, cough, dyspnea, chest pain, palpitations, abdominal pain, nausea, vomiting, diarrhea, back pain, or headaches. MD Complaint: altered mental status - Related Data Home Medications Medication Instructions Recorded Confirmed Levothyroxine Sodium [Synthroid] 75 mcg PO DAILY 07/12/20 07/21/22 Losartan [Cozaar] 25 mg PO DAILY 07/12/20 07/21/22 Metoprolol Succinate (ER) [Toprol 25 mg PO DAILY 07/12/20 07/21/22 XL] Mirtazapine 7.5 mg PO HS 08/05/20 07/21/22 Insulin Aspart (Niacinamide) 3 units SQ W/SUPPER@1800 07/21/22 07/21/22 [Fiasp 100 Unit/ml Flextouch Pen] Insulin Aspart (Niacinamide) 5 - 6 units SQ W/BRKFST@1000 07/21/22 07/21/22 [Fiasp 100 Unit/ml Flextouch Pen] Insulin Aspart (Niacinamide) 5 units SQ W/LUNCH@1400 07/21/22 07/21/22 [Fiasp 100 Unit/ml Flextouch Pen] Insulin Aspart (Niacinamide) See Protocol SQ DIRECTED 07/21/22 07/21/22 [Fiasp 100 Unit/ml Flextouch Pen] Insulin Degludec [Tresiba 8 unit SQ HS@1800 07/21/22 07/21/22 Flextouch U-100 Pen] Spironolactone [Aldactone] 25 mg PO DAILY 07/21/22 07/21/22 Previous Rx's Medication Instructions Recorded Aspirin 81 mg PO DAILY #30 chew 03/26/18 Atorvastatin [Lipitor] 40 mg PO HS tab 07/23/20 Allergies Allergy/AdvReac Type Severity Reaction Status Date / Time tetanus and diphtheria Allergy Unknown Verified 07/21/22 15:38 toxoids Review of Systems ROS Statement: Those systems with pertinent positive or pertinent negative responses have been documented in the HPI. ROS Other: All systems not noted in ROS Statement are negative. Past Medical History Past Medical History: Coronary Artery Disease (CAD), Cancer, Heart Failure, Dementia, Diabetes Mellitus, Eye Disorder, GERD/Reflux, Hyperlipidemia, Hypertension, Memory Impairment, Myocardial Infarction (NH), Osteoarthritis (OA), Thyroid Disorder Additional Past Medical History / Comment(s): pt poor historian-dementia,past pancreatitis,, hx uterine(endometrial) cancer 1988(sx/radiation, pancreatic cancer post whipple procedure in 1994. kenney cataracts, occ ringing in ears History of Any Multi-Drug Resistant Organisms: None Reported Past Surgical History: Hysterectomy Additional Past Surgical History / Comment(s): Whipple procedure due to pancreatic cancer 1994, 2009 vag lesion removed. benign tunor removed from stomach, colonoscopy, egd, whipple procedure Past Anesthesia/Blood Transfusion Reactions: Motion Sickness Past Psychological History: No Psychological Hx Reported Smoking Status: Former smoker Past Alcohol Use History: Daily Past Drug Use History: None Reported - Past Family History Father Family Medical History: No Reported History (Father at the age of 92 from old age.) Additional Family Medical History / Comment(s): in his 90's Mother Family Medical History: Diabetes Mellitus (Mother ided at the age of 75 from DM2 on .) Additional Family Medical History / Comment(s): in her 70's Sister(s) Family Medical History: Renal Disease (2 sisters one 88 year old with DM2 and ESRD on HD and the other one 86 with osteoarthritis.) Son(s) Family Medical History: Seizure Disorder (5 sons one is 61 year old lives in prison non verbal due to Grandmal seizure disroder.) General Exam Limitations: altered mental status General appearance: alert Head exam: Present: atraumatic, normocephalic, normal inspection Eye exam: Present: normal appearance, PERRL, EOMI Respiratory exam: Present: normal lung sounds bilaterally. Absent: respiratory distress, wheezes, rales, rhonchi, stridor Cardiovascular Exam: Present: regular rate, normal rhythm, normal heart sounds. Absent: systolic murmur, diastolic murmur, rubs, gallop, clicks Neurological exam: Present: alert, other (Resting tremor in the bilateral upper extremities, 2+ radial pulses and capillary refill less than 1 second bilaterally.) Psychiatric exam: Present: normal affect, normal mood Skin exam: Present: warm, dry, intact, normal color. Absent: rash Course Vital Signs 07/21/22 07/21/22 07/21/22 11:22 11:39 12:55 Temperature 92.3 F L Pulse Rate 90 Respiratory 22 Rate Blood Pressure 157/101 129/74 O2 Sat by Pulse 99 Oximetry 07/21/22 07/21/22 07/21/22 13:15 14:30 15:00 Temperature 95.5 F L 97.5 F L Pulse Rate 72 65 80 Respiratory 18 18 18 Rate Blood Pressure 129/94 129/74 127/74 O2 Sat by Pulse 95 95 95 Oximetry 07/21/22 07/21/22 07/21/22 16:00 16:39 18:08 Temperature 97.6 F Pulse Rate 90 76 Respiratory 20 22 Rate Blood Pressure 116/80 106/62 O2 Sat by Pulse 95 97 Oximetry Medical Decision Making - Medical Decision Making This is an 87-year-old female who presents to the emergency department for tremors and altered mental status. Was pt. sent in by a medical professional or institution? @ -No Did you speak to anyone other than the patient for history? @ -Her and son Did you review nursing and triage notes? @ -Agree, accurate with regards to the patient's symptoms. Were old charts reviewed? @ -Yes, prior lab values were reviewed and compared with today's irregularities. Differential Diagnosis? @ -Differential Altered Mental Status: Hypoglycemia, DKA, hypercapnia, ETOH, overdose, CO poisoning, trauma, myxedema coma, HTN encephalopathy, infection, encephalitis, psychosis, intercranial hemorrhage, hepatic encephalopathy, meningitis, CVA, this is not meant to be an all-inclusive list EKG interpreted by me (3pts min.)? @ -Sinus rhythm. Right axis deviation. Ventricular rate 92 bpm, LA interval 183 ms, QRS duration 148 ms, QTC 443 ms. X-rays interpreted by me (1pt min.)? @ -My interpretation of the chest x-ray reveals pulmonary congestion. What testing was considered but not performed? (CT, X-rays, U/S, labs)? Why? @ -None What meds were considered but not given? Why? @ -None Did you discuss the management of the patient with other professionals? @ -Dr. Dasilva, who accepts the patient for admission. Did you reconcile home meds? @ -Yes Was smoking cessation discussed for >3mins.? @ -No Was critical care preformed (if so, how long)? @ -No Were there social determinants of health that impacted care today? How? (Homelessness, low income, unemployed, alcoholism, drug addiction, transportation, low edu. Level, literacy, decrease access to med. care, nursing home, rehab)? @ -None Was there de-escalation of care discussed even if they declined? (Discuss DNR or withdrawal of care, Hospice)? @ -No What co-morbidities impacted this encounter? (DM, HTN, Smoking, COPD, CAD, Cancer, CVA, Hep., AIDS, mental health diagnosis, sleep apnea, morbid obesity)? @ -Diabetes, Alzheimer's, hypothyroidism, CHF, CAD, HLD, and HTN. Was patient admitted / discharged? @ -On arrival, the patient had notable tremors in the bilateral upper extremities. She was also found to be hypothermic with a rectal temperature of 92.5F. Hypoglycemia was also noted. 1 ampule of dextrose administered. In- depth workup was performed revealing an elevated BNP, compatible with the x-ray findings. Additionally, her TSH is elevated, however free T4 was within normal limits. Liver enzymes are chronically elevated, and current values are not worse than normal. Case discussed with ED attending, Dr. Bacon, who advises that this could be related to the hypothyroidism or an infectious process. Blood cultures were ordered. Levothyroxine and Decadron were administered per his recommendations. Patient admitted to medicine for her multiple irregularities, including CHF exacerbation, hypothyroidism, altered mental status, and hypothermia. Patient's is also uncomfortable bringing her home due to her current state. Undiagnosed new problem with uncertain prognosis? @ -Weakness Drug Therapy requiring intensive monitoring for toxicity (Heparin, Nitro, Insulin, Cardizem)? @ -None Were any procedures done? @ -No Diagnosis/symptom? @ -AMS Acute, or Chronic, or Acute on Chronic? @ -Acute Uncomplicated (without systemic symptoms) or Complicated (systemic symptoms)? @ -Complicated Side effects of treatment? @ -None at this time Exacerbation, Progression, or Severe Exacerbation] @ -Not applicable Poses a threat to life or bodily function? @ -Yes Diagnosis/symptom? @ -CHF exacerbation Acute, or Chronic, or Acute on Chronic? @ -Acute on chronic Uncomplicated (without systemic symptoms) or Complicated (systemic symptoms)? @ -Complicated Side effects of treatment? @ -None at this time Exacerbation, Progression, or Severe Exacerbation] @ -Severe exacerbation Poses a threat to life or bodily function? @ -Yes Diagnosis/symptom? @ -Tremors Acute, or Chronic, or Acute on Chronic? @ -Acute Uncomplicated (without systemic symptoms) or Complicated (systemic symptoms)? @ -Complicated Side effects of treatment? @ -None Exacerbation, Progression, or Severe Exacerbation] @ -Not applicable Poses a threat to life or bodily function? @ -Yes This case was discussed in detail with the attending ED physician. Presentation, findings, and treatment plan discussed in detail as well. - Lab Data Result diagrams: 07/23/22 12:25 07/23/22 11:52 Lab Results 07/21/22 07/21/22 07/21/22 Range/Units 11:42 11:42 11:42 WBC 8.1 (3.8-10.6) k/uL RBC 4.50 (3.80-5.40) m/uL Hgb 13.6 (11.4-16.0) gm/dL Hct 43.3 (34.0-46.0) % MCV 96.4 (80.0-100.0) fL MCH 30.3 (25.0-35.0) pg MCHC 31.4 (31.0-37.0) g/dL RDW 15.0 (11.5-15.5) % Plt Count 249 (150-450) k/uL MPV 8.1 Neutrophils % 85 % Lymphocytes % 8 % Monocytes % 5 % Eosinophils % 0 % Basophils % 1 % Neutrophils # 6.9 (1.3-7.7) k/uL Lymphocytes # 0.6 L (1.0-4.8) k/uL Monocytes # 0.4 (0-1.0) k/uL Eosinophils # 0.0 (0-0.7) k/uL Basophils # 0.0 (0-0.2) k/uL PT 11.0 (9.0-12.0) sec INR 1.1 (<1.2) APTT 23.2 (22.0-30.0) sec Sodium (137-145) mmol/L Potassium (3.5-5.1) mmol/L Chloride (98-107) mmol/L Carbon Dioxide (22-30) mmol/L Anion Gap mmol/L BUN (7-17) mg/dL Creatinine (0.52-1.04) mg/dL Est GFR (CKD-EPI)AfAm (>60 ml/min/1.73 sqM) Est GFR (CKD-EPI)NonAf (>60 ml/min/1.73 sqM) Glucose (74-99) mg/dL POC Glucose (mg/dL) (70-110) mg/dL POC Glu Mortgage Field Inspector ID Lactic Ac Sepsis Rflx Plasma Lactic Acid Moustapha (0.7-2.0) mmol/L Calcium (8.4-10.2) mg/dL Total Bilirubin (0.2-1.3) mg/dL AST (14-36) U/L ALT (4-34) U/L Alkaline Phosphatase (38-126) U/L Creatine Kinase (30-135) U/L Troponin I (0.000-0.034) ng/mL NT-Pro-B Natriuret Pep pg/mL Total Protein (6.3-8.2) g/dL Albumin (3.5-5.0) g/dL TSH (0.465-4.680) mIU/L Free T4 (0.78-2.19) ng/dL Free T3 pg/mL (2.8-5.3) pg/ml Cortisol ug/dL Urine Color Yellow Urine Appearance Clear (Clear) Urine pH 6.0 (5.0-8.0) Ur Specific [place] 1.017 (1.001-1.035) Urine Protein 3+ H (Negative) Urine Glucose (UA) Trace H (Negative) Urine Ketones Negative (Negative) Urine Blood Small H (Negative) Urine Nitrite Negative (Negative) Urine Bilirubin Negative (Negative) Urine Urobilinogen <2.0 (<2.0) mg/dL Ur Leukocyte Esterase Negative (Negative) Urine RBC 1 (0-5) /hpf Urine WBC 2 (0-5) /hpf Ur Squamous Epith Cells <1 (0-4) /hpf Hyaline Casts 1 (0-2) /lpf Urine Mucus Rare H (None) /hpf Urine Yeast (Budding) Occasional H (None) /hpf Urine Opiates Screen Not Detected (NotDetected) Ur Oxycodone Screen Not Detected (NotDetected) Urine Methadone Screen Not Detected (NotDetected) Ur Propoxyphene Screen Not Detected (NotDetected) Ur Barbiturates Screen Not Detected (NotDetected) U Tricyclic Antidepress Not Detected (NotDetected) Ur Phencyclidine Scrn Not Detected (NotDetected) Ur Amphetamines Screen Not Detected (NotDetected) U Methamphetamines Scrn Not Detected (NotDetected) U Benzodiazepines Scrn Not Detected (NotDetected) Urine Cocaine Screen Not Detected (NotDetected) U Marijuana (THC) Screen Not Detected (NotDetected) Influenza Type A (PCR) (Not Detectd) Influenza Type B (PCR) (Not Detectd) RSV (PCR) (Not Detectd) SARS-CoV-2 (PCR) (Not Detectd) 07/21/22 07/21/22 07/21/22 Range/Units 11:42 11:42 11:42 WBC (3.8-10.6) k/uL RBC (3.80-5.40) m/uL Hgb (11.4-16.0) gm/dL Hct (34.0-46.0) % MCV (80.0-100.0) fL MCH (25.0-35.0) pg MCHC (31.0-37.0) g/dL RDW (11.5-15.5) % Plt Count (150-450) k/uL MPV Neutrophils % % Lymphocytes % % Monocytes % % Eosinophils % % Basophils % % Neutrophils # (1.3-7.7) k/uL Lymphocytes # (1.0-4.8) k/uL Monocytes # (0-1.0) k/uL Eosinophils # (0-0.7) k/uL Basophils # (0-0.2) k/uL PT (9.0-12.0) sec INR (<1.2) APTT (22.0-30.0) sec Sodium 141 (137-145) mmol/L Potassium 4.0 (3.5-5.1) mmol/L Chloride 109 H (98-107) mmol/L Carbon Dioxide 20 L (22-30) mmol/L Anion Gap 12 mmol/L BUN 33 H (7-17) mg/dL Creatinine 1.15 H (0.52-1.04) mg/dL Est GFR (CKD-EPI)AfAm 50 (>60 ml/min/1.73 sqM) Est GFR (CKD-EPI)NonAf 43 (>60 ml/min/1.73 sqM) Glucose 58 L (74-99) mg/dL POC Glucose (mg/dL) (70-110) mg/dL POC Glu Mortgage Field Inspector ID Lactic Ac Sepsis Rflx Plasma Lactic Acid Moustapha (0.7-2.0) mmol/L Calcium 8.5 (8.4-10.2) mg/dL Total Bilirubin 1.0 (0.2-1.3) mg/dL AST 46 H (14-36) U/L ALT 40 H (4-34) U/L Alkaline Phosphatase 132 H (38-126) U/L Creatine Kinase 115 (30-135) U/L Troponin I 0.020 (0.000-0.034) ng/mL NT-Pro-B Natriuret Pep pg/mL Total Protein 7.4 (6.3-8.2) g/dL Albumin 3.6 (3.5-5.0) g/dL TSH 10.300 H (0.465-4.680) mIU/L Free T4 1.56 (0.78-2.19) ng/dL Free T3 pg/mL (2.8-5.3) pg/ml Cortisol 29 ug/dL Urine Color Urine Appearance (Clear) Urine pH (5.0-8.0) Ur Specific [place] (1.001-1.035) Urine Protein (Negative) Urine Glucose (UA) (Negative) Urine Ketones (Negative) Urine Blood (Negative) Urine Nitrite (Negative) Urine Bilirubin (Negative) Urine Urobilinogen (<2.0) mg/dL Ur Leukocyte Esterase (Negative) Urine RBC (0-5) /hpf Urine WBC (0-5) /hpf Ur Squamous Epith Cells (0-4) /hpf Hyaline Casts (0-2) /lpf Urine Mucus (None) /hpf Urine Yeast (Budding) (None) /hpf Urine Opiates Screen (NotDetected) Ur Oxycodone Screen (NotDetected) Urine Methadone Screen (NotDetected) Ur Propoxyphene Screen (NotDetected) Ur Barbiturates Screen (NotDetected) U Tricyclic Antidepress (NotDetected) Ur Phencyclidine Scrn (NotDetected) Ur Amphetamines Screen (NotDetected) U Methamphetamines Scrn (NotDetected) U Benzodiazepines Scrn (NotDetected) Urine Cocaine Screen (NotDetected) U Marijuana (THC) Screen (NotDetected) Influenza Type A (PCR) Not Detected (Not Detectd) Influenza Type B (PCR) Not Detected (Not Detectd) RSV (PCR) Not Detected (Not Detectd) SARS-CoV-2 (PCR) Not Detected (Not Detectd) 07/21/22 07/21/22 07/21/22 Range/Units 11:42 11:42 13:43 WBC (3.8-10.6) k/uL RBC (3.80-5.40) m/uL Hgb (11.4-16.0) gm/dL Hct (34.0-46.0) % MCV (80.0-100.0) fL MCH (25.0-35.0) pg MCHC (31.0-37.0) g/dL RDW (11.5-15.5) % Plt Count (150-450) k/uL MPV Neutrophils % % Lymphocytes % % Monocytes % % Eosinophils % % Basophils % % Neutrophils # (1.3-7.7) k/uL Lymphocytes # (1.0-4.8) k/uL Monocytes # (0-1.0) k/uL Eosinophils # (0-0.7) k/uL Basophils # (0-0.2) k/uL PT (9.0-12.0) sec INR (<1.2) APTT (22.0-30.0) sec Sodium (137-145) mmol/L Potassium (3.5-5.1) mmol/L Chloride (98-107) mmol/L Carbon Dioxide (22-30) mmol/L Anion Gap mmol/L BUN (7-17) mg/dL Creatinine (0.52-1.04) mg/dL Est GFR (CKD-EPI)AfAm (>60 ml/min/1.73 sqM) Est GFR (CKD-EPI)NonAf (>60 ml/min/1.73 sqM) Glucose (74-99) mg/dL POC Glucose (mg/dL) (70-110) mg/dL POC Glu Mortgage Field Inspector ID Lactic Ac Sepsis Rflx Y Plasma Lactic Acid Moustapha 2.9 H* (0.7-2.0) mmol/L Calcium (8.4-10.2) mg/dL Total Bilirubin (0.2-1.3) mg/dL AST (14-36) U/L ALT (4-34) U/L Alkaline Phosphatase (38-126) U/L Creatine Kinase (30-135) U/L Troponin I (0.000-0.034) ng/mL NT-Pro-B Natriuret Pep 20689 pg/mL Total Protein (6.3-8.2) g/dL Albumin (3.5-5.0) g/dL TSH (0.465-4.680) mIU/L Free T4 (0.78-2.19) ng/dL Free T3 pg/mL (2.8-5.3) pg/ml Cortisol ug/dL Urine Color Urine Appearance (Clear) Urine pH (5.0-8.0) Ur Specific [place] (1.001-1.035) Urine Protein (Negative) Urine Glucose (UA) (Negative) Urine Ketones (Negative) Urine Blood (Negative) Urine Nitrite (Negative) Urine Bilirubin (Negative) Urine Urobilinogen (<2.0) mg/dL Ur Leukocyte Esterase (Negative) Urine RBC (0-5) /hpf Urine WBC (0-5) /hpf Ur Squamous Epith Cells (0-4) /hpf Hyaline Casts (0-2) /lpf Urine Mucus (None) /hpf Urine Yeast (Budding) (None) /hpf Urine Opiates Screen (NotDetected) Ur Oxycodone Screen (NotDetected) Urine Methadone Screen (NotDetected) Ur Propoxyphene Screen (NotDetected) Ur Barbiturates Screen (NotDetected) U Tricyclic Antidepress (NotDetected) Ur Phencyclidine Scrn (NotDetected) Ur Amphetamines Screen (NotDetected) U Methamphetamines Scrn (NotDetected) U Benzodiazepines Scrn (NotDetected) Urine Cocaine Screen (NotDetected) U Marijuana (THC) Screen (NotDetected) Influenza Type A (PCR) (Not Detectd) Influenza Type B (PCR) (Not Detectd) RSV (PCR) (Not Detectd) SARS-CoV-2 (PCR) (Not Detectd) 07/21/22 07/21/22 07/21/22 Range/Units 14:46 15:16 16:40 WBC (3.8-10.6) k/uL RBC (3.80-5.40) m/uL Hgb (11.4-16.0) gm/dL Hct (34.0-46.0) % MCV (80.0-100.0) fL MCH (25.0-35.0) pg MCHC (31.0-37.0) g/dL RDW (11.5-15.5) % Plt Count (150-450) k/uL MPV Neutrophils % % Lymphocytes % % Monocytes % % Eosinophils % % Basophils % % Neutrophils # (1.3-7.7) k/uL Lymphocytes # (1.0-4.8) k/uL Monocytes # (0-1.0) k/uL Eosinophils # (0-0.7) k/uL Basophils # (0-0.2) k/uL PT (9.0-12.0) sec INR (<1.2) APTT (22.0-30.0) sec Sodium (137-145) mmol/L Potassium (3.5-5.1) mmol/L Chloride (98-107) mmol/L Carbon Dioxide (22-30) mmol/L Anion Gap mmol/L BUN (7-17) mg/dL Creatinine (0.52-1.04) mg/dL Est GFR (CKD-EPI)AfAm (>60 ml/min/1.73 sqM) Est GFR (CKD-EPI)NonAf (>60 ml/min/1.73 sqM) Glucose (74-99) mg/dL POC Glucose (mg/dL) 48 L 232 H 126 H (70-110) mg/dL POC Glu Mortgage Field Inspector LAURO Hwang, Darling Hwang, Karly Mead Lactic Ac Sepsis Rflx Plasma Lactic Acid Moustapha (0.7-2.0) mmol/L Calcium (8.4-10.2) mg/dL Total Bilirubin (0.2-1.3) mg/dL AST (14-36) U/L ALT (4-34) U/L Alkaline Phosphatase (38-126) U/L Creatine Kinase (30-135) U/L Troponin I (0.000-0.034) ng/mL NT-Pro-B Natriuret Pep pg/mL Total Protein (6.3-8.2) g/dL Albumin (3.5-5.0) g/dL TSH (0.465-4.680) mIU/L Free T4 (0.78-2.19) ng/dL Free T3 pg/mL (2.8-5.3) pg/ml Cortisol ug/dL Urine Color Urine Appearance (Clear) Urine pH (5.0-8.0) Ur Specific [place] (1.001-1.035) Urine Protein (Negative) Urine Glucose (UA) (Negative) Urine Ketones (Negative) Urine Blood (Negative) Urine Nitrite (Negative) Urine Bilirubin (Negative) Urine Urobilinogen (<2.0) mg/dL Ur Leukocyte Esterase (Negative) Urine RBC (0-5) /hpf Urine WBC (0-5) /hpf Ur Squamous Epith Cells (0-4) /hpf Hyaline Casts (0-2) /lpf Urine Mucus (None) /hpf Urine Yeast (Budding) (None) /hpf Urine Opiates Screen (NotDetected) Ur Oxycodone Screen (NotDetected) Urine Methadone Screen (NotDetected) Ur Propoxyphene Screen (NotDetected) Ur Barbiturates Screen (NotDetected) U Tricyclic Antidepress (NotDetected) Ur Phencyclidine Scrn (NotDetected) Ur Amphetamines Screen (NotDetected) U Methamphetamines Scrn (NotDetected) U Benzodiazepines Scrn (NotDetected) Urine Cocaine Screen (NotDetected) U Marijuana (THC) Screen (NotDetected) Influenza Type A (PCR) (Not Detectd) Influenza Type B (PCR) (Not Detectd) RSV (PCR) (Not Detectd) SARS-CoV-2 (PCR) (Not Detectd) 07/21/22 Range/Units 17:08 WBC (3.8-10.6) k/uL RBC (3.80-5.40) m/uL Hgb (11.4-16.0) gm/dL Hct (34.0-46.0) % MCV (80.0-100.0) fL MCH (25.0-35.0) pg MCHC (31.0-37.0) g/dL RDW (11.5-15.5) % Plt Count (150-450) k/uL MPV Neutrophils % % Lymphocytes % % Monocytes % % Eosinophils % % Basophils % % Neutrophils # (1.3-7.7) k/uL Lymphocytes # (1.0-4.8) k/uL Monocytes # (0-1.0) k/uL Eosinophils # (0-0.7) k/uL Basophils # (0-0.2) k/uL PT (9.0-12.0) sec INR (<1.2) APTT (22.0-30.0) sec Sodium (137-145) mmol/L Potassium (3.5-5.1) mmol/L Chloride (98-107) mmol/L Carbon Dioxide (22-30) mmol/L Anion Gap mmol/L BUN (7-17) mg/dL Creatinine (0.52-1.04) mg/dL Est GFR (CKD-EPI)AfAm (>60 ml/min/1.73 sqM) Est GFR (CKD-EPI)NonAf (>60 ml/min/1.73 sqM) Glucose (74-99) mg/dL POC Glucose (mg/dL) (70-110) mg/dL POC Glu Mortgage Field Inspector ID Lactic Ac Sepsis Rflx Plasma Lactic Acid Moustapha (0.7-2.0) mmol/L Calcium (8.4-10.2) mg/dL Total Bilirubin (0.2-1.3) mg/dL AST (14-36) U/L ALT (4-34) U/L Alkaline Phosphatase (38-126) U/L Creatine Kinase (30-135) U/L Troponin I (0.000-0.034) ng/mL NT-Pro-B Natriuret Pep pg/mL Total Protein (6.3-8.2) g/dL Albumin (3.5-5.0) g/dL TSH (0.465-4.680) mIU/L Free T4 (0.78-2.19) ng/dL Free T3 pg/mL 2.5 L (2.8-5.3) pg/ml Cortisol ug/dL Urine Color Urine Appearance (Clear) Urine pH (5.0-8.0) Ur Specific [place] (1.001-1.035) Urine Protein (Negative) Urine Glucose (UA) (Negative) Urine Ketones (Negative) Urine Blood (Negative) Urine Nitrite (Negative) Urine Bilirubin (Negative) Urine Urobilinogen (<2.0) mg/dL Ur Leukocyte Esterase (Negative) Urine RBC (0-5) /hpf Urine WBC (0-5) /hpf Ur Squamous Epith Cells (0-4) /hpf Hyaline Casts (0-2) /lpf Urine Mucus (None) /hpf Urine Yeast (Budding) (None) /hpf Urine Opiates Screen (NotDetected) Ur Oxycodone Screen (NotDetected) Urine Methadone Screen (NotDetected) Ur Propoxyphene Screen (NotDetected) Ur Barbiturates Screen (NotDetected) U Tricyclic Antidepress (NotDetected) Ur Phencyclidine Scrn (NotDetected) Ur Amphetamines Screen (NotDetected) U Methamphetamines Scrn (NotDetected) U Benzodiazepines Scrn (NotDetected) Urine Cocaine Screen (NotDetected) U Marijuana (THC) Screen (NotDetected) Influenza Type A (PCR) (Not Detectd) Influenza Type B (PCR) (Not Detectd) RSV (PCR) (Not Detectd) SARS-CoV-2 (PCR) (Not Detectd) - Radiology Data Radiology results: report reviewed, image reviewed Disposition Clinical Impression: AMS (altered mental status), CHF exacerbation, Subclinical hypothyroidism, Hypothermia Disposition: ADMITTED IP TO THIS HOSP
[2022-07-21 13:15] LABS: Basophils % (A) 1 %; Eosinophils % (A) 0 %; HCT 43.3 % (34.0-46.0); HGB 13.6 gm/dL (11.4-16.0); Lymphocytes # (A) 0.6 k/uL (1.0-4.8); Lymphocytes % (A) 8 %; MCH 30.3 pg (25.0-35.0); MCHC 31.4 g/dL (31.0-37.0); MCV 96.4 fL (80.0-100.0); Mean Platelet Volume 8.1; Monocytes # (A) 0.4 k/uL (0-1.0); Monocytes % (A) 5 %; Neutrophils # (A) 6.9 k/uL (1.3-7.7); Neutrophils % (A) 85 %; Platelet Count 249 k/uL (150-450); WBC 8.1 k/uL (3.8-10.6)
[2022-07-21 13:28] LABS: ALT 40 U/L (4-34); AST 46 U/L (14-36); African American GFR (CKD) 50 (>60 ml/min/1.73 sqM); Albumin 3.6 g/dL (3.5-5.0); Alkaline Phosphatase 132 U/L (38-126); Anion Gap 12 mmol/L; Blood Urea Nitrogen 33 mg/dL (7-17); Calcium 8.5 mg/dL (8.4-10.2); Carbon Dioxide 20 mmol/L (22-30); Chloride 109 mmol/L (98-107); Creatine Kinase 115 U/L (30-135); Glucose 58 mg/dL (74-99); Non-African American GFR(CKD) 43 (>60 ml/min/1.73 sqM); Sodium 141 mmol/L (137-145); Total Protein 7.4 g/dL (6.3-8.2)
[2022-07-21 13:32] LABS: INR 1.1 (<1.2); Partial Thromboplastin Time 23.2 sec (22.0-30.0)
--- NOTE | 2022-07-21 14:00 | XR ---
EXAMINATION TYPE: XR chest 2V DATE OF EXAM: 07/21/2022 1:56 PM COMPARISON: Chest radiographs from 07/17/2020 TECHNIQUE: XR chest 2V Frontal and lateral views of the chest. CLINICAL INDICATION:Female, 87 years old with history of altered mental status; FINDINGS: Lungs/Pleura: Blunting of both costophrenic angles. No focal consolidation or pneumothorax. Pulmonary vascularity: Pulmonary vascular congestion. Heart/mediastinum: Cardiomediastinal silhouette is enlarged and stable. Atherosclerotic calcificatio ns are seen in the aorta. Musculoskeletal: No acute osseous pathology. Other: Surgical clips in the upper abdomen. IMPRESSION: Cardiomegaly, pulmonary vascular congestion and bilateral pleural effusions. Correlate with BNP for c ongestive heart failure.
[2022-07-21 14:48] LABS: Glucose,Whole Blood 48 mg/dL (70-110)
[2022-07-21] MEDS ORDERED: DEXTROSE 50% SYRINGE 50 ML IVP STA (14:49)
[2022-07-21 15:16] LABS: T4, Free (Free Thyroxine) 1.56 ng/dL (0.78-2.19)
[2022-07-21 15:19] LABS: Glucose,Whole Blood 232 mg/dL (70-110)
[2022-07-21 16:02] LABS: Appearance,Urine Clear (Clear); Bilirubin,Urine Negative (Negative); Blood,Urine Small (Negative); Budding Yeast,Urine Occasional /hpf; Color,Urine Yellow; Glucose,Urine (UA) Trace (Negative); Hyaline Casts,Urine 1 /lpf (0-2); Ketones,Urine Negative (Negative); Leukocyte Esterase,Urine Negative (Negative); Mucus,Urine Rare /hpf; Nitrite,Urine Negative (Negative); Protein,Urine 3+ (Negative); RBC,Urine 1 /hpf (0-5); Specific Gravity,Urine 1.017 (1.001-1.035); Squamous Epithelial Cell,Urine <1 /hpf (0-4); Urobilinogen,Urine <2.0 mg/dL (<2.0); WBC,Urine 2 /hpf (0-5)
[2022-07-21] MEDS ORDERED: LORazepam 2 MG/ML INJ IV STA (16:07)
[2022-07-21 16:10] LABS: Amphetamine Screen,Urine Not Detected (NotDetected); Barbiturate Screen,Urine Not Detected (NotDetected); Benzodiazepines Screen,Urine Not Detected (NotDetected); Cocaine Screen,Urine Not Detected (NotDetected); Methadone Screen, Urine Not Detected (NotDetected); Opiate Screen,Urine Not Detected (NotDetected); Phencyclidine Screen,Urine Not Detected (NotDetected); Tricyclic Antidepressant,Urine Not Detected (NotDetected); Urn Cannabinoid Scrn Not Detected (NotDetected)
[2022-07-21 16:11] LABS: Oxycodone Screen, Urine Not Detected (NotDetected)
[2022-07-21 16:42] LABS: Glucose,Whole Blood 126 mg/dL (70-110)
[2022-07-21] MEDS ORDERED: DEXAMETHASONE SOD PHOSPHATE 4 MG/ML 1 ML VIAL IVP STA (16:46)
[2022-07-21] MEDS ORDERED: LEVOTHYROXINE IVP 100 MCG/5 ML VIAL IV ONE (17:15)
[2022-07-21] MEDS ORDERED: NALOXONE 0.4 MG/ML 1 ML VIAL IV PRN (17:20)
[2022-07-21] MEDS ORDERED: ONDANSETRON 4 MG/2 ML VIAL IVP PRN (17:20)
[2022-07-21] MEDS: ATORVASTATIN 40 MG TAB PO SCH (21:27)
[2022-07-21] MEDS: ALPRAZolam 0.25 MG TAB PO PRN (21:27)
[2022-07-21] MEDS: MIRTAZAPINE 15 MG TAB PO SCH (21:27)
[2022-07-21 21:41] LABS: Glucose,Whole Blood 172 mg/dL (70-110)
[2022-07-22] MEDS ORDERED: LORazepam 2 MG/ML INJ IV ONE (00:03)
[2022-07-22] MEDS: LEVOTHYROXINE 75 MCG TAB PO SCH (06:53)
[2022-07-22] MEDS: ALPRAZolam 0.25 MG TAB PO PRN ×2 (07:00→22:19)
[2022-07-22] MEDS: METOPROLOL SUCCINATE (ER) 25 MG TAB.ER.24H PO SCH (10:52)
[2022-07-22] MEDS: LOSARTAN 25 MG TAB PO SCH (10:52)
[2022-07-22] MEDS: SPIRONOLACTONE 25 MG TAB PO SCH (10:53)
[2022-07-22 11:31] LABS: Glucose,Whole Blood 223 mg/dL (70-110)
[2022-07-22 16:37] LABS: Glucose,Whole Blood 203 mg/dL (70-110)
[2022-07-22 20:48] LABS: Glucose,Whole Blood 218 mg/dL (70-110)
[2022-07-22] MEDS: MIRTAZAPINE 15 MG TAB PO SCH (22:19)
[2022-07-22] MEDS: ATORVASTATIN 40 MG TAB PO SCH (22:19)
[2022-07-23] MEDS: LEVOTHYROXINE 75 MCG TAB PO SCH (06:54)
[2022-07-23] MEDS ORDERED: ENOXAPARIN 30 MG/0.3 ML SYRINGE SQ SCH (11:00)
--- NOTE | 2022-07-23 11:13 | P.HPIM ---
History of Present Illness H&P Date: 07/22/22 HISTORY OF PRESENT ILLNESS: This is an 87 year old female with a previous medical history significant for CAD post inferior wall myocardial infarction with chronic systolic heart failure, hypertension and hypertensive cardiovascular disease, hyperlipidemia, hypothyroidism, diabetes mellitus type 2 and Alzheimer dementia, history of cerebrovascular accident, patient was doing fine up until 6 days ago when she started to have a significant change in her mental status with increased aggressiveness and not able template very well and having hard time using her right upper extremity, at that time her who is the primary caregiver for her at this point in time Dr. his daughter in law who told him to take her to the ER at that time but he ended up taking the patient to the intake coordinator and she was seen and evaluated by Dr. Myers the office and she was told it wasn't her heart at this point, apparently the patient almost fell out of bed yesterday and the she was shaking and having significant tremors in the right upper extremity associated with significant mental status changes he could not even move her up, therefore EMS was called and the patient was brought to demurs department at [facility] where she was evaluated by the emergency room physician as well as a nurse practitioner, patient did have laboratory values that came back normal she was having hypoglycemic episode, she was given treatment for that, and she was admitted to hospital for further evaluation and treatment patient became quite agitated overnight, she did receive lorazepam 1 mg IV push 1 and then she was placed on Xanax 0.25 mg orally twice every day, patient appears to be quite obtunded at the time of evaluation opens her eyes in response to verbal stimuli and moves all her extremities, Knight catheter was removed, and the patient will be monitored over the next 24 hours. REVIEW OF SYSTEMS: Constitutional: No documented fever, no chills, no night sweats. No weight change. No weakness, fatigue or lethargy. No daytime sleepiness. HEENT: No headache. No blurred vision or double vision, no loss of vision. No loss of Hearing, no ringing in the ears, no dizziness. No nasal drainage or congestion. No epistaxis. No sore throat. Lungs: No shortness of breath, no cough, no sputum production. No wheezing. Reports dyspnea with activity. Cardiovascular: No chest pain, no lower extremity edema. No palpitations. No paroxysmal nocturnal dyspnea. No orthopnea. No lightheadedness or dizziness. No syncopal episodes. Abdominal: Reports abdominal pain. No nausea, vomiting. No diarrhea. No constipation. No bloody or tarry stools reports loss of appetite. Genitourinary: No dysuria, increased frequency, urgency. No urinary retention. Musculoskeletal: No myalgias. No muscle weakness, positive for gait dysfunction, no frequent falls. No back pain. No neck pain. Integumentary: No wounds, no lesions. No rash or pruritus. No unusual bruising. No change in hair or nails. Neurologic: No aphasia. No facial droop. Positive for change in mentation. No head injury. No headache. No paralysis. No paresthesia. Psychiatric: No depression. No anxiety. No mood swings.Positive for Alzheimer dementia. Endocrine: Hypoglycemic episodes. PAST MEDICAL HISTORY: Hypertension and hypertensive cardiovascular disease. Hyperlipidemia. Diabetes mellitus type 2. Diabetic polyneuropathy. Alzheimer dementia. CVA. Chronic kidney disease stage2 History of CAD. History of the greater cancer status post Whipple procedure in 1994. History of uterine cancer status post hysterectomy 1988. GERD. Osteoarthritis. Hypothyroidism. Chronic systolic heart failure. PAST SURGICAL HISTORY: Whipple procedure for pancreatic cancer 1994 hysterectomy for uterine cancer 1988. EGD and colonoscopy. Bilateral cataract surgery. SOCIAL HISTORY: Patient used to smoke about pack every day and she quit many years ago. she denies any alcohol ingestion, she denies any drug use or abuse, she lives with her who is her primary caregiver. FAMILY HISTORY: Father at age 92 from old age, mother at age 75 from diabetes competition on , patient had 2 sisters one 9-year-old with diabetes and seizure disorder hemodialysis the other one was 88-year-old with history of osteoarthritis, patient has 5 sons one of them is 63-year-old living in a jail nonverbal due to grand mal seizure. PHYSICAL EXAMINATION: General: 87-year-old female laying down in bed appears to be drowsy opens her eyes in response will personally she does not appear to be in acute distress. HEENT: Head is atraumatic, normocephalic, pupils were equal round reactive to light and recommendation, extraocular muscle movement were intact, sclera nonicteric, conjunctivae were pale, mucous membranes of the mouth are somewhat dry. Neck: Supple, no JVP, normal carotid upstroke bilaterally, no lymphadenopathy. Chest: Decreased breath sounds at the bases, few rhonchi, no expiratory wheezes, no chest wall tenderness, no intercostal retractions. Heart: First heart sound is normal, second heart sounds normal, there is systolic murmur 2/6 located in the left sternal border. Abdomen: Soft, nontender, nondistended, positive bowel sounds. Extremities: There is no edema no calf tenderness DP +1 bilaterally. Neurologic examination: Patient is awake alert X1, cranial nerves II-12 appear grossly intact, muscle power were 4 out of 5 in upper extremities and 3 out of 5 in bilateral lower extremities, Babinski is extensor on the right side and flexor on the left side. ASSESSMENT AND PLAN: 1. Metabolic encephalopathy likely due to hypoglycemia rule out acute ischemic event. Patient was treated in the emergency department, we will monitor the patient over the next 24 hours, will obtain computed tomography scan of the brain for evaluation of ischemic event, continue patient on aspirin 81 mg once every day, continue patient on metoprolol ER 25 mg orally once every day, continue patient on atorvastatin 40 mg once every day, we will obtain echocardiogram as well as ultrasound of the carotids for further evaluation and recommendation, will obtain neurology consultation as well for further evaluation and recommendation. 2. Sinus rhythm with left bundle branch block. patient does appear to have an underlying coronary artery disease, she was seen recently by cardiology, continue patient on aspirin 81 mg once every day, metoprolol ER 25 mg once every day, atorvastatin 40 mg once every day, we will obtain echocardiogram for evaluation of LV function and will obtain cardiology consultation. 3. History of CVA in the past continue patient on aspirin, atorvastatin 40 mg once every day for secondary stroke prevention. 4. Diabetes mellitus type 2, continue patient on Levemir 8 units at bedtime along with a slight scale insulin. 5. Alzheimer dementia. Appears to be getting worse. 6. Chronic kidney disease stage II. Stable at this time. 7. Anxiety disorder. Continue Xanax 0.5 mg orally twice every day as needed. 8. Hypothyroidism. Continue patient on Synthroid 75 g orally once every day. 9. Osteoarthritis. Stable at this time. 10. DVT prophylaxis. Lovenox 30 mg subcutaneously every 24 hours along with bilateral knee-high GILBERTO hose. 11. GI prophylaxis. Continue patient on Protonix 40 mg orally once every day. 12. DO NOT RESUSCITATE. 13. Admit to inpatient. Estimate length of stay 2 midnights. 14. Guarded prognosis discussed with her . 15. fruit or nut farmworker consultation for discharge planning. Past Medical History Past Medical History: Coronary Artery Disease (CAD), Cancer, Heart Failure, Dementia, Diabetes Mellitus, Eye Disorder, GERD/Reflux, Hyperlipidemia, Hypertension, Memory Impairment, Myocardial Infarction ([place]), Osteoarthritis (OA), Thyroid Disorder Additional Past Medical History / Comment(s): pt poor historian-dementia,past pancreatitis,, hx uterine(endometrial) cancer 1988(sx/radiation, pancreatic cancer post whipple procedure in 1994. kenney cataracts, occ ringing in ears Last Myocardial Infarction Date:: 2017 History of Any Multi-Drug Resistant Organisms: None Reported Past Surgical History: Hysterectomy Additional Past Surgical History / Comment(s): Whipple procedure due to pancreatic cancer 1994, 2009 vag lesion removed. benign tunor removed from stomach, colonoscopy, egd, whipple procedure Past Anesthesia/Blood Transfusion Reactions: Motion Sickness Past Psychological History: No Psychological Hx Reported Smoking Status: Former smoker Past Alcohol Use History: Daily Past Drug Use History: None Reported - Past Family History Father Family Medical History: No Reported History (Father at the age of 92 from old age.) Additional Family Medical History / Comment(s): in his 90's Mother Family Medical History: Diabetes Mellitus (Mother ided at the age of 75 from DM2 on .) Additional Family Medical History / Comment(s): in her 70's Sister(s) Family Medical History: Renal Disease (2 sisters one 88 year old with DM2 and ESRD on HD and the other one 86 with osteoarthritis.) Son(s) Family Medical History: Seizure Disorder (5 sons one is 61 year old lives in jail non verbal due to Grandmal seizure disroder.) Medications and Allergies Home Medications Medication Instructions Recorded Confirmed Type Aspirin 81 mg PO DAILY #30 chew 03/26/18 07/21/22 Rx Levothyroxine Sodium [Synthroid] 75 mcg PO DAILY 07/12/20 07/21/22 History Losartan [Cozaar] 25 mg PO DAILY 07/12/20 07/21/22 History Metoprolol Succinate (ER) [Toprol 25 mg PO DAILY 07/12/20 07/21/22 History XL] Atorvastatin [Lipitor] 40 mg PO HS tab 07/23/20 07/21/22 Rx Mirtazapine 7.5 mg PO HS 08/05/20 07/21/22 History Insulin Aspart (Niacinamide) 3 units SQ W/SUPPER@1800 07/21/22 07/21/22 History [Fiasp 100 Unit/ml Flextouch Pen] Insulin Aspart (Niacinamide) 5 - 6 units SQ W/BRKFST@1000 07/21/22 07/21/22 Hist ory [Fiasp 100 Unit/ml Flextouch Pen] Insulin Aspart (Niacinamide) 5 units SQ W/LUNCH@1400 07/21/22 07/21/22 History [Fiasp 100 Unit/ml Flextouch Pen] Insulin Aspart (Niacinamide) See Protocol SQ DIRECTED 07/21/22 07/21/22 History [Fiasp 100 Unit/ml Flextouch Pen] Insulin Degludec [Tresiba 8 unit SQ HS@1800 07/21/22 07/21/22 History Flextouch U-100 Pen] Spironolactone [Aldactone] 25 mg PO DAILY 07/21/22 07/21/22 History Allergies Allergy/AdvReac Type Severity Reaction Status Date / Time tetanus and diphtheria Allergy Unknown Verified 07/21/22 15:38 toxoids Physical Exam Vitals: Vital Signs Temp Pulse Pulse Resp BP BP Pulse Ox 07/22/22 03:07 96 F L 91 20 154/91 97 07/21/22 20:00 60 19 134/90 96 07/21/22 18:08 76 22 106/62 97 07/21/22 16:39 97.6 F 90 20 95 07/21/22 16:00 116/80 07/21/22 15:00 80 18 127/74 95 07/21/22 14:30 97.5 F L 65 18 129/74 95 07/21/22 13:15 95.5 F L 72 18 129/94 95 07/21/22 12:55 129/74 07/21/22 11:39 92.3 F L 07/21/22 11:22 90 22 157/101 99 Intake and Output 07/21/22 07/22/22 07/22/22 22:59 06:59 14:59 Output Total 1010 Balance -1010 Output: Urine 1010 Other: Voiding Method Indwelling Catheter Weight 53.524 kg Results CBC & Chem 7: 07/21/22 11:42 07/21/22 11:42 Labs: Abnormal Lab Results - Last 24 Hours (Table) 07/21/22 07/21/22 07/21/22 Range/Units 11:42 11:42 11:42 Lymphocytes # 0.6 L (1.0-4.8) k/uL Chloride 109 H (98-107) mmol/L Carbon Dioxide 20 L (22-30) mmol/L BUN 33 H (7-17) mg/dL Creatinine 1.15 H (0.52-1.04) mg/dL Glucose 58 L (74-99) mg/dL POC Glucose (mg/dL) (70-110) mg/dL Plasma Lactic Acid Moustapha (0.7-2.0) mmol/L AST 46 H (14-36) U/L ALT 40 H (4-34) U/L Alkaline Phosphatase 132 H (38-126) U/L TSH 10.300 H (0.465-4.680) mIU/L Free T3 pg/mL (2.8-5.3) pg/ml Urine Protein 3+ H (Negative) Urine Glucose (UA) Trace H (Negative) Urine Blood Small H (Negative) Urine Mucus Rare H (None) /hpf Urine Yeast (Budding) Occasional H (None) /hpf 07/21/22 07/21/22 07/21/22 Range/Units 11:42 14:46 15:16 Lymphocytes # (1.0-4.8) k/uL Chloride (98-107) mmol/L Carbon Dioxide (22-30) mmol/L BUN (7-17) mg/dL Creatinine (0.52-1.04) mg/dL Glucose (74-99) mg/dL POC Glucose (mg/dL) 48 L 232 H (70-110) mg/dL Plasma Lactic Acid Moustapha 2.9 H* (0.7-2.0) mmol/L AST (14-36) U/L ALT (4-34) U/L Alkaline Phosphatase (38-126) U/L TSH (0.465-4.680) mIU/L Free T3 pg/mL (2.8-5.3) pg/ml Urine Protein (Negative) Urine Glucose (UA) (Negative) Urine Blood (Negative) Urine Mucus (None) /hpf Urine Yeast (Budding) (None) /hpf 07/21/22 07/21/22 07/21/22 Range/Units 16:40 17:08 21:40 Lymphocytes # (1.0-4.8) k/uL Chloride (98-107) mmol/L Carbon Dioxide (22-30) mmol/L BUN (7-17) mg/dL Creatinine (0.52-1.04) mg/dL Glucose (74-99) mg/dL POC Glucose (mg/dL) 126 H 172 H (70-110) mg/dL Plasma Lactic Acid Moustapha (0.7-2.0) mmol/L AST (14-36) U/L ALT (4-34) U/L Alkaline Phosphatase (38-126) U/L TSH (0.465-4.680) mIU/L Free T3 pg/mL 2.5 L (2.8-5.3) pg/ml Urine Protein (Negative) Urine Glucose (UA) (Negative) Urine Blood (Negative) Urine Mucus (None) /hpf Urine Yeast (Budding) (None) /hpf Thrombosis Risk Factor Assmnt - Choose All That Apply Any of the Below Risk Factors Present?: Yes Each Factor Represents 1 point: Swollen legs (current) Other Risk Factors: Yes Each Risk Factor Represents 3 Points: Age 75 years or older Other congenital or acquired thrombophilia - If yes, enter type in comment: No Thrombosis Risk Factor Assessment Total Risk Factor Score: 4 Thrombosis Risk Factor Assessment Level: Moderate Risk
--- NOTE | 2022-07-23 11:16 | P.PN ---
Subjective Progress Note Date: 07/23/22 HISTORY OF PRESENT ILLNESS: This is an 87 year old female with a previous medical history signi ficant for CAD post inferior wall myocardial infarction with chronic systolic heart failure, hypertension and hypertensive cardiovascular disease, hyperlipidemia, hypothyroidism, diabetes mellitus type 2 and Alzheimer dementia, history of cerebrovascular accident, patient was doing fine up until 6 days ago when she started to have a significant change in her mental status with increased aggressiveness and not able template very well and having hard time using her right upper extremity, at that time her who is the primary caregiver for her at this point in time Dr. his daughter in law who told him to take her to the ER at that time but he ended up taking the patient to the [facility] and she was seen and evaluated by Dr. Myers the office and she was told it wasn't her heart at this point, apparently the patient almost fell out of bed yesterday and the she was shaking and having significant tremors in the right upper extremity associated with significant mental status changes he could not even move her up, therefore EMS was called and the patient was brought to demurs department at [facility] where she was evaluated by the emergency room physician as well as a nurse practitioner, patient did have laboratory values that came back normal she was having hypoglycemic episode, she was given treatment for that, and she was admitted to hospital for further evaluation and treatment patient became quite agitated overnight, she did receive lorazepam 1 mg IV push 1 and then she was placed on Xanax 0.25 mg orally twice every day, patient appears to be quite obtunded at the time of evaluation opens her eyes in response to verbal stimuli and moves all her extremities, Knight catheter was removed, and the patient will be monitored over the next 24 hours. 07/23/: Patient continued to be drowsy she did receive a dose of Xanax today in the morning, she opens her eyes in response to verbal suddenly, she is moving her upper and lower extremity is, however she appears to be generally weak, her the bedside, we will the patient to the monitored in the monitor showing sinus rhythm with left bundle branch block and possible ST elevation, a stat troponin was obtained, cardiology consultation, computed tomography scan of the brain without contrast, neurology consultation, continue aspirin 81 mg once every day, continue Lovenox, continue metoprolol ER 25 mg once every day, continue atorvastatin 40 mg once every day, follow-up with the patient very closely, REVIEW OF SYSTEMS: Constitutional: No documented fever, no chills, no night sweats. No weight change. No weakness, fatigue or lethargy. No daytime sleepiness. HEENT: No headache. No blurred vision or double vision, no loss of vision. No loss of Hearing, no ringing in the ears, no dizziness. No nasal drainage or congestion. No epistaxis. No sore throat. Lungs: No shortness of breath, no cough, no sputum production. No wheezing. Reports dyspnea with activity. Cardiovascular: No chest pain, no lower extremity edema. No palpitations. No paroxysmal nocturnal dyspnea. No orthopnea. No lightheadedness or dizziness. No syncopal episodes. Abdominal: Reports abdominal pain. No nausea, vomiting. No diarrhea. No constipation. No bloody or tarry stools reports loss of appetite. Genitourinary: No dysuria, increased frequency, urgency. No urinary retention. Musculoskeletal: No myalgias. No muscle weakness, positive for gait dysfunction, no frequent falls. No back pain. No neck pain. Integumentary: No wounds, no lesions. No rash or pruritus. No unusual bruising. No change in hair or nails. Neurologic: No aphasia. No facial droop. Positive for change in mentation. No head injury. No headache. No paralysis. No paresthesia. Psychiatric: No depression. No anxiety. No mood swings.Positive for Alzheimer dementia. Endocrine: Hypoglycemic episodes. PHYSICAL EXAMINATION: General: 87-year-old female laying down in bed appears to be drowsy opens her eyes in response will personally she does not appear to be in acute distress. HEENT: Head is atraumatic, normocephalic, pupils were equal round reactive to light and recommendation, extraocular muscle movement were intact, sclera nonicteric, conjunctivae were pale, mucous membranes of the mouth are somewhat dry. Neck: Supple, no JVP, normal carotid upstroke bilaterally, no lymphadenopathy. Chest: Decreased breath sounds at the bases, few rhonchi, no expiratory wheezes, no chest wall tenderness, no intercostal retractions. Heart: First heart sound is normal, second heart sounds normal, there is systolic murmur 2/6 located in the left sternal border. Abdomen: Soft, nontender, nondistended, positive bowel sounds. Extremities: There is no edema no calf tenderness DP +1 bilaterally. Neurologic examination: Patient is awake alert X1, cranial nerves II-12 appear grossly intact, muscle power were 4 out of 5 in upper extremities and 3 out of 5 in bilateral lower extremities, Babinski is extensor on the right side and flexor on the left side. ASSESSMENT AND PLAN: 1. Metabolic encephalopathy likely due to hypoglycemia rule out acute ischemic event. Patient was treated in the emergency department, we will monitor the patient over the next 24 hours, will obtain computed tomography scan of the brain for evaluation of ischemic event, continue patient on aspirin 81 mg once every day, continue patient on metoprolol ER 25 mg orally once every day, continue patient on atorvastatin 40 mg once every day, we will obtain echocardiogram as well as ultrasound of the carotids for further evaluation and recommendation, will obtain neurology consultation as well for further evaluation and recommendation. 2. Sinus rhythm with left bundle branch block. patient does appear to have an underlying coronary artery disease, she was seen recently by cardiology, continue patient on aspirin 81 mg once every day, metoprolol ER 25 mg once every day, atorvastatin 40 mg once every day, we will obtain echocardiogram for evaluation of LV function and will obtain cardiology consultation. 3. History of CVA in the past continue patient on aspirin, atorvastatin 40 mg once every day for secondary stroke prevention. 4. Diabetes mellitus type 2, continue patient on Levemir 8 units at bedtime along with a slight scale insulin. 5. Alzheimer dementia. Appears to be getting worse. 6. Chronic kidney disease stage II. Stable at this time. 7. Anxiety disorder. Continue Xanax 0.5 mg orally twice every day as needed. 8. Hypothyroidism. Continue patient on Synthroid 75 g orally once every day. 9. Osteoarthritis. Stable at this time. 10. DVT prophylaxis. Lovenox 30 mg subcutaneously every 24 hours along with bilateral knee-high GILBERTO hose. 11. GI prophylaxis. Continue patient on Protonix 40 mg orally once every day. 12. DO NOT RESUSCITATE. 13. Guarded prognosis. Objective - Vital Signs Vital signs: Vital Signs Temp 97.2 F L 07/23/22 07:17 Pulse 89 07/23/22 08:00 Resp 16 07/23/22 08:00 BP 142/91 07/23/22 07:17 Pulse Ox 97 07/23/22 07:17 FiO2 Intake & Output 07/22/22 07/23/22 07/23/22 18:59 06:59 18:59 Other: Voiding Method Incontinent Toilet Toilet Bedside Commode Diaper Incontinent # Voids 1 2 1 # Bowel Movements 1 - Labs CBC & Chem 7: 07/21/22 11:42 07/21/22 11:42 Labs: Abnormal Lab Results - Last 24 Hours (Table) 07/22/22 07/22/22 07/22/22 Range/Units 11:30 12:02 16:35 POC Glucose (mg/dL) 223 H 203 H (70-110) mg/dL Plasma Lactic Acid Moustapha 2.5 H* (0.7-2.0) mmol/L 07/22/22 Range/Units 20:47 POC Glucose (mg/dL) 218 H (70-110) mg/dL Plasma Lactic Acid Moustapha (0.7-2.0) mmol/L Microbiology - Last 24 Hours (Table) 07/21/22 13:05 Blood Culture - Preliminary Blood No Growth after 24 hours 07/21/22 13:05 Blood Culture - Preliminary Blood No Growth after 24 hours
--- NOTE | 2022-07-23 11:42 | CT ---
EXAMINATION TYPE: CT brain wo con CT DLP: 1066.6 mGycm, Automated exposure control for dose reduction was used. DATE OF EXAM: 07/23/2022 11:14 AM COMPARISON: 08/06/2020. CLINICAL INDICATION:Female, 87 years old with history of cva, Cerebral vascular accident TECHNIQUE: Brain: Axial CT images of the brain were obtained with coronal and sagittal reformats created and rev iewed. Contrast used: None. Oral contrast used: None. FINDINGS: Brain: Extra-axial spaces: No abnormal extra-axial fluid collections. Ventricular system: Ventriculostomy tubing tip terminating near midline in the right lateral ventricl e. Tubing appears intact. No evidence of hydronephrosis. Cerebral parenchyma: Encephalomalacia of the left MCA territory from prior injury including the parie mary temporal and occipital lobe. Remote injury to the right parietal lobe. Cerebral atrophy. No acute intraparenchymal hemorrhage or mass effect. The remainder of the schaefer-white junctions are well diff erentiated. Scattered hypoattenuating areas are seen within the white matter. Cerebellum: Unremarkable. Mass effect: No evidence of midline shift. Intracranial vasculature: Atherosclerotic calcifications of the intracranial vessels. Soft tissues: Normal. Calvarium/osseous structures: No depressed skull fracture. Paranasal sinuses and mastoid air cells: Mild scattered paranasal sinus disease. Visualized orbits: Orbital contents are intact. IMPRESSION: 1. No acute intracranial process. 2. Left MCA territory remote injury with encephalomalacia the left temporal, parietal and occipital lobe. 3. Remote injury to the right parietal lobe with encephalomalacia. 4. Nonspecific white matter changes, likely secondary to chronic small vessel ischemic disease.
[2022-07-23 11:44] LABS: Glucose,Whole Blood 187 mg/dL (70-110)
[2022-07-23] MEDS: LOSARTAN 25 MG TAB PO SCH (12:00)
[2022-07-23] MEDS: SPIRONOLACTONE 25 MG TAB PO SCH (12:00)
[2022-07-23] MEDS: METOPROLOL SUCCINATE (ER) 25 MG TAB.ER.24H PO SCH (12:00)
[2022-07-23 12:12] LABS: ALT 61 U/L (4-34); AST 73 U/L (14-36); African American GFR (CKD) 48 (>60 ml/min/1.73 sqM); Albumin/Globulin Ratio 0.9; Alkaline Phosphatase 170 U/L (38-126); Anion Gap 5 mmol/L; Blood Urea Nitrogen 39 mg/dL (7-17); Calcium 8.1 mg/dL (8.4-10.2); Carbon Dioxide 20 mmol/L (22-30); Chloride 111 mmol/L (98-107); Globulin 3.5 g/dL; Glucose 221 mg/dL (74-99); Non-African American GFR(CKD) 41 (>60 ml/min/1.73 sqM); Sodium 136 mmol/L (137-145); Total Bilirubin 1.5 mg/dL (0.2-1.3); Total Protein 6.5 g/dL (6.3-8.2)
[2022-07-23] MEDS: ASPIRIN 81 MG PO SCH (12:16)
[2022-07-23 12:20] LABS: Potassium 4.6 mmol/L (3.5-5.1)
[2022-07-23] MEDS: INSULIN ASPART (NovoLOG) 100 UNIT/ML VIAL SQ SCH ×3 (12:20→20:53)
[2022-07-23 13:03] LABS: Basophils % (A) 0 %; Eosinophils # (A) 0.1 k/uL (0-0.7); Eosinophils % (A) 2 %; HCT 38.7 % (34.0-46.0); HGB 12.4 gm/dL (11.4-16.0); Lymphocytes # (A) 0.7 k/uL (1.0-4.8); Lymphocytes % (A) 11 %; MCH 30.6 pg (25.0-35.0); MCHC 32.2 g/dL (31.0-37.0); Mean Platelet Volume 8.1; Monocytes # (A) 0.5 k/uL (0-1.0); Monocytes % (A) 7 %; Neutrophils # (A) 5.5 k/uL (1.3-7.7); Neutrophils % (A) 79 %; Platelet Count 198 k/uL (150-450); RBC 4.07 m/uL (3.80-5.40); RDW 15.2 % (11.5-15.5)
[2022-07-23 16:33] LABS: Glucose,Whole Blood 237 mg/dL (70-110)
[2022-07-23] MEDS ORDERED: INSULIN DETEMIR (LEVEMIR) 100 UNIT/ML SYR SQ SCH (18:00)
--- NOTE | 2022-07-23 18:18 | US ---
EXAMINATION TYPE: US carotid duplex BILAT DATE OF EXAM: 07/23/2022 COMPARISON: NONE CLINICAL HISTORY: CVA. TECHNIQUE: Carotid duplex ultrasound examination. Indirect Doppler criteria was utilized. FINDINGS: EXAM MEASUREMENTS: RIGHT: Peak Systolic Velocity (PSV) cm/sec ----- Right CCA: 35.6 ----- Right ICA: 89.6 ----- Right ECA: 119. ICA/CCA ratio: 2.5 RIGHT: End Diastole cm/sec ----- Right CCA: 6.5 ----- Right ICA: 24.1 ----- Right ECA: 5.1 LEFT: Peak Systolic Velocity (PSV) cm/sec ----- Left CCA: 22.2 ----- Left ICA: 68.1 ----- Left ECA: 48.2 ICA/CCA ratio: 3.1 LEFT: End Diastole cm/sec ----- Left CCA: 0.0 ----- Left ICA: 9.7 ----- Left ECA: 11.1 VERTEBRALS (direction of flow): Right Vertebral: Antegrade Left Vertebral: Antegrade Rhythm: Arrhythmia LINE THERAPIST NOTES: Mild plaque with mild velocity increases seen in bilateral ICAs. No significant stenosis. IMPRESSION: There is antegrade flow in the vertebral arteries. The images and measurements suggest less than 25% stenosis in both internal carotid arteries. Criteria for Assigning % of Stenosis / Diameter reduction (Estimation based on the indirect measurements of the internal carotid artery velocities (ICA PSV). 1. Normal (no stenosis)=ICA PSV < 125 cm/s: ratio < 2.0: ICA EDV<40 cm/s. 2. Less than 50% stenosis=ICA PSV < 125 cm/s: ratio < 2.0: ICA EDV<40 cm/s. 3. 50 to 69% stenosis=ICA PSV of 125 to 230 cm/s: ration 2.0 ? 4.0: ICA EDV 40-100 cm/s. 4. Greater than 70% stenosis to near occlusion= ICA PSV > 230 cm/s: ratio > 4.0: ICA EDV > 100 cm/s. 5. Near occlusion= ICA PSV velocities may be low or undetectable: variable ratio and ICA EDV. 6. Total occlusion=unable to detect flow.
[2022-07-23] MEDS: ALPRAZolam 0.25 MG TAB PO PRN (20:45)
[2022-07-23] MEDS: ENOXAPARIN 30 MG/0.3 ML SYRINGE SQ SCH (20:45)
[2022-07-23] MEDS: ATORVASTATIN 40 MG TAB PO SCH (20:45)
[2022-07-23] MEDS: MIRTAZAPINE 15 MG TAB PO SCH (20:45)
[2022-07-23 20:49] LABS: Glucose,Whole Blood 267 mg/dL (70-110)
[2022-07-23] MEDS: INSULIN DETEMIR (LEVEMIR) 100 UNIT/ML SYR SQ SCH (20:54)
--- NOTE | 2022-07-24 00:38 | P.CNNES ---
History of Present Illness Consult date: 07/23/22 Requesting physician: Mayela Dasilva Reason for Consult: CVA History of Present Illness: Patient is a 87-year-old female with previous history of strokes, dementia, expressive aphasia, came to the hospital by ambulance on 07/21/2022 at 11:21 AM for worsening mental status. Patient's and son were present today. Liam perez's , who wants to volunteer all the information, is not the best historian. They mentioned that for 1 week, patient has been having worsening of her condition. She was not hurting anywhere (except some legs hurting), but she is lethargic. In the last 2 days, she has not been eating much, only drinking water. She has no energy, keeps her eyes closed. Patient's took her to the [facility] [place], who only did an EKG. 2 days later patient couldn't get out of bed. Her arms were shaking. on Sunday, on the day of admission, she could not use the utensils. Patient's felt that her speech was erratic, difficult to understand. She was "out of it". At baseline, she does walk fine, shuffles, but does not use any cane or a walker. Patient's called the ambulance. They could not get her up, she has to be carried in the ambulance. As per EMS flow sheet, when they arrived, patient was alert and oriented 4. Per patient's , patient was more altered that the than normal and not acting appropriately. Patient does have diagnosis of event she a. He also noticed patient has increased weakness over the last 3 days. Patient was alert but disoriented. Patient was able to speak but saying words that do not make sense. Patient has diabetes, and her blood glucose was 78 upon checking. Vital signs at the scene was blood pressure 154/77, pulse rate 88 respirations 18 saturation 99%. Patient's vitals on arrival blood pressure 157/101, pulse rate 90, temperature 92.3 rectal, which improved to 95.5 rectal. Blood test shows normal CBC, PT/PTT, normal electrolytes, BUN 33, creatinine 1.15. Lactate was 2.9. AST 46, ALT 40. Troponin negative. TSH was elevated 10.30, free T4 1 0.56. UA negative. Urine drug screen negative. Influenza, RSV and reynolds virus PCR negative. No acute intracranial process. Left MCA territory remote injury with encephalomalacia involving the left temporal, parietal and occipital lobe. Remote injury to the right parietal lobe with encephalomalacia. Nonspecific white matter changes likely secondary to chronic small vessel ischemic disease. on my review of the computed tomography scan, There is evidence of old encephalomalacia involving the left parietal temporal region and the right parieto-occipital junction, which were present in the previous computed tomography scan. However the left occipital lobe encephalomalacia appears subacute to chronic and is new as compared to the last computed tomography scan from 08/06/2020. There is no hemorrhage. Chest x-ray showed cardiomegaly, pulmonary vascular congestion and bilateral pleural effusion. Correlate with BNP for congestive heart failure. Carey shows sinus rhythm, right axis deviation. Patient has been seen by myself on 07/23/2020 for acute ischemic stroke left inferior parietal lobe manifesting with Wernicke's aphasia, right visual field neglect and right arm weakness. CTA of head and neck reported as negative. MARGARET was negative for embolic source. Patient had an acute UTI, CHF with EF 20-25%. Also has diabetes, hypertension hyperlipidemia and dementia, moderate degree. Patient clinically had fluent aphasia, right visual field cut and right arm weakness at the time of discharge. CT head showed no change in hemorrhagic infarct on the left side. Loop recorder was recommended. Patient was discharged on aspirin. Plavix was held because of petechial hemorrhage in the stroke area. Hemoglobin A1c 6.6. Patient at present was taking aspirin 81 mg, levothyroxine, losartan, metoprolol, Lipitor 40 mg, mirtazapine, insulin. Spironolactone. Review of Systems Constitutional: Reports chills, Reports lethargy, Reports malaise, Reports weakness, Reports weight loss, Denies fever Eyes: denies pain Ears: bilateral: decreased hearing, deny: ear discharge Ears, nose, mouth and throat: Denies headache, Denies sore throat Cardiovascular: Denies chest pain, Denies shortness of breath Respiratory: Reports cough Gastrointestinal: Denies abdominal pain, Denies diarrhea, Denies nausea, Denies vomiting Musculoskeletal: Denies myalgias Integumentary: Denies pruritus, Denies rash Neurological: Reports as per HPI Psychiatric: Reports confusion, Reports memory loss Endocrine: Reports fatigue, Denies weight change Past Medical History Past Medical History: Coronary Artery Disease (CAD), Cancer, Heart Failure, Dementia, Diabetes Mellitus, Eye Disorder, GERD/Reflux, Hyperlipidemia, Hypertension, Memory Impairment, Myocardial Infarction (MD), Osteoarthritis (OA), Thyroid Disorder Additional Past Medical History / Comment(s): pt poor historian-dementia,past pancreatitis,, hx uterine(endometrial) cancer 1988(sx/radiation, pancreatic cancer post whipple procedure in 1994. kenney cataracts, occ ringing in ears Last Myocardial Infarction Date:: 2017 History of Any Multi-Drug Resistant Organisms: None Reported Past Surgical History: Hysterectomy Additional Past Surgical History / Comment(s): Whipple procedure due to pancreatic cancer 1994, 2009 vag lesion removed. benign tunor removed from stomach, colonoscopy, egd, whipple procedure Past Anesthesia/Blood Transfusion Reactions: Motion Sickness Past Psychological History: No Psychological Hx Reported Smoking Status: Former smoker Past Alcohol Use History: Daily Past Drug Use History: None Reported - Past Family History Father Family Medical History: No Reported History (Father at the age of 92 from old age.) Additional Family Medical History / Comment(s): in his 90's Mother Family Medical History: Diabetes Mellitus (Mother ided at the age of 75 from DM2 on .) Additional Family Medical History / Comment(s): in her 70's Sister(s) Family Medical History: Renal Disease (2 sisters one 88 year old with DM2 and ESRD on HD and the other one 86 with osteoarthritis.) Son(s) Family Medical History: Seizure Disorder (5 sons one is 61 year old lives in custodial non verbal due to Grandmal seizure disroder.) Medications and Allergies Home Medications Medication Instructions Recorded Confirmed Type Aspirin 81 mg PO DAILY #30 chew 03/26/18 07/21/22 Rx Levothyroxine Sodium [Synthroid] 75 mcg PO DAILY 07/12/20 07/21/22 History Losartan [Cozaar] 25 mg PO DAILY 07/12/20 07/21/22 History Metoprolol Succinate (ER) [Toprol 25 mg PO DAILY 07/12/20 07/21/22 History XL] Atorvastatin [Lipitor] 40 mg PO HS tab 07/23/20 07/21/22 Rx Mirtazapine 7.5 mg PO HS 08/05/20 07/21/22 History Insulin Aspart (Niacinamide) 3 units SQ W/SUPPER@1800 07/21/22 07/21/22 History [Fiasp 100 Unit/ml Flextouch Pen] Insulin Aspart (Niacinamide) 5 - 6 units SQ W/BRKFST@1000 07/21/22 07/21/22 H istory [Fiasp 100 Unit/ml Flextouch Pen] Insulin Aspart (Niacinamide) 5 units SQ W/LUNCH@1400 07/21/22 07/21/22 History [Fiasp 100 Unit/ml Flextouch Pen] Insulin Aspart (Niacinamide) See Protocol SQ DIRECTED 07/21/22 07/21/22 History [Fiasp 100 Unit/ml Flextouch Pen] Insulin Degludec [Tresiba 8 unit SQ HS@1800 07/21/22 07/21/22 History Flextouch U-100 Pen] Spironolactone [Aldactone] 25 mg PO DAILY 07/21/22 07/21/22 History Allergies Allergy/AdvReac Type Severity Reaction Status Date / Time tetanus and diphtheria Allergy Unknown Verified 07/21/22 15:38 toxoids Physical Examination - Vital Signs Vital Signs: Vital Signs Temp Pulse Resp BP Pulse Ox 07/23/22 08:00 89 16 07/23/22 07:17 97.2 F L 89 16 142/91 97 07/22/22 14:00 97.1 F L 53 L 18 119/76 97 Intake and Output 07/22/22 07/23/22 07/23/22 22:59 06:59 14:59 Other: Voiding Method Toilet Toilet Bedside Commode Diaper Incontinent # Voids 1 2 1 # Bowel Movements 1 Patient is an elderly female, in no acute distress. Patient is alert awake, knows her name and that she was born in [birth year]. She was able to tell that she is in [place] with prompt. She could not tell the month or the year. She has some paraphasic errors. She said "pinkle" for a pen. She was able to name glasses and pencil. She could not repeat. patient has significant expressive aphasia. Attention, concentration and fund of knowledge is very limited. On cranial nerve examination, pupils are equal, round and reacting to light. patient would not cooperate for visual field testing. She probably blinked to visual threat more on the left as compared to right. Extraocular muscles are intact with no nystagmus. Face is symmetric, tongue protrudes to the midline. Palatal elevation and sensation normal, hearing is significantly decreased and shoulder shrug normal, did not cooperate for facial sensory testing. On muscle strength testing, it was very challenging to examine. It appears patient has circular shear operator of at least 4+ bilaterally, biceps and triceps are normal. Deltoid was 3+4+ bilaterally. There was no pronator drift. There was no drift of the lower extremities. Patient's strength of ankles appears normal bilaterally, although may be slightly decreased on the right. Deep tendon reflexes are symmetric biceps 3, brachioradialis 3, knees 2+, ankles 1+ and plantars are upgoing bilaterally. Sensory to touch is equal. Neglect could not be tested. Cerebellar function showed no ataxia for [id number] testing. Tone and bulk of muscles normal. Gait deferred.. On general examination, there is no carotid bruit or murmur, S1-S2 audible. Chest is clear on consultation. Abdomen is soft nontender. No organomegaly, bowel sounds present. Peripheral pulses are present. No edema. Results - Laboratory Findings CBC and BMP: 07/23/22 12:25 07/23/22 11:52 Abnormal Lab Findings: Abnormal Labs 07/21/22 07/21/22 07/21/22 11:42 11:42 11:42 Lymphocytes # 0.6 L Sodium Chloride 109 H Carbon Dioxide 20 L BUN 33 H Creatinine 1.15 H Glucose 58 L POC Glucose (mg/dL) Plasma Lactic Acid Moustapha Calcium Total Bilirubin AST 46 H ALT 40 H Alkaline Phosphatase 132 H Albumin TSH 10.300 H Free T3 pg/mL Urine Protein 3+ H Urine Glucose (UA) Trace H Urine Blood Small H Urine Mucus Rare H Urine Yeast (Budding) Occasional H 07/21/22 07/21/22 07/21/22 11:42 14:46 15:16 Lymphocytes # Sodium Chloride Carbon Dioxide BUN Creatinine Glucose POC Glucose (mg/dL) 48 L 232 H Plasma Lactic Acid Moustapha 2.9 H* Calcium Total Bilirubin AST ALT Alkaline Phosphatase Albumin TSH Free T3 pg/mL Urine Protein Urine Glucose (UA) Urine Blood Urine Mucus Urine Yeast (Budding) 07/21/22 07/21/22 07/21/22 16:40 17:08 21:40 Lymphocytes # Sodium Chloride Carbon Dioxide BUN Creatinine Glucose POC Glucose (mg/dL) 126 H 172 H Plasma Lactic Acid Moustapha Calcium Total Bilirubin AST ALT Alkaline Phosphatase Albumin TSH Free T3 pg/mL 2.5 L Urine Protein Urine Glucose (UA) Urine Blood Urine Mucus Urine Yeast (Budding) 07/22/22 07/22/22 07/22/22 07:55 11:30 12:02 Lymphocytes # Sodium Chloride Carbon Dioxide BUN Creatinine Glucose POC Glucose (mg/dL) 223 H Plasma Lactic Acid Moustapha 3.2 H* 2.5 H* Calcium Total Bilirubin AST ALT Alkaline Phosphatase Albumin TSH Free T3 pg/mL Urine Protein Urine Glucose (UA) Urine Blood Urine Mucus Urine Yeast (Budding) 07/22/22 07/22/22 07/23/22 16:35 20:47 11:43 Lymphocytes # Sodium Chloride Carbon Dioxide BUN Creatinine Glucose POC Glucose (mg/dL) 203 H 218 H 187 H Plasma Lactic Acid Moustapha Calcium Total Bilirubin AST ALT Alkaline Phosphatase Albumin TSH Free T3 pg/mL Urine Protein Urine Glucose (UA) Urine Blood Urine Mucus Urine Yeast (Budding) 07/23/22 11:52 Lymphocytes # Sodium 136 L Chloride 111 H Carbon Dioxide 20 L BUN 39 H Creatinine 1.19 H Glucose 221 H POC Glucose (mg/dL) Plasma Lactic Acid Moustapha Calcium 8.1 L Total Bilirubin 1.5 H AST 73 H ALT 61 H Alkaline Phosphatase 170 H Albumin 3.0 L TSH Free T3 pg/mL Urine Protein Urine Glucose (UA) Urine Blood Urine Mucus Urine Yeast (Budding) Assessment and Plan Assessment: * Probable subacute to chronic CVA left occipital lobe. This is new as compared to computed tomography scan from 08/06/2020. * History of multiple strokes in the past (left parietal in July 2020) * Hypothermia, now resolved. * Vascular dementia, moderate to severe degree. * CHF with EF 20-25% * Mild renal insufficiency, perhaps some dehydration component * Mildly elevated liver enzymes. * Diabetes * Hypertension * Hyperlipidemia Plan: * Patient needs stroke TIA workup. * Carotid Doppler * 2-D echo * EEG * MRI brain * Hemoglobin A1c 7.7 on 06/26/2022. Recommend optimize control of diabetes to target A1c <7.0. * Lipid panel with cholesterol 110, LDL 50, HDL 42 and triglycerides 82 on 06/26/2022. Continue Lipitor 40 mg daily. * Telemetry monitoring. * Patient has been on aspirin 81 mg daily. We will add Plavix 75 mg daily for stroke prevention. Patient will be placed on DAP for 21 days and then stop aspirin and continue Plavix. (unless alternate treatment indicated after above test results) * DVT prophylaxis: Patient on Lovenox 30 mg subcutaneously daily. * Discussed with patient's family in detail. * Dr. Heath Madrid to resume neurology service in the morning. Thank you for the consult. Time with Patient: Greater than 30
[2022-07-24 06:04] LABS: Glucose,Whole Blood 90 mg/dL (70-110)
[2022-07-24] MEDS: INSULIN ASPART (NovoLOG) 100 UNIT/ML VIAL SQ SCH ×4 (06:10→22:23)
[2022-07-24] MEDS: LEVOTHYROXINE 75 MCG TAB PO SCH (06:49)
[2022-07-24] MEDS: ASPIRIN 81 MG PO SCH (08:25)
[2022-07-24] MEDS: SPIRONOLACTONE 25 MG TAB PO SCH (08:25)
[2022-07-24] MEDS: LOSARTAN 25 MG TAB PO SCH (08:25)
[2022-07-24] MEDS: FAMOTIDINE 20 MG TAB PO SCH (08:26)
[2022-07-24] MEDS: CLOPIDOGREL 75 MG TAB PO SCH (08:26)
[2022-07-24] MEDS: METOPROLOL SUCCINATE (ER) 25 MG TAB.ER.24H PO SCH (08:26)
[2022-07-24] MEDS: ENOXAPARIN 30 MG/0.3 ML SYRINGE SQ SCH ×2 (08:26→22:23)
[2022-07-24 08:58] LABS: African American GFR (CKD) 47.4 (60.0-200.0); Albumin 3.4 g/dL (3.8-4.9); Albumin/Globulin Ratio 1.06 (1.60-3.17); Anion Gap 12.4 mmol/L (10.00-18.00); BUN/Creat Ratio 28.08 Ratio (12.00-20.00); Blood Urea Nitrogen 33.7 mg/dL (9.0-27.0); Carbon Dioxide 18.6 mmol/L (20.0-27.5); Globulin 3.2 g/dL (1.6-3.3); Non-African American GFR(CKD) 40.9 (60.0-200.0); Potassium 3.4 mmol/L (3.5-5.5); Total Bilirubin 0.9 mg/dL (0.30-1.20); Total Protein 6.6 g/dL (6.2-8.2)
[2022-07-24] MEDS ORDERED: ASPIRIN 81 MG PO SCH (09:00)
[2022-07-24 09:18] LABS: Basophils # (A) 0.06 X 10*3/uL (0.00-0.10); Basophils % (A) 0.7 %; Eosinophils # (A) 0.07 X 10*3/uL (0.04-0.35); Eosinophils % (A) 0.8 %; HCT 43.4 % (37.2-46.3); HGB 13.7 g/dL (12.0-15.0); Immature Grans, Automated 0.4 %; Lymphocytes # (A) 0.73 X 10*3/uL (0.90-5.00); Lymphocytes % (A) 8.6 %; MCHC 31.6 g/dL (32.0-37.0); MCV 95.2 fL (80.0-97.0); Mean Platelet Volume 10.5 fL (9.5-12.2); Monocytes # (A) 0.65 X 10*3/uL (0.20-1.00); Monocytes % (A) 7.7 %; NRBC Per 100 WBC 0 /100 WBCS (0.0-0.0); Neutrophils # (A) 6.93 X 10*3/uL (1.80-7.70); Neutrophils % (A) 81.8 %; Platelet Count 257 X 10*3/uL (140-440); RBC 4.56 X 10*6/uL (4.10-5.20); RDW 15.8 % (11.5-14.5); WBC 8.47 X 10*3/uL (4.50-10.00)
--- NOTE | 2022-07-24 09:29 | P.CRDCN ---
History of Present Illness Consult date: 07/24/22 History of present illness: HISTORY OF PRESENT ILLNESS: This is a 87-year-old female with a past medical history significant for coronary artery disease, congestive heart failure, dementia, diabetes, hypertension, and hyperlipidemia. Patient follows in the office with Dr. Medina. We have been asked to see the patient in consultation for possible ST elevation on EKG. patient is admitted to the hospital secondary to altered mental status. Patient examined at the bedside. Patient is pleasant lady confused. She denies chest pain or pressure. Denies shortness of breath. EKG completed on admission revealed sinus mechanism with left bundle branch block. Repeat EKG also reveals sinus mechanism with appropriate ST segments and PVCs. * Chest xray cardiomegaly, pulmonary vascular congestion and bilateral pleural effusions. * Laboratory data: WBC 8.47. Hemoglobin 13.7. Platelet count 257. Sodium 139. Potassium 3.4. BUN 33. Creatinine 1.2. Troponin 0.020. 0.063. ProBNP 16,400. * Current home cardiac medications include aspirin 81 mg daily, Aldactone 25 mg daily, metoprolol succinate 25 mg daily, losartan 25 mg daily, Lipitor 40 mg at night * Most recent echocardiogram obtained in July 2020 revealed ejection fraction 20-25%, mild aortic regurgitation, severe MR, moderate TR. REVIEW OF SYSTEMS: At the time of my exam: CONSTITUTIONAL: Denies fever or chills. HEENT: Denies blurred vision, vision changes, or eye pain. Denies hemoptysis CARDIOVASCULAR: Denies chest pain. Denies orthopnea. Denies PND. Denies palpitations RESPIRATORY: Denies shortness of breath. GASTROINTESTINAL: Denies abdominal pain. Denies nausea or vomiting. HEMATOLOGIC: Denies bleeding disorders. GENITOURINARY: Denies any blood in urine. SKIN: Denies pruitis. Denies rash. PHYSICAL EXAM: VITAL SIGNS: Reviewed. GENERAL: Well-developed in no acute distress. HEENT: Head is normocephalic. Pupils are equal, round. Sclerae anicteric. Mucous membranes of the mouth are moist. Neck supple. No JVD or thyromegaly LUNGS: Respirations even and unlabored. Lungs diminished to auscultation bilaterally. HEART: Regular rate and rhythm. S1 and S2 heard. + systolic murmur ABDOMEN: Soft. Nondistended. Nontender. EXTREMITIES: Normal range of motion. No clubbing or cyanosis. Peripheral pulses intact. Trace lower extremity edema NEUROLOGIC: Awake and alert. ASSESSMENT: Altered mental status Probable subacute to chronic CVA left occipital lobe, per neurology History of CVA Coronary artery disease Chronic congestive heart failure with reduced ejection fraction Hypertension Hyperlipidemia Dementia Diabetes PLAN: EKG reviewed with Dr. Medina with no evidence of ST elevation. Continue current cardiac medications Per Dr. Medina, no further cardiac testing to be completed We will follow on an as needed basis. Please call with questions or concerns. Nurse practitioner note has been reviewed by physician. Signing provider agrees with the documented findings, assessment, and plan of care. Past Medical History Past Medical History: Coronary Artery Disease (CAD), Cancer, Heart Failure, Dementia, Diabetes Mellitus, Eye Disorder, GERD/Reflux, Hyperlipidemia, Hypertension, Memory Impairment, Myocardial Infarction ([place]), Osteoarthritis (OA), Thyroid Disorder Additional Past Medical History / Comment(s): pt poor historian-dementia,past pancreatitis,, hx uterine(endometrial) cancer 1988(sx/radiation, pancreatic cancer post whipple procedure in 1994. kenney cataracts, occ ringing in ears Last Myocardial Infarction Date:: 2017 History of Any Multi-Drug Resistant Organisms: None Reported Past Surgical History: Hysterectomy Additional Past Surgical History / Comment(s): Whipple procedure due to pancreatic cancer 1994, 2009 vag lesion removed. benign tunor removed from stomach, colonoscopy, egd, whipple procedure Past Anesthesia/Blood Transfusion Reactions: Motion Sickness Past Psychological History: No Psychological Hx Reported Smoking Status: Former smoker Past Alcohol Use History: Daily Past Drug Use History: None Reported - Past Family History Father Family Medical History: No Reported History (Father at the age of 92 from old age.) Additional Family Medical History / Comment(s): in his 90's Mother Family Medical History: Diabetes Mellitus (Mother ided at the age of 75 from DM2 on .) Additional Family Medical History / Comment(s): in her 70's Sister(s) Family Medical History: Renal Disease (2 sisters one 88 year old with DM2 and ESRD on HD and the other one 86 with osteoarthritis.) Son(s) Family Medical History: Seizure Disorder (5 sons one is 61 year old lives in nursing home non verbal due to Grandmal seizure disroder.) Medications and Allergies Home Medications Medication Instructions Recorded Confirmed Type Aspirin 81 mg PO DAILY #30 chew 03/26/18 07/21/22 Rx Levothyroxine Sodium [Synthroid] 75 mcg PO DAILY 07/12/20 07/21/22 History Losartan [Cozaar] 25 mg PO DAILY 07/12/20 07/21/22 History Metoprolol Succinate (ER) [Toprol 25 mg PO DAILY 07/12/20 07/21/22 History XL] Atorvastatin [Lipitor] 40 mg PO HS tab 07/23/20 07/21/22 Rx Mirtazapine 7.5 mg PO HS 08/05/20 07/21/22 History Insulin Aspart (Niacinamide) 3 units SQ W/SUPPER@1800 07/21/22 07/21/22 History [Fiasp 100 Unit/ml Flextouch Pen] Insulin Aspart (Niacinamide) 5 - 6 units SQ W/BRKFST@1000 07/21/22 07/21/22 History [Fiasp 100 Unit/ml Flextouch Pen] Insulin Aspart (Niacinamide) 5 units SQ W/LUNCH@1400 07/21/22 07/21/22 History [Fiasp 100 Unit/ml Flextouch Pen] Insulin Aspart (Niacinamide) See Protocol SQ DIRECTED 07/21/22 07/21/22 History [Fiasp 100 Unit/ml Flextouch Pen] Insulin Degludec [Tresiba 8 unit SQ HS@1800 07/21/22 07/21/22 History Flextouch U-100 Pen] Spironolactone [Aldactone] 25 mg PO DAILY 07/21/22 07/21/22 History Allergies Allergy/AdvReac Type Severity Reaction Status Date / Time tetanus and diphtheria Allergy Unknown Verified 07/21/22 15:38 toxoids Physical Exam Vitals: Vital Signs Temp Pulse Resp BP Pulse Ox 07/24/22 07:05 97.9 F 94 16 154/86 93 L 07/24/22 01:26 97.6 F 60 18 169/88 94 L 07/23/22 19:30 98.4 F 98 16 169/122 98 07/23/22 14:00 96.9 F L 57 L 17 123/66 98 Intake and Output 07/23/22 07/24/22 07/24/22 22:59 06:59 14:59 Other: Voiding Method Toilet Diaper Incontinent # Voids 3 7 2 # Bowel Movements 1 Results 07/24/22 04:53 07/24/22 04:53 Cardiac Enzymes 07/23/22 07/23/22 07/24/22 Range/Units 11:52 11:52 04:53 AST 73 H 65 H (14-36) U/L Troponin I 0.063 H* (0.000-0.034) ng/mL CBC 07/23/22 07/24/22 Range/Units 12:25 04:53 WBC 7.0 8.47 (3.8-10.6) k/uL RBC 4.07 4.56 (3.80-5.40) m/uL Hgb 12.4 13.7 (11.4-16.0) gm/dL Hct 38.7 43.4 (34.0-46.0) % Plt Count 198 257 (150-450) k/uL Comprehensive Metabolic Panel 07/23/22 07/24/22 Range/Units 11:52 04:53 Sodium 136 L 139 (137-145) mmol/L Potassium 4.6 3.4 L (3.5-5.1) mmol/L Chloride 111 H 108 (98-107) mmol/L Carbon Dioxide 20 L 18.6 L (22-30) mmol/L BUN 39 H 33.7 H (7-17) mg/dL Creatinine 1.19 H 1.2 (0.52-1.04) mg/dL Glucose 221 H 108 (74-99) mg/dL Calcium 8.1 L 9.0 (8.4-10.2) mg/dL AST 73 H 65 H (14-36) U/L ALT 61 H 73 H (4-34) U/L Alkaline Phosphatase 170 H 281 H (38-126) U/L Total Protein 6.5 6.6 (6.3-8.2) g/dL Albumin 3.0 L 3.4 L (3.5-5.0) g/dL Current Medications Generic Name Dose Route Start Last Admin Trade Name Freq PRN Reason Stop Dose Admin Alprazolam 0.25 mg 07/21/22 21:01 07/23/22 20:45 Alprazolam 0.25 Mg Tab PO 0.25 mg BID PRN Administration Agitation Aspirin 81 mg 07/23/22 10:30 07/24/22 08:25 Aspirin 81 Mg PO 81 mg DAILY NABIL Administration Atorvastatin Calcium 40 mg 07/21/22 21:00 07/23/22 20:45 Atorvastatin 40 Mg Tab PO Not Given HS NABIL Clopidogrel Bisulfate 75 mg 07/24/22 09:00 07/24/22 08:26 Clopidogrel 75 Mg Tab PO 75 mg DAILY NABIL Administration Enoxaparin Sodium 30 mg 07/23/22 21:00 07/24/22 08:26 Enoxaparin 30 Mg/0.3 Ml Syringe SQ 30 mg Q12HR NABIL Administration Famotidine 20 mg 07/24/22 09:00 07/24/22 08:26 Famotidine 20 Mg Tab PO 20 mg DAILY NABIL Administration Insulin Aspart 0 unit 07/23/22 12:30 07/24/22 06:10 Insulin Aspart (Novolog) 100 Unit/Ml Vial SQ Not Given ACHS [facility] Protocol Insulin Detemir 8 unit 07/23/22 21:00 07/23/22 20:54 Insulin Detemir (Levemir) 100 Unit/Ml Syr SQ 8 unit HS [facility] Administration Levothyroxine Sodium 75 mcg 07/22/22 06:30 07/24/22 06:49 Levothyroxine 75 Mcg Tab PO 75 mcg 0630 [facility] Administration Losartan Potassium 25 mg 07/22/22 09:00 07/24/22 08:25 Losartan 25 Mg Tab PO 25 mg DAILY NABIL Administration Metoprolol Succinate 25 mg 07/22/22 09:00 07/24/22 08:26 Metoprolol Succinate (Er) 25 Mg Tab.Er.24h PO 25 mg DAILY NABIL Administration Mirtazapine 7.5 mg 07/21/22 21:00 07/23/22 20:45 Mirtazapine 15 Mg Tab PO Not Given HS [facility] Naloxone HCl 0.2 mg 07/21/22 17:20 Naloxone 0.4 Mg/Ml 1 Ml Vial IV Q2M PRN Opioid Reversal Ondansetron HCl 4 mg 07/21/22 17:20 Ondansetron 4 Mg/2 Ml Vial IVP Q8HR PRN Nausea And Vomiting Spironolactone 25 mg 07/22/22 09:00 07/24/22 08:25 Spironolactone 25 Mg Tab PO 25 mg DAILY NABIL Administration Intake and Output 07/23/22 07/24/22 07/24/22 22:59 06:59 14:59 Other: Voiding Method Toilet Diaper Incontinent # Voids 3 7 2 # Bowel Movements 1 07/24/22 04:53 07/24/22 04:53
[2022-07-24 11:14] LABS: Glucose,Whole Blood 89 mg/dL (70-110)
--- NOTE | 2022-07-24 15:18 | P.PN ---
Subjective Progress Note Date: 07/24/22 HISTORY OF PRESENT ILLNESS: This is an 87 year old female with a previous medical history signi ficant for CAD post inferior wall myocardial infarction with chronic systolic heart failure, hypertension and hypertensive cardiovascular disease, hyperlipidemia, hypothyroidism, diabetes mellitus type 2 and Alzheimer dementia, history of cerebrovascular accident, patient was doing fine up until 6 days ago when she started to have a significant change in her mental status with increased aggressiveness and not able template very well and having hard time using her right upper extremity, at that time her who is the primary caregiver for her at this point in time Dr. his daughter in law who told him to take her to the ER at that time but he ended up taking the patient to the training designer and she was seen and evaluated by Dr. Myers the office and she was told it wasn't her heart at this point, apparently the patient almost fell out of bed yesterday and the she was shaking and having significant tremors in the right upper extremity associated with significant mental status changes he could not even move her up, therefore EMS was called and the patient was brought to demurs department at [facility] where she was evaluated by the emergency room physician as well as a nurse practitioner, patient did have laboratory values that came back normal she was having hypoglycemic episode, she was given treatment for that, and she was admitted to hospital for further evaluation and treatment patient became quite agitated overnight, she did receive lorazepam 1 mg IV push 1 and then she was placed on Xanax 0.25 mg orally twice every day, patient appears to be quite obtunded at the time of evaluation opens her eyes in response to verbal stimuli and moves all her extremities, Knight catheter was removed, and the patient will be monitored over the next 24 hours. 07/23/: Patient continued to be drowsy she did receive a dose of Xanax today in the morning, she opens her eyes in response to verbal suddenly, she is moving her upper and lower extremity is, however she appears to be generally weak, her the bedside, we will the patient to the monitored in the monitor showing sinus rhythm with left bundle branch block and possible ST elevation, a stat troponin was obtained, cardiology consultation, computed tomography scan of the brain without contrast, neurology consultation, continue aspirin 81 mg once every day, continue Lovenox, continue metoprolol ER 25 mg once every day, continue atorvastatin 40 mg once every day, follow-up with the patient very closely, 07/24: Patient is seen today on the [facility] floor. Patient has been seen by cardiology with no evidence of ST elevation on EKG and will follow on an as- needed basis. Patient has been seen by neurology for probable subacute to chronic CVA in the left occipital lobe. EEG and MRI of the brain are pending. Plavix has been added for stroke prevention. Plan is for dual antiplatelet for 21 days and then stop aspirin and continue Plavix. Patient has been afebrile, heart rate in the 80s and 90s, blood pressure 127/80, pulse ox 93% on room air. chief bank examiner is a sinus rhythm. Potassium 3.4, CO2 2108, BUN 33 creatinine 1.2. Blood sugars running between 89 and 267. AST 65, ALT 73, alkaline phosphatase 281. Carotid ultrasound reveals 25% stenosis in both internal carotid arteries Echocardiogram is pending REVIEW OF SYSTEMS: Constitutional: No documented fever, no chills, no night sweats. No weight change. No weakness, fatigue or lethargy. No daytime sleepiness. HEENT: No headache. No blurred vision or double vision, no loss of vision. No loss of Hearing, no ringing in the ears, no dizziness. No nasal drainage or congestion. No epistaxis. No sore throat. Lungs: No shortness of breath, no cough, no sputum production. No wheezing. Reports dyspnea with activity. Cardiovascular: No chest pain, no lower extremity edema. No palpitations. No paroxysmal nocturnal dyspnea. No orthopnea. No lightheadedness or dizziness. No syncopal episodes. Abdominal: Reports abdominal pain. No nausea, vomiting. No diarrhea. No constipation. No bloody or tarry stools reports loss of appetite. Genitourinary: No dysuria, increased frequency, urgency. No urinary retention. Musculoskeletal: No myalgias. No muscle weakness, positive for gait dysfunction, no frequent falls. No back pain. No neck pain. Integumentary: No wounds, no lesions. No rash or pruritus. No unusual b ruising. No change in hair or nails. Neurologic: No aphasia. No facial droop. Positive for change in mentation. No head injury. No headache. No paralysis. No paresthesia. Psychiatric: No depression. No anxiety. No mood swings.Positive for Alzheimer dementia. Endocrine: Hypoglycemic episodes. PHYSICAL EXAMINATION: General: 87-year-old female laying down in bed appears to be drowsy opens her eyes in response will personally she does not appear to be in acute distress. HEENT: Head is atraumatic, normocephalic, pupils were equal round reactive to light and recommendation, extraocular muscle movement were intact, sclera nonicteric, conjunctivae were pale, mucous membranes of the mouth are somewhat dry. Neck: Supple, no JVP, normal carotid upstroke bilaterally, no lymphadenopathy. Chest: Decreased breath sounds at the bases, few rhonchi, no expiratory wheezes, no chest wall tenderness, no intercostal retractions. Heart: First heart sound is normal, second heart sounds normal, there is systolic murmur 2/6 located in the left sternal border. Abdomen: Soft, nontender, nondistended, positive bowel sounds. Extremities: There is no edema no calf tenderness DP +1 bilaterally. Neurologic examination: Patient is awake alert X1, cranial nerves II-12 appear grossly intact, muscle power were 4 out of 5 in upper extremities and 3 out of 5 in bilateral lower extremities, Babinski is extensor on the right side and flexor on the left side. ASSESSMENT AND PLAN: 1. Metabolic encephalopathy likely due to hypoglycemia rule out acute ischemic event. Consult with neurology appreciated. Patient has been started on Plavix and continue dual antiplatelet therapy with aspirin for 21 days and then discontinue aspirin. Continue patient on atorvastatin 40 mg once every day. MRI of the brain, EEG, echocardiogram are pending. 2. Sinus rhythm with left bundle branch block. patient does appear to have an underlying coronary artery disease, she was seen recently by cardiology, continue patient on aspirin 81 mg once every day, metoprolol ER 25 mg once every day, atorvastatin 40 mg once every day, we will obtain echocardiogram for evaluation of LV function. Cardiology has seen the patient and signed off. 3. History of CVA in the past continue patient on aspirin, atorvastatin 40 mg once every day for secondary stroke prevention. 4. Diabetes mellitus type 2, continue patient on Levemir 8 units at bedtime along with a slight scale insulin. 5. Alzheimer dementia. Appears to be getting worse. 6. Chronic kidney disease stage II. Stable at this time. 7. Generalized Anxiety disorder. Continue Xanax 0.5 mg orally twice every day as needed. 8. Hypothyroidism. Continue patient on Synthroid 75 g orally once every day. 9. Osteoarthritis, generalized. Stable at this time. 10. DVT prophylaxis. Lovenox 30 mg subcutaneously every 24 hours along with bilateral knee-high GILBERTO hose. 11. GI prophylaxis. Continue patient on Protonix 40 mg orally once every day. 12. DO NOT RESUSCITATE. 13. Guarded prognosis. DISCHARGE PLANNING Subacute rehab. Patient is followed by PT and OT. Impression and plan of care have been directed as dictated by the signing physician. Shavon Ramos nurse practitioner acting as scribe for signing physician. Objective - Vital Signs Vital signs: Vital Signs Temp 97.9 F 07/24/22 07:05 Pulse 94 07/24/22 07:05 Resp 16 07/24/22 07:05 BP 154/86 07/24/22 07:05 Pulse Ox 93 L 07/24/22 07:05 FiO2 Intake & Output 07/23/22 07/24/22 07/24/22 18:59 06:59 18:59 Other: Voiding Method Toilet Toilet Diaper Diaper Incontinent Incontinent # Voids 3 7 2 # Bowel Movements 1 1 - Labs CBC & Chem 7: 07/24/22 04:53 07/24/22 04:53 Labs: Abnormal Lab Results - Last 24 Hours (Table) 07/23/22 07/23/22 07/23/22 Range/Units 11:52 11:52 12:25 MCHC (32.0-37.0) g/dL RDW (11.5-14.5) % Lymphocytes # 0.7 L (1.0-4.8) k/uL Sodium 136 L (137-145) mmol/L Potassium (3.5-5.5) mmol/L Chloride 111 H (98-107) mmol/L Carbon Dioxide 20 L (22-30) mmol/L BUN 39 H (7-17) mg/dL Creatinine 1.19 H (0.52-1.04) mg/dL Est GFR (CKD-EPI)AfAm (60.0-200.0) Est GFR (CKD-EPI)NonAf (60.0-200.0) BUN/Creatinine Ratio (12.00-20.00) Ratio Glucose 221 H (74-99) mg/dL POC Glucose (mg/dL) (70-110) mg/dL Calcium 8.1 L (8.4-10.2) mg/dL Total Bilirubin 1.5 H (0.2-1.3) mg/dL AST 73 H (14-36) U/L ALT 61 H (4-34) U/L Alkaline Phosphatase 170 H (38-126) U/L Troponin I 0.063 H* (0.000-0.034) ng/mL Albumin 3.0 L (3.5-5.0) g/dL Albumin/Globulin Ratio (1.60-3.17) g/dL 07/23/22 07/23/22 07/24/22 Range/Units 16:31 20:48 04:53 MCHC 31.6 L (32.0-37.0) g/dL RDW 15.8 H (11.5-14.5) % Lymphocytes # 0.73 L (1.0-4.8) k/uL Sodium (137-145) mmol/L Potassium (3.5-5.5) mmol/L Chloride (98-107) mmol/L Carbon Dioxide (22-30) mmol/L BUN (7-17) mg/dL Creatinine (0.52-1.04) mg/dL Est GFR (CKD-EPI)AfAm (60.0-200.0) Est GFR (CKD-EPI)NonAf (60.0-200.0) BUN/Creatinine Ratio (12.00-20.00) Ratio Glucose (74-99) mg/dL POC Glucose (mg/dL) 237 H 267 H (70-110) mg/dL Calcium (8.4-10.2) mg/dL Total Bilirubin (0.2-1.3) mg/dL AST (14-36) U/L ALT (4-34) U/L Alkaline Phosphatase (38-126) U/L Troponin I (0.000-0.034) ng/mL Albumin (3.5-5.0) g/dL Albumin/Globulin Ratio (1.60-3.17) g/dL 07/24/22 Range/Units 04:53 MCHC (32.0-37.0) g/dL RDW (11.5-14.5) % Lymphocytes # (1.0-4.8) k/uL Sodium (137-145) mmol/L Potassium 3.4 L (3.5-5.5) mmol/L Chloride (98-107) mmol/L Carbon Dioxide 18.6 L (22-30) mmol/L BUN 33.7 H (7-17) mg/dL Creatinine (0.52-1.04) mg/dL Est GFR (CKD-EPI)AfAm 47.4 L (60.0-200.0) Est GFR (CKD-EPI)NonAf 40.9 L (60.0-200.0) BUN/Creatinine Ratio 28.08 H (12.00-20.00) Ratio Glucose (74-99) mg/dL POC Glucose (mg/dL) (70-110) mg/dL Calcium (8.4-10.2) mg/dL Total Bilirubin (0.2-1.3) mg/dL AST 65 H (14-36) U/L ALT 73 H (4-34) U/L Alkaline Phosphatase 281 H (38-126) U/L Troponin I (0.000-0.034) ng/mL Albumin 3.4 L (3.5-5.0) g/dL Albumin/Globulin Ratio 1.06 L (1.60-3.17) g/dL Microbiology - Last 24 Hours (Table) 07/21/22 13:05 Blood Culture - Preliminary Blood No Growth after 48 hours 07/21/22 13:05 Blood Culture - Preliminary Blood No Growth after 48 hours
--- NOTE | 2022-07-24 15:50 | P.PN ---
Subjective Progress Note Date: 07/24/22 I am seeing the patient for the first time during this admission. Please refer to Dr. Gonsalez for further details. It is felt patient has subacute stroke over the left occipital lobe and pending MRI Brain. Objective - Vital Signs Vital signs: Vital Signs Temp 97.3 F L 07/24/22 14:00 Pulse 80 07/24/22 14:00 Resp 16 07/24/22 14:00 BP 127/80 07/24/22 14:00 Pulse Ox 80 L 07/24/22 14:00 FiO2 Intake & Output 07/23/22 07/24/22 07/24/22 18:59 06:59 18:59 Other: Voiding Method Toilet Toilet Diaper Diaper Incontinent Incontinent # Voids 3 7 2 # Bowel Movements 1 1 - Exam GENERAL: The patient is sitting in a recliner chair and does not appear in acute distress. NEUROLOGICAL: Higher mental function: The patient is drowsy but awakeable to voice. She is oriented to self. She could not tell me time or place. She is following few simple commands and following few simple commands. She correctly stated pen and watch. , Cranial nerves: The pupils are round, equal and reactive to light No facial weakness. Has dysarthria. Otherwise rest is limited because of cooperation. Motor: The strength is hard to assess individual muscles. But is lifting bilateral uppers above gravity and was wiggling toes symmetrically. Normal tone and bulk. Cerebellum: Unable to assess. Sensation: Unable to assess. - Labs CBC & Chem 7: 07/24/22 04:53 07/24/22 04:53 Labs: Abnormal Lab Results - Last 24 Hours (Table) 07/23/22 07/23/22 07/24/22 Range/Units 16:31 20:48 04:53 MCHC 31.6 L (32.0-37.0) g/dL RDW 15.8 H (11.5-14.5) % Lymphocytes # 0.73 L (0.90-5.00) X 10*3/uL Potassium (3.5-5.5) mmol/L Carbon Dioxide (20.0-27.5) mmol/L BUN (9.0-27.0) mg/dL Est GFR (CKD-EPI)AfAm (60.0-200.0) Est GFR (CKD-EPI)NonAf (60.0-200.0) BUN/Creatinine Ratio (12.00-20.00) Ratio POC Glucose (mg/dL) 237 H 267 H (70-110) mg/dL AST (13-35) U/L ALT (8-44) U/L Alkaline Phosphatase (41-126) U/L Albumin (3.8-4.9) g/dL Albumin/Globulin Ratio (1.60-3.17) g/dL 07/24/22 Range/Units 04:53 MCHC (32.0-37.0) g/dL RDW (11.5-14.5) % Lymphocytes # (0.90-5.00) X 10*3/uL Potassium 3.4 L (3.5-5.5) mmol/L Carbon Dioxide 18.6 L (20.0-27.5) mmol/L BUN 33.7 H (9.0-27.0) mg/dL Est GFR (CKD-EPI)AfAm 47.4 L (60.0-200.0) Est GFR (CKD-EPI)NonAf 40.9 L (60.0-200.0) BUN/Creatinine Ratio 28.08 H (12.00-20.00) Ratio POC Glucose (mg/dL) (70-110) mg/dL AST 65 H (13-35) U/L ALT 73 H (8-44) U/L Alkaline Phosphatase 281 H (41-126) U/L Albumin 3.4 L (3.8-4.9) g/dL Albumin/Globulin Ratio 1.06 L (1.60-3.17) g/dL Microbiology - Last 24 Hours (Table) 07/21/22 13:05 Blood Culture - Preliminary Blood No Growth after 72 hours 07/21/22 13:05 Blood Culture - Preliminary Blood No Growth after 72 hours Assessment and Plan Assessment: * Probable subacute to chronic CVA left occipital lobe. This is new as compared to computed tomography scan from 08/06/2020. * History of multiple strokes in the past (left parietal in July 2020) * Hypothermia, now resolved. * Vascular dementia, moderate to severe degree. * CHF with EF 20-25% * Mild renal insufficiency, perhaps some dehydration component * Mildly elevated liver enzymes. * Diabetes * Hypertension * Hyperlipidemia Plan: * Carotid Doppler: It is reported as there is antegrade flow in the vertebral arteries. Images and measurements suggest less than 25% stenosis in both internal carotid arteries. * 2-D echo pending * EEG: pending. * MRI brain: pending. * Hemoglobin A1c 7.7 on 06/26/2022. Recommend optimize control of diabetes to target A1c <7.0. * Lipid panel with cholesterol 110, LDL 50, HDL 42 and triglycerides 82 on 06/26/2022. Continue Lipitor 40 mg daily. * I ordered ammonia level. * Telemetry monitoring. * Patient has been on aspirin [address] Gonsalez placed also Plavix 75 mg daily for stroke prevention. Patient will be placed on DAP for 21 days and then stop aspirin and continue Plavix. (unless alternate treatment indicated after above test results) * Will defer thyroid abnormality management to primary team. * DVT prophylaxis: Patient on Lovenox 30 mg subcutaneously daily. * Discussed with patient's family in detail and nurse. Will continue to follow. Time with Patient: Less than 30
[2022-07-24 16:18] LABS: Glucose,Whole Blood 122 mg/dL (70-110)
--- NOTE | 2022-07-24 19:04 | EEG ---
ELECTROENCEPHALOGRAM REPORT CLINICAL HISTORY: This is an 87-year-old woman with reported seizure-like activity spells. The video EEG is obtained to evaluate for seizure epileptiform activity. RELEVANT MEDICATIONS: The patient is not on any antiepileptic drugs. EEG TYPE: A routine 21-channel EEG is performed with video using the 10/20 electrode placement system. DESCRIPTION: Wakefulness is obtained. During awake state, the background consists of 6 to 7 hertz that is well modulated, well sustained. There is no physiological stage 2 sleep architecture seen. There is no focal slowing. Interictal and ictal is none. ACTIVATION PROCEDURE: Photic stimulation did not evoke a posterior driving response. There is no abnormality during the photic stimulation. Hyperventilation is not performed. CLINICAL INTERPRETATION: This is an abnormal routine EEG. The background slowing is suggestive of mild encephalopathy. Otherwise, there is no focal slowing, epileptiform discharge, or seizure on the EEG. Clinical correlation is recommended. MMTERRANCE / ANTOINETTEN: [id number] /
[2022-07-24 20:50] LABS: Glucose,Whole Blood 177 mg/dL (70-110)
[2022-07-24] MEDS: INSULIN DETEMIR (LEVEMIR) 100 UNIT/ML SYR SQ SCH (22:23)
[2022-07-24] MEDS: ATORVASTATIN 40 MG TAB PO SCH (22:26)
[2022-07-24] MEDS: MIRTAZAPINE 15 MG TAB PO SCH (22:26)
[2022-07-25] MEDS: ALPRAZolam 0.25 MG TAB PO PRN ×2 (00:50→22:08)
[2022-07-25 06:09] LABS: Glucose,Whole Blood 204 mg/dL (70-110)
[2022-07-25] MEDS: INSULIN ASPART (NovoLOG) 100 UNIT/ML VIAL SQ SCH ×4 (06:30→22:07)
[2022-07-25] MEDS: LEVOTHYROXINE 75 MCG TAB PO SCH (06:30)
[2022-07-25] MEDS: SPIRONOLACTONE 25 MG TAB PO SCH (09:54)
[2022-07-25] MEDS: ASPIRIN 81 MG PO SCH (09:54)
[2022-07-25] MEDS: FAMOTIDINE 20 MG TAB PO SCH (09:55)
[2022-07-25] MEDS: CLOPIDOGREL 75 MG TAB PO SCH (09:55)
[2022-07-25] MEDS: ENOXAPARIN 30 MG/0.3 ML SYRINGE SQ SCH ×2 (09:55→22:07)
[2022-07-25] MEDS: LOSARTAN 25 MG TAB PO SCH (09:55)
[2022-07-25] MEDS: METOPROLOL SUCCINATE (ER) 25 MG TAB.ER.24H PO SCH (09:55)
--- NOTE | 2022-07-25 10:57 | MR ---
EXAMINATION TYPE: MR brain wo con DATE OF EXAM: 07/25/2022 10:44 AM COMPARISON: CT brain 07/23/2022, MR brain 07/19/2020. CLINICAL INDICATION:Female, 87 years old with history of CVA; PHH, TECHNIQUE: Multi planar, multi sequence imaging of the brain was performed without administration of gadolinium. FINDINGS: Few foci of restricted diffusion demonstrated within the medial aspect of the left occipital lobe (se luis 303, image 160 and 144). Encephalomalacia with gliosis from remote left MCA territory infarct in volving the parietotemporal and occipital lobes. The remaining schaefer-white junctions, ventricular syst em, and cisterns appear unremarkable. Confluent areas of high T2 signal intensity are seen within th e periventricular white matter. Mild cerebral volume loss. Midline structures show no abnormality The bone marrow signal is within normal limits. The paranasal sinuses and globes are unremarkable. IMPRESSION: 1. Few foci of acute/subacute ischemia within the medial aspect of the left occipital lobe. 2. Remote infarct of the left MCA territory with encephalomalacia involving the left temporal, pariet al, and occipital lobes. 3. Nonspecific white matter changes, likely secondary to small vessel ischemic disease.
[2022-07-25 11:06] LABS: Glucose,Whole Blood 114 mg/dL (70-110)
--- NOTE | 2022-07-25 13:58 | P.PN ---
Subjective Progress Note Date: 07/25/22 I am following up with the patient. Currently is sleeping and per who is at bedside she called him by his name correctly. Objective - Vital Signs Vital signs: Vital Signs Temp 98.6 F 07/25/22 09:03 Pulse 75 07/25/22 09:50 Resp 18 07/25/22 09:50 BP 139/82 07/25/22 09:03 Pulse Ox 96 07/25/22 09:03 FiO2 Intake & Output 07/24/22 07/25/22 07/25/22 18:59 06:59 18:59 Other: Voiding Method Toilet Toilet Diaper Diaper Incontinent Incontinent # Voids 0 1 # Bowel Movements 1 1 1 - Exam GENERAL: The patient is lying in bed and does not appear in acute distress. NEUROLOGICAL: Limited since sleeping. No facial weakness. - Labs CBC & Chem 7: 07/24/22 04:53 07/24/22 04:53 Labs: Abnormal Lab Results - Last 24 Hours (Table) 07/24/22 07/24/22 07/25/22 Range/Units 16:16 20:48 06:08 POC Glucose (mg/dL) 122 H 177 H 204 H (70-110) mg/dL 07/25/22 Range/Units 11:03 POC Glucose (mg/dL) 114 H (70-110) mg/dL Microbiology - Last 24 Hours (Table) 07/21/22 13:05 Blood Culture - Preliminary Blood No Growth after 72 hours 07/21/22 13:05 Blood Culture - Preliminary Blood No Growth after 72 hours Assessment and Plan Assessment: * Acute to subacute ischemic stroke (few foci in medial aspect of left occipital) * History of multiple strokes in the past (left parietal in July 2020) * Hypothermia, now resolved. * Vascular dementia, moderate to severe degree. * CHF with EF 20-25% * Mild renal insufficiency, perhaps some dehydration component * Mildly elevated liver enzymes. * Diabetes * Hypertension * Hyperlipidemia Plan: * Carotid Doppler: It is reported as there is antegrade flow in the vertebral arteries. Images and measurements suggest less than 25% stenosis in both internal carotid arteries. * 2-D echo it seems was not ordered but was requested by Dr. Gonsalez. * EEG: Is abnormal. The background slowing suggestive of mild encephalopathy. Otherwise there is no focal slowing, epileptiform discharges or seizure on the EEG. * MRI brain: It is reported as a few foci of acute/subacute ischemia within the medial aspect of left occipital lobe. Remote infarct of the left MCA territory with encephalomalacia involving the left temporal parietal and occipital lobe. Nonspecific white matter changes, likely secondary due to small vessel ischemic disease. * Hemoglobin A1c 7.7 on 06/26/2022. Recommend optimize control of diabetes to target A1c <7.0. * Lipid panel with cholesterol 110, LDL 50, HDL 42 and triglycerides 82 on 06/26/2022. Continue Lipitor 40 mg daily. * Ammonia level: <9 * Telemetry monitoring. * Recommend consideration of holter monitor/event monitor for 30 days. will consider it as outpatient. * Patient has been on aspirin [address] Gonsalez placed also Plavix 75 mg daily for stroke prevention. Patient will be placed on DAP for 21 days and then stop aspirin and continue Plavix. * Will defer thyroid abnormality management to primary team. * DVT prophylaxis: Patient on Lovenox 30 mg subcutaneously daily. * Recommend patient to follow-up with neurologist as outpatient within 1-2 weeks and cardiology team for event monitor * Discussed with patient's family ( and his grand-daughter) in detail and nurse. Time with Patient: Less than 30
--- NOTE | 2022-07-25 14:32 | P.PN ---
Subjective Progress Note Date: 07/25/22 HISTORY OF PRESENT ILLNESS: This is an 87 year old female with a previous medical history signi ficant for CAD post inferior wall myocardial infarction with chronic systolic heart failure, hypertension and hypertensive cardiovascular disease, hyperlipidemia, hypothyroidism, diabetes mellitus type 2 and Alzheimer dementia, history of cerebrovascular accident, patient was doing fine up until 6 days ago when she started to have a significant change in her mental status with increased aggressiveness and not able template very well and having hard time using her right upper extremity, at that time her who is the primary caregiver for her at this point in time Dr. his daughter in law who told him to take her to the ER at that time but he ended up taking the patient to the furnace combustion analyst and she was seen and evaluated by Dr. Myers the office and she was told it wasn't her heart at this point, apparently the patient almost fell out of bed yesterday and the she was shaking and having significant tremors in the right upper extremity associated with significant mental status changes he could not even move her up, therefore EMS was called and the patient was brought to demurs department at [facility] where she was evaluated by the emergency room physician as well as a nurse practitioner, patient did have laboratory values that came back normal she was having hypoglycemic episode, she was given treatment for that, and she was admitted to hospital for further evaluation and treatment patient became quite agitated overnight, she did receive lorazepam 1 mg IV push 1 and then she was placed on Xanax 0.25 mg orally twice every day, patient appears to be quite obtunded at the time of evaluation opens her eyes in response to verbal stimuli and moves all her extremities, Knight catheter was removed, and the patient will be monitored over the next 24 hours. 07/23/: Patient continued to be drowsy she did receive a dose of Xanax today in the morning, she opens her eyes in response to verbal suddenly, she is moving her upper and lower extremity is, however she appears to be generally weak, her the bedside, we will the patient to the monitored in the monitor showing sinus rhythm with left bundle branch block and possible ST elevation, a stat troponin was obtained, cardiology consultation, computed tomography scan of the brain without contrast, neurology consultation, continue aspirin 81 mg once every day, continue Lovenox, continue metoprolol ER 25 mg once every day, continue atorvastatin 40 mg once every day, follow-up with the patient very closely, 07/24: Patient is seen today on the Medr floor. Patient has been seen by cardiology with no evidence of ST elevation on EKG and will follow on an as- needed basis. Patient has been seen by neurology for probable subacute to chronic CVA in the left occipital lobe. EEG and MRI of the brain are pending. Plavix has been added for stroke prevention. Plan is for dual antiplatelet for 21 days and then stop aspirin and continue Plavix. Patient has been afebrile, heart rate in the 80s and 90s, blood pressure 127/80, pulse ox 93% on room air. quality assurance monitor chassis is a sinus rhythm. Potassium 3.4, CO2 2108, BUN 33 creatinine 1.2. Blood sugars running between 89 and 267. AST 65, ALT 73, alkaline phosphatase 281. Carotid ultrasound reveals 25% stenosis in both internal carotid arteries Echocardiogram is pending 07/25: MRI of the brain revealed few foci of acute and subacute ischemia within the medial aspect of the left occipital lobe. Remote infarct of the left MCA territory with encephalomalacia involving the left temporal, parietal and occipital lobes. Nonspecific white matter changes likely secondary to small vessel ischemic disease. No epileptiform discharge or seizure. Patient has been followed by neurology with recommendations for event monitor which patient's will follow-up as an outpatient for this. Also continue to recommend dual antiplatelet therapy for 21 days and then stop aspirin. Recommendations are for subacute rehab but the patient's family is making a rrangements for her to return home with family supervision. We'll plan to monitor patient overnight and plan for discharge tomorrow. REVIEW OF SYSTEMS: Constitutional: No documented fever, no chills, no night sweats. No weight change. No weakness, fatigue or lethargy. No daytime sleepiness. HEENT: No headache. No blurred vision or double vision, no loss of vision. No loss of Hearing, no ringing in the ears, no dizziness. No nasal drainage or congestion. No epistaxis. No sore throat. Lungs: No shortness of breath, no cough, no sputum production. No wheezing. Reports dyspnea with activity. Cardiovascular: No chest pain, no lower extremity edema. No palpitations. No paroxysmal nocturnal dyspnea. No orthopnea. No lightheadedness or dizziness. No syncopal episodes. Abdominal: Reports abdominal pain. No nausea, vomiting. No diarrhea. No constipation. No bloody or tarry stools reports loss of appetite. Genitourinary: No dysuria, increased frequency, urgency. No urinary retention. Musculoskeletal: No myalgias. No muscle weakness, positive for gait dysfunction, no frequent falls. No back pain. No neck pain. Integumentary: No wounds, no lesions. No rash or pruritus. No unusual bruising. No change in hair or nails. Neurologic: No aphasia. No facial droop. Positive for change in mentation. No head injury. No headache. No paralysis. No paresthesia. Psychiatric: No depression. No anxiety. No mood swings.Positive for Alzheimer dementia. Endocrine: Hypoglycemic episodes. PHYSICAL EXAMINATION: General: 87-year-old female laying down in bed appears to be drowsy opens her eyes in response will personally she does not appear to be in acute distress. HEENT: Head is atraumatic, normocephalic, pupils were equal round reactive to light and recommendation, extraocular muscle movement were intact, sclera nonicteric, conjunctivae were pale, mucous membranes of the mouth are somewhat dry. Neck: Supple, no JVP, normal carotid upstroke bilaterally, no lymphadenopathy. Chest: Decreased breath sounds at the bases, few rhonchi, no expiratory wheezes, no chest wall tenderness, no intercostal retractions. Heart: First heart sound is normal, second heart sounds normal, there is systolic murmur 2/6 located in the left sternal border. Abdomen: Soft, nontender, nondistended, positive bowel sounds. Extremities: There is no edema no calf tenderness DP +1 bilaterally. Neurologic examination: Patient is awake alert X1, cranial nerves II-12 appear grossly intact, muscle power were 4 out of 5 in upper extremities and 3 out of 5 in bilateral lower extremities, Babinski is extensor on the right side and flexor on the left side. ASSESSMENT AND PLAN: 1. Metabolic encephalopathy likely due to hypoglycemia rule out acute ischemic event. Consult with neurology appreciated. Patient has been started on Plavix and continue dual antiplatelet therapy with aspirin for 21 days and then discontinue aspirin. Continue patient on atorvastatin 40 mg once every day. MRI of the brain, EEG, echocardiogram are pending. 2. Sinus rhythm with left bundle branch block. patient does appear to have an underlying coronary artery disease, she was seen recently by cardiology, continue patient on aspirin 81 mg once every day, metoprolol ER 25 mg once every day, atorvastatin 40 mg once every day, we will obtain echocardiogram for evaluation of LV function. Cardiology has seen the patient and signed off. 3. History of CVA in the past continue patient on aspirin, atorvastatin 40 mg once every day for secondary stroke prevention. 4. Diabetes mellitus type 2, continue patient on Levemir 8 units at bedtime along with a slight scale insulin. 5. Alzheimer dementia. Appears to be getting worse. 6. Chronic kidney disease stage II. Stable at this time. 7. Generalized Anxiety disorder. Continue Xanax 0.5 mg orally twice every day as needed. 8. Hypothyroidism. Continue patient on Synthroid 75 g orally once every day. 9. Osteoarthritis, generalized. Stable at this time. 10. DVT prophylaxis. Lovenox 30 mg subcutaneously every 24 hours along with bilateral knee-high GILBERTO hose. 11. GI prophylaxis. Continue patient on Protonix 40 mg orally once every day. 12. DO NOT RESUSCITATE. 13. Guarded prognosis. DISCHARGE PLANNING Home on Sunday. Patient is followed by PT and OT. Impression and plan of care have been directed as dictated by the signing physician. Shavon Ramos nurse practitioner acting as scribe for signing physician. Objective - Vital Signs Vital signs: Vital Signs Temp 98.6 F 07/25/22 09:03 Pulse 75 07/25/22 09:50 Resp 18 07/25/22 09:50 BP 139/82 07/25/22 09:03 Pulse Ox 96 07/25/22 09:03 FiO2 Intake & Output 07/24/22 07/25/22 07/25/22 18:59 06:59 18:59 Other: Voiding Method Toilet Toilet Diaper Diaper Incontinent Incontinent # Voids 0 1 # Bowel Movements 1 1 1 - Labs CBC & Chem 7: 07/24/22 04:53 07/24/22 04:53 Labs: Abnormal Lab Results - Last 24 Hours (Table) 07/24/22 07/24/22 07/25/22 Range/Units 16:16 20:48 06:08 POC Glucose (mg/dL) 122 H 177 H 204 H (70-110) mg/dL 07/25/22 Range/Units 11:03 POC Glucose (mg/dL) 114 H (70-110) mg/dL Microbiology - Last 24 Hours (Table) 07/21/22 13:05 Blood Culture - Preliminary Blood No Growth after 72 hours 07/21/22 13:05 Blood Culture - Preliminary Blood No Growth after 72 hours
[2022-07-25 16:15] LABS: Glucose,Whole Blood 222 mg/dL (70-110)
[2022-07-25 21:44] LABS: Glucose,Whole Blood 269 mg/dL (70-110)
[2022-07-25] MEDS: INSULIN DETEMIR (LEVEMIR) 100 UNIT/ML SYR SQ SCH (22:06)
[2022-07-25] MEDS: MIRTAZAPINE 15 MG TAB PO SCH (22:08)
[2022-07-25] MEDS: ATORVASTATIN 40 MG TAB PO SCH (22:08)
[2022-07-26 06:19] LABS: Glucose,Whole Blood 120 mg/dL (70-110)
[2022-07-26] MEDS: LEVOTHYROXINE 75 MCG TAB PO SCH (06:38)
[2022-07-26] MEDS: INSULIN ASPART (NovoLOG) 100 UNIT/ML VIAL SQ SCH ×2 (06:39→11:31)
[2022-07-26] MEDS: ENOXAPARIN 30 MG/0.3 ML SYRINGE SQ SCH (10:24)
[2022-07-26] MEDS: SPIRONOLACTONE 25 MG TAB PO SCH (10:25)
[2022-07-26] MEDS: CLOPIDOGREL 75 MG TAB PO SCH (10:25)
[2022-07-26] MEDS: ASPIRIN 81 MG PO SCH (10:25)
[2022-07-26] MEDS: LOSARTAN 25 MG TAB PO SCH (10:25)
[2022-07-26] MEDS: FAMOTIDINE 20 MG TAB PO SCH (10:25)
[2022-07-26] MEDS: METOPROLOL SUCCINATE (ER) 25 MG TAB.ER.24H PO SCH (10:25)
--- NOTE | 2022-07-26 11:11 | P.DS ---
Providers Date of admission: 07/21/22 17:11 Expected date of discharge: 07/26/22 Attending physician: Mayela Dasilva Consults: 07/23/22 10:19 Consult Physician Routine Consulting Provider: Fannie Gonsalez Consult Reason/Comments: CVA Do you want consulting provider notified?: Yes Primary care physician: Mayela Dasilva Hospital Course: HISTORY OF PRESENT ILLNESS: This is an 87 year old female with a previous medical history significant for CAD post inferior wall myocardial infarction with chronic systolic heart failure, hypertension and hypertensive cardiovascular disease, hyperlipidemia, hypothyroidism, diabetes mellitus type 2 and Alzheimer dementia, history of cerebrovascular accident, patient was doing fine up until 6 days ago when she started to have a significant change in her mental status with increased aggressiveness and not able template very well and having hard time using her right upper extremity, at that time her who is the primary caregiver for her at this point in time Dr. his daughter in law who told him to take her to the ER at that time but he ended up taking the patient to the government minister and she was seen and evaluated by Dr. Myers the office and she was told it wasn't her heart at this point, apparently the patient almost fell out of bed yesterday and the she was shaking and having significant tremors in the right upper extremity associated with significant mental status changes he could not even move her up, therefore EMS was called and the patient was brought to demurs department at [facility] where she was evaluated by the emergency room physician as well as a nurse practitioner, patient did have laboratory values that came back normal she was having hypoglycemic episode, she was given treatment for that, and she was admitted to hospital for further evaluation and treatment patient became quite agitated overnight, she did receive lorazepam 1 mg IV push 1 and then she was placed on Xanax 0.25 mg orally twice every day, patient appears to be quite obtunded at the time of evaluation opens her eyes in response to verbal stimuli and moves all her extremities, Knight catheter was removed, and the patient will be monitored over the next 24 hours. 07/23/: Patient continued to be drowsy she did receive a dose of Xanax today in the morning, she opens her eyes in response to verbal suddenly, she is moving her upper and lower extremity is, however she appears to be generally weak, her the bedside, we will the patient to the monitored in the monitor showing sinus rhythm with left bundle branch block and possible ST elevation, a stat troponin was obtained, cardiology consultation, computed tomography scan of the brain without contrast, neurology consultation, continue aspirin 81 mg once pita ry day, continue Lovenox, continue metoprolol ER 25 mg once every day, continue atorvastatin 40 mg once every day, follow-up with the patient very closely, 07/24: Patient is seen today on the [facility] floor. Patient has been seen by cardiology with no evidence of ST elevation on EKG and will follow on an as- needed basis. Patient has been seen by neurology for probable subacute to chronic CVA in the left occipital lobe. EEG and MRI of the brain are pending. Plavix has been added for stroke prevention. Plan is for dual antiplatelet for 21 days and then stop aspirin and continue Plavix. Patient has been afebrile, heart rate in the 80s and 90s, blood pressure 127/80, pulse ox 93% on room air. repossession agent is a sinus rhythm. Potassium 3.4, CO2 2108, BUN 33 creatinine 1.2. Blood sugars running between 89 and 267. AST 65, ALT 73, alkaline phosphatase 281. Carotid ultrasound reveals 25% stenosis in both internal carotid arteries Echocardiogram is pending 07/25: MRI of the brain revealed few foci of acute and subacute ischemia within the medial aspect of the left occipital lobe. Remote infarct of the left MCA territory with encephalomalacia involving the left temporal, parietal and occipital lobes. Nonspecific white matter changes likely secondary to small vessel ischemic disease. No epileptiform discharge or seizure. Patient has been followed by neurology with recommendations for event monitor which patient's will follow-up as an outpatient for this. Also continue to recommend dual antiplatelet therapy for 21 days and then stop aspirin. Recommendations are for subacute rehab but the patient's family is making arrangements for her to return home with family supervision. We'll plan to monitor patient overnight and plan for discharge tomorrow. 07/26: There are no new concerns that happened overnight. Patient has been afebrile, heart rate 66, blood pressure 125/84. White blood glucose running between 120 and 269. Discharge plan remains to return home with family. Patient will be discharged home today once all arrangements are completed. DISCHARGE DIAGNOSES 1. Metabolic encephalopathy secondary to acute to subacute ischemic stroke with history of multiple strokes in the past. 2. Sinus rhythm with left bundle branch block. 3. History of CVA in the past 4. Diabetes mellitus type 2 5. Alzheimer dementia. 6. Chronic kidney disease stage II. 7. Generalized Anxiety disorder. 8. Hypothyroidism. 9. Osteoarthritis, generalized. DISCHARGE PLANNING Home on Sunday. Greater than 35 minutes was utilized and coordinating patient's discharge. Impression and plan of care have been directed as dictated by the signing physician. Shavon Ramos nurse practitioner acting as scribe for signing physician. Patient Condition at Discharge: Stable Plan - Discharge Summary Discharge Rx Participant: No New Discharge Prescriptions: New Aspirin 81 mg PO DAILY 21 Days tab Clopidogrel [Plavix] 75 mg PO DAILY #30 tab Continue Levothyroxine Sodium [Synthroid] 75 mcg PO DAILY Losartan [Cozaar] 25 mg PO DAILY Metoprolol Succinate (ER) [Toprol XL] 25 mg PO DAILY Atorvastatin [Lipitor] 40 mg PO HS tab Mirtazapine 7.5 mg PO HS Insulin Aspart (Niacinamide) [Fiasp 100 Unit/ml Flextouch Pen] 3 units SQ W/SUPPER@1800 Insulin Aspart (Niacinamide) [Fiasp 100 Unit/ml Flextouch Pen] 5 units SQ W/LUNCH@1400 Insulin Aspart (Niacinamide) [Fiasp 100 Unit/ml Flextouch Pen] 5 - 6 units SQ W/BRKFST@1000 Insulin Aspart (Niacinamide) [Fiasp 100 Unit/ml Flextouch Pen] See Protocol SQ DIRECTED Insulin Degludec [Tresiba Flextouch U-100 Pen] 8 unit SQ HS@1800 Spironolactone [Aldactone] 25 mg PO DAILY Discontinued Aspirin 81 mg PO DAILY #30 chew Discharge Medication List Levothyroxine Sodium [Synthroid] 75 mcg PO DAILY 07/12/20 [History] Losartan [Cozaar] 25 mg PO DAILY 07/12/20 [History] Metoprolol Succinate (ER) [Toprol XL] 25 mg PO DAILY 07/12/20 [History] Atorvastatin [Lipitor] 40 mg PO HS tab 07/23/20 [Rx] Mirtazapine 7.5 mg PO HS 08/05/20 [History] Insulin Aspart (Niacinamide) [Fiasp 100 Unit/ml Flextouch Pen] 3 units SQ W/SUPPER@1800 07/21/22 [History] Insulin Aspart (Niacinamide) [Fiasp 100 Unit/ml Flextouch Pen] 5 - 6 units SQ W/BRKFST@1000 07/21/22 [History] Insulin Aspart (Niacinamide) [Fiasp 100 Unit/ml Flextouch Pen] 5 units SQ W/LUNCH@1400 07/21/22 [History] Insulin Aspart (Niacinamide) [Fiasp 100 Unit/ml Flextouch Pen] See Protocol SQ DIRECTED 07/21/22 [History] Insulin Degludec [Tresiba Flextouch U-100 Pen] 8 unit SQ HS@1800 07/21/22 [History] Spironolactone [Aldactone] 25 mg PO DAILY 07/21/22 [History] Aspirin 81 mg PO DAILY 21 Days tab 07/26/22 [Rx] Clopidogrel [Plavix] 75 mg PO DAILY #30 tab 07/26/22 [Rx] Follow up Appointment(s)/Referral(s): Mayela Dasilva MD [Primary Care Provider] - 1 Week Discharge Disposition: HOME WITH HOME HEALTH SERVICES
[2022-07-26 11:17] LABS: Glucose,Whole Blood 132 mg/dL (70-110)
[2022-07-26 14:38] VITALS: BP 126/74; PULSE 75; RESP 22; TEMP 98.3
== END 2022-07-26 15:02 | disposition home health service (06) | DRG 64 ==
LOC: EC 11:21 → 4SSUR 17:11
PROVIDERS: ADMIT Internal Medicine; ATTEND Internal Medicine
PROC: 4A10X4Z Monitoring of Central Nervous Electrical Activity, External Approach (ICD-10-PCS; principal; 2022-07-24)
DX: I63.59 Cerebral infarction due to unspecified occlusion or stenosis of other cerebral artery (principal); G93.41 Metabolic encephalopathy; F01.B4 Vascular dementia, moderate, with anxiety; I50.22 Chronic systolic (congestive) heart failure; I13.0 Hypertensive heart and chronic kidney disease with heart failure and stage 1 through stage 4 chronic kidney disease, or unspecified chronic kidney disease; F02.B4 Dementia in other diseases classified elsewhere, moderate, with anxiety; N39.0 Urinary tract infection, site not specified; Z20.822 Contact with and (suspected) exposure to COVID-19; G30.9 Alzheimer's disease, unspecified; E11.649 Type 2 diabetes mellitus with hypoglycemia without coma; E03.9 Hypothyroidism, unspecified; E11.42 Type 2 diabetes mellitus with diabetic polyneuropathy; E86.0 Dehydration; I44.7 Left bundle-branch block, unspecified; E11.22 Type 2 diabetes mellitus with diabetic chronic kidney disease; Z79.4 Long term (current) use of insulin; Z66 Do not resuscitate; Z79.890 Hormone replacement therapy; T68.XXXA Hypothermia, initial encounter; G93.89 Other specified disorders of brain; I69.320 Aphasia following cerebral infarction; N18.2 Chronic kidney disease, stage 2 (mild); I25.10 Atherosclerotic heart disease of native coronary artery without angina pectoris; K21.9 Gastro-esophageal reflux disease without esophagitis; E78.5 Hyperlipidemia, unspecified; I63.512 Cerebral infarction due to unspecified occlusion or stenosis of left middle cerebral artery; R41.3 Other amnesia; H93.13 Tinnitus, bilateral; I65.23 Occlusion and stenosis of bilateral carotid arteries; Z79.899 Other long term (current) drug therapy; E03.8 Other specified hypothyroidism; F41.1 Generalized anxiety disorder; H53.40 Unspecified visual field defects; M15.9 Polyosteoarthritis, unspecified; I08.3 Combined rheumatic disorders of mitral, aortic and tricuspid valves; R74.01 Elevation of levels of liver transaminase levels; I25.2 Old myocardial infarction; Z90.710 Acquired absence of both cervix and uterus; Z90.411 Acquired partial absence of pancreas; Z88.7 Allergy status to serum and vaccine; Z79.82 Long term (current) use of aspirin; Z85.42 Personal history of malignant neoplasm of other parts of uterus; Z85.07 Personal history of malignant neoplasm of pancreas; Z92.3 Personal history of irradiation; Z87.440 Personal history of urinary (tract) infections; Z83.3 Family history of diabetes mellitus; Z82.0 Family history of epilepsy and other diseases of the nervous system; Z98.42 Cataract extraction status, left eye; Z98.41 Cataract extraction status, right eye; Z79.02 Long term (current) use of antithrombotics/antiplatelets
CPT/HCPCS: 36415; 70450; 70551; 71046; 80053; 80306; 81001; 82140; 82533; 82550; 83605; 83880; 84439; 84443; 84481; 84484; 85025; 85610; 85730; 87040; 87636; 93005; 93880; 95816; 96361; 96374; 96375; 99285

== ENCOUNTER → 2022-07-31 | Outpatient (CLI) | payer MEDICARE ==
--- NOTE | 2022-07-31 16:35 | US ---
EXAMINATION TYPE: US venous doppler duplex LE DATE OF EXAM: 07/31/2022 4:27 PM COMPARISON: NONE CLINICAL HISTORY: R60.0 EDEMA. SIDE PERFORMED: Bilateral TECHNIQUE: The lower extremity deep venous system is examined utilizing real time linear array sonog candida with graded compression, doppler sonography and color-flow sonography. VESSELS IMAGED: Common Femoral Vein Deep Femoral Vein Greater Saphenous Vein * Femoral Vein Popliteal Vein Small Saphenous Vein * Proximal Calf Veins (* superficial vessels) Grayscale, color doppler, spectral doppler imaging performed of the deep veins of the lower extremiti es. There is normal flow, compressibility, vascular waveforms. Right Leg: Negative for DVT Left Leg: Negative for DVT Simple elongated fluid collection within the right popliteal fossa measuring 3.6 x 0.5 x 2.8 cm witho ut internal color flow. IMPRESSION: 1. No ultrasound evidence for deep venous thrombosis of the bilateral lower extremities. 2. Right Centeno's cyst.
== END | disposition home or self-care (01) ==
LOC: RADUSWWP 15:50
PROVIDERS: ATTEND Internal Medicine
DX: M71.21 Synovial cyst of popliteal space [Baker], right knee (principal); R60.0 Localized edema
CPT/HCPCS: 93970